=== PATIENT | male | born 1950 | race Hispanic/Latino ===

== ENCOUNTER 2016-10-13 07:07 | Emergency (ER) | payer SELFPAY ==
[2016-10-13 07:18] VITALS: BP 134/95
[2016-10-13] MEDS ORDERED: FLEXERIL PO ONE (07:49)
--- NOTE | 2016-10-13 08:24 | Emergency Department Report ---
ED Neck Pain/Injury HPI - General Chief Complaint: Extremity Injury, Upper Stated Complaint: NECK AND SHOULDER PAIN Time Seen by Provider: 10/13/16 07:37 Source: patient, family Mode of arrival: Ambulatory Limitations: No Limitations - History of Present Illness Initial Comments: PT c/o neck pain x 1 month. PT states both sides of his neck hurt and the pain radiates down into his shoulders. PT states prior to the onset of pain, he was moving around furniture. PT rates his current pain at 3/10. PT states he has been taking advil twice a day and using biofreeze. PT reports mild relief with advil. PT denies any weakness or numbness down his upper ext. MD Complaint: neck pain Onset/Timin -: Gradual, month(s) Place: home Radiation: right lateral, left lateral, right shoulder, left shoulder Severity: moderate Severity scale (0 -10): 3 Quality: sharp Consistency: constant Context: lifting Associated Symptoms: none. denies: numbness, tingling, weakness, difficulty walking Treatments Prior to Arrival: Ibuprofen - Related Data Home Medications Medication Instructions Recorded Confirmed Last Taken amLODIPine [Norvasc] 5 mg PO DAILY 11/03/15 11/03/15 11/02/15 Previous Rx's Medication Instructions Recorded Last Taken Type Folic Acid 1 tab PO QDAY #30 tab 11/04/15 Unknown Rx Multivitamin Tab [Multiple Vitamin 1 each PO ONCE #30 tablet 11/04/15 Unknown Rx TAB (Theragran)] Thiamine [Vitamin B-1] 100 mg PO QDAY #30 tablet 11/04/15 Unknown Rx Cyclobenzaprine [Flexeril] 10 mg PO BID PRN #15 tablet 10/13/16 Unknown Rx Ibuprofen [Motrin] 600 mg PO Q8H PRN #15 tablet 10/13/16 Unknown Rx Allergies Allergy/AdvReac Type Severity Reaction Status Date / Time No Known Allergies Allergy Verified 11/03/15 11:16 ED Review of Systems ROS: Stated complaint: NECK AND SHOULDER PAIN Other details as noted in HPI Comment: All other systems reviewed and negative Constitutional: denies: chills, fever Respiratory: other (pt states he had bronchitis a few months ago ). denies: cough, shortness of breath Cardiovascular: denies: chest pain Endocrine: denies: unexplained weight loss Gastrointestinal: denies: abdominal pain Musculoskeletal: as per HPI ED Past Medical Hx - Past Medical History Hx Hypertension: Yes Hx Congestive Heart Failure: No Hx Diabetes: No Hx Asthma: No Hx COPD: No - Surgical History Past Surgical History?: No - Social History Smoking Status: Current Every Day Smoker Substance Use Type: Alcohol - Medications Home Medications: Home Medications Medication Instructions Recorded Confirmed Last Taken Type amLODIPine [Norvasc] 5 mg PO DAILY 11/03/15 11/03/15 11/02/15 History Folic Acid 1 tab PO QDAY #30 tab 11/04/15 Unknown Rx Multivitamin Tab [Multiple Vitamin 1 each PO ONCE #30 tablet 11/04/15 Unknown Rx TAB (Theragran)] Thiamine [Vitamin B-1] 100 mg PO QDAY #30 tablet 11/04/15 Unknown Rx Cyclobenzaprine [Flexeril] 10 mg PO BID PRN #15 tablet 10/13/16 Unknown Rx Ibuprofen [Motrin] 600 mg PO Q8H PRN #15 tablet 10/13/16 Unknown Rx ED Physical Exam - General Limitations: No Limitations General appearance: alert, in no apparent distress, other (thin ) - Head Head exam: Present: atraumatic, normocephalic, normal inspection - Eye Eye exam: Present: normal appearance. Absent: conjunctival injection - ENT ENT exam: Present: normal exam, normal external ear exam - Neck Neck exam: Present: normal inspection, tenderness, other (decreased lateral rotation [place]. tendernes to [place] paraspinal muscles and trapezius ). Absent: full ROM, lymphadenopathy - Respiratory Respiratory exam: Present: other (course [place] ). Absent: respiratory distress, wheezes, accessory muscle use - Cardiovascular Cardiovascular Exam: Present: regular rate, normal rhythm, normal heart sounds - GI/Abdominal GI/Abdominal exam: Present: soft. Absent: tenderness - Extremities Exam Extremities exam: Present: normal inspection, full ROM, normal capillary refill. Absent: tenderness, joint swelling - Expanded Upper Extremity Exam Left Shoulder Exam: Present: normal inspection, full ROM Upper Arm exam: Present: normal inspection Elbow exam: Present: normal inspection, full ROM Forearm Wrist exam: Present: normal inspection, full ROM Hand Wrist exam: Present: normal inspection, full ROM Neurosensory exam: Present: radial nerve intact, ulnar nerve intact Vascular: Present: normal capillary refill, radial pulse. Absent: vascular compromise Right Shoulder Exam: Present: normal inspection, full ROM Upper Arm exam: Present: normal inspection, full ROM Elbow exam: Present: normal inspection, full ROM Forearm Wrist exam: Present: normal inspection, full ROM Hand Wrist exam: Present: normal inspection, full ROM Neurosensory exam: Present: radial nerve intact, ulnar nerve intact Vascular: Present: normal capillary refill, radial pulse. Absent: vascular compromise - Back Exam Back exam: Present: normal inspection, full ROM. Absent: tenderness, CVA tenderness (R), CVA tenderness (L), muscle spasm, paraspinal tenderness, vertebral tenderness - Neurological Exam Neurological exam: Present: alert, oriented X3 - Psychiatric Psychiatric exam: Present: normal affect, normal mood - Skin Skin exam: Present: warm, dry, intact, normal color. Absent: rash ED Course Vital Signs 10/13/16 07:16 Temperature 98 F Pulse Rate 92 H Respiratory 16 Rate Blood Pressure 134/95 O2 Sat by Pulse 99 Oximetry - Reevaluation(s) Reevaluation #1: 10/13/16 09:46 PT states he is feeling better sp Flexeril. PT and his are aware of abnormal XR findings and need to follow up with a Neurosurgeon. PT aware he might need further outpatient imaging like MRI to further evaluate his cervical spine. PT's states that pt will able to follow up in Dec once his medicare goes into effect. Reviewed strict return precautions. pt has no questions at this time. - Pulse Oximetry Interpretation Digit-Finger Initial Pulse Oximetry Readin Actions Taken: none ED Medical Decision Making - Radiology Data Radiology results: report reviewed, image reviewed XR C-spine- severe DDD - Differential Diagnosis cervical rad, oa, ddd, strain Critical Care Time: No Critical care attestation.: If time is entered above; I have spent that time in minutes in the direct care of this critically ill patient, excluding procedure time. ED Disposition Clinical Impression: DDD (degenerative disc disease), cervical, Cervical radiculopathy Disposition: - TO HOME OR SELFCARE Is pt being admited?: No Does the pt Need Aspirin: No Condition: Stable Instructions: Cervical Spine Strain (ED), Cervical Radiculopathy (ED), Degenerative Disc Disease (ED) Additional Instructions: No driving or ETOH after taking Flexeril Follow up with Neurosurgery Prescriptions: Cyclobenzaprine [Flexeril] 10 mg PO BID PRN #15 tablet PRN Reason: Pain Ibuprofen [Motrin] 600 mg PO Q8H PRN #15 tablet PRN Reason: Pain Referrals: PRIMARY CARE, [Primary Care Provider] - 3-5 Days BYRON MATAMOROS JR, MD [Staff Physician] - 3-5 Days [facility] [Outside] - 3-5 Days [facility] [Outside] - 3-5 Days HIRO GRACE MD [Staff Physician] - 3-5 Days Time of Disposition: 09:51
--- NOTE | 2016-10-13 09:27 | XRay Report ---
FINAL REPORT EXAM: XR SPINE CERVICAL 2-3V HISTORY: pain x 1 month after moving furniture TECHNIQUE: 3 views of the cervical spine. PRIORS: None FINDINGS: Multilevel degenerative changes. Disc space narrowing and endplate osteophytes from C3-T1. Facet arthrosis throughout the cervical spine. No focal malalignment. No soft tissue swelling. Carotid bifurcation calcifications on the left. IMPRESSION: 1. Degenerative changes.
== END 2016-10-13 10:00 | disposition home or self-care (01) ==
LOC: ED 07:07
DX: M50.10 Cervical disc disorder with radiculopathy, unspecified cervical region (principal); I10 Essential (primary) hypertension; F17.210 Nicotine dependence, cigarettes, uncomplicated
CPT/HCPCS: 72040; 99283

== ENCOUNTER 2021-01-30 12:03 | Emergency (ER) | payer MEDICARE, OTHER ==
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
[2021-01-30 13:18] LABS: Basophils # (Auto) 0.1 K/mm3 (0.0-0.1); Basophils % (Auto) 0.6 % (0.0-1.8); Eosinophils # (Auto) 0.2 K/mm3 (0.0-0.4); Eosinophils % (Auto) 1.5 % (0.0-4.3); Hematocrit 40.9 % (35.5-45.6); Hemoglobin 13.9 gm/dl (11.8-15.2); Lymphocytes # (Auto) 2.1 K/mm3 (1.2-5.4); Lymphocytes % (Auto) 19.2 % (13.4-35.0); Mean Corpuscular HGB Conc 34 % (32-34); Mean Corpuscular Volume 99 fl (84-94); Monocytes # (Auto) 1.1 K/mm3 (0.0-0.8); Monocytes % (Auto) 10.3 % (0.0-7.3); Platelet Count 226 K/mm3 (140-440); Red Blood Count 4.11 M/mm3 (3.65-5.03); Red Cell Distribution Width 13.1 % (13.2-15.2)
[2021-01-30 13:27] LABS: INR 0.93 (0.87-1.13)
[2021-01-30 13:28] LABS: Partial Thromboplastin Time 27.5 Sec. (24.2-36.6)
[2021-01-30 13:37] LABS: Alanine Aminotransferase 52 units/L (7-56); Albumin 4.5 g/dL (3.9-5); Blood Urea Nitrogen 14 mg/dL (9-20); Calcium 8.8 mg/dL (8.4-10.2); Hemolysis Index 4
[2021-01-30 14:08] LABS: BUN/Creatinine Ratio 23
[2021-01-30] MEDS ORDERED: LACTATED RINGERS 1,000 ML IV ONE ×3 (14:10→18:43)
[2021-01-30 14:21] LABS: Amphetamine Screen,Urine Negative; Benzodiazepines Screen,Urine Negative; Cannabinoid Screen,Urine Negative; Cocaine Screen,Urine Negative; Methadone Screen,Urine Negative; Opiate Screen,Urine Negative
[2021-01-30] MEDS ORDERED: LIDOCAINE (1%) 10 MG/1 ML VIAL 20 ML MDV INFILTRATI ONE (15:00)
[2021-01-30] MEDS ORDERED: SODIUM CHLORIDE 0.9% IRR 500 ML BOTTLE IR ONE (15:04)
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
[2021-01-30] MEDS ORDERED: SODIUM CHLORIDE 0.9% 500 ML 500 ML IV ONE (17:41)
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
[2021-01-30] MEDS ORDERED: ONDANSETRON 4 MG/2 ML INJ IV ONE (18:43)
[2021-01-30 19:16] VITALS: BP 126/92
== END 2021-01-30 19:17 ==
LOC: ED 12:03
DX: S22.42XA Multiple fractures of ribs, left side, initial encounter for closed fracture (principal); S22.20XA Unspecified fracture of sternum, initial encounter for closed fracture; S42.002A Fracture of unspecified part of left clavicle, initial encounter for closed fracture; S36.029A Unspecified contusion of spleen, initial encounter; F10.129 Alcohol abuse with intoxication, unspecified; J93.9 Pneumothorax, unspecified; Z87.891 Personal history of nicotine dependence; I10 Essential (primary) hypertension; V47.0XXA Car driver injured in collision with fixed or stationary object in nontraffic accident, initial encounter; Y93.89 Activity, other specified; Y92.89 Other specified places as the place of occurrence of the external cause; Y99.8 Other external cause status
CPT/HCPCS: 32551; 36415; 36430; 70450; 71045; 71260; 72125; 73030; 73090; 73502; 74177; 80053; 80307; 82805; 85025; 85610; 85730; 86850; 86900; 86901; 86920; 96360; 96361; 99291; 99292; J2405; J7040; J7120; P9016; Q9967; 80320; G0480

== ENCOUNTER 2021-05-08 15:04 | Inpatient (IN) | payer MEDICARE ==
[2021-05-08] MEDS ORDERED: SODIUM CHLORIDE 0.9% 1000 ML 1,000 ML IV ONE (15:29)
[2021-05-08] MEDS ORDERED: CLINDAMYCIN 600 MG/50 mL 600 MG/50 ML BAG IV ONE (15:30)
[2021-05-08 16:37] LABS: Hematocrit 38.2 % (35.5-45.6); Hemoglobin 12.1 gm/dl (11.8-15.2); Mean Corpuscular HGB Conc 32 % (32-34); Mean Corpuscular Volume 91 fl (84-94); Platelet Count 373 K/mm3 (140-440); Red Blood Count 4.19 M/mm3 (3.65-5.03); Red Cell Distribution Width 15.2 % (13.2-15.2)
[2021-05-08 16:47] LABS: Alanine Aminotransferase 9 units/L (7-56); Albumin 4.2 g/dL (3.9-5); BUN/Creatinine Ratio 26; Blood Urea Nitrogen 21 mg/dL (9-20); Calcium 9.7 mg/dL (8.4-10.2); Hemolysis Index 1
[2021-05-08 16:49] LABS: INR 0.97 (0.87-1.13)
[2021-05-08 17:18] LABS: Band Neutrophils # (Manual) 0.4 K/mm3; Basophils % (Manual) 0 % (0.0-1.8); Eosinophils % (Manual) 0 % (0.0-4.3); Large Platelets Few; Platelet Estimate Consistent w Auto; RBC Morphology Normal; Total Cells Counted 100
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
--- NOTE | 2021-05-08 23:47 | History and Physical Report ---
History of Present Illness Date of examination: 05/08/21 Date of admission: 05/08/21 19:00 Chief complaint: Left renal cell for 3 months History of present illness: 71-year-old male who looks cachectic and a very poor historian comes in for left foot ulcer for 3 months. Patient states that his helps him with mobility to the restroom and other daily activities. Mostly bedridden. Patient has a history of hyperlipidemia and coronary artery disease and hypertension. Patient has rare black also on the heel of the foot on the proximal calcaneus to the distal calcaneus about 6 cm x 6 cm at the stage III ulcer. No fever. Pain is present. Pain is about 6-7 on a scale of 1-10. Movement is an exacerbating factor. - Past Medical History --Hypertension: Yes --CVA: Yes --Arthritis: Yes --Additional medical history: AFIB - Surgical History Past Surgical History?: Yes Additional Surgical History: rt foot - Social History --Smoking Status: Current Every Day Smoker --Substance Use Type: Alcohol - Medications Home Medications: Home Medications Medication Instructions Recorded Confirmed Last Taken Type Aspirin EC [Halfprin EC] 81 mg PO QDAY #30 tablet 06/02/20 05/08/21 Unknown Rx AtorvaSTATin [Lipitor] 40 mg PO QHS #30 tablet 06/02/20 05/08/21 Unknown Rx Clopidogrel [Plavix] 75 mg PO QDAY 20 Days #20 tablet 06/02/20 05/08/21 Unknown Rx labetaloL [Labetalol 100mg TAB] 100 mg PO BID #60 tablet 06/02/20 05/08/21 Unknown Rx Gabapentin [Neurontin] 300 mg PO BID 05/08/21 05/08/21 Unknown History Review of Systems ROS: Stated complaint: Left heel pain Other details as noted in HPI Constitutional: denies: chills, fever Eyes: denies: eye pain, eye discharge, vision change ENT: denies: ear pain, throat pain Respiratory: denies: cough, shortness of breath, wheezing Cardiovascular: denies: chest pain, palpitations Endocrine: no symptoms reported Gastrointestinal: denies: abdominal pain, nausea, diarrhea Genitourinary: denies: urgency, dysuria Musculoskeletal: denies: back pain, joint swelling, arthralgia Skin: denies: rash, lesions Neurological: denies: headache, weakness, paresthesias Psychiatric: denies: anxiety, depression Hematological/Lymphatic: denies: easy bleeding, easy bruising Medications and Allergies Allergies Allergy/AdvReac Type Severity Reaction Status Date / Time No Known Allergies Allergy Verified 05/08/21 15:16 Home Medications Medication Instructions Recorded Confirmed Last Taken Type Aspirin EC [Halfprin EC] 81 mg PO QDAY #30 tablet 06/02/20 05/08/21 Unknown Rx AtorvaSTATin [Lipitor] 40 mg PO QHS #30 tablet 06/02/20 05/08/21 Unknown Rx Clopidogrel [Plavix] 75 mg PO QDAY 20 Days #20 tablet 06/02/20 05/08/21 Unknown Rx labetaloL [Labetalol 100mg TAB] 100 mg PO BID #60 tablet 06/02/20 05/08/21 Unknown Rx Gabapentin [Neurontin] 300 mg PO BID 05/08/21 05/08/21 Unknown History Exam - Constitutional Vitals: Temp Pulse Resp BP Pulse Ox 98.8 F 92 H 20 118/67 98 05/08/21 15:29 05/08/21 22:01 05/08/21 22:01 05/08/21 22:01 05/08/21 22:01 General appearance: Present: no acute distress, well-nourished - EENT Eyes: Present: PERRL ENT: hearing intact, clear oral mucosa - Neck Neck: Present: supple, normal ROM - Respiratory Respiratory effort: normal Respiratory: bilateral: CTA - Cardiovascular Heart rate: 78 Rhythm: regular Heart Sounds: Present: S1 & S2. Absent: rub, click - Extremities Extremities: pulses symmetrical, No edema, abnormal (Left heel ulcer with black eschar on the heel from the proximal calcaneus to the distal calcaneus. 6 cm x 6 cm deep ulcer.) Extremity abnormal: ulceration (Dark ulcer on the heel left heel of the foot), other (Female now) Peripheral Pulses: within normal limits - Abdominal General gastrointestinal: Present: soft, non-tender, non-distended, normal bowel sounds Male genitourinary: Present: normal - Integumentary Integumentary: Present: clear, warm, dry - Musculoskeletal Musculoskeletal: gait normal, strength equal bilaterally - Psychiatric Psychiatric: appropriate mood/affect, intact judgment & insight - Neurologic Neurologic: CNII-XII intact, moves all extremities Results - Labs CBC & Chem 7: 05/08/21 16:04 05/08/21 16:04 Labs: Laboratory Last Values WBC 20.7 K/mm3 (4.5-11.0) H 05/08/21 16:04 RBC 4.19 M/mm3 (3.65-5.03) 05/08/21 16:04 Hgb 12.1 gm/dl (11.8-15.2) 05/08/21 16:04 Hct 38.2 % (35.5-45.6) 05/08/21 16:04 MCV 91 fl (84-94) 05/08/21 16:04 MCH 29 pg (28-32) 05/08/21 16:04 MCHC 32 % (32-34) 05/08/21 16:04 RDW 15.2 % (13.2-15.2) 05/08/21 16:04 Plt Count 373 K/mm3 (140-440) 05/08/21 16:04 Add Manual Diff Complete 05/08/21 16:04 Total Counted 100 05/08/21 16:04 Seg Neuts % (Manual) 87.0 % (40.0-70.0) H 05/08/21 16:04 Band Neutrophils % 2.0 % 05/08/21 16:04 Lymphocytes % (Manual) 5.0 % (13.4-35.0) L 05/08/21 16:04 Reactive Lymphs % (Man) 0 % 05/08/21 16:04 Monocytes % (Manual) 6.0 % (0.0-7.3) 05/08/21 16:04 Eosinophils % (Manual) 0 % (0.0-4.3) 05/08/21 16:04 Basophils % (Manual) 0 % (0.0-1.8) 05/08/21 16:04 Metamyelocytes % 0 % 05/08/21 16:04 Myelocytes % 0 % 05/08/21 16:04 Promyelocytes % 0 % 05/08/21 16:04 Blast Cells % 0 % 05/08/21 16:04 Nucleated RBC % Not Reportable 05/08/21 16:04 Seg Neutrophils # Man 18.0 K/mm3 (1.8-7.7) H 05/08/21 16:04 Band Neutrophils # 0.4 K/mm3 05/08/21 16:04 Lymphocytes # (Manual) 1.0 K/mm3 (1.2-5.4) L 05/08/21 16:04 Abs React Lymphs (Man) 0.0 K/mm3 05/08/21 16:04 Monocytes # (Manual) 1.2 K/mm3 (0.0-0.8) H 05/08/21 16:04 Eosinophils # (Manual) 0.0 K/mm3 (0.0-0.4) 05/08/21 16:04 Basophils # (Manual) 0.0 K/mm3 (0.0-0.1) 05/08/21 16:04 Metamyelocytes # 0.0 K/mm3 05/08/21 16:04 Myelocytes # 0.0 K/mm3 05/08/21 16:04 Promyelocytes # 0.0 K/mm3 05/08/21 16:04 Blast Cells # 0.0 K/mm3 05/08/21 16:04 WBC Morphology Not Reportable 05/08/21 16:04 Hypersegmented Neuts Not Reportable 05/08/21 16:04 Hyposegmented Neuts Not Reportable 05/08/21 16:04 Hypogranular Neuts Not Reportable 05/08/21 16:04 Smudge Cells Not Reportable 05/08/21 16:04 Toxic Granulation Not Reportable 05/08/21 16:04 Toxic Vacuolation Not Reportable 05/08/21 16:04 Dohle Bodies Not Reportable 05/08/21 16:04 Pelger-Huet Anomaly Not Reportable 05/08/21 16:04 Maryann Rods Not Reportable 05/08/21 16:04 Platelet Estimate Consistent w auto 05/08/21 16:04 Clumped Platelets Not Reportable 05/08/21 16:04 Plt Clumps, EDTA Not Reportable 05/08/21 16:04 Large Platelets Few 05/08/21 16:04 Giant Platelets Not Reportable 05/08/21 16:04 Platelet Satelliting Not Reportable 05/08/21 16:04 Plt Morphology Comment Not Reportable 05/08/21 16:04 RBC Morphology Normal 05/08/21 16:04 Dimorphic RBCs Not Reportable 05/08/21 16:04 Polychromasia Not Reportable 05/08/21 16:04 Hypochromasia Not Reportable 05/08/21 16:04 Poikilocytosis Not Reportable 05/08/21 16:04 Anisocytosis Not Reportable 05/08/21 16:04 Microcytosis Not Reportable 05/08/21 16:04 Macrocytosis Not Reportable 05/08/21 16:04 Spherocytes Not Reportable 05/08/21 16:04 Pappenheimer Bodies Not Reportable 05/08/21 16:04 Sickle Cells Not Reportable 05/08/21 16:04 Target Cells Not Reportable 05/08/21 16:04 Tear Drop Cells Not Reportable 05/08/21 16:04 Ovalocytes Not Reportable 05/08/21 16:04 Helmet Cells Not Reportable 05/08/21 16:04 Erazo-Bono Bodies Not Reportable 05/08/21 16:04 Jackson Rings Not Reportable 05/08/21 16:04 Thayer Cells Not Reportable 05/08/21 16:04 Bite Cells Not Reportable 05/08/21 16:04 Crenated Cell Not Reportable 05/08/21 16:04 Elliptocytes Not Reportable 05/08/21 16:04 Acanthocytes (Spur) Not Reportable 05/08/21 16:04 Rouleaux Not Reportable 05/08/21 16:04 Hemoglobin C Crystals Not Reportable 05/08/21 16:04 Schistocytes Not Reportable 05/08/21 16:04 Malaria parasites Not Reportable 05/08/21 16:04 Amari Bodies Not Reportable 05/08/21 16:04 Hem Pathologist Commnt No 05/08/21 16:04 PT 14.0 Sec. (12.2-14.9) 05/08/21 16:04 INR 0.97 (0.87-1.13) 05/08/21 16:04 Sodium 136 mmol/L (137-145) L 05/08/21 16:04 Potassium 4.0 mmol/L (3.6-5.0) 05/08/21 16:04 Chloride 93.8 mmol/L (98-107) L 05/08/21 16:04 Carbon Dioxide 23 mmol/L (22-30) 05/08/21 16:04 Anion Gap 23 mmol/L 05/08/21 16:04 BUN 21 mg/dL (9-20) H 05/08/21 16:04 Creatinine 0.8 mg/dL (0.8-1.3) 05/08/21 16:04 Estimated GFR > 60 ml/min 05/08/21 16:04 BUN/Creatinine Ratio 26 % 05/08/21 16:04 Glucose 123 mg/dL (75-100) H 05/08/21 16:04 Calcium 9.7 mg/dL (8.4-10.2) 05/08/21 16:04 Total Bilirubin 0.50 mg/dL (0.1-1.2) 05/08/21 16:04 AST 19 units/L (5-40) 05/08/21 16:04 ALT 9 units/L (7-56) 05/08/21 16:04 Alkaline Phosphatase 82 units/L (35-129) 05/08/21 16:04 Total Creatine Kinase 274 units/L (55-170) H 05/08/21 16:04 Total Protein 8.0 g/dL (6.3-8.2) 05/08/21 16:04 Albumin 4.2 g/dL (3.9-5) 05/08/21 16:04 Albumin/Globulin Ratio 1.1 % 05/08/21 16:04 - Imaging and Cardiology Imaging and Cardiology: Foot x-ray Soft tissue gas overlying the calcaneus compatible with infection with gas- forming organism. No gross bony destruction in this region. This area is not well evaluated due to the osteopenia and the prominence of the gas. Assessment and Plan Advance Directives: Yes (Full code) VTE prophylaxis?: Chemical Plan of care discussed with patient/family: Yes - Patient Problems (1) Foot osteomyelitis, left Current Visit: Yes Status: Acute Plan to address problem: Presented to me as osteomyelitis of the left calcaneal region. There is a large ulcer with gas in the tissues Patient started on IV Unasyn and IV vancomycin Needs debridement MRI of the foot ordered Orthopedic consult requested More in favor of severely infected ulcer and osteomyelitis to be ruled out (2) Sepsis Current Visit: Yes Status: Acute Qualifiers: Severe sepsis shock status: without septic shock Plan to address problem: High white count of 20,000 IV Unasyn and IV vancomycin (3) CVA (cerebral vascular accident) Current Visit: Yes Status: Chronic Qualifiers: Laterality of affected vessel: unspecified Plan to address problem: Patient is on Plavix (4) PAD (peripheral artery disease) Current Visit: Yes Status: Acute Plan to address problem: Duplex scan requested of both lower extremities Consult vascular surgery if necessary (5) Cachexia Current Visit: Yes Status: Chronic Plan to address problem: Albumin is not low Dietary supplements (6) DVT prophylaxis Current Visit: No Status: Acute
[2021-05-08] MEDS ORDERED: ONDANSETRON 4 MG/2 ML INJ IV PRN (23:52)
[2021-05-08] MEDS ORDERED: METOCLOPRAMIDE 10 MG/2 ML INJ IV PRN (23:52)
[2021-05-09] MEDS ORDERED: VANCOMYCIN PHARMACY TO DOSE IV SCH (01:00)
[2021-05-09] MEDS: GABAPENTIN 300 MG CAP PO SCH ×3 (01:20→22:22)
[2021-05-09] MEDS: AMPICILLIN/SULBACTA 3GM/100ML 3 GM/100 ML BAG IV SCH ×4 (01:35→21:31)
[2021-05-09] MEDS: VANCOMYCIN/NS 1 GM/250 ML 1 GM/250 ML BAG IV ONE ×2 (05:33→21:30)
[2021-05-09] MEDS ORDERED: VANCOMYCIN/NS 1 GM/250 ML 1 GM/250 ML BAG IV ONE (06:00)
--- NOTE | 2021-05-09 10:11 | Electrocardiograph Report ---
[facility] Test Date: 2021-05-08 Test Time: 15:25:31 Pat Name: MARGY MENENDEZ Department: Room: [place] [address] Gender: M File[employer] Developer: ANNA : 1950 Requested By: RUCHI LEWIS Order Number: [id number] Reading MD: Flaquito Greco Measurements Intervals [place] Rate: 138 P: RI: QRS: -80 QRSD: 87 T: 255 QT: 317 QTc: 481 Interpretive Statements Multifocal atrial tachycardia. Ventricular premature complex Aberrant conduction of SV complex(es) LVH with secondary repolarization abnormality No previous ECG available for comparison Electronically Signed On 05-09-2021 10:10:53 EST by Flaquito Greco
--- NOTE | 2021-05-09 10:27 | Vascular Lab Report ---
DUPLEX DOPPLER LOWER EXTREMITY ARTERIAL, BILATERAL INDICATION / CLINICAL INFORMATION: PAD. TECHNIQUE: Arterial duplex examination of both lower extremities performed using B-mode, color flow a nd spectral Doppler assessment. FINDINGS: RIGHT: Common Femoral Artery: PSV 115 cm/sec. Triphasic waveform. Proximal SFA: No flow is identified.. Mid SFA: No flow is identified. Distal SFA: PSV 64 cm/sec. Monophasic waveform. Popliteal artery: PSV 59 cm/sec. Monophasic waveform. Posterior tibial artery: No flow is identified Dorsalis Pedis Artery: PSV 33 cm/sec. Monophasic waveform. LEFT: Common Femoral Artery: PSV 79 cm/sec. Monophasic waveform. Proximal SFA: No flow is identified Mid SFA: No flow is identified Distal SFA: PSV 29 cm/sec. Monophasic waveform. Popliteal artery: PSV 30 cm/sec. Monophasic waveform. Posterior tibial artery: No flow is identified Dorsalis Pedis Artery: PSV 21 cm/sec. Monophasic waveform. ABIs not calculated IMPRESSION: 1. 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 There is reconstitution above the knee. 2. The posterior tibial arteries appear to be occluded bilaterally at the ankle. 3. Monophasic flow in the left common femoral artery is indicative of left iliac disease Ankle-Brachial Index (JEROME): - Calcified arteries > 1.4 - Normal = 0.9-1.4 - Mild PAD = 0.7-0.89 - Moderate PAD = 0.51-0.69 - Severe PAD < 0.5 Doppler Waveform: - Triphasic is normal. - Biphasic is abnormal if clear transition from triphasic signal along vascular tree. - Monophasic is abnormal. Signer Name: Akin Duffy MD Signed: 05/09/2021 10:22 AM Workstation Name: [id number]
[2021-05-09] MEDS: ASPIRIN EC 81 MG TAB PO SCH (11:01)
[2021-05-09] MEDS: CLOPIDOGREL 75 MG TAB PO SCH (11:06)
[2021-05-09 11:28] LABS: Basophils # (Auto) 0.1 K/mm3 (0.0-0.1); Basophils % (Auto) 0.6 % (0.0-1.8); Eosinophils % (Auto) 0.1 % (0.0-4.3); Hematocrit 34.9 % (35.5-45.6); Hemoglobin 11.1 gm/dl (11.8-15.2); Lymphocytes % (Auto) 7.3 % (13.4-35.0); Mean Corpuscular HGB Conc 32 % (32-34); Mean Corpuscular Volume 91 fl (84-94); Monocytes # (Auto) 1.3 K/mm3 (0.0-0.8); Platelet Count 287 K/mm3 (140-440); Red Blood Count 3.85 M/mm3 (3.65-5.03); Red Cell Distribution Width 14.8 % (13.2-15.2)
[2021-05-09 11:49] LABS: Blood Urea Nitrogen 22 mg/dL (9-20); Calcium 9.3 mg/dL (8.4-10.2); Hemolysis Index 4
[2021-05-09 11:57] LABS: BUN/Creatinine Ratio 37
[2021-05-09] MEDS ORDERED: LORazepam 2 MG/ML VIAL IV ONE (12:13)
[2021-05-09] MEDS: HEPARIN 5,000 UNIT/1 ML VIAL SUB-Q SCH ×2 (14:26→22:22)
--- NOTE | 2021-05-09 15:28 | Progress Note ---
Assessment and Plan Assessment and plan: Patient is a 71-year-old male with past medical history of hypertension, previous CVA, arthritis, atrial fibrillation and tobacco dependence who presented with a worsening left heel ulcer over the last 3 months with concerns for chronic osteomyelitis. #Left foot osteomyelitis #Sepsis Imaging revealing large ulcer with gas and underlying tissues. Patient pending MRI of foot for further evaluation of osteomyelitis. Continue IV Unasyn and vancomycin Orthopedic surgery consulted; pending recs Bilateral arterial Dopplers of lower extremities significant for arterial occlusion. Patient will require vascular surgery consult for further evaluation in the setting of possible amputation. Continue to monitor. #COVID-19 infection Positive coronavirus PCR on 05/09/2021 Continue contact and droplet precautions No need to initiate remdesivir or steroids as the patient is saturating well on room air. Continue to monitor. #Prior CVA Continue home Plavix 75 mg daily #Peripheral arterial disease Bilateral arterial Dopplers of lower extremities significant for arterial occlusion. Patient will require vascular surgery consult for further evaluation in the setting of possible amputation. #Protein caloric malnutrition BMI 16.3 Nutrition consulted; pending recs Continue dietary supplementation #Advanced care planning -Disease education conducted, care plan discussed, diagnoses discussed, prognosis discussed, and patient acknowledges understanding with care plan -Time: +30 min Disposition Plan: Continue medical management Total Time Spent with Patient (Minutes): 45 minutes History Interval history: No acute events overnight. Hospitalist Physical - Constitutional Vitals: Temp Pulse Resp BP Pulse Ox 98.8 F 89 18 142/69 97 05/08/21 15:29 05/09/21 11:01 05/09/21 09:01 05/09/21 11:01 05/09/21 09:01 General appearance: Present: no acute distress, well-nourished - EENT Eyes: Present: PERRL, EOM intact ENT: hearing intact, clear oral mucosa, poor dentition, edentulous - Neck Neck: Present: supple, normal ROM - Respiratory Respiratory effort: normal Respiratory: bilateral: CTA - Cardiovascular Rhythm: regular Heart Sounds: Present: S1 & S2 - Extremities Extremities: pulses intact, pulses symmetrical, No edema, normal temperature, normal color, abnormal (Gangrenous ulcer of left heel) Peripheral Pulses: within normal limits - Abdominal General gastrointestinal: soft, non-tender, non-distended, normal bowel sounds - Integumentary Integumentary: Present: clear, warm, dry - Psychiatric Psychiatric: cooperative - Neurologic Neurologic: CNII-XII intact - Allied Health Allied health notes reviewed: nursing Results - Labs CBC & Chem 7: 05/09/21 10:43 05/09/21 10:43 Labs: Laboratory Last Values WBC 13.3 K/mm3 (4.5-11.0) H 05/09/21 10:43 RBC 3.85 M/mm3 (3.65-5.03) 05/09/21 10:43 Hgb 11.1 gm/dl (11.8-15.2) L 05/09/21 10:43 Hct 34.9 % (35.5-45.6) L 05/09/21 10:43 MCV 91 fl (84-94) 05/09/21 10:43 MCH 29 pg (28-32) 05/09/21 10:43 MCHC 32 % (32-34) 05/09/21 10:43 RDW 14.8 % (13.2-15.2) 05/09/21 10:43 Plt Count 287 K/mm3 (140-440) 05/09/21 10:43 Lymph % (Auto) 7.3 % (13.4-35.0) L 05/09/21 10:43 [place] % (Auto) 10.0 % (0.0-7.3) H 05/09/21 10:43 Eos % (Auto) 0.1 % (0.0-4.3) 05/09/21 10:43 Baso % (Auto) 0.6 % (0.0-1.8) 05/09/21 10:43 Lymph # (Auto) 1.0 K/mm3 (1.2-5.4) L 05/09/21 10:43 [place] # (Auto) 1.3 K/mm3 (0.0-0.8) H 05/09/21 10:43 Eos # (Auto) 0.0 K/mm3 (0.0-0.4) 05/09/21 10:43 Baso # (Auto) 0.1 K/mm3 (0.0-0.1) 05/09/21 10:43 Add Manual Diff Complete 05/08/21 16:04 Total Counted 100 05/08/21 16:04 Seg Neutrophils % 82.0 % (40.0-70.0) H 05/09/21 10:43 Seg Neuts % (Manual) 87.0 % (40.0-70.0) H 05/08/21 16:04 Band Neutrophils % 2.0 % 05/08/21 16:04 Lymphocytes % (Manual) 5.0 % (13.4-35.0) L 05/08/21 16:04 Reactive Lymphs % (Man) 0 % 05/08/21 16:04 Monocytes % (Manual) 6.0 % (0.0-7.3) 05/08/21 16:04 Eosinophils % (Manual) 0 % (0.0-4.3) 05/08/21 16:04 Basophils % (Manual) 0 % (0.0-1.8) 05/08/21 16:04 Metamyelocytes % 0 % 05/08/21 16:04 Myelocytes % 0 % 05/08/21 16:04 Promyelocytes % 0 % 05/08/21 16:04 Blast Cells % 0 % 05/08/21 16:04 Nucleated RBC % Not Reportable 05/08/21 16:04 Seg Neutrophils # 10.9 K/mm3 (1.8-7.7) H 05/09/21 10:43 Seg Neutrophils # Man 18.0 K/mm3 (1.8-7.7) H 05/08/21 16:04 Band Neutrophils # 0.4 K/mm3 05/08/21 16:04 Lymphocytes # (Manual) 1.0 K/mm3 (1.2-5.4) L 05/08/21 16:04 Abs React Lymphs (Man) 0.0 K/mm3 05/08/21 16:04 Monocytes # (Manual) 1.2 K/mm3 (0.0-0.8) H 05/08/21 16:04 Eosinophils # (Manual) 0.0 K/mm3 (0.0-0.4) 05/08/21 16:04 Basophils # (Manual) 0.0 K/mm3 (0.0-0.1) 05/08/21 16:04 Metamyelocytes # 0.0 K/mm3 05/08/21 16:04 Myelocytes # 0.0 K/mm3 05/08/21 16:04 Promyelocytes # 0.0 K/mm3 05/08/21 16:04 Blast Cells # 0.0 K/mm3 05/08/21 16:04 WBC Morphology Not Reportable 05/08/21 16:04 Hypersegmented Neuts Not Reportable 05/08/21 16:04 Hyposegmented Neuts Not Reportable 05/08/21 16:04 Hypogranular Neuts Not Reportable 05/08/21 16:04 Smudge Cells Not Reportable 05/08/21 16:04 Toxic Granulation Not Reportable 05/08/21 16:04 Toxic Vacuolation Not Reportable 05/08/21 16:04 Dohle Bodies Not Reportable 05/08/21 16:04 Pelger-Huet Anomaly Not Reportable 05/08/21 16:04 Maryann Rods Not Reportable 05/08/21 16:04 Platelet Estimate Consistent w auto 05/08/21 16:04 Clumped Platelets Not Reportable 05/08/21 16:04 Plt Clumps, EDTA Not Reportable 05/08/21 16:04 Large Platelets Few 05/08/21 16:04 Giant Platelets Not Reportable 05/08/21 16:04 Platelet Satelliting Not Reportable 05/08/21 16:04 Plt Morphology Comment Not Reportable 05/08/21 16:04 RBC Morphology Normal 05/08/21 16:04 Dimorphic RBCs Not Reportable 05/08/21 16:04 Polychromasia Not Reportable 05/08/21 16:04 Hypochromasia Not Reportable 05/08/21 16:04 Poikilocytosis Not Reportable 05/08/21 16:04 Anisocytosis Not Reportable 05/08/21 16:04 Microcytosis Not Reportable 05/08/21 16:04 Macrocytosis Not Reportable 05/08/21 16:04 Spherocytes Not Reportable 05/08/21 16:04 Pappenheimer Bodies Not Reportable 05/08/21 16:04 Sickle Cells Not Reportable 05/08/21 16:04 Target Cells Not Reportable 05/08/21 16:04 Tear Drop Cells Not Reportable 05/08/21 16:04 Ovalocytes Not Reportable 05/08/21 16:04 Helmet Cells Not Reportable 05/08/21 16:04 [place] Bodies Not Reportable 05/08/21 16:04 Carey Rings Not Reportable 05/08/21 16:04 Ralston Cells Not Reportable 05/08/21 16:04 Bite Cells Not Reportable 05/08/21 16:04 Crenated Cell Not Reportable 05/08/21 16:04 Elliptocytes Not Reportable 05/08/21 16:04 Acanthocytes (Spur) Not Reportable 05/08/21 16:04 Rouleaux Not Reportable 05/08/21 16:04 Hemoglobin C Crystals Not Reportable 05/08/21 16:04 Schistocytes Not Reportable 05/08/21 16:04 Malaria parasites Not Reportable 05/08/21 16:04 Amari Bodies Not Reportable 05/08/21 16:04 Hem Pathologist Commnt No 05/08/21 16:04 PT 14.0 Sec. (12.2-14.9) 05/08/21 16:04 INR 0.97 (0.87-1.13) 05/08/21 16:04 Sodium 143 mmol/L (137-145) D 05/09/21 10:43 Potassium 4.4 mmol/L (3.6-5.0) 05/09/21 10:43 Chloride 103.0 mmol/L (98-107) 05/09/21 10:43 Carbon Dioxide 24 mmol/L (22-30) 05/09/21 10:43 Anion Gap 20 mmol/L 05/09/21 10:43 BUN 22 mg/dL (9-20) H 05/09/21 10:43 Creatinine 0.6 mg/dL (0.8-1.3) L 05/09/21 10:43 Estimated GFR > 60 ml/min 05/09/21 10:43 BUN/Creatinine Ratio 37 % 05/09/21 10:43 Glucose 101 mg/dL (75-100) H 05/09/21 10:43 Calcium 9.3 mg/dL (8.4-10.2) 05/09/21 10:43 Total Bilirubin 0.50 mg/dL (0.1-1.2) 05/08/21 16:04 AST 19 units/L (5-40) 05/08/21 16:04 ALT 9 units/L (7-56) 05/08/21 16:04 Alkaline Phosphatase 82 units/L (35-129) 05/08/21 16:04 Total Creatine Kinase 274 units/L (55-170) H 05/08/21 16:04 Total Protein 8.0 g/dL (6.3-8.2) 05/08/21 16:04 Albumin 4.2 g/dL (3.9-5) 05/08/21 16:04 Albumin/Globulin Ratio 1.1 % 05/08/21 16:04 Coronavirus (PCR) Positive (Negative) A 05/09/21 Unknown Active Medications - Current Medications Current Medications: Generic Name Dose Route Start Last Admin Trade Name Freq PRN Reason Stop Dose Admin Acetaminophen 650 mg 05/08/21 23:52 Acetaminophen 325 Mg Tab PO Q4H PRN Pain MILD(1-3)/Fever >100.5/WORLEY Aspirin 81 mg 05/09/21 10:00 05/09/21 11:01 Aspirin Ec 81 Mg Tab PO 81 mg QDAY CARMELITA Administration Atorvastatin Calcium 40 mg 05/09/21 22:00 Atorvastatin 40 Mg Tab PO QHS CARMELITA Clopidogrel Bisulfate 75 mg 05/09/21 10:00 05/09/21 11:06 Clopidogrel 75 Mg Tab PO 75 mg QDAY CARMELITA Administration Gabapentin 300 mg 05/08/21 23:45 05/09/21 11:01 Gabapentin 300 Mg Cap PO 300 mg BID CARMELITA Administration Heparin Sodium (Porcine) 5,000 unit 05/09/21 10:00 05/09/21 14:26 Heparin 5,000 Unit/1 Ml Vial SUB-Q 5,000 unit Q12HR CARMELITA Administration Sodium Chloride 1,000 mls @ 100 mls/hr 05/08/21 23:45 Nacl 0.9% 1000 Ml IV DIRECT CARMELITA Ampicillin Sodium/Sulbactam Sodium 3 gm in 100 mls @ 100 mls/hr 05/09/21 01:00 05/09/21 14:26 Unasyn/Ns 3 Gm/100 Ml IV 100 mls/hr Q6HR CARMELITA Administration Protocol Vancomycin HCl 1 gm in 250 mls @ 167.007 mls/hr 05/10/21 06:00 Vancomycin/Ns 1 Gm/250 Ml IV Q24H CARMELITA Labetalol HCl 100 mg 05/08/21 23:45 05/09/21 11:01 Labetalol 100 Mg Tab PO 100 mg BID CARMELITA Administration Metoclopramide HCl 10 mg 05/08/21 23:52 Metoclopramide 10 Mg/2 Ml Inj IV Q6H PRN Nausea And Vomiting Morphine Sulfate 2 mg 05/08/21 23:52 Morphine 2 Mg/1 Ml Inj IV Q4H PRN Pain, Moderate (4-6) Ondansetron HCl 4 mg 05/08/21 23:52 Ondansetron 4 Mg/2 Ml Inj IV Q8H PRN Nausea And Vomiting Oxycodone/Acetaminophen 1 tab 05/08/21 23:52 Oxycodone /Acetaminophen 5-325mg Tab PO Q6H PRN Pain, Moderate (4-6) Sodium Chloride 10 ml 05/09/21 10:00 05/09/21 14:26 Sodium Chloride 0.9% 10 Ml Flush Syringe IV 10 ml BID CARMELITA Administration Sodium Chloride 10 ml 05/08/21 23:52 Sodium Chloride 0.9% 10 Ml Flush Syringe IV PRN PRN LINE FLUSH Nutrition/Malnutrition Assess - Dietary Evaluation Nutrition/Malnutrition Findings: Nutrition Notes Start: 05/09/21 12:43 Freq: Status: Active Protocol: Document 05/09/21 12:43 ZARIA (Rec: 05/09/21 13:14 ZARIA [id number]) Nutrition Notes Need for Assessment generated from: Low BMI Initial or Follow up Assessment Current Diagnosis Coronary Artery Disease, Diabetes,Hypertension,Stroke, Hyperlipidemia Other Pertinent Diagnosis L-foot osteomyelitis, PAD, Cachexia. Current Diet Regular Diet (since 05/09), D Suppl (05/09). Labs/Tests 05/09: BUN 22, Crea 0.6, Glu 101. Pertinent Medications 05/09: Nutritionally unremarkable. Height 6 ft Weight 54.431 kg [place] Body Weight (kg) 80.90 BMI 16.2 Weight change and time frame None reported at admission. Weight Status Underweight Subjective/Other Information RD consult for Low BMI assessment. No report available on PO intake of meals at the time. Pt presents a necrotic left heel stage III ulcer. Supplement protein to support wound healing processes ordered. Pt's Low BMI seems to correspond to a natural body composition, and not related to a sudden loss of body weight nor chronic malnutrition, since none were mentioned in the Physical Assessment History or the Progress notes. MD request for dietary supplements to support chronic cachexia treatment. Percent of energy/protein needs met: Prescribed Regular Diet provides for energy/protein needs (2,289 Kcal/89 g) during LOS; additionally, Dietary Supplements will compensate for possible Poor PO intake of meals, and will support wound healing processes with 1,240 Kcal and 65 g of protein. Burn Absent Trauma Absent GI Symptoms None Food Allergy No Skin Integrity/Comment necrotic left heel stage III ulcer Minimum of two criteria No #2 Nutrition Diagnosis Inadequate protein-energy intake Etiology Chronic cachexia with normal albumin. As Evidenced by Signs and Symptoms MD request for Dietary supplements. #1 Nutrition Diagnosis Increased nutrient needs ( specify in comment below) Comments: Protein to support wound healing processes. Etiology Osteomyelitis As Evidenced by Signs and Symptoms Pt presents a necrotic left heel stage III ulcer. Is patient on ventilator? No Is Patient Ambulatory and/or Out of Bed No REE-([facility]-confined to bed) 1622.748 Kcal/Kg value to use for calculation 34 Approximate Energy Requirements Using 1851 kcal/Kg Calculation Used for Recommendations Kcal/kg Additional Notes Protein: 1-1.2 g/Kg; 54-65 g/ day. Fluids: 1 ml/Kcal, or as per MD. Nutrition Intervention Change Diet Order: Continue Regular Diet. Add Supplement/Snack (indicate name/kcal 8 fl oz Ensure Enlive; TID. /protein ) 28.8 g pkt Kali; BID. Provides kCal: 1,240 Provides Protein (gm) 65 Goal #1 Support, through dietary supplementation, wound healing processes during LOS. Goal #2 Compensate, through dietary supplementation, for possible poor or insufficient PO intake of meals during LOS. Follow-Up By: 05/16/21 Additional Comments Continue monitoring food tolerance, %PO intake of meals , and BM.
[2021-05-09] MEDS ORDERED: VANCOMYCIN 750 MG in SODIUM CHLORIDE 0.9% 250ML 250 ML IV SCH (18:00)
[2021-05-09] MEDS: SODIUM CHLORIDE 0.9% 1000 ML 1,000 ML IV SCH (22:23)
[2021-05-10] MEDS: AMPICILLIN/SULBACTA 3GM/100ML 3 GM/100 ML BAG IV SCH ×4 (00:50→19:49)
[2021-05-10] MEDS: oxyCODONE /ACETAMINOPHEN 5-325MG TAB PO PRN (06:45)
[2021-05-10] MEDS: VANCOMYCIN/NS 1 GM/250 ML 1 GM/250 ML BAG IV SCH (06:49)
[2021-05-10 08:00] LABS: Basophils % (Auto) 0.2 % (0.0-1.8); Eosinophils % (Auto) 0.1 % (0.0-4.3); Hematocrit 27.7 % (35.5-45.6); Hemoglobin 9.2 gm/dl (11.8-15.2); Lymphocytes # (Auto) 0.9 K/mm3 (1.2-5.4); Lymphocytes % (Auto) 9.5 % (13.4-35.0); Mean Corpuscular HGB Conc 33 % (32-34); Mean Corpuscular Volume 90 fl (84-94); Monocytes # (Auto) 1.1 K/mm3 (0.0-0.8); Monocytes % (Auto) 11.9 % (0.0-7.3); Platelet Count 231 K/mm3 (140-440); Red Blood Count 3.08 M/mm3 (3.65-5.03); Red Cell Distribution Width 14.9 % (13.2-15.2)
[2021-05-10 08:27] LABS: Alanine Aminotransferase 10 units/L (7-56); Albumin 3.1 g/dL (3.9-5); Blood Urea Nitrogen 16 mg/dL (9-20); Hemolysis Index 0
[2021-05-10 08:29] LABS: BUN/Creatinine Ratio 32
[2021-05-10] MEDS: CLOPIDOGREL 75 MG TAB PO SCH (10:46)
[2021-05-10] MEDS: GABAPENTIN 300 MG CAP PO SCH ×2 (10:46→21:34)
[2021-05-10] MEDS: HEPARIN 5,000 UNIT/1 ML VIAL SUB-Q SCH ×2 (10:46→21:34)
[2021-05-10] MEDS: ASPIRIN EC 81 MG TAB PO SCH (10:46)
[2021-05-10] MEDS: ACETAMINOPHEN 325 MG TAB PO PRN (10:47)
--- NOTE | 2021-05-10 13:40 | Consultation ---
History of Present Illness - HPI History of present illness: ORTHO CONSULT Assessment : 1. Non-healing plantar hindfoot ulcer with necrotic surface, LEFT Foot 2. Smaller similar ulcerations plantar forefoot without necrosis Recommendation: 1. Surgical Debridement heel ulcer LEFT foot 2. appropriate antibiotic coverage; 3. STRICT follow-up with wound care center for weekly debridements and dssg changes (consider hyperbaric treatments) Discussion: This is a 71-year-old male who is a poor historian but states he had an injury in January and was treated at [facility], where he was given what appears to have been a walker fracture boot that he states caused the ulcer to develop? This was for a fracture that was treated by the orthopedic service at [facility]? He is not diabetic and work-up for peripheral vascular disease is being processed. Examination shows what appears to be a dysvascular foot with an attitude of slight plantar flexion and a large circular posterior hindfoot necrotic ulcer with minimal fluctuance, minimal pain. Dorsalis pedis pulses not palpable. Are smaller ulcers in the forefoot plantar surface along the metatarsal phalangeal joint area that show similar ulcers with no significant fluctuance or necrotic tissue. X-rays show what appears to be air in the hindfoot adjacent to the calcaneus consistent with abscess/necrosis. There is no foreign body or evidence of a fracture fragment. . Medications and Allergies Allergies Allergy/AdvReac Type Severity Reaction Status Date / Time No Known Allergies Allergy Verified 05/10/21 11:28 Home Medications Medication Instructions Recorded Confirmed Last Taken Type Aspirin EC [Halfprin EC] 81 mg PO QDAY #30 tablet 06/02/20 05/08/21 Unknown Rx AtorvaSTATin [Lipitor] 40 mg PO QHS #30 tablet 06/02/20 05/08/21 Unknown Rx Clopidogrel [Plavix] 75 mg PO QDAY 20 Days #20 tablet 06/02/20 05/08/21 Unknown Rx Gabapentin [Neurontin] 300 mg PO BID 05/08/21 05/08/21 Unknown History labetaloL [Labetalol 100mg TAB] 50 mg PO BID 05/10/21 05/10/21 05/01/21 History Active Meds: Active Medications Acetaminophen (Acetaminophen 325 Mg Tab) 650 mg PO Q4H PRN PRN Reason: Pain MILD(1-3)/Fever >100.5/WORLEY Last Admin: 05/10/21 10:47 Dose: 650 mg Aspirin (Aspirin Ec 81 Mg Tab) 81 mg PO QDAY [facility] Last Admin: 05/10/21 10:46 Dose: 81 mg Atorvastatin Calcium (Atorvastatin 40 Mg Tab) 40 mg PO QHS [facility] Last Admin: 05/09/21 22:22 Dose: 40 mg Clopidogrel Bisulfate (Clopidogrel 75 Mg Tab) 75 mg PO QDAY [facility] Last Admin: 05/10/21 10:46 Dose: 75 mg Gabapentin (Gabapentin 300 Mg Cap) 300 mg PO BID [facility] Last Admin: 05/10/21 10:46 Dose: 300 mg Heparin Sodium (Porcine) (Heparin 5,000 Unit/1 Ml Vial) 5,000 unit SUB-Q Q12HR [facility] Last Admin: 05/10/21 10:46 Dose: 5,000 unit Sodium Chloride (Nacl 0.9% 1000 Ml) 1,000 mls @ 100 mls/hr IV DIRECT [facility] Last Admin: 05/09/21 22:23 Dose: 100 mls/hr Ampicillin Sodium/Sulbactam Sodium (Unasyn/Ns 3 Gm/100 Ml) 3 gm in 100 mls @ 100 mls/hr IV Q6HR [facility]; Protocol Last Admin: 05/10/21 06:42 Dose: 100 mls/hr Vancomycin HCl (Vancomycin/Ns 1 Gm/250 Ml) 1 gm in 250 mls @ 167.007 mls/hr IV Q24H [facility] Last Admin: 05/10/21 06:49 Dose: 167.007 mls/hr Labetalol HCl (Labetalol 100 Mg Tab) 100 mg PO BID [facility] Last Admin: 05/10/21 10:46 Dose: 100 mg Metoclopramide HCl (Metoclopramide 10 Mg/2 Ml Inj) 10 mg IV Q6H PRN PRN Reason: Nausea And Vomiting Morphine Sulfate (Morphine 2 Mg/1 Ml Inj) 2 mg IV Q4H PRN PRN Reason: Pain, Moderate (4-6) Ondansetron HCl (Ondansetron 4 Mg/2 Ml Inj) 4 mg IV Q8H PRN PRN Reason: Nausea And Vomiting Oxycodone/Acetaminophen (Oxycodone /Acetaminophen 5-325mg Tab) 1 tab PO Q6H PRN PRN Reason: Pain, Moderate (4-6) Last Admin: 05/10/21 06:45 Dose: 1 tab Sodium Chloride (Sodium Chloride 0.9% 10 Ml Flush Syringe) 10 ml IV BID [facility] Last Admin: 05/10/21 10:47 Dose: 10 ml Sodium Chloride (Sodium Chloride 0.9% 10 Ml Flush Syringe) 10 ml IV PRN PRN PRN Reason: LINE FLUSH
[2021-05-10] MEDS: MORPHINE 2 MG/1 ML INJ IV PRN (14:06)
--- NOTE | 2021-05-10 14:52 | Progress Note ---
Assessment and Plan Assessment and plan: Patient is a 71-year-old male with past medical history of hypertension, previous CVA, arthritis, atrial fibrillation and tobacco dependence who presented with a worsening left heel ulcer over the last 3 months with concerns for chronic osteomyelitis. #Left foot chronic osteomyelitis #Sepsis #Bilateral posterior tibial artery occlusion #Peripheral arterial disease Imaging revealing large ulcer with gas and underlying tissues. Patient pending MRI of foot for further evaluation of osteomyelitis. Continue IV Unasyn and vancomycin Orthopedic surgery consulted; appreciate recs. Planned debridement in the AM. Will be NPO at midnight. Bilateral arterial Dopplers of lower extremities significant for arterial occlusion (bilateral occlusion of posterior tibial arteries). Vascular surgery consulted; pending recs - Physical Therapy consulted; pending recs Continue to monitor. #COVID-19 infection Positive coronavirus PCR on 05/09/2021 Continue contact and droplet precautions No need to initiate remdesivir or steroids as the patient is saturating well on room air. Continue to monitor. #Prior CVA Continue home Plavix 75 mg daily #Protein caloric malnutrition BMI 16.3 Nutrition consulted; pending recs Continue dietary supplementation #Advanced care planning -Disease education conducted, care plan discussed, diagnoses discussed, prognosis discussed, and patient acknowledges understanding with care plan -Time: +30 min Disposition Plan: Continue medical management Total Time Spent with Patient (Minutes): 45 min History Interval history: No acute events overnight. Hospitalist Physical - Constitutional Vitals: Temp Pulse Resp BP Pulse Ox 98.2 F 84 18 123/58 2 L 05/10/21 01:42 05/10/21 10:46 05/10/21 02:22 05/10/21 10:46 05/10/21 02:22 General appearance: Present: no acute distress, cachectic, disheveled - EENT Eyes: Present: PERRL, EOM intact ENT: hearing intact, poor dentition, edentulous - Neck Neck: Present: supple, normal ROM - Respiratory Respiratory effort: normal Respiratory: bilateral: diminished - Cardiovascular Rhythm: regular Heart Sounds: Present: S1 & S2 - Extremities Extremities: pulses intact, pulses symmetrical, No edema, normal temperature, Full ROM Extremity abnormal: black (eschar on L heel with surrounding erythema) Peripheral Pulses: within normal limits - Abdominal General gastrointestinal: soft, non-tender, non-distended, normal bowel sounds - Integumentary Integumentary: Present: clear, warm, dry - Psychiatric Psychiatric: appropriate mood/affect, memory intact, cooperative - Neurologic Neurologic: CNII-XII intact, moves all extremities - Allied Health Allied health notes reviewed: nursing Results - Labs CBC & Chem 7: 05/10/21 07:12 05/10/21 07:12 Labs: Laboratory Last Values WBC 9.1 K/mm3 (4.5-11.0) 05/10/21 07:12 RBC 3.08 M/mm3 (3.65-5.03) L 05/10/21 07:12 Hgb 9.2 gm/dl (11.8-15.2) L 05/10/21 07:12 Hct 27.7 % (35.5-45.6) L D 05/10/21 07:12 MCV 90 fl (84-94) 05/10/21 07:12 MCH 30 pg (28-32) 05/10/21 07:12 MCHC 33 % (32-34) 05/10/21 07:12 RDW 14.9 % (13.2-15.2) 05/10/21 07:12 Plt Count 231 K/mm3 (140-440) 05/10/21 07:12 Lymph % (Auto) 9.5 % (13.4-35.0) L 05/10/21 07:12 Bradley % (Auto) 11.9 % (0.0-7.3) H 05/10/21 07:12 Eos % (Auto) 0.1 % (0.0-4.3) 05/10/21 07:12 Baso % (Auto) 0.2 % (0.0-1.8) 05/10/21 07:12 Lymph # (Auto) 0.9 K/mm3 (1.2-5.4) L 05/10/21 07:12 Bradley # (Auto) 1.1 K/mm3 (0.0-0.8) H 05/10/21 07:12 Eos # (Auto) 0.0 K/mm3 (0.0-0.4) 05/10/21 07:12 Baso # (Auto) 0.0 K/mm3 (0.0-0.1) 05/10/21 07:12 Add Manual Diff Complete 05/08/21 16:04 Total Counted 100 05/08/21 16:04 Seg Neutrophils % 78.3 % (40.0-70.0) H 05/10/21 07:12 Seg Neuts % (Manual) 87.0 % (40.0-70.0) H 05/08/21 16:04 Band Neutrophils % 2.0 % 05/08/21 16:04 Lymphocytes % (Manual) 5.0 % (13.4-35.0) L 05/08/21 16:04 Reactive Lymphs % (Man) 0 % 05/08/21 16:04 Monocytes % (Manual) 6.0 % (0.0-7.3) 05/08/21 16:04 Eosinophils % (Manual) 0 % (0.0-4.3) 05/08/21 16:04 Basophils % (Manual) 0 % (0.0-1.8) 05/08/21 16:04 Metamyelocytes % 0 % 05/08/21 16:04 Myelocytes % 0 % 05/08/21 16:04 Promyelocytes % 0 % 05/08/21 16:04 Blast Cells % 0 % 05/08/21 16:04 Nucleated RBC % Not Reportable 05/08/21 16:04 Seg Neutrophils # 7.1 K/mm3 (1.8-7.7) 05/10/21 07:12 Seg Neutrophils # Man 18.0 K/mm3 (1.8-7.7) H 05/08/21 16:04 Band Neutrophils # 0.4 K/mm3 05/08/21 16:04 Lymphocytes # (Manual) 1.0 K/mm3 (1.2-5.4) L 05/08/21 16:04 Abs React Lymphs (Man) 0.0 K/mm3 05/08/21 16:04 Monocytes # (Manual) 1.2 K/mm3 (0.0-0.8) H 05/08/21 16:04 Eosinophils # (Manual) 0.0 K/mm3 (0.0-0.4) 05/08/21 16:04 Basophils # (Manual) 0.0 K/mm3 (0.0-0.1) 05/08/21 16:04 Metamyelocytes # 0.0 K/mm3 05/08/21 16:04 Myelocytes # 0.0 K/mm3 05/08/21 16:04 Promyelocytes # 0.0 K/mm3 05/08/21 16:04 Blast Cells # 0.0 K/mm3 05/08/21 16:04 WBC Morphology Not Reportable 05/08/21 16:04 Hypersegmented Neuts Not Reportable 05/08/21 16:04 Hyposegmented Neuts Not Reportable 05/08/21 16:04 Hypogranular Neuts Not Reportable 05/08/21 16:04 Smudge Cells Not Reportable 05/08/21 16:04 Toxic Granulation Not Reportable 05/08/21 16:04 Toxic Vacuolation Not Reportable 05/08/21 16:04 Dohle Bodies Not Reportable 05/08/21 16:04 Pelger-Huet Anomaly Not Reportable 05/08/21 16:04 Maryann Rods Not Reportable 05/08/21 16:04 Platelet Estimate Consistent w auto 05/08/21 16:04 Clumped Platelets Not Reportable 05/08/21 16:04 Plt Clumps, EDTA Not Reportable 05/08/21 16:04 Large Platelets Few 05/08/21 16:04 Giant Platelets Not Reportable 05/08/21 16:04 Platelet Satelliting Not Reportable 05/08/21 16:04 Plt Morphology Comment Not Reportable 05/08/21 16:04 RBC Morphology Normal 05/08/21 16:04 Dimorphic RBCs Not Reportable 05/08/21 16:04 Polychromasia Not Reportable 05/08/21 16:04 Hypochromasia Not Reportable 05/08/21 16:04 Poikilocytosis Not Reportable 05/08/21 16:04 Anisocytosis Not Reportable 05/08/21 16:04 Microcytosis Not Reportable 05/08/21 16:04 Macrocytosis Not Reportable 05/08/21 16:04 Spherocytes Not Reportable 05/08/21 16:04 Pappenheimer Bodies Not Reportable 05/08/21 16:04 Sickle Cells Not Reportable 05/08/21 16:04 Target Cells Not Reportable 05/08/21 16:04 Tear Drop Cells Not Reportable 05/08/21 16:04 Ovalocytes Not Reportable 05/08/21 16:04 Helmet Cells Not Reportable 05/08/21 16:04 [place] Bodies Not Reportable 05/08/21 16:04 [place] Rings Not Reportable 05/08/21 16:04 Bonnie Cells Not Reportable 05/08/21 16:04 Bite Cells Not Reportable 05/08/21 16:04 Crenated Cell Not Reportable 05/08/21 16:04 Elliptocytes Not Reportable 05/08/21 16:04 Acanthocytes (Spur) Not Reportable 05/08/21 16:04 Rouleaux Not Reportable 05/08/21 16:04 Hemoglobin C Crystals Not Reportable 05/08/21 16:04 Schistocytes Not Reportable 05/08/21 16:04 Malaria parasites Not Reportable 05/08/21 16:04 Amari Bodies Not Reportable 05/08/21 16:04 Hem Pathologist Commnt No 05/08/21 16:04 PT 14.0 Sec. (12.2-14.9) 05/08/21 16:04 INR 0.97 (0.87-1.13) 05/08/21 16:04 Sodium 137 mmol/L (137-145) 05/10/21 07:12 Potassium 3.2 mmol/L (3.6-5.0) L D 05/10/21 07:12 Chloride 101.3 mmol/L (98-107) 05/10/21 07:12 Carbon Dioxide 22 mmol/L (22-30) 05/10/21 07:12 Anion Gap 17 mmol/L 05/10/21 07:12 BUN 16 mg/dL (9-20) 05/10/21 07:12 Creatinine 0.5 mg/dL (0.8-1.3) L 05/10/21 07:12 Estimated GFR > 60 ml/min 05/10/21 07:12 BUN/Creatinine Ratio 32 % 05/10/21 07:12 Glucose 82 mg/dL (75-100) 05/10/21 07:12 Calcium 8.0 mg/dL (8.4-10.2) L 05/10/21 07:12 Total Bilirubin 0.20 mg/dL (0.1-1.2) 05/10/21 07:12 AST 26 units/L (5-40) 05/10/21 07:12 ALT 10 units/L (7-56) 05/10/21 07:12 Alkaline Phosphatase 58 units/L (35-129) 05/10/21 07:12 Total Creatine Kinase 274 units/L (55-170) H 05/08/21 16:04 Total Protein 5.8 g/dL (6.3-8.2) L D 05/10/21 07:12 Albumin 3.1 g/dL (3.9-5) L 05/10/21 07:12 Albumin/Globulin Ratio 1.1 % 05/10/21 07:12 Coronavirus (PCR) Positive (Negative) A 05/09/21 Unknown Rg/IV: Voiding Method Urinal Active Medications - Current Medications Current Medications: Generic Name Dose Route Start Last Admin Trade Name Freq PRN Reason Stop Dose Admin Acetaminophen 650 mg 05/08/21 23:52 05/10/21 10:47 Acetaminophen 325 Mg Tab PO 650 mg Q4H PRN Administration Pain MILD(1-3)/Fever >100.5/WORLEY Aspirin 81 mg 05/09/21 10:00 05/10/21 10:46 Aspirin Ec 81 Mg Tab PO 81 mg QDAY CARMELITA Administration Atorvastatin Calcium 40 mg 05/09/21 22:00 05/09/21 22:22 Atorvastatin 40 Mg Tab PO 40 mg QHS CARMELITA Administration Clopidogrel Bisulfate 75 mg 05/09/21 10:00 05/10/21 10:46 Clopidogrel 75 Mg Tab PO 75 mg QDAY CARMELITA Administration Gabapentin 300 mg 05/08/21 23:45 05/10/21 10:46 Gabapentin 300 Mg Cap PO 300 mg BID CARMELITA Administration Heparin Sodium (Porcine) 5,000 unit 05/09/21 10:00 05/10/21 10:46 Heparin 5,000 Unit/1 Ml Vial SUB-Q 5,000 unit Q12HR CARMELITA Administration Sodium Chloride 1,000 mls @ 100 mls/hr 05/08/21 23:45 05/09/21 22:23 Nacl 0.9% 1000 Ml IV 100 mls/hr DIRECT CARMELITA Administration Ampicillin Sodium/Sulbactam Sodium 3 gm in 100 mls @ 100 mls/hr 05/09/21 01:00 05/10/21 06:42 Unasyn/Ns 3 Gm/100 Ml IV 100 mls/hr Q6HR CARMELITA Administration Protocol Vancomycin HCl 1 gm in 250 mls @ 167.007 mls/hr 05/10/21 06:00 05/10/21 06:49 Vancomycin/Ns 1 Gm/250 Ml IV 167.007 mls/hr Q24H CARMELITA Administration Labetalol HCl 100 mg 05/08/21 23:45 05/10/21 10:46 Labetalol 100 Mg Tab PO 100 mg BID CARMELITA Administration Metoclopramide HCl 10 mg 05/08/21 23:52 Metoclopramide 10 Mg/2 Ml Inj IV Q6H PRN Nausea And Vomiting Morphine Sulfate 2 mg 05/08/21 23:52 05/10/21 14:06 Morphine 2 Mg/1 Ml Inj IV 2 mg Q4H PRN Administration Pain, Moderate (4-6) Ondansetron HCl 4 mg 05/08/21 23:52 Ondansetron 4 Mg/2 Ml Inj IV Q8H PRN Nausea And Vomiting Oxycodone/Acetaminophen 1 tab 05/08/21 23:52 05/10/21 06:45 Oxycodone /Acetaminophen 5-325mg Tab PO 1 tab Q6H PRN Administration Pain, Moderate (4-6) Sodium Chloride 10 ml 05/09/21 10:00 05/10/21 10:47 Sodium Chloride 0.9% 10 Ml Flush Syringe IV 10 ml BID CARMELITA Administration Sodium Chloride 10 ml 05/08/21 23:52 Sodium Chloride 0.9% 10 Ml Flush Syringe IV PRN PRN LINE FLUSH Nutrition/Malnutrition Assess - Dietary Evaluation Nutrition/Malnutrition Findings: Nutrition Notes Start: 05/09/21 12:43 Freq: Status: Active Protocol: Document 05/09/21 12:43 ZARIA (Rec: 05/09/21 13:14 ZARIA [id number]) Nutrition Notes Need for Assessment generated from: Low BMI Initial or Follow up Assessment Current Diagnosis Coronary Artery Disease, Diabetes,Hypertension,Stroke, Hyperlipidemia Other Pertinent Diagnosis L-foot osteomyelitis, PAD, Cachexia. Current Diet Regular Diet (since 05/09), D Suppl (05/09). Labs/Tests 05/09: BUN 22, Crea 0.6, Glu 101. Pertinent Medications 05/09: Nutritionally unremarkable. Height 6 ft Weight 54.431 kg [place] Body Weight (kg) 80.90 BMI 16.2 Weight change and time frame None reported at admission. Weight Status Underweight Subjective/Other Information RD consult for Low BMI assessment. No report available on PO intake of meals at the time. Pt presents a necrotic left heel stage III ulcer. Supplement protein to support wound healing processes ordered. Pt's Low BMI seems to correspond to a natural body composition, and not related to a sudden loss of body weight nor chronic malnutrition, since none were mentioned in the Physical Assessment History or the Progress notes. MD request for dietary supplements to support chronic cachexia treatment. Percent of energy/protein needs met: Prescribed Regular Diet provides for energy/protein needs (2,289 Kcal/89 g) during LOS; additionally, Dietary Supplements will compensate for possible Poor PO intake of meals, and will support wound healing processes with 1,240 Kcal and 65 g of protein. Burn Absent Trauma Absent GI Symptoms None Food Allergy No Skin Integrity/Comment necrotic left heel stage III ulcer Minimum of two criteria No #2 Nutrition Diagnosis Inadequate protein-energy intake Etiology Chronic cachexia with normal albumin. As Evidenced by Signs and Symptoms MD request for Dietary supplements. #1 Nutrition Diagnosis Increased nutrient needs ( specify in comment below) Comments: Protein to support wound healing processes. Etiology Osteomyelitis As Evidenced by Signs and Symptoms Pt presents a necrotic left heel stage III ulcer. Is patient on ventilator? No Is Patient Ambulatory and/or Out of Bed No REE-([facility]-confined to bed) 1622.748 Kcal/Kg value to use for calculation 34 Approximate Energy Requirements Using 1851 kcal/Kg Calculation Used for Recommendations Kcal/kg Additional Notes Protein: 1-1.2 g/Kg; 54-65 g/ day. Fluids: 1 ml/Kcal, or as per MD. Nutrition Intervention Change Diet Order: Continue Regular Diet. Add Supplement/Snack (indicate name/kcal 8 fl oz Ensure Enlive; TID. /protein ) 28.8 g pkt Kali; BID. Provides kCal: 1,240 Provides Protein (gm) 65 Goal #1 Support, through dietary supplementation, wound healing processes during LOS. Goal #2 Compensate, through dietary supplementation, for possible poor or insufficient PO intake of meals during LOS. Follow-Up By: 05/16/21 Additional Comments Continue monitoring food tolerance, %PO intake of meals , and BM.
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
--- NOTE | 2021-05-10 16:54 | Magnetic Resonance Report ---
MRI LEFT ANKLE WITHOUT CONTRAST INDICATION / CLINICAL INFORMATION: Left foot ulcer. TECHNIQUE: Multiplanar, multisequence MR images were obtained. COMPARISON: Left foot x-rays on 05/08/2021 FINDINGS: ACHILLES TENDON: Mild distal Achilles tendinosis. PLANTAR FASCIA: No significant abnormality. POSTERIOR TIBIAL TENDON: No significant abnormality. FLEXOR DIGITORUM LONGUS TENDON: No significant abnormality. FLEXOR HALLUCIS LONGUS TENDON: No significant abnormality. PERONEAL TENDONS: No significant abnormality. EXTENSOR TENDONS: No significant abnormality. ANTERIOR TALOFIBULAR LIGAMENT: No significant abnormality. POSTERIOR TALOFIBULAR LIGAMENT: No significant abnormality. ANTERIOR TIBIOFIBULAR LIGAMENT: No significant abnormality. POSTERIOR TIBIOFIBULAR LIGAMENT: No significant abnormality. DISTAL TIBIOFIBULAR SYNDESMOSIS: No significant abnormality. CALCANEOFIBULAR LIGAMENT: No significant abnormality. DELTOID LIGAMENT: No significant abnormality. SPRING LIGAMENT: No significant abnormality. TIBIOTALAR ARTICULAR CARTILAGE: No chondrosis or articular cartilage defect. TIBIOTALAR JOINT SPACE: No significant joint effusion or synovitis. No intra-articular bodies. SUBTALAR JOINTS: No significant abnormality. SINUS TARSI: No significant abnormality. TARSAL TUNNEL: No significant abnormality. BONES: Abnormal increased T2 signal and decreased T1 signal in the calcaneal tuberosity. No fracture. No osseous lesion. SUBCUTANEOUS SOFT TISSUES: Extensive soft tissue gas and ulceration in the heel with adjacent edema. No focal fluid collections. ADDITIONAL FINDINGS: None. IMPRESSION: 1. Extensive subcutaneous cellulitis and subcutaneous air in the heel with findings suggesting early osteomyelitis in the calcaneal tuberosity. Signer Name: Frederick Copeland MD Signed: 05/10/2021 4:49 PM Workstation Name: [email or web address]
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
[2021-05-11] MEDS: AMPICILLIN/SULBACTA 3GM/100ML 3 GM/100 ML BAG IV SCH ×4 (00:29→18:56)
[2021-05-11] MEDS: oxyCODONE /ACETAMINOPHEN 5-325MG TAB PO PRN (00:35)
[2021-05-11] MEDS: SODIUM CHLORIDE 0.9% 1000 ML 1,000 ML IV SCH (00:35)
[2021-05-11] MEDS: VANCOMYCIN/NS 1 GM/250 ML 1 GM/250 ML BAG IV SCH (05:02)
[2021-05-11 08:23] LABS: Basophils % (Auto) 0.4 % (0.0-1.8); Eosinophils % (Auto) 0.6 % (0.0-4.3); Hematocrit 28.1 % (35.5-45.6); Hemoglobin 9.2 gm/dl (11.8-15.2); Lymphocytes % (Auto) 19.8 % (13.4-35.0); Mean Corpuscular HGB Conc 33 % (32-34); Mean Corpuscular Volume 90 fl (84-94); Monocytes # (Auto) 0.7 K/mm3 (0.0-0.8); Platelet Count 216 K/mm3 (140-440); Red Blood Count 3.12 M/mm3 (3.65-5.03); Red Cell Distribution Width 14.9 % (13.2-15.2)
[2021-05-11 08:33] LABS: INR 0.89 (0.87-1.13)
[2021-05-11 08:42] LABS: Blood Urea Nitrogen 8 mg/dL (9-20); Calcium 7.6 mg/dL (8.4-10.2); Hemolysis Index 0
[2021-05-11 08:49] LABS: BUN/Creatinine Ratio 20
--- NOTE | 2021-05-11 09:36 | Anesthesia Consultation ---
Anesthesia Consult and Med Hx Date of service: 05/11/21 - Airway Anesthetic Teeth Evaluation: Poor (multiple missing, broken teeth) ROM Head & Neck: Adequate Mental/Hyoid Distance: Adequate Mallampati Class: Class II Intubation Access Assessment: Probably Good - Pre-Operative Health Status ASA Pre-Surgery Classification: ASA3 Proposed Anesthetic Plan: General - Pulmonary Hx Smoking: Yes (current smoker, 1 pack/day x 60 years) Hx Asthma: No Hx Respiratory Symptoms: No (COVID 19 positive, asymptomatic, on room air) COPD: Yes Hx Pneumonia: No Hx Sleep Apnea: No - Cardiovascular System Hx Hypertension: Yes Hx Coronary Artery Disease: No Hx Heart Attack/AMI: No Hx Angina: No Hx Percutaneous Transluminal Coronary Angioplasty (PTCA): No Hx Cardia Arrhythmia: Yes (h/o afib) Hx Pacemaker: No Hx Internal Defibrillator: No Hx Heart Murmur: No Hx Peripheral Vascular Disease: Yes (poor Left heel ulcer, arterial flow to both legs, left leg contracture) - Central Nervous System Hx Seizures: No CVA: Yes Hx Back Pain: Yes Hx Psychiatric Problems: No - Gastrointestinal Hx Ulcer: No - Endocrine Hx Renal Disease: No Hx End Stage Renal Disease: No Hx Cirrhosis: No Hx Liver Disease: No Hx Hypothyroidism: No - Hematic Hx Anemia: No Hx Sickle Cell Disease: No - Other Systems Hx Alcohol Use: Yes Hx Cancer: No Hx Obesity: No (cachexic, BMI 15.9)
--- NOTE | 2021-05-11 09:43 | Anesthesia Day of Surgery ---
Anesthesia Day of Surgery - Day of Surgery Patient Examined: Yes Patient H&P Reviewed: Yes Patient is NPO: Yes
[2021-05-11] MEDS: ASPIRIN EC 81 MG TAB PO SCH (10:35)
[2021-05-11] MEDS: GABAPENTIN 300 MG CAP PO SCH ×2 (10:35→21:10)
[2021-05-11] MEDS: CLOPIDOGREL 75 MG TAB PO SCH (10:36)
[2021-05-11] MEDS: HEPARIN 5,000 UNIT/1 ML VIAL SUB-Q SCH ×2 (10:36→21:09)
[2021-05-11] MEDS ORDERED: HEPARIN 10,000 UNITS/10 ML VIAL ONE (13:34)
[2021-05-11] MEDS ORDERED: HEPARIN/NS 5000 UNIT/500ML 1,000 ML IR ONE (13:34)
[2021-05-11] MEDS ORDERED: VERAPAMIL 5 MG/2 ML INJ ONE (13:35)
[2021-05-11] MEDS ORDERED: SODIUM CHLORIDE 0.9% 500 ML 500 ML ONE (14:02)
[2021-05-11] MEDS: fentaNYL 100 MCG/2 ML INJ ONE ×3 (14:12→14:56)
[2021-05-11] MEDS: MIDAZOLAM 2 MG/2 ML INJ ONE ×3 (14:13→14:56)
[2021-05-11] MEDS: LIDOCAINE (2%) 20 MG/1 ML VIAL 20 ML MDV INFILTRATI ONE ×2 (14:13→14:40)
[2021-05-11] MEDS ORDERED: NITROGLYCERIN SYRINGE 3 ML ONE (14:14)
--- NOTE | 2021-05-11 14:36 | Progress Note ---
Assessment and Plan Assessment and plan: Patient is a 71-year-old male with past medical history of hypertension, previous CVA, arthritis, atrial fibrillation and tobacco dependence who presented with a worsening left heel ulcer over the last 3 months with concerns for chronic osteomyelitis. #Left foot chronic osteomyelitis #Sepsis #Bilateral posterior tibial artery occlusion #Peripheral arterial disease Imaging revealing large ulcer with gas and underlying tissues. Patient pending MRI of foot for further evaluation of osteomyelitis. Continue IV Unasyn and vancomycin Orthopedic surgery consulted; appreciate recs. Planned debridement today. Patient currently NPO. Bilateral arterial Dopplers of lower extremities significant for arterial occlusion (bilateral occlusion of posterior tibial arteries). Vascular surgery consulted; appreciate recs - Physical Therapy consulted; pending recs Continue to monitor. #COVID-19 infection Positive coronavirus PCR on 05/09/2021 Continue contact and droplet precautions No need to initiate remdesivir or steroids as the patient is saturating well on room air. Continue to monitor. #Prior CVA Continue home Plavix 75 mg daily #Protein caloric malnutrition BMI 16.3 Nutrition consulted; pending recs Continue dietary supplementation #Advanced care planning -Disease education conducted, care plan discussed, diagnoses discussed, prognosis discussed, and patient acknowledges understanding with care plan -Time: +30 min Disposition Plan: Continue medical management Total Time Spent with Patient (Minutes): 45 min History Interval history: No acute events overnight. Hospitalist Physical - Constitutional Vitals: Temp Pulse Resp BP Pulse Ox 98.3 F 80 18 135/56 98 05/11/21 11:11 05/11/21 11:11 05/11/21 11:11 05/11/21 11:11 05/11/21 11:11 General appearance: Present: no acute distress, cachectic - EENT Eyes: Present: PERRL, EOM intact ENT: hearing intact, clear oral mucosa, poor dentition, edentulous - Neck Neck: Present: supple, normal ROM - Respiratory Respiratory effort: normal Respiratory: bilateral: diminished - Cardiovascular Rhythm: regular Heart Sounds: Present: S1 & S2 - Extremities Extremities: pulses intact, pulses symmetrical, No edema, normal temperature, normal color, abnormal (eschar on L heel) Peripheral Pulses: within normal limits - Abdominal General gastrointestinal: soft, non-tender, non-distended, normal bowel sounds - Integumentary Integumentary: Present: clear, warm, dry - Psychiatric Psychiatric: appropriate mood/affect, cooperative - Neurologic Neurologic: CNII-XII intact - Allied Health Allied health notes reviewed: nursing Results - Labs CBC & Chem 7: 05/11/21 07:36 05/11/21 07:36 Labs: Laboratory Last Values WBC 4.8 K/mm3 (4.5-11.0) 05/11/21 07:36 RBC 3.12 M/mm3 (3.65-5.03) L 05/11/21 07:36 Hgb 9.2 gm/dl (11.8-15.2) L 05/11/21 07:36 Hct 28.1 % (35.5-45.6) L 05/11/21 07:36 MCV 90 fl (84-94) 05/11/21 07:36 MCH 30 pg (28-32) 05/11/21 07:36 MCHC 33 % (32-34) 05/11/21 07:36 RDW 14.9 % (13.2-15.2) 05/11/21 07:36 Plt Count 216 K/mm3 (140-440) 05/11/21 07:36 Lymph % (Auto) 19.8 % (13.4-35.0) 05/11/21 07:36 Gladwin % (Auto) 15.0 % (0.0-7.3) H 05/11/21 07:36 Eos % (Auto) 0.6 % (0.0-4.3) 05/11/21 07:36 Baso % (Auto) 0.4 % (0.0-1.8) 05/11/21 07:36 Lymph # (Auto) 1.0 K/mm3 (1.2-5.4) L 05/11/21 07:36 Gladwin # (Auto) 0.7 K/mm3 (0.0-0.8) 05/11/21 07:36 Eos # (Auto) 0.0 K/mm3 (0.0-0.4) 05/11/21 07:36 Baso # (Auto) 0.0 K/mm3 (0.0-0.1) 05/11/21 07:36 Add Manual Diff Complete 05/08/21 16:04 Total Counted 100 05/08/21 16:04 Seg Neutrophils % 64.2 % (40.0-70.0) 05/11/21 07:36 Seg Neuts % (Manual) 87.0 % (40.0-70.0) H 05/08/21 16:04 Band Neutrophils % 2.0 % 05/08/21 16:04 Lymphocytes % (Manual) 5.0 % (13.4-35.0) L 05/08/21 16:04 Reactive Lymphs % (Man) 0 % 05/08/21 16:04 Monocytes % (Manual) 6.0 % (0.0-7.3) 05/08/21 16:04 Eosinophils % (Manual) 0 % (0.0-4.3) 05/08/21 16:04 Basophils % (Manual) 0 % (0.0-1.8) 05/08/21 16:04 Metamyelocytes % 0 % 05/08/21 16:04 Myelocytes % 0 % 05/08/21 16:04 Promyelocytes % 0 % 05/08/21 16:04 Blast Cells % 0 % 05/08/21 16:04 Nucleated RBC % Not Reportable 05/08/21 16:04 Seg Neutrophils # 3.1 K/mm3 (1.8-7.7) 05/11/21 07:36 Seg Neutrophils # Man 18.0 K/mm3 (1.8-7.7) H 05/08/21 16:04 Band Neutrophils # 0.4 K/mm3 05/08/21 16:04 Lymphocytes # (Manual) 1.0 K/mm3 (1.2-5.4) L 05/08/21 16:04 Abs React Lymphs (Man) 0.0 K/mm3 05/08/21 16:04 Monocytes # (Manual) 1.2 K/mm3 (0.0-0.8) H 05/08/21 16:04 Eosinophils # (Manual) 0.0 K/mm3 (0.0-0.4) 05/08/21 16:04 Basophils # (Manual) 0.0 K/mm3 (0.0-0.1) 05/08/21 16:04 Metamyelocytes # 0.0 K/mm3 05/08/21 16:04 Myelocytes # 0.0 K/mm3 05/08/21 16:04 Promyelocytes # 0.0 K/mm3 05/08/21 16:04 Blast Cells # 0.0 K/mm3 05/08/21 16:04 WBC Morphology Not Reportable 05/08/21 16:04 Hypersegmented Neuts Not Reportable 05/08/21 16:04 Hyposegmented Neuts Not Reportable 05/08/21 16:04 Hypogranular Neuts Not Reportable 05/08/21 16:04 Smudge Cells Not Reportable 05/08/21 16:04 Toxic Granulation Not Reportable 05/08/21 16:04 Toxic Vacuolation Not Reportable 05/08/21 16:04 Dohle Bodies Not Reportable 05/08/21 16:04 Pelger-Huet Anomaly Not Reportable 05/08/21 16:04 Maryann Rods Not Reportable 05/08/21 16:04 Platelet Estimate Consistent w auto 05/08/21 16:04 Clumped Platelets Not Reportable 05/08/21 16:04 Plt Clumps, EDTA Not Reportable 05/08/21 16:04 Large Platelets Few 05/08/21 16:04 Giant Platelets Not Reportable 05/08/21 16:04 Platelet Satelliting Not Reportable 05/08/21 16:04 Plt Morphology Comment Not Reportable 05/08/21 16:04 RBC Morphology Normal 05/08/21 16:04 Dimorphic RBCs Not Reportable 05/08/21 16:04 Polychromasia Not Reportable 05/08/21 16:04 Hypochromasia Not Reportable 05/08/21 16:04 Poikilocytosis Not Reportable 05/08/21 16:04 Anisocytosis Not Reportable 05/08/21 16:04 Microcytosis Not Reportable 05/08/21 16:04 Macrocytosis Not Reportable 05/08/21 16:04 Spherocytes Not Reportable 05/08/21 16:04 Pappenheimer Bodies Not Reportable 05/08/21 16:04 Sickle Cells Not Reportable 05/08/21 16:04 Target Cells Not Reportable 05/08/21 16:04 Tear Drop Cells Not Reportable 05/08/21 16:04 Ovalocytes Not Reportable 05/08/21 16:04 Helmet Cells Not Reportable 05/08/21 16:04 Erazo-Phillips Bodies Not Reportable 05/08/21 16:04 Herbster Rings Not Reportable 05/08/21 16:04 Bonnie Cells Not Reportable 05/08/21 16:04 Bite Cells Not Reportable 05/08/21 16:04 Crenated Cell Not Reportable 05/08/21 16:04 Elliptocytes Not Reportable 05/08/21 16:04 Acanthocytes (Spur) Not Reportable 05/08/21 16:04 Rouleaux Not Reportable 05/08/21 16:04 Hemoglobin C Crystals Not Reportable 05/08/21 16:04 Schistocytes Not Reportable 05/08/21 16:04 Malaria parasites Not Reportable 05/08/21 16:04 Amari Bodies Not Reportable 05/08/21 16:04 Hem Pathologist Commnt No 05/08/21 16:04 PT 13.1 Sec. (12.2-14.9) 05/11/21 07:36 INR 0.89 (0.87-1.13) 05/11/21 07:36 Sodium 139 mmol/L (137-145) 05/11/21 07:36 Potassium 3.1 mmol/L (3.6-5.0) L 05/11/21 07:36 Chloride 102.1 mmol/L (98-107) 05/11/21 07:36 Carbon Dioxide 22 mmol/L (22-30) 05/11/21 07:36 Anion Gap 18 mmol/L 05/11/21 07:36 BUN 8 mg/dL (9-20) L 05/11/21 07:36 Creatinine 0.4 mg/dL (0.8-1.3) L 05/11/21 07:36 Estimated GFR > 60 ml/min 05/11/21 07:36 BUN/Creatinine Ratio 20 % 05/11/21 07:36 Glucose 83 mg/dL (75-100) 05/11/21 07:36 Calcium 7.6 mg/dL (8.4-10.2) L 05/11/21 07:36 Total Bilirubin 0.20 mg/dL (0.1-1.2) 05/10/21 07:12 AST 26 units/L (5-40) 05/10/21 07:12 ALT 10 units/L (7-56) 05/10/21 07:12 Alkaline Phosphatase 58 units/L (35-129) 05/10/21 07:12 Total Creatine Kinase 274 units/L (55-170) H 05/08/21 16:04 Total Protein 5.8 g/dL (6.3-8.2) L D 05/10/21 07:12 Albumin 3.1 g/dL (3.9-5) L 05/10/21 07:12 Albumin/Globulin Ratio 1.1 % 05/10/21 07:12 Coronavirus (PCR) Positive (Negative) A 05/09/21 Unknown Rg/IV: Voiding Method Urinal Active Medications - Current Medications Current Medications: Generic Name Dose Route Start Last Admin Trade Name Freq PRN Reason Stop Dose Admin Acetaminophen 650 mg 05/08/21 23:52 05/10/21 10:47 Acetaminophen 325 Mg Tab PO 650 mg Q4H PRN Administration Pain MILD(1-3)/Fever >100.5/WORLEY Aspirin 81 mg 05/09/21 10:00 05/11/21 10:35 Aspirin Ec 81 Mg Tab PO Not Given QDAY CARMELITA Atorvastatin Calcium 40 mg 05/09/21 22:00 05/10/21 21:34 Atorvastatin 40 Mg Tab PO 40 mg QHS CARMELITA Administration Clopidogrel Bisulfate 75 mg 05/09/21 10:00 05/11/21 10:36 Clopidogrel 75 Mg Tab PO Not Given QDAY CARMELITA Gabapentin 300 mg 05/08/21 23:45 05/11/21 10:35 Gabapentin 300 Mg Cap PO Not Given BID CARMELITA Heparin Sodium (Porcine) 5,000 unit 05/09/21 10:00 05/11/21 10:36 Heparin 5,000 Unit/1 Ml Vial SUB-Q Not Given Q12HR CARMELITA Sodium Chloride 1,000 mls @ 100 mls/hr 05/08/21 23:45 05/11/21 00:35 Nacl 0.9% 1000 Ml IV 100 mls/hr DIRECT CARMELITA Administration Ampicillin Sodium/Sulbactam Sodium 3 gm in 100 mls @ 100 mls/hr 05/09/21 01:00 05/11/21 13:21 Unasyn/Ns 3 Gm/100 Ml IV 100 mls/hr Q6HR CARMELITA Administration Protocol Vancomycin HCl 1 gm in 250 mls @ 167.007 mls/hr 05/10/21 06:00 05/11/21 06:37 Vancomycin/Ns 1 Gm/250 Ml IV Infused Q24H CARMELITA Infusion Labetalol HCl 100 mg 05/08/21 23:45 05/11/21 10:36 Labetalol 100 Mg Tab PO Not Given BID CARMELITA Metoclopramide HCl 10 mg 05/08/21 23:52 Metoclopramide 10 Mg/2 Ml Inj IV Q6H PRN Nausea And Vomiting Morphine Sulfate 2 mg 05/08/21 23:52 05/10/21 14:06 Morphine 2 Mg/1 Ml Inj IV 2 mg Q4H PRN Administration Pain, Moderate (4-6) Ondansetron HCl 4 mg 05/08/21 23:52 Ondansetron 4 Mg/2 Ml Inj IV Q8H PRN Nausea And Vomiting Oxycodone/Acetaminophen 1 tab 05/08/21 23:52 05/11/21 00:35 Oxycodone /Acetaminophen 5-325mg Tab PO 1 tab Q6H PRN Administration Pain, Moderate (4-6) Sodium Chloride 10 ml 05/09/21 10:00 05/11/21 13:21 Sodium Chloride 0.9% 10 Ml Flush Syringe IV 10 ml BID CARMELITA Administration Sodium Chloride 10 ml 05/08/21 23:52 Sodium Chloride 0.9% 10 Ml Flush Syringe IV PRN PRN LINE FLUSH Nutrition/Malnutrition Assess - Dietary Evaluation Nutrition/Malnutrition Findings: Nutrition Notes Start: 05/09/21 12:43 Freq: Status: Active Protocol: Document 05/10/21 14:42 ZARIA (Rec: 05/10/21 15:02 ZARIA [id number]) Nutrition Notes Initial or Follow up Brief Note Current Diet Regular Diet (since 05/09), D Suppl (05/09). Height 6 ft Weight 54.431 kg [place] Body Weight (kg) 80.90 BMI 16.2 Weight change and time frame No body weight change reported . Weight Status Underweight Subjective/Other Information RD consult for risk of malnutrition assessment. At admission, Pt stated having lost 14-23 lbs recently unintentionally, and eating less due to poor appetite. Pt presents Chronic cachexia with normal albumin and osteomyelitis on the L foot, attended with dfietary supplements on last consult. Pt's Po intake of meals has been Poor (25%), according to ADL notes. NPO is scheduled for 05/11 after midnight, due to debridement of heel ulcer procedure. Percent of energy/protein needs met: Prescribed Regular Diet provides for energy/protein needs (2,289 Kcal/89 g) during LOS; additionally, Dietary Supplements will compensate for possible Poor PO intake of meals, and will support wound healing processes with 1,240 Kcal and 65 g of protein. Current % PO Poor (25-49%) Minimum of two criteria No #2 Nutrition Diagnosis Inadequate protein-energy intake Diagnosis Progress(for reassessment Continues documentation) #1 Nutrition Diagnosis Increased nutrient needs ( specify in comment below) Diagnosis Progress(for reassessment Continues documentation) Nutrition Intervention Change Diet Order: Continue Regular Diet. Add Supplement/Snack (indicate name/kcal Continue 8 fl oz Ensure Enlive /protein ) ; TID. 28.8 g pkt Kali; BID. Provides kCal: 1,240 Provides Protein (gm) 65 Goal #1 Support, through dietary supplementation, wound healing processes during LOS. Goal #2 Compensate, through dietary supplementation, for possible poor or insufficient PO intake of meals during LOS. Follow-Up By: 05/16/21 Additional Comments Continue monitoring food tolerance, %PO intake of meals , and BM.
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
[2021-05-11] MEDS: POTASSIUM CHLORIDE 10 MEQ 10 MEQ/100 ML BAG IV SCH ×4 (16:06→21:11)
[2021-05-12] MEDS: AMPICILLIN/SULBACTA 3GM/100ML 3 GM/100 ML BAG IV SCH ×4 (01:08→18:06)
[2021-05-12 06:23] LABS: Basophils % (Auto) 0.4 % (0.0-1.8); Eosinophils # (Auto) 0.1 K/mm3 (0.0-0.4); Eosinophils % (Auto) 1.1 % (0.0-4.3); Hematocrit 31.1 % (35.5-45.6); Hemoglobin 10.2 gm/dl (11.8-15.2); Lymphocytes # (Auto) 0.9 K/mm3 (1.2-5.4); Lymphocytes % (Auto) 19.5 % (13.4-35.0); Mean Corpuscular HGB Conc 33 % (32-34); Mean Corpuscular Volume 90 fl (84-94); Monocytes # (Auto) 0.6 K/mm3 (0.0-0.8); Monocytes % (Auto) 12.6 % (0.0-7.3); Platelet Count 216 K/mm3 (140-440); Red Blood Count 3.45 M/mm3 (3.65-5.03); Red Cell Distribution Width 14.9 % (13.2-15.2)
[2021-05-12 06:42] LABS: Blood Urea Nitrogen 5 mg/dL (9-20); Calcium 8.2 mg/dL (8.4-10.2); Hemolysis Index 11
[2021-05-12 06:45] LABS: BUN/Creatinine Ratio 13
[2021-05-12] MEDS: VANCOMYCIN/NS 1 GM/250 ML 1 GM/250 ML BAG IV SCH (06:50)
[2021-05-12] MEDS: SODIUM CHLORIDE 0.9% 1000 ML 1,000 ML IV SCH (06:53)
--- NOTE | 2021-05-12 10:17 | Progress Note ---
Assessment and Plan Patient with multilevel peripheral vascular disease that will require complex interventions. This will be scheduled for Friday initially. Discussed with patient and he is agreeable to proceed. N.p.o. after midnight Friday night. Subjective Date of service: 05/12/21 Principal diagnosis: PVD with ischemia Interval history: Patient with peripheral vascular disease with ischemic changes predominantly to the calcaneus involving his left foot. No complaints of any pain. Patient remains with inability to fully extend his leg or full mobility of his foot. Objective - Constitutional Vitals: Vital Signs - 12hr 05/12/21 05/12/21 02:00 05:00 Temperature 98.6 F Pulse Rate 87 Respiratory 18 18 Rate Blood Pressure 140/73 O2 Sat by Pulse 98 98 Oximetry General appearance: Present: no acute distress - EENT Eyes: EOM intact ENT: hearing intact - Neck Neck: supple, normal ROM - Respiratory Respiratory effort: normal Extremity abnormal: other (Per HPI) - Gastrointestinal General gastrointestinal: Present: deferred Rectal Exam: deferred - Genitourinary Male genitourinary: deferred - Psychiatric Psychiatric: appropriate mood/affect, cooperative - Labs CBC & Chem 7: 05/12/21 06:03 05/12/21 06:03 Labs: Abnormal lab results 05/12/21 05/12/21 Range/Units 06:03 06:03 RBC 3.45 L (3.65-5.03) M/mm3 Hgb 10.2 L (11.8-15.2) gm/dl Hct 31.1 L (35.5-45.6) % [place] % (Auto) 12.6 H (0.0-7.3) % Lymph # (Auto) 0.9 L (1.2-5.4) K/mm3 BUN 5 L (9-20) mg/dL Creatinine 0.4 L (0.8-1.3) mg/dL Calcium 8.2 L (8.4-10.2) mg/dL Medications & Allergies - Medications Allergies/Adverse Reactions: Allergies No Known Allergies Allergy (Verified 05/10/21 11:28) Home Medications: Home Medications Medication Instructions Recorded Confirmed Last Taken Type Aspirin EC [Halfprin EC] 81 mg PO QDAY #30 tablet 06/02/20 05/08/21 Unknown Rx AtorvaSTATin [Lipitor] 40 mg PO QHS #30 tablet 06/02/20 05/08/21 Unknown Rx Clopidogrel [Plavix] 75 mg PO QDAY 20 Days #20 tablet 06/02/20 05/08/21 Unknown Rx Gabapentin [Neurontin] 300 mg PO BID 05/08/21 05/08/21 Unknown History labetaloL [Labetalol 100mg TAB] 50 mg PO BID 05/10/21 05/10/21 05/01/21 History Active Medications: Generic Name Dose Route Start Last Admin Trade Name Freq PRN Reason Stop Dose Admin Acetaminophen 650 mg 05/08/21 23:52 05/10/21 10:47 Acetaminophen 325 Mg Tab PO 650 mg Q4H PRN Administration Pain MILD(1-3)/Fever >100.5/WORLEY Hydrocodone Bitart/Acetaminophen 1 each 05/11/21 15:31 Hydrocodone/Acetaminophen 5-325 Mg Tab PO Q4H PRN Pain, Moderate (4-6) Aspirin 81 mg 05/09/21 10:00 05/11/21 10:35 Aspirin Ec 81 Mg Tab PO Not Given QDAY CARMELITA Atorvastatin Calcium 40 mg 05/09/21 22:00 05/11/21 21:09 Atorvastatin 40 Mg Tab PO 40 mg QHS CARMELITA Administration Clopidogrel Bisulfate 75 mg 05/09/21 10:00 05/11/21 10:36 Clopidogrel 75 Mg Tab PO Not Given QDAY CARMELITA Gabapentin 300 mg 05/08/21 23:45 05/11/21 21:10 Gabapentin 300 Mg Cap PO 300 mg BID CARMELITA Administration Heparin Sodium (Porcine) 5,000 unit 05/09/21 10:00 05/11/21 21:09 Heparin 5,000 Unit/1 Ml Vial SUB-Q 5,000 unit Q12HR CARMELITA Administration Sodium Chloride 1,000 mls @ 100 mls/hr 05/08/21 23:45 05/12/21 06:53 Nacl 0.9% 1000 Ml IV 100 mls/hr DIRECT CARMELITA Administration Ampicillin Sodium/Sulbactam Sodium 3 gm in 100 mls @ 100 mls/hr 05/09/21 01:00 05/12/21 05:41 Unasyn/Ns 3 Gm/100 Ml IV 100 mls/hr Q6HR CARMELITA Administration Protocol Vancomycin HCl 1 gm in 250 mls @ 167.007 mls/hr 05/10/21 06:00 05/12/21 06:50 Vancomycin/Ns 1 Gm/250 Ml IV 167.007 mls/hr Q24H CARMELITA Administration Labetalol HCl 100 mg 05/08/21 23:45 05/11/21 21:09 Labetalol 100 Mg Tab PO 100 mg BID CARMELITA Administration Metoclopramide HCl 10 mg 05/08/21 23:52 Metoclopramide 10 Mg/2 Ml Inj IV Q6H PRN Nausea And Vomiting Morphine Sulfate 2 mg 05/08/21 23:52 05/10/21 14:06 Morphine 2 Mg/1 Ml Inj IV 2 mg Q4H PRN Administration Pain, Moderate (4-6) Ondansetron HCl 4 mg 05/08/21 23:52 Ondansetron 4 Mg/2 Ml Inj IV Q8H PRN Nausea And Vomiting Oxycodone/Acetaminophen 1 tab 05/08/21 23:52 05/11/21 00:35 Oxycodone /Acetaminophen 5-325mg Tab PO 1 tab Q6H PRN Administration Pain, Moderate (4-6) Sodium Chloride 10 ml 05/09/21 10:00 05/11/21 21:11 Sodium Chloride 0.9% 10 Ml Flush Syringe IV Not Given BID CARMELITA Sodium Chloride 10 ml 05/08/21 23:52 Sodium Chloride 0.9% 10 Ml Flush Syringe IV PRN PRN LINE FLUSH
[2021-05-12] MEDS: ASPIRIN EC 81 MG TAB PO SCH (10:33)
[2021-05-12] MEDS: GABAPENTIN 300 MG CAP PO SCH ×2 (10:33→21:15)
[2021-05-12] MEDS: CLOPIDOGREL 75 MG TAB PO SCH (10:33)
[2021-05-12] MEDS: HEPARIN 5,000 UNIT/1 ML VIAL SUB-Q SCH ×2 (10:33→21:15)
--- NOTE | 2021-05-12 10:49 | Progress Note ---
Assessment and Plan Assessment and plan: Patient is a 71-year-old male with past medical history of hypertension, previous CVA, arthritis, atrial fibrillation and tobacco dependence who presented with a worsening left heel ulcer over the last 3 months with concerns for chronic osteomyelitis. #Left foot chronic osteomyelitis #Sepsis #Bilateral posterior tibial artery occlusion #Peripheral arterial disease Imaging revealing large ulcer with gas and underlying tissues. Patient pending MRI of foot for further evaluation of osteomyelitis. Continue IV Unasyn and vancomycin Orthopedic surgery consulted; appreciate recs. Vascular surgery planning for revascularization of bilateral lower extremities on 05/14/2021. Patient will be made n.p.o. the night prior. Bilateral arterial Dopplers of lower extremities significant for arterial occlusion (bilateral occlusion of posterior tibial arteries). Vascular surgery consulted; appreciate recs Infectious disease consulted; pending recs - Physical Therapy consulted; pending recs Continue to monitor. #COVID-19 infection Positive coronavirus PCR on 05/09/2021 Continue contact and droplet precautions No need to initiate remdesivir or steroids as the patient is saturating well on room air. Continue to monitor. #Prior CVA Continue home Plavix 75 mg daily #Protein caloric malnutrition BMI 16.3 Nutrition consulted; pending recs Continue dietary supplementation #Advanced care planning -Disease education conducted, care plan discussed, diagnoses discussed, prognosis discussed, and patient acknowledges understanding with care plan -Time: +30 min Disposition Plan: Continue medical management Total Time Spent with Patient (Minutes): 45 min History Interval history: No acute events overnight. Hospitalist Physical - Constitutional Vitals: Temp Pulse Resp BP Pulse Ox 98.6 F 87 18 140/73 98 05/12/21 05:00 05/12/21 05:00 05/12/21 05:00 05/12/21 05:00 05/12/21 05:00 General appearance: Present: no acute distress, cachectic - EENT Eyes: Present: PERRL, EOM intact ENT: hearing intact, clear oral mucosa, poor dentition, edentulous - Neck Neck: Present: supple, normal ROM - Respiratory Respiratory effort: normal Respiratory: bilateral: diminished - Cardiovascular Rhythm: regular Heart Sounds: Present: S1 & S2 - Extremities Extremities: no ischemia, pulses intact, pulses symmetrical, No edema, normal temperature, normal color Extremity abnormal: ulceration (black eschar on L heel with surrounding cellul itis) Peripheral Pulses: within normal limits - Abdominal General gastrointestinal: soft, non-tender, non-distended, normal bowel sounds - Integumentary Integumentary: Present: clear, warm, dry - Psychiatric Psychiatric: appropriate mood/affect, memory intact, cooperative - Neurologic Neurologic: CNII-XII intact, moves all extremities - Allied Health Allied health notes reviewed: nursing Results - Labs CBC & Chem 7: 05/12/21 06:03 05/12/21 06:03 Labs: Laboratory Last Values WBC 4.7 K/mm3 (4.5-11.0) 05/12/21 06:03 RBC 3.45 M/mm3 (3.65-5.03) L 05/12/21 06:03 Hgb 10.2 gm/dl (11.8-15.2) L 05/12/21 06:03 Hct 31.1 % (35.5-45.6) L 05/12/21 06:03 MCV 90 fl (84-94) 05/12/21 06:03 MCH 30 pg (28-32) 05/12/21 06:03 MCHC 33 % (32-34) 05/12/21 06:03 RDW 14.9 % (13.2-15.2) 05/12/21 06:03 Plt Count 216 K/mm3 (140-440) 05/12/21 06:03 Lymph % (Auto) 19.5 % (13.4-35.0) 05/12/21 06:03 [place] % (Auto) 12.6 % (0.0-7.3) H 05/12/21 06:03 Eos % (Auto) 1.1 % (0.0-4.3) 05/12/21 06:03 Baso % (Auto) 0.4 % (0.0-1.8) 05/12/21 06:03 Lymph # (Auto) 0.9 K/mm3 (1.2-5.4) L 05/12/21 06:03 [place] # (Auto) 0.6 K/mm3 (0.0-0.8) 05/12/21 06:03 Eos # (Auto) 0.1 K/mm3 (0.0-0.4) 05/12/21 06:03 Baso # (Auto) 0.0 K/mm3 (0.0-0.1) 05/12/21 06:03 Add Manual Diff Complete 05/08/21 16:04 Total Counted 100 05/08/21 16:04 Seg Neutrophils % 66.4 % (40.0-70.0) 05/12/21 06:03 Seg Neuts % (Manual) 87.0 % (40.0-70.0) H 05/08/21 16:04 Band Neutrophils % 2.0 % 05/08/21 16:04 Lymphocytes % (Manual) 5.0 % (13.4-35.0) L 05/08/21 16:04 Reactive Lymphs % (Man) 0 % 05/08/21 16:04 Monocytes % (Manual) 6.0 % (0.0-7.3) 05/08/21 16:04 Eosinophils % (Manual) 0 % (0.0-4.3) 05/08/21 16:04 Basophils % (Manual) 0 % (0.0-1.8) 05/08/21 16:04 Metamyelocytes % 0 % 05/08/21 16:04 Myelocytes % 0 % 05/08/21 16:04 Promyelocytes % 0 % 05/08/21 16:04 Blast Cells % 0 % 05/08/21 16:04 Nucleated RBC % Not Reportable 05/08/21 16:04 Seg Neutrophils # 3.1 K/mm3 (1.8-7.7) 05/12/21 06:03 Seg Neutrophils # Man 18.0 K/mm3 (1.8-7.7) H 05/08/21 16:04 Band Neutrophils # 0.4 K/mm3 05/08/21 16:04 Lymphocytes # (Manual) 1.0 K/mm3 (1.2-5.4) L 05/08/21 16:04 Abs React Lymphs (Man) 0.0 K/mm3 05/08/21 16:04 Monocytes # (Manual) 1.2 K/mm3 (0.0-0.8) H 05/08/21 16:04 Eosinophils # (Manual) 0.0 K/mm3 (0.0-0.4) 05/08/21 16:04 Basophils # (Manual) 0.0 K/mm3 (0.0-0.1) 05/08/21 16:04 Metamyelocytes # 0.0 K/mm3 05/08/21 16:04 Myelocytes # 0.0 K/mm3 05/08/21 16:04 Promyelocytes # 0.0 K/mm3 05/08/21 16:04 Blast Cells # 0.0 K/mm3 05/08/21 16:04 WBC Morphology Not Reportable 05/08/21 16:04 Hypersegmented Neuts Not Reportable 05/08/21 16:04 Hyposegmented Neuts Not Reportable 05/08/21 16:04 Hypogranular Neuts Not Reportable 05/08/21 16:04 Smudge Cells Not Reportable 05/08/21 16:04 Toxic Granulation Not Reportable 05/08/21 16:04 Toxic Vacuolation Not Reportable 05/08/21 16:04 Dohle Bodies Not Reportable 05/08/21 16:04 Pelger-Huet Anomaly Not Reportable 05/08/21 16:04 Maryann Rods Not Reportable 05/08/21 16:04 Platelet Estimate Consistent w auto 05/08/21 16:04 Clumped Platelets Not Reportable 05/08/21 16:04 Plt Clumps, EDTA Not Reportable 05/08/21 16:04 Large Platelets Few 05/08/21 16:04 Giant Platelets Not Reportable 05/08/21 16:04 Platelet Satelliting Not Reportable 05/08/21 16:04 Plt Morphology Comment Not Reportable 05/08/21 16:04 RBC Morphology Normal 05/08/21 16:04 Dimorphic RBCs Not Reportable 05/08/21 16:04 Polychromasia Not Reportable 05/08/21 16:04 Hypochromasia Not Reportable 05/08/21 16:04 Poikilocytosis Not Reportable 05/08/21 16:04 Anisocytosis Not Reportable 05/08/21 16:04 Microcytosis Not Reportable 05/08/21 16:04 Macrocytosis Not Reportable 05/08/21 16:04 Spherocytes Not Reportable 05/08/21 16:04 Pappenheimer Bodies Not Reportable 05/08/21 16:04 Sickle Cells Not Reportable 05/08/21 16:04 Target Cells Not Reportable 05/08/21 16:04 Tear Drop Cells Not Reportable 05/08/21 16:04 Ovalocytes Not Reportable 05/08/21 16:04 Helmet Cells Not Reportable 05/08/21 16:04 [place] Bodies Not Reportable 05/08/21 16:04 [place] Rings Not Reportable 05/08/21 16:04 Bonnie Cells Not Reportable 05/08/21 16:04 Bite Cells Not Reportable 05/08/21 16:04 Crenated Cell Not Reportable 05/08/21 16:04 Elliptocytes Not Reportable 05/08/21 16:04 Acanthocytes (Spur) Not Reportable 05/08/21 16:04 Rouleaux Not Reportable 05/08/21 16:04 Hemoglobin C Crystals Not Reportable 05/08/21 16:04 Schistocytes Not Reportable 05/08/21 16:04 Malaria parasites Not Reportable 05/08/21 16:04 Amari Bodies Not Reportable 05/08/21 16:04 Hem Pathologist Commnt No 05/08/21 16:04 PT 13.1 Sec. (12.2-14.9) 05/11/21 07:36 INR 0.89 (0.87-1.13) 05/11/21 07:36 Sodium 138 mmol/L (137-145) 05/12/21 06:03 Potassium 3.6 mmol/L (3.6-5.0) 05/12/21 06:03 Chloride 101.6 mmol/L (98-107) 05/12/21 06:03 Carbon Dioxide 24 mmol/L (22-30) 05/12/21 06:03 Anion Gap 16 mmol/L 05/12/21 06:03 BUN 5 mg/dL (9-20) L 05/12/21 06:03 Creatinine 0.4 mg/dL (0.8-1.3) L 05/12/21 06:03 Estimated GFR > 60 ml/min 05/12/21 06:03 BUN/Creatinine Ratio 13 % 05/12/21 06:03 Glucose 76 mg/dL (75-100) 05/12/21 06:03 Calcium 8.2 mg/dL (8.4-10.2) L 05/12/21 06:03 Total Bilirubin 0.20 mg/dL (0.1-1.2) 05/10/21 07:12 AST 26 units/L (5-40) 05/10/21 07:12 ALT 10 units/L (7-56) 05/10/21 07:12 Alkaline Phosphatase 58 units/L (35-129) 05/10/21 07:12 Total Creatine Kinase 274 units/L (55-170) H 05/08/21 16:04 Total Protein 5.8 g/dL (6.3-8.2) L D 05/10/21 07:12 Albumin 3.1 g/dL (3.9-5) L 05/10/21 07:12 Albumin/Globulin Ratio 1.1 % 05/10/21 07:12 Coronavirus (PCR) Positive (Negative) A 05/09/21 Unknown Rg/IV: Voiding Method Urinal Active Medications - Current Medications Current Medications: Generic Name Dose Route Start Last Admin Trade Name Freq PRN Reason Stop Dose Admin Acetaminophen 650 mg 05/08/21 23:52 05/10/21 10:47 Acetaminophen 325 Mg Tab PO 650 mg Q4H PRN Administration Pain MILD(1-3)/Fever >100.5/WORLEY Hydrocodone Bitart/Acetaminophen 1 each 05/11/21 15:31 Hydrocodone/Acetaminophen 5-325 Mg Tab PO Q4H PRN Pain, Moderate (4-6) Aspirin 81 mg 05/09/21 10:00 05/12/21 10:33 Aspirin Ec 81 Mg Tab PO 81 mg QDAY CARMELITA Administration Atorvastatin Calcium 40 mg 05/09/21 22:00 05/11/21 21:09 Atorvastatin 40 Mg Tab PO 40 mg QHS CARMELITA Administration Clopidogrel Bisulfate 75 mg 05/09/21 10:00 05/12/21 10:33 Clopidogrel 75 Mg Tab PO 75 mg QDAY CARMELITA Administration Gabapentin 300 mg 05/08/21 23:45 05/12/21 10:33 Gabapentin 300 Mg Cap PO 300 mg BID CARMELITA Administration Heparin Sodium (Porcine) 5,000 unit 05/09/21 10:00 05/12/21 10:33 Heparin 5,000 Unit/1 Ml Vial SUB-Q 5,000 unit Q12HR CARMELITA Administration Sodium Chloride 1,000 mls @ 100 mls/hr 05/08/21 23:45 05/12/21 06:53 Nacl 0.9% 1000 Ml IV 100 mls/hr DIRECT CARMELITA Administration Ampicillin Sodium/Sulbactam Sodium 3 gm in 100 mls @ 100 mls/hr 05/09/21 01:00 05/12/21 05:41 Unasyn/Ns 3 Gm/100 Ml IV 100 mls/hr Q6HR CARMELITA Administration Protocol Vancomycin HCl 1 gm in 250 mls @ 167.007 mls/hr 05/10/21 06:00 05/12/21 06:50 Vancomycin/Ns 1 Gm/250 Ml IV 167.007 mls/hr Q24H CARMELITA Administration Labetalol HCl 100 mg 05/08/21 23:45 05/12/21 10:33 Labetalol 100 Mg Tab PO 100 mg BID CARMELITA Administration Metoclopramide HCl 10 mg 05/08/21 23:52 Metoclopramide 10 Mg/2 Ml Inj IV Q6H PRN Nausea And Vomiting Morphine Sulfate 2 mg 05/08/21 23:52 05/10/21 14:06 Morphine 2 Mg/1 Ml Inj IV 2 mg Q4H PRN Administration Pain, Moderate (4-6) Ondansetron HCl 4 mg 05/08/21 23:52 Ondansetron 4 Mg/2 Ml Inj IV Q8H PRN Nausea And Vomiting Oxycodone/Acetaminophen 1 tab 05/08/21 23:52 05/11/21 00:35 Oxycodone /Acetaminophen 5-325mg Tab PO 1 tab Q6H PRN Administration Pain, Moderate (4-6) Sodium Chloride 10 ml 05/09/21 10:00 05/12/21 10:33 Sodium Chloride 0.9% 10 Ml Flush Syringe IV 10 ml BID CARMELITA Administration Sodium Chloride 10 ml 05/08/21 23:52 Sodium Chloride 0.9% 10 Ml Flush Syringe IV PRN PRN LINE FLUSH Nutrition/Malnutrition Assess - Dietary Evaluation Nutrition/Malnutrition Findings: Nutrition Notes Start: 05/09/21 12:43 Freq: Status: Active Protocol: Document 05/10/21 14:42 ZARIA (Rec: 05/10/21 15:02 ZARIA [id number]) Nutrition Notes Initial or Follow up Brief Note Current Diet Regular Diet (since 05/09), D Suppl (05/09). Height 6 ft Weight 54.431 kg [place] Body Weight (kg) 80.90 BMI 16.2 Weight change and time frame No body weight change reported . Weight Status Underweight Subjective/Other Information RD consult for risk of malnutrition assessment. At admission, Pt stated having lost 14-23 lbs recently unintentionally, and eating less due to poor appetite. Pt presents Chronic cachexia with normal albumin and osteomyelitis on the L foot, attended with dfietary supplements on last consult. Pt's Po intake of meals has been Poor (25%), according to ADL notes. NPO is scheduled for 05/11 after midnight, due to debridement of heel ulcer procedure. Percent of energy/protein needs met: Prescribed Regular Diet provides for energy/protein needs (2,289 Kcal/89 g) during LOS; additionally, Dietary Supplements will compensate for possible Poor PO intake of meals, and will support wound healing processes with 1,240 Kcal and 65 g of protein. Current % PO Poor (25-49%) Minimum of two criteria No #2 Nutrition Diagnosis Inadequate protein-energy intake Diagnosis Progress(for reassessment Continues documentation) #1 Nutrition Diagnosis Increased nutrient needs ( specify in comment below) Diagnosis Progress(for reassessment Continues documentation) Nutrition Intervention Change Diet Order: Continue Regular Diet. Add Supplement/Snack (indicate name/kcal Continue 8 fl oz Ensure Enlive /protein ) ; TID. 28.8 g pkt Kali; BID. Provides kCal: 1,240 Provides Protein (gm) 65 Goal #1 Support, through dietary supplementation, wound healing processes during LOS. Goal #2 Compensate, through dietary supplementation, for possible poor or insufficient PO intake of meals during LOS. Follow-Up By: 05/16/21 Additional Comments Continue monitoring food tolerance, %PO intake of meals , and BM.
[2021-05-12] MEDS: oxyCODONE /ACETAMINOPHEN 5-325MG TAB PO PRN (21:17)
[2021-05-13] MEDS: AMPICILLIN/SULBACTA 3GM/100ML 3 GM/100 ML BAG IV SCH ×5 (00:40→23:40)
[2021-05-13] MEDS: SODIUM CHLORIDE 0.9% 1000 ML 1,000 ML IV SCH ×2 (05:09→18:44)
[2021-05-13 05:30] LABS: Blood Urea Nitrogen 4 mg/dL (9-20); Calcium 7.8 mg/dL (8.4-10.2); Hemolysis Index 2
[2021-05-13 05:32] LABS: Basophils % (Auto) 0.3 % (0.0-1.8); Eosinophils # (Auto) 0.1 K/mm3 (0.0-0.4); Hematocrit 29.5 % (35.5-45.6); Lymphocytes # (Auto) 0.8 K/mm3 (1.2-5.4); Lymphocytes % (Auto) 16.1 % (13.4-35.0); Mean Corpuscular HGB Conc 34 % (32-34); Mean Corpuscular Volume 89 fl (84-94); Monocytes # (Auto) 0.6 K/mm3 (0.0-0.8); Monocytes % (Auto) 12.9 % (0.0-7.3); Platelet Count 228 K/mm3 (140-440); Red Blood Count 3.33 M/mm3 (3.65-5.03); Red Cell Distribution Width 14.6 % (13.2-15.2)
[2021-05-13 05:42] LABS: BUN/Creatinine Ratio 10
[2021-05-13] MEDS: VANCOMYCIN/NS 1 GM/250 ML 1 GM/250 ML BAG IV SCH ×2 (06:13→17:11)
[2021-05-13] MEDS ORDERED: POTASSIUM CHLORIDE ER 20 MEQ TAB PO SCH (09:00)
[2021-05-13] MEDS: ASPIRIN EC 81 MG TAB PO SCH (09:11)
[2021-05-13] MEDS: POTASSIUM CHLORIDE 10 MEQ 10 MEQ/100 ML BAG IV SCH ×4 (09:11→12:50)
[2021-05-13] MEDS: POTASSIUM CHLORIDE ER 20 MEQ TAB PO ONE ×2 (09:11→10:39)
[2021-05-13] MEDS: CLOPIDOGREL 75 MG TAB PO SCH (09:11)
[2021-05-13] MEDS: GABAPENTIN 300 MG CAP PO SCH ×2 (09:11→21:15)
[2021-05-13] MEDS: HEPARIN 5,000 UNIT/1 ML VIAL SUB-Q SCH ×2 (09:12→21:15)
[2021-05-13] MEDS: CALCIUM CARBONATE 1250 MG TAB PO SCH ×2 (09:13→21:15)
--- NOTE | 2021-05-13 09:36 | Progress Note ---
Subjective Date of service: 05/13/21 Principal diagnosis: PVD with ischemia Interval history: Patient seen and examined. No changes. Still with pain in his left foot with large left calcaneal eschar. Nonpalpable pedal pulses. Objective - Constitutional Vitals: Vital Signs - 12hr 05/13/21 05/13/21 05/13/21 02:05 03:53 03:55 Temperature 98.8 F Pulse Rate 83 Respiratory 16 Rate Blood Pressure 153/75 O2 Sat by Pulse 96 95 Oximetry General appearance: Present: no acute distress - EENT Eyes: EOM intact ENT: hearing intact - Neck Neck: supple, normal ROM - Respiratory Respiratory effort: normal Extremities: abnormal - Gastrointestinal General gastrointestinal: Present: deferred Rectal Exam: deferred - Genitourinary Male genitourinary: deferred - Psychiatric Psychiatric: appropriate mood/affect, cooperative - Labs CBC & Chem 7: 05/13/21 04:55 05/13/21 04:55 Labs: Abnormal lab results 05/13/21 05/13/21 05/13/21 Range/Units 04:55 04:55 04:55 RBC 3.33 L (3.65-5.03) M/mm3 Hgb 10.0 L (11.8-15.2) gm/dl Hct 29.5 L (35.5-45.6) % [place] % (Auto) 12.9 H (0.0-7.3) % Lymph # (Auto) 0.8 L (1.2-5.4) K/mm3 Potassium 3.0 L (3.6-5.0) mmol/L BUN 4 L (9-20) mg/dL Creatinine 0.4 L (0.8-1.3) mg/dL Calcium 7.8 L (8.4-10.2) mg/dL Vancomycin Trough 4.0 L (5.0-20.0) ug/mL Medications & Allergies - Medications Allergies/Adverse Reactions: Allergies No Known Allergies Allergy (Verified 05/10/21 11:28) Home Medications: Home Medications Medication Instructions Recorded Confirmed Last Taken Type Aspirin EC [Halfprin EC] 81 mg PO QDAY #30 tablet 06/02/20 05/08/21 Unknown Rx AtorvaSTATin [Lipitor] 40 mg PO QHS #30 tablet 06/02/20 05/08/21 Unknown Rx Clopidogrel [Plavix] 75 mg PO QDAY 20 Days #20 tablet 06/02/20 05/08/21 Unknown Rx Gabapentin [Neurontin] 300 mg PO BID 05/08/21 05/08/21 Unknown History labetaloL [Labetalol 100mg TAB] 50 mg PO BID 05/10/21 05/10/21 05/01/21 History Active Medications: Generic Name Dose Route Start Last Admin Trade Name Freq PRN Reason Stop Dose Admin Acetaminophen 650 mg 05/08/21 23:52 05/10/21 10:47 Acetaminophen 325 Mg Tab PO 650 mg Q4H PRN Administration Pain MILD(1-3)/Fever >100.5/WORLEY Hydrocodone Bitart/Acetaminophen 1 each 05/11/21 15:31 Hydrocodone/Acetaminophen 5-325 Mg Tab PO Q4H PRN Pain, Moderate (4-6) Aspirin 81 mg 05/09/21 10:00 05/13/21 09:11 Aspirin Ec 81 Mg Tab PO 81 mg QDAY CARMELITA Administration Atorvastatin Calcium 40 mg 05/09/21 22:00 05/12/21 21:15 Atorvastatin 40 Mg Tab PO 40 mg QHS CARMELITA Administration Calcium Carbonate/Glycine 1,250 mg 05/13/21 10:00 05/13/21 09:13 Calcium Carbonate 1250 Mg Tab PO 1,250 mg BID CARMELITA Administration Clopidogrel Bisulfate 75 mg 05/09/21 10:00 05/13/21 09:11 Clopidogrel 75 Mg Tab PO 75 mg QDAY CARMELITA Administration Gabapentin 300 mg 05/08/21 23:45 05/13/21 09:11 Gabapentin 300 Mg Cap PO 300 mg BID CARMELITA Administration Heparin Sodium (Porcine) 5,000 unit 05/09/21 10:00 05/13/21 09:12 Heparin 5,000 Unit/1 Ml Vial SUB-Q 5,000 unit Q12HR CARMELITA Administration Sodium Chloride 1,000 mls @ 100 mls/hr 05/08/21 23:45 05/13/21 05:09 Nacl 0.9% 1000 Ml IV 100 mls/hr DIRECT CARMELITA Administration Ampicillin Sodium/Sulbactam Sodium 3 gm in 100 mls @ 100 mls/hr 05/09/21 01:00 05/13/21 05:09 Unasyn/Ns 3 Gm/100 Ml IV 100 mls/hr Q6HR CARMELITA Administration Protocol Potassium Chloride 10 meq in 100 mls @ 100 mls/hr 05/13/21 07:00 05/13/21 09:11 Kcl 10meq/100ml IV 05/13/21 10:59 100 mls/hr Q1H CARMELITA Administration Vancomycin HCl 1 gm in 250 mls @ 167.007 mls/hr 05/13/21 18:00 Vancomycin/Ns 1 Gm/250 Ml IV Q12H CARMELITA Labetalol HCl 100 mg 05/08/21 23:45 05/13/21 09:11 Labetalol 100 Mg Tab PO 100 mg BID CARMELITA Administration Metoclopramide HCl 10 mg 05/08/21 23:52 Metoclopramide 10 Mg/2 Ml Inj IV Q6H PRN Nausea And Vomiting Morphine Sulfate 2 mg 05/08/21 23:52 05/10/21 14:06 Morphine 2 Mg/1 Ml Inj IV 2 mg Q4H PRN Administration Pain, Moderate (4-6) Ondansetron HCl 4 mg 05/08/21 23:52 Ondansetron 4 Mg/2 Ml Inj IV Q8H PRN Nausea And Vomiting Oxycodone/Acetaminophen 1 tab 05/08/21 23:52 05/12/21 21:17 Oxycodone /Acetaminophen 5-325mg Tab PO 1 tab Q6H PRN Administration Pain, Moderate (4-6) Potassium Chloride 40 meq 05/13/21 09:00 Potassium Chloride Er 20 Meq Tab PO 05/13/21 13:00 ONCE@0900 CARMELITA Sodium Chloride 10 ml 05/09/21 10:00 05/13/21 09:12 Sodium Chloride 0.9% 10 Ml Flush Syringe IV 10 ml BID CARMELITA Administration Sodium Chloride 10 ml 05/08/21 23:52 Sodium Chloride 0.9% 10 Ml Flush Syringe IV PRN PRN LINE FLUSH
--- NOTE | 2021-05-13 09:45 | Progress Note ---
Assessment and Plan Assessment and plan: Patient is a 71-year-old male with past medical history of hypertension, previous CVA, arthritis, atrial fibrillation and tobacco dependence who presented with a worsening left heel ulcer over the last 3 months with concerns for chronic osteomyelitis. #Left foot chronic osteomyelitis #Sepsis #Bilateral posterior tibial artery occlusion #Peripheral arterial disease Imaging revealing large ulcer with gas and underlying tissues. Patient pending MRI of foot for further evaluation of osteomyelitis. Continue IV Unasyn and vancomycin Orthopedic surgery consulted; appreciate recs. Vascular surgery planning for revascularization of left lower extremity on 05/14/2021. Will be n.p.o. at midnight. Coags will be ordered. Bilateral arterial Dopplers of lower extremities significant for arterial occlusion (bilateral occlusion of posterior tibial arteries). Vascular surgery consulted; appreciate recs Infectious disease consulted; pending recs - Physical Therapy consulted; pending recs Continue to monitor. #COVID-19 infection Positive coronavirus PCR on 05/09/2021 Continue contact and droplet precautions No need to initiate remdesivir or steroids as the patient is saturating well on room air. Continue to monitor. #Prior CVA Continue home Plavix 75 mg daily #Protein caloric malnutrition BMI 16.3 Nutrition consulted; pending recs Continue dietary supplementation #Advanced care planning -Disease education conducted, care plan discussed, diagnoses discussed, prognosis discussed, and patient acknowledges understanding with care plan -Time: +30 min Disposition Plan: Continue medical management Total Time Spent with Patient (Minutes): 45 minutes History Interval history: No acute events overnight. Hospitalist Physical - Constitutional Vitals: Temp Pulse Resp BP Pulse Ox 98.8 F 83 16 153/75 95 05/13/21 03:55 05/13/21 03:53 05/13/21 03:53 05/13/21 03:53 05/13/21 03:53 General appearance: Present: no acute distress, cachectic - EENT Eyes: Present: PERRL, EOM intact ENT: hearing intact, clear oral mucosa, poor dentition - Neck Neck: Present: supple, normal ROM - Respiratory Respiratory effort: normal Respiratory: bilateral: diminished - Cardiovascular Rhythm: regular Heart Sounds: Present: S1 & S2 - Extremities Extremities: pulses intact, pulses symmetrical, normal temperature, normal color, abnormal (Eschar on left heel with surrounding erythema; contractures of bilateral lower legs) Peripheral Pulses: within normal limits - Abdominal General gastrointestinal: soft, non-tender, non-distended, normal bowel sounds - Integumentary Integumentary: Present: clear, warm, dry - Psychiatric Psychiatric: appropriate mood/affect, intact judgment & insight, cooperative - Neurologic Neurologic: CNII-XII intact - Allied Health Allied health notes reviewed: nursing Results - Labs CBC & Chem 7: 05/13/21 04:55 05/13/21 04:55 Labs: Laboratory Last Values WBC 4.9 K/mm3 (4.5-11.0) 05/13/21 04:55 RBC 3.33 M/mm3 (3.65-5.03) L 05/13/21 04:55 Hgb 10.0 gm/dl (11.8-15.2) L 05/13/21 04:55 Hct 29.5 % (35.5-45.6) L 05/13/21 04:55 MCV 89 fl (84-94) 05/13/21 04:55 MCH 30 pg (28-32) 05/13/21 04:55 MCHC 34 % (32-34) 05/13/21 04:55 RDW 14.6 % (13.2-15.2) 05/13/21 04:55 Plt Count 228 K/mm3 (140-440) 05/13/21 04:55 Lymph % (Auto) 16.1 % (13.4-35.0) 05/13/21 04:55 [place] % (Auto) 12.9 % (0.0-7.3) H 05/13/21 04:55 Eos % (Auto) 1.0 % (0.0-4.3) 05/13/21 04:55 Baso % (Auto) 0.3 % (0.0-1.8) 05/13/21 04:55 Lymph # (Auto) 0.8 K/mm3 (1.2-5.4) L 05/13/21 04:55 [place] # (Auto) 0.6 K/mm3 (0.0-0.8) 05/13/21 04:55 Eos # (Auto) 0.1 K/mm3 (0.0-0.4) 05/13/21 04:55 Baso # (Auto) 0.0 K/mm3 (0.0-0.1) 05/13/21 04:55 Add Manual Diff Complete 05/08/21 16:04 Total Counted 100 05/08/21 16:04 Seg Neutrophils % 69.7 % (40.0-70.0) 05/13/21 04:55 Seg Neuts % (Manual) 87.0 % (40.0-70.0) H 05/08/21 16:04 Band Neutrophils % 2.0 % 05/08/21 16:04 Lymphocytes % (Manual) 5.0 % (13.4-35.0) L 05/08/21 16:04 Reactive Lymphs % (Man) 0 % 05/08/21 16:04 Monocytes % (Manual) 6.0 % (0.0-7.3) 05/08/21 16:04 Eosinophils % (Manual) 0 % (0.0-4.3) 05/08/21 16:04 Basophils % (Manual) 0 % (0.0-1.8) 05/08/21 16:04 Metamyelocytes % 0 % 05/08/21 16:04 Myelocytes % 0 % 05/08/21 16:04 Promyelocytes % 0 % 05/08/21 16:04 Blast Cells % 0 % 05/08/21 16:04 Nucleated RBC % Not Reportable 05/08/21 16:04 Seg Neutrophils # 3.4 K/mm3 (1.8-7.7) 05/13/21 04:55 Seg Neutrophils # Man 18.0 K/mm3 (1.8-7.7) H 05/08/21 16:04 Band Neutrophils # 0.4 K/mm3 05/08/21 16:04 Lymphocytes # (Manual) 1.0 K/mm3 (1.2-5.4) L 05/08/21 16:04 Abs React Lymphs (Man) 0.0 K/mm3 05/08/21 16:04 Monocytes # (Manual) 1.2 K/mm3 (0.0-0.8) H 05/08/21 16:04 Eosinophils # (Manual) 0.0 K/mm3 (0.0-0.4) 05/08/21 16:04 Basophils # (Manual) 0.0 K/mm3 (0.0-0.1) 05/08/21 16:04 Metamyelocytes # 0.0 K/mm3 05/08/21 16:04 Myelocytes # 0.0 K/mm3 05/08/21 16:04 Promyelocytes # 0.0 K/mm3 05/08/21 16:04 Blast Cells # 0.0 K/mm3 05/08/21 16:04 WBC Morphology Not Reportable 05/08/21 16:04 Hypersegmented Neuts Not Reportable 05/08/21 16:04 Hyposegmented Neuts Not Reportable 05/08/21 16:04 Hypogranular Neuts Not Reportable 05/08/21 16:04 Smudge Cells Not Reportable 05/08/21 16:04 Toxic Granulation Not Reportable 05/08/21 16:04 Toxic Vacuolation Not Reportable 05/08/21 16:04 Dohle Bodies Not Reportable 05/08/21 16:04 Pelger-Huet Anomaly Not Reportable 05/08/21 16:04 Maryann Rods Not Reportable 05/08/21 16:04 Platelet Estimate Consistent w auto 05/08/21 16:04 Clumped Platelets Not Reportable 05/08/21 16:04 Plt Clumps, EDTA Not Reportable 05/08/21 16:04 Large Platelets Few 05/08/21 16:04 Giant Platelets Not Reportable 05/08/21 16:04 Platelet Satelliting Not Reportable 05/08/21 16:04 Plt Morphology Comment Not Reportable 05/08/21 16:04 RBC Morphology Normal 05/08/21 16:04 Dimorphic RBCs Not Reportable 05/08/21 16:04 Polychromasia Not Reportable 05/08/21 16:04 Hypochromasia Not Reportable 05/08/21 16:04 Poikilocytosis Not Reportable 05/08/21 16:04 Anisocytosis Not Reportable 05/08/21 16:04 Microcytosis Not Reportable 05/08/21 16:04 Macrocytosis Not Reportable 05/08/21 16:04 Spherocytes Not Reportable 05/08/21 16:04 Pappenheimer Bodies Not Reportable 05/08/21 16:04 Sickle Cells Not Reportable 05/08/21 16:04 Target Cells Not Reportable 05/08/21 16:04 Tear Drop Cells Not Reportable 05/08/21 16:04 Ovalocytes Not Reportable 05/08/21 16:04 Helmet Cells Not Reportable 05/08/21 16:04 Erazo-Peacham Bodies Not Reportable 05/08/21 16:04 [place] Rings Not Reportable 05/08/21 16:04 Bonnie Cells Not Reportable 05/08/21 16:04 Bite Cells Not Reportable 05/08/21 16:04 Crenated Cell Not Reportable 05/08/21 16:04 Elliptocytes Not Reportable 05/08/21 16:04 Acanthocytes (Spur) Not Reportable 05/08/21 16:04 Rouleaux Not Reportable 05/08/21 16:04 Hemoglobin C Crystals Not Reportable 05/08/21 16:04 Schistocytes Not Reportable 05/08/21 16:04 Malaria parasites Not Reportable 05/08/21 16:04 Amari Bodies Not Reportable 05/08/21 16:04 Hem Pathologist Commnt No 05/08/21 16:04 PT 13.1 Sec. (12.2-14.9) 05/11/21 07:36 INR 0.89 (0.87-1.13) 05/11/21 07:36 Sodium 138 mmol/L (137-145) 05/13/21 04:55 Potassium 3.0 mmol/L (3.6-5.0) L 05/13/21 04:55 Chloride 100.5 mmol/L (98-107) 05/13/21 04:55 Carbon Dioxide 23 mmol/L (22-30) 05/13/21 04:55 Anion Gap 18 mmol/L 05/13/21 04:55 BUN 4 mg/dL (9-20) L 05/13/21 04:55 Creatinine 0.4 mg/dL (0.8-1.3) L 05/13/21 04:55 Estimated GFR > 60 ml/min 05/13/21 04:55 BUN/Creatinine Ratio 10 % 05/13/21 04:55 Glucose 92 mg/dL (75-100) 05/13/21 04:55 Calcium 7.8 mg/dL (8.4-10.2) L 05/13/21 04:55 Total Bilirubin 0.20 mg/dL (0.1-1.2) 05/10/21 07:12 AST 26 units/L (5-40) 05/10/21 07:12 ALT 10 units/L (7-56) 05/10/21 07:12 Alkaline Phosphatase 58 units/L (35-129) 05/10/21 07:12 Total Creatine Kinase 274 units/L (55-170) H 05/08/21 16:04 Total Protein 5.8 g/dL (6.3-8.2) L D 05/10/21 07:12 Albumin 3.1 g/dL (3.9-5) L 05/10/21 07:12 Albumin/Globulin Ratio 1.1 % 05/10/21 07:12 Vancomycin Trough 4.0 ug/mL (5.0-20.0) L 05/13/21 04:55 Coronavirus (PCR) Positive (Negative) A 05/09/21 Unknown Rg/IV: Voiding Method Urinal Active Medications - Current Medications Current Medications: Generic Name Dose Route Start Last Admin Trade Name Freq PRN Reason Stop Dose Admin Acetaminophen 650 mg 05/08/21 23:52 05/10/21 10:47 Acetaminophen 325 Mg Tab PO 650 mg Q4H PRN Administration Pain MILD(1-3)/Fever >100.5/WORLEY Hydrocodone Bitart/Acetaminophen 1 each 05/11/21 15:31 Hydrocodone/Acetaminophen 5-325 Mg Tab PO Q4H PRN Pain, Moderate (4-6) Aspirin 81 mg 05/09/21 10:00 05/13/21 09:11 Aspirin Ec 81 Mg Tab PO 81 mg QDAY CARMELITA Administration Atorvastatin Calcium 40 mg 05/09/21 22:00 05/12/21 21:15 Atorvastatin 40 Mg Tab PO 40 mg QHS CARMELITA Administration Calcium Carbonate/Glycine 1,250 mg 05/13/21 10:00 05/13/21 09:13 Calcium Carbonate 1250 Mg Tab PO 1,250 mg BID CARMELITA Administration Clopidogrel Bisulfate 75 mg 05/09/21 10:00 05/13/21 09:11 Clopidogrel 75 Mg Tab PO 75 mg QDAY CARMELITA Administration Gabapentin 300 mg 05/08/21 23:45 05/13/21 09:11 Gabapentin 300 Mg Cap PO 300 mg BID CARMELITA Administration Heparin Sodium (Porcine) 5,000 unit 05/09/21 10:00 05/13/21 09:12 Heparin 5,000 Unit/1 Ml Vial SUB-Q 5,000 unit Q12HR CARMELITA Administration Sodium Chloride 1,000 mls @ 100 mls/hr 05/08/21 23:45 05/13/21 05:09 Nacl 0.9% 1000 Ml IV 100 mls/hr DIRECT CARMELITA Administration Ampicillin Sodium/Sulbactam Sodium 3 gm in 100 mls @ 100 mls/hr 05/09/21 01:00 05/13/21 05:09 Unasyn/Ns 3 Gm/100 Ml IV 100 mls/hr Q6HR CARMELITA Administration Protocol Potassium Chloride 10 meq in 100 mls @ 100 mls/hr 05/13/21 07:00 05/13/21 09:11 Kcl 10meq/100ml IV 05/13/21 10:59 100 mls/hr Q1H CARMELITA Administration Vancomycin HCl 1 gm in 250 mls @ 167.007 mls/hr 05/13/21 18:00 Vancomycin/Ns 1 Gm/250 Ml IV Q12H CARMELITA Labetalol HCl 100 mg 05/08/21 23:45 05/13/21 09:11 Labetalol 100 Mg Tab PO 100 mg BID CARMELITA Administration Metoclopramide HCl 10 mg 05/08/21 23:52 Metoclopramide 10 Mg/2 Ml Inj IV Q6H PRN Nausea And Vomiting Morphine Sulfate 2 mg 05/08/21 23:52 05/10/21 14:06 Morphine 2 Mg/1 Ml Inj IV 2 mg Q4H PRN Administration Pain, Moderate (4-6) Ondansetron HCl 4 mg 05/08/21 23:52 Ondansetron 4 Mg/2 Ml Inj IV Q8H PRN Nausea And Vomiting Oxycodone/Acetaminophen 1 tab 05/08/21 23:52 05/12/21 21:17 Oxycodone /Acetaminophen 5-325mg Tab PO 1 tab Q6H PRN Administration Pain, Moderate (4-6) Potassium Chloride 40 meq 05/13/21 09:00 Potassium Chloride Er 20 Meq Tab PO 05/13/21 13:00 ONCE@0900 CARMELITA Sodium Chloride 10 ml 05/09/21 10:00 05/13/21 09:12 Sodium Chloride 0.9% 10 Ml Flush Syringe IV 10 ml BID CARMELITA Administration Sodium Chloride 10 ml 05/08/21 23:52 Sodium Chloride 0.9% 10 Ml Flush Syringe IV PRN PRN LINE FLUSH Nutrition/Malnutrition Assess - Dietary Evaluation Nutrition/Malnutrition Findings: Nutrition Notes Start: 05/09/21 12:43 Freq: Status: Active Protocol: Document 05/10/21 14:42 ZARIA (Rec: 05/10/21 15:02 ZARIA [id number]) Nutrition Notes Initial or Follow up Brief Note Current Diet Regular Diet (since B 05/09), D Suppl (05/09). Height 6 ft Weight 54.431 kg [place] Body Weight (kg) 80.90 BMI 16.2 Weight change and time frame No body weight change reported . Weight Status Underweight Subjective/Other Information RD consult for risk of malnutrition assessment. At admission, Pt stated having lost 14-23 lbs recently unintentionally, and eating less due to poor appetite. Pt presents Chronic cachexia with normal albumin and osteomyelitis on the L foot, attended with dfietary supplements on last consult. Pt's Po intake of meals has been Poor (25%), according to ADL notes. NPO is scheduled for 05/11 after midnight, due to debridement of heel ulcer procedure. Percent of energy/protein needs met: Prescribed Regular Diet provides for energy/protein needs (2,289 Kcal/89 g) during LOS; additionally, Dietary Supplements will compensate for possible Poor PO intake of meals, and will support wound healing processes with 1,240 Kcal and 65 g of protein. Current % PO Poor (25-49%) Minimum of two criteria No #2 Nutrition Diagnosis Inadequate protein-energy intake Diagnosis Progress(for reassessment Continues documentation) #1 Nutrition Diagnosis Increased nutrient needs ( specify in comment below) Diagnosis Progress(for reassessment Continues documentation) Nutrition Intervention Change Diet Order: Continue Regular Diet. Add Supplement/Snack (indicate name/kcal Continue 8 fl oz Ensure Enlive /protein ) ; TID. 28.8 g pkt Kali; BID. Provides kCal: 1,240 Provides Protein (gm) 65 Goal #1 Support, through dietary supplementation, wound healing processes during LOS. Goal #2 Compensate, through dietary supplementation, for possible poor or insufficient PO intake of meals during LOS. Follow-Up By: 05/16/21 Additional Comments Continue monitoring food tolerance, %PO intake of meals , and BM.
[2021-05-13] MEDS: HYDROcodone/ACETAMINOPHEN 5-325 MG TAB PO PRN (11:51)
[2021-05-14] MEDS: AMPICILLIN/SULBACTA 3GM/100ML 3 GM/100 ML BAG IV SCH ×3 (05:01→17:43)
[2021-05-14] MEDS: VANCOMYCIN/NS 1 GM/250 ML 1 GM/250 ML BAG IV SCH ×2 (06:10→17:43)
--- NOTE | 2021-05-14 08:16 | Progress Note ---
Assessment and Plan Assessment and plan: Patient is a 71-year-old male with past medical history of hypertension, previous CVA, arthritis, atrial fibrillation and tobacco dependence who presented with a worsening left heel ulcer over the last 3 months with concerns for chronic osteomyelitis. #Left foot chronic osteomyelitis #Sepsis #Bilateral posterior tibial artery occlusion #Peripheral arterial disease Imaging revealing large ulcer with gas and underlying tissues. Bilateral arterial Dopplers of lower extremities significant for arterial occlusion (bilateral occlusion of posterior tibial arteries). Continue IV Unasyn and vancomycin. Infectious disease consulted; pending recs Orthopedic surgery consulted; appreciate recs. Orthopedic surgery is open to debridement after revascularization of left lower extremity. We will reach out to after revascularization (if vascular surgery gives the okay). Vascular surgery planning for revascularization of left lower extremity on 05/14/2021. Bilateral arterial Dopplers of lower extremities significant for arterial occlusion (bilateral occlusion of posterior tibial arteries). - Physical Therapy consulted; pending recs Continue to monitor. #COVID-19 infection Positive coronavirus PCR on 05/09/2021 Continue contact and droplet precautions No need to initiate remdesivir or steroids as the patient is saturating well on room air. Continue to monitor. #Prior CVA Continue home Plavix 75 mg daily #Protein caloric malnutrition BMI 16.3 Nutrition consulted; pending recs Continue dietary supplementation #Advanced care planning -Disease education conducted, care plan discussed, diagnoses discussed, prognosis discussed, and patient acknowledges understanding with care plan -Time: +30 min Disposition Plan: Continue medical management Total Time Spent with Patient (Minutes): 45 minutes History Interval history: No acute events overnight. Hospitalist Physical - Constitutional Vitals: Temp Pulse Resp BP Pulse Ox 99.5 F 86 16 131/71 93 05/13/21 19:26 05/13/21 21:15 05/13/21 19:25 05/13/21 21:15 05/14/21 03:15 General appearance: Present: no acute distress, cachectic - EENT Eyes: Present: PERRL, EOM intact ENT: hearing intact, clear oral mucosa, poor dentition - Neck Neck: Present: supple, normal ROM - Respiratory Respiratory effort: normal Respiratory: bilateral: diminished - Cardiovascular Rhythm: regular Heart Sounds: Present: S1 & S2 - Extremities Extremities: pulses intact, pulses symmetrical, No edema, normal temperature, abnormal (Contractures of bilateral lower legs) Extremity abnormal: ulceration (Eschar on left heel with surrounding erythema) Peripheral Pulses: within normal limits - Abdominal General gastrointestinal: soft, non-tender, non-distended, normal bowel sounds - Integumentary Integumentary: Present: clear, warm, dry - Psychiatric Psychiatric: appropriate mood/affect, memory intact, cooperative - Neurologic Neurologic: CNII-XII intact - Allied Health Allied health notes reviewed: nursing Results - Labs CBC & Chem 7: 05/14/21 07:53 05/14/21 07:53 Labs: Laboratory Last Values WBC 4.9 K/mm3 (4.5-11.0) 05/13/21 04:55 RBC 3.33 M/mm3 (3.65-5.03) L 05/13/21 04:55 Hgb 10.0 gm/dl (11.8-15.2) L 05/13/21 04:55 Hct 29.5 % (35.5-45.6) L 05/13/21 04:55 MCV 89 fl (84-94) 05/13/21 04:55 MCH 30 pg (28-32) 05/13/21 04:55 MCHC 34 % (32-34) 05/13/21 04:55 RDW 14.6 % (13.2-15.2) 05/13/21 04:55 Plt Count 228 K/mm3 (140-440) 05/13/21 04:55 Lymph % (Auto) 16.1 % (13.4-35.0) 05/13/21 04:55 Brantley % (Auto) 12.9 % (0.0-7.3) H 05/13/21 04:55 Eos % (Auto) 1.0 % (0.0-4.3) 05/13/21 04:55 Baso % (Auto) 0.3 % (0.0-1.8) 05/13/21 04:55 Lymph # (Auto) 0.8 K/mm3 (1.2-5.4) L 05/13/21 04:55 Brantley # (Auto) 0.6 K/mm3 (0.0-0.8) 05/13/21 04:55 Eos # (Auto) 0.1 K/mm3 (0.0-0.4) 05/13/21 04:55 Baso # (Auto) 0.0 K/mm3 (0.0-0.1) 05/13/21 04:55 Add Manual Diff Complete 05/08/21 16:04 Total Counted 100 05/08/21 16:04 Seg Neutrophils % 69.7 % (40.0-70.0) 05/13/21 04:55 Seg Neuts % (Manual) 87.0 % (40.0-70.0) H 05/08/21 16:04 Band Neutrophils % 2.0 % 05/08/21 16:04 Lymphocytes % (Manual) 5.0 % (13.4-35.0) L 05/08/21 16:04 Reactive Lymphs % (Man) 0 % 05/08/21 16:04 Monocytes % (Manual) 6.0 % (0.0-7.3) 05/08/21 16:04 Eosinophils % (Manual) 0 % (0.0-4.3) 05/08/21 16:04 Basophils % (Manual) 0 % (0.0-1.8) 05/08/21 16:04 Metamyelocytes % 0 % 05/08/21 16:04 Myelocytes % 0 % 05/08/21 16:04 Promyelocytes % 0 % 05/08/21 16:04 Blast Cells % 0 % 05/08/21 16:04 Nucleated RBC % Not Reportable 05/08/21 16:04 Seg Neutrophils # 3.4 K/mm3 (1.8-7.7) 05/13/21 04:55 Seg Neutrophils # Man 18.0 K/mm3 (1.8-7.7) H 05/08/21 16:04 Band Neutrophils # 0.4 K/mm3 05/08/21 16:04 Lymphocytes # (Manual) 1.0 K/mm3 (1.2-5.4) L 05/08/21 16:04 Abs React Lymphs (Man) 0.0 K/mm3 05/08/21 16:04 Monocytes # (Manual) 1.2 K/mm3 (0.0-0.8) H 05/08/21 16:04 Eosinophils # (Manual) 0.0 K/mm3 (0.0-0.4) 05/08/21 16:04 Basophils # (Manual) 0.0 K/mm3 (0.0-0.1) 05/08/21 16:04 Metamyelocytes # 0.0 K/mm3 05/08/21 16:04 Myelocytes # 0.0 K/mm3 05/08/21 16:04 Promyelocytes # 0.0 K/mm3 05/08/21 16:04 Blast Cells # 0.0 K/mm3 05/08/21 16:04 WBC Morphology Not Reportable 05/08/21 16:04 Hypersegmented Neuts Not Reportable 05/08/21 16:04 Hyposegmented Neuts Not Reportable 05/08/21 16:04 Hypogranular Neuts Not Reportable 05/08/21 16:04 Smudge Cells Not Reportable 05/08/21 16:04 Toxic Granulation Not Reportable 05/08/21 16:04 Toxic Vacuolation Not Reportable 05/08/21 16:04 Dohle Bodies Not Reportable 05/08/21 16:04 Pelger-Huet Anomaly Not Reportable 05/08/21 16:04 Maryann Rods Not Reportable 05/08/21 16:04 Platelet Estimate Consistent w auto 05/08/21 16:04 Clumped Platelets Not Reportable 05/08/21 16:04 Plt Clumps, EDTA Not Reportable 05/08/21 16:04 Large Platelets Few 05/08/21 16:04 Giant Platelets Not Reportable 05/08/21 16:04 Platelet Satelliting Not Reportable 05/08/21 16:04 Plt Morphology Comment Not Reportable 05/08/21 16:04 RBC Morphology Normal 05/08/21 16:04 Dimorphic RBCs Not Reportable 05/08/21 16:04 Polychromasia Not Reportable 05/08/21 16:04 Hypochromasia Not Reportable 05/08/21 16:04 Poikilocytosis Not Reportable 05/08/21 16:04 Anisocytosis Not Reportable 05/08/21 16:04 Microcytosis Not Reportable 05/08/21 16:04 Macrocytosis Not Reportable 05/08/21 16:04 Spherocytes Not Reportable 05/08/21 16:04 Pappenheimer Bodies Not Reportable 05/08/21 16:04 Sickle Cells Not Reportable 05/08/21 16:04 Target Cells Not Reportable 05/08/21 16:04 Tear Drop Cells Not Reportable 05/08/21 16:04 Ovalocytes Not Reportable 05/08/21 16:04 Helmet Cells Not Reportable 05/08/21 16:04 Erazo-[place] Bodies Not Reportable 05/08/21 16:04 [place] Rings Not Reportable 05/08/21 16:04 Bonnie Cells Not Reportable 05/08/21 16:04 Bite Cells Not Reportable 05/08/21 16:04 Crenated Cell Not Reportable 05/08/21 16:04 Elliptocytes Not Reportable 05/08/21 16:04 Acanthocytes (Spur) Not Reportable 05/08/21 16:04 Rouleaux Not Reportable 05/08/21 16:04 Hemoglobin C Crystals Not Reportable 05/08/21 16:04 Schistocytes Not Reportable 05/08/21 16:04 Malaria parasites Not Reportable 05/08/21 16:04 Amari Bodies Not Reportable 05/08/21 16:04 Hem Pathologist Commnt No 05/08/21 16:04 PT 13.1 Sec. (12.2-14.9) 05/11/21 07:36 INR 0.89 (0.87-1.13) 05/11/21 07:36 Sodium 138 mmol/L (137-145) 05/13/21 04:55 Potassium 3.0 mmol/L (3.6-5.0) L 05/13/21 04:55 Chloride 100.5 mmol/L (98-107) 05/13/21 04:55 Carbon Dioxide 23 mmol/L (22-30) 05/13/21 04:55 Anion Gap 18 mmol/L 05/13/21 04:55 BUN 4 mg/dL (9-20) L 05/13/21 04:55 Creatinine 0.4 mg/dL (0.8-1.3) L 05/13/21 04:55 Estimated GFR > 60 ml/min 05/13/21 04:55 BUN/Creatinine Ratio 10 % 05/13/21 04:55 Glucose 92 mg/dL (75-100) 05/13/21 04:55 Calcium 7.8 mg/dL (8.4-10.2) L 05/13/21 04:55 Total Bilirubin 0.20 mg/dL (0.1-1.2) 05/10/21 07:12 AST 26 units/L (5-40) 05/10/21 07:12 ALT 10 units/L (7-56) 05/10/21 07:12 Alkaline Phosphatase 58 units/L (35-129) 05/10/21 07:12 Total Creatine Kinase 274 units/L (55-170) H 05/08/21 16:04 Total Protein 5.8 g/dL (6.3-8.2) L D 05/10/21 07:12 Albumin 3.1 g/dL (3.9-5) L 05/10/21 07:12 Albumin/Globulin Ratio 1.1 % 05/10/21 07:12 Vancomycin Trough 4.0 ug/mL (5.0-20.0) L 05/13/21 04:55 Coronavirus (PCR) Positive (Negative) A 05/09/21 Unknown Rg/IV: Voiding Method Urinal Active Medications - Current Medications Current Medications: Generic Name Dose Route Start Last Admin Trade Name Freq PRN Reason Stop Dose Admin Acetaminophen 650 mg 05/08/21 23:52 05/10/21 10:47 Acetaminophen 325 Mg Tab PO 650 mg Q4H PRN Administration Pain MILD(1-3)/Fever >100.5/WORLEY Hydrocodone Bitart/Acetaminophen 1 each 05/11/21 15:31 05/13/21 11:51 Hydrocodone/Acetaminophen 5-325 Mg Tab PO 1 each Q4H PRN Administration Pain, Moderate (4-6) Aspirin 81 mg 05/09/21 10:00 05/13/21 09:11 Aspirin Ec 81 Mg Tab PO 81 mg QDAY CARMELITA Administration Atorvastatin Calcium 40 mg 05/09/21 22:00 05/13/21 21:15 Atorvastatin 40 Mg Tab PO 40 mg QHS CARMELITA Administration Calcium Carbonate/Glycine 1,250 mg 05/13/21 10:00 05/13/21 21:15 Calcium Carbonate 1250 Mg Tab PO 1,250 mg BID CARMELITA Administration Clopidogrel Bisulfate 75 mg 05/09/21 10:00 05/13/21 09:11 Clopidogrel 75 Mg Tab PO 75 mg QDAY CARMELITA Administration Gabapentin 300 mg 05/08/21 23:45 05/13/21 21:15 Gabapentin 300 Mg Cap PO 300 mg BID CARMELITA Administration Heparin Sodium (Porcine) 5,000 unit 05/09/21 10:00 05/13/21 21:15 Heparin 5,000 Unit/1 Ml Vial SUB-Q 5,000 unit Q12HR CARMELITA Administration Sodium Chloride 1,000 mls @ 100 mls/hr 05/08/21 23:45 05/13/21 18:44 Nacl 0.9% 1000 Ml IV 100 mls/hr DIRECT CARMELITA Administration Ampicillin Sodium/Sulbactam Sodium 3 gm in 100 mls @ 100 mls/hr 05/09/21 01:00 05/14/21 05:01 Unasyn/Ns 3 Gm/100 Ml IV 100 mls/hr Q6HR CARMELITA Administration Protocol Vancomycin HCl 1 gm in 250 mls @ 167.007 mls/hr 05/13/21 18:00 05/14/21 06:10 Vancomycin/Ns 1 Gm/250 Ml IV 167.007 mls/hr Q12H CARMELITA Administration Labetalol HCl 100 mg 05/08/21 23:45 05/13/21 21:15 Labetalol 100 Mg Tab PO 100 mg BID CARMELITA Administration Metoclopramide HCl 10 mg 05/08/21 23:52 Metoclopramide 10 Mg/2 Ml Inj IV Q6H PRN Nausea And Vomiting Morphine Sulfate 2 mg 05/08/21 23:52 05/10/21 14:06 Morphine 2 Mg/1 Ml Inj IV 2 mg Q4H PRN Administration Pain, Moderate (4-6) Ondansetron HCl 4 mg 05/08/21 23:52 Ondansetron 4 Mg/2 Ml Inj IV Q8H PRN Nausea And Vomiting Oxycodone/Acetaminophen 1 tab 05/08/21 23:52 05/12/21 21:17 Oxycodone /Acetaminophen 5-325mg Tab PO 1 tab Q6H PRN Administration Pain, Moderate (4-6) Sodium Chloride 10 ml 05/09/21 10:00 05/13/21 21:15 Sodium Chloride 0.9% 10 Ml Flush Syringe IV 10 ml BID CARMELITA Administration Sodium Chloride 10 ml 05/08/21 23:52 Sodium Chloride 0.9% 10 Ml Flush Syringe IV PRN PRN LINE FLUSH Nutrition/Malnutrition Assess - Dietary Evaluation Nutrition/Malnutrition Findings: Nutrition Notes Start: 05/09/21 12:43 Freq: Status: Active Protocol: Document 05/10/21 14:42 ZARIA (Rec: 05/10/21 15:02 ZARIA [id number]) Nutrition Notes Initial or Follow up Brief Note Current Diet Regular Diet (since B 05/09), D Suppl (05/09). Height 6 ft Weight 54.431 kg [place] Body Weight (kg) 80.90 BMI 16.2 Weight change and time frame No body weight change reported . Weight Status Underweight Subjective/Other Information RD consult for risk of malnutrition assessment. At admission, Pt stated having lost 14-23 lbs recently unintentionally, and eating less due to poor appetite. Pt presents Chronic cachexia with normal albumin and osteomyelitis on the L foot, attended with dfietary supplements on last consult. Pt's Po intake of meals has been Poor (25%), according to ADL notes. NPO is scheduled for 05/11 after midnight, due to debridement of heel ulcer procedure. Percent of energy/protein needs met: Prescribed Regular Diet provides for energy/protein needs (2,289 Kcal/89 g) during LOS; additionally, Dietary Supplements will compensate for possible Poor PO intake of meals, and will support wound healing processes with 1,240 Kcal and 65 g of protein. Current % PO Poor (25-49%) Minimum of two criteria No #2 Nutrition Diagnosis Inadequate protein-energy intake Diagnosis Progress(for reassessment Continues documentation) #1 Nutrition Diagnosis Increased nutrient needs ( specify in comment below) Diagnosis Progress(for reassessment Continues documentation) Nutrition Intervention Change Diet Order: Continue Regular Diet. Add Supplement/Snack (indicate name/kcal Continue 8 fl oz Ensure Enlive /protein ) ; TID. 28.8 g pkt Kali; BID. Provides kCal: 1,240 Provides Protein (gm) 65 Goal #1 Support, through dietary supplementation, wound healing processes during LOS. Goal #2 Compensate, through dietary supplementation, for possible poor or insufficient PO intake of meals during LOS. Follow-Up By: 05/16/21 Additional Comments Continue monitoring food tolerance, %PO intake of meals , and BM.
[2021-05-14 08:29] LABS: Basophils % (Auto) 0.6 % (0.0-1.8); Eosinophils # (Auto) 0.2 K/mm3 (0.0-0.4); Eosinophils % (Auto) 3.7 % (0.0-4.3); Hematocrit 30.6 % (35.5-45.6); Lymphocytes # (Auto) 0.8 K/mm3 (1.2-5.4); Lymphocytes % (Auto) 16.9 % (13.4-35.0); Mean Corpuscular HGB Conc 33 % (32-34); Mean Corpuscular Volume 90 fl (84-94); Monocytes # (Auto) 0.7 K/mm3 (0.0-0.8); Monocytes % (Auto) 14.9 % (0.0-7.3); Platelet Count 215 K/mm3 (140-440); Red Blood Count 3.41 M/mm3 (3.65-5.03); Red Cell Distribution Width 14.7 % (13.2-15.2)
[2021-05-14 08:40] LABS: INR 0.9 (0.87-1.13)
[2021-05-14 08:49] LABS: Blood Urea Nitrogen 3 mg/dL (9-20); Calcium 8.1 mg/dL (8.4-10.2); Hemolysis Index 4
[2021-05-14 08:54] LABS: BUN/Creatinine Ratio 8
[2021-05-14] MEDS: ASPIRIN EC 81 MG TAB PO SCH (10:00)
[2021-05-14] MEDS: GABAPENTIN 300 MG CAP PO SCH ×2 (10:00→22:54)
[2021-05-14] MEDS: HEPARIN 5,000 UNIT/1 ML VIAL SUB-Q SCH (10:00)
[2021-05-14] MEDS: CLOPIDOGREL 75 MG TAB PO SCH (10:00)
[2021-05-14] MEDS: CALCIUM CARBONATE 1250 MG TAB PO SCH ×2 (10:00→22:55)
--- NOTE | 2021-05-14 10:47 | Anesthesia Consultation ---
Anesthesia Consult and Med Hx Date of service: 05/14/21 - Airway Anesthetic Teeth Evaluation: Good ROM Head & Neck: Adequate Mental/Hyoid Distance: Adequate Mallampati Class: Class II Intubation Access Assessment: Good - Pulmonary Exam CTA: Yes - Cardiac Exam Cardiac Exam: RRR - Pre-Operative Health Status ASA Pre-Surgery Classification: ASA3 Proposed Anesthetic Plan: MAC - Pulmonary Hx Smoking: Yes (current smoker, 1 pack/day x 60 years) Hx Asthma: No Hx Respiratory Symptoms: No (COVID 19 positive, asymptomatic, on room air) COPD: Yes Hx Pneumonia: No Hx Sleep Apnea: No - Cardiovascular System Hx Hypertension: Yes Hx Coronary Artery Disease: No Hx Heart Attack/AMI: No Hx Angina: No Hx Percutaneous Transluminal Coronary Angioplasty (PTCA): No Hx Cardia Arrhythmia: Yes (h/o afib) Hx Pacemaker: No Hx Internal Defibrillator: No Hx Heart Murmur: No Hx Peripheral Vascular Disease: Yes (poor Left heel ulcer, arterial flow to both legs, left leg contracture) - Central Nervous System Hx Seizures: No CVA: Yes Hx Back Pain: Yes Hx Psychiatric Problems: No - Gastrointestinal Hx Ulcer: No - Endocrine Hx Renal Disease: No Hx End Stage Renal Disease: No Hx Cirrhosis: No Hx Liver Disease: No Hx Hypothyroidism: No - Hematic Hx Anemia: No Hx Sickle Cell Disease: No - Other Systems Hx Alcohol Use: Yes Hx Cancer: No Hx Obesity: No (cachexic, BMI 15.9)
--- NOTE | 2021-05-14 10:48 | Anesthesia Day of Surgery ---
Anesthesia Day of Surgery - Day of Surgery Patient Examined: Yes Patient H&P Reviewed: Yes Patient is NPO: Yes
[2021-05-14] MEDS ORDERED: LIDOCAINE MPF (2%) 20 MG/1 ML VIAL 5 ML ONE (12:46)
[2021-05-14] MEDS ORDERED: HYDROmorphone 1 MG/1 ML INJ ONE (12:46)
[2021-05-14] MEDS ORDERED: MIDAZOLAM 2 MG/2 ML INJ ONE (12:46)
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
[2021-05-14] MEDS ORDERED: SODIUM CHLORIDE 0.9% 500 ML 500 ML ONE (13:24)
[2021-05-14] MEDS ORDERED: HEPARIN/NS 5000 UNIT/500ML 1,000 ML IR ONE (13:24)
[2021-05-14] MEDS ORDERED: HEPARIN 10,000 UNITS/10 ML VIAL ONE (13:24)
[2021-05-14] MEDS: LIDOCAINE 1%/EPINEPHRINE 1:100,000 VIAL (20 ML) INFILTRATI ONE ×2 (13:54→15:00)
[2021-05-14] MEDS ORDERED: VERAPAMIL 5 MG/2 ML INJ ONE (14:57)
[2021-05-14] MEDS ORDERED: NITROGLYCERIN SYRINGE 3 ML ONE ×3 (14:58→18:08)
[2021-05-14] MEDS ORDERED: HEPARIN/NS 5000 UNIT/500ML 500 ML IR ONE (16:17)
[2021-05-14] MEDS ORDERED: CLOPIDOGREL 75 MG TAB ONE (18:17)
--- NOTE | 2021-05-14 18:21 | Post Operative Note ---
Date of procedure: 05/14/21 Pre-op diagnosis: PVD with gangrene Post-op diagnosis: same Findings: Hematoma developed in the left proximal to mid thigh from procedure, treated successfully with no further extravasation. Pressure dressing applied. Procedure: 1. Ultrasound-guided access of the right common femoral artery. 2. Angioplasty of the right common iliac artery, external iliac artery, and common femoral artery with a 4 mm x 80 mm angioplasty balloon, 5 mm x 150 mm angioplasty balloon, and 5 mm x 150 mm iNPACT balloon. 3. Selection of the abdominal aorta with angiography. 4. Selection of the left external iliac artery and common femoral artery with angiography of the left lower extremity 5. Angioplasty of the left external iliac artery with a 6 mm x 40 mm angioplasty balloon. 6. Selection of the left superficial femoral artery popliteal artery with angioplasty of the subintimal track with a 3 mm x 150 mm angioplasty balloon. 7. Ultrasound-guided access of the left dorsalis pedis artery. 8. Crossing of the chronic total occlusion of the superficial femoral artery and [id number] popliteal artery 9. Predilatation of the left superficial femoral artery and popliteal artery and proximal anterior tibial artery with a 3 mm x 220 mm angioplasty balloon. 10. Shockwave angioplasty of the left superficial femoral artery and popliteal artery with a 5 mm x 60 mm lithoplasty device 11. Angioplasty of the proximal anterior tibial artery with a 4 mm x 150 mm iNPACT balloon 12. Angioplasty of the mid popliteal artery and below the knee popliteal artery with a 4 mm x 150 mm iNPACT balloon 13. Angioplasty of the mid superficial femoral artery, distal superficial femoral artery, and [id number] popliteal artery with a 5 mm x 150 mm iNPACT balloon (x2) 14. Stenting of the left proximal to mid superficial femoral artery with a 6 mm x 150 mm Everflex, and 6 mm x 60 mm Everflex with postdilatation with a 5 mm x 220 and 6 mm x 100 mm angioplasty balloon 15. Stent graft placement in the left proximal to mid superficial femoral artery with a 6 mm x 5 cm and 6 mm x 10 cm Viabahn 16. Selection of the left profundofemoral artery and a descending branch of the profunda femoral artery 17. Gelfoam pledget embolization of a descending branch of the profundofemoral artery 18. Closure of the right common femoral artery with a 6 Chinese Pro style 19. Removal of the left pedal sheath with pressure held until hemostasis achi eved. Anesthesia: MAC Surgeon: KATIA BREEN Estimated blood loss: 50-100ml Condition: stable Disposition: floor
--- NOTE | 2021-05-14 18:28 | Operative Report ---
Operative Report Operative Report: EXAM: 1. Ultrasound-guided access of the right common femoral artery. 2. Angioplasty of the right common iliac artery, external iliac artery, and common femoral artery with a 4 mm x 80 mm angioplasty balloon, 5 mm x 150 mm angioplasty balloon, and 5 mm x 150 mm iNPACT balloon. 3. Selection of the abdominal aorta with angiography. 4. Selection of the left external iliac artery and common femoral artery with angiography of the left lower extremity 5. Angioplasty of the left external iliac artery with a 6 mm x 40 mm angioplasty balloon. 6. Selection of the left superficial femoral artery popliteal artery with angioplasty of the subintimal track with a 3 mm x 150 mm angioplasty balloon. 7. Ultrasound-guided access of the left dorsalis pedis artery. 8. Crossing of the chronic total occlusion of the superficial femoral artery and [id number] popliteal artery 9. Predilatation of the left superficial femoral artery and popliteal artery and proximal anterior tibial artery with a 3 mm x 220 mm angioplasty balloon. 10. Shockwave angioplasty of the left superficial femoral artery and popliteal artery with a 5 mm x 60 mm lithoplasty device 11. Angioplasty of the proximal anterior tibial artery with a 4 mm x 150 mm iNPACT balloon 12. Angioplasty of the mid popliteal artery and below the knee popliteal artery with a 4 mm x 150 mm iNPACT balloon 13. Angioplasty of the mid superficial femoral artery, distal superficial femoral artery, and [id number] popliteal artery with a 5 mm x 150 mm iNPACT balloon (x2) 14. Stenting of the left proximal to mid superficial femoral artery with a 6 mm x 150 mm Everflex, and 6 mm x 60 mm Everflex with postdilatation with a 5 mm x 220 and 6 mm x 100 mm angioplasty balloon 15. Stent graft placement in the left proximal to mid superficial femoral artery with a 6 mm x 5 cm and 6 mm x 10 cm Viabahn 16. Selection of the left profundofemoral artery and a descending branch of the profunda femoral artery 17. Gelfoam pledget embolization of a descending branch of the profundofemoral artery 18. Closure of the right common femoral artery with a 6 Croatian Pro style 19. Removal of the left pedal sheath with pressure held until hemostasis achieved. DATE: 05/14/2021 HEALTH AND SAFETY TECH: KATIA BREEN MD INDICATION: Gangrene of the left lower extremity with critical limb ischemia of the left lower extremity requiring revascularization MEDICATIONS: Please see nursing report for full details. DEVICES: 5 mm x 150 mm iNPACT balloons (x3) 4 mm x 150 mm iNPACT balloon 6 mm x 150 mm Everflex 6 mm x 60 mm Everflex 6 mm x 5 cm Viabahn 6 mm x 150 mm Viabahn Gelfoam CONTRAST: Please see [facility] report for full details PROCEDURE: The risks, benefits, and alternatives were discussed; written informed consent was obtained. The patient was brought to the [facility] and the groins were prepped and draped in a sterile fashion. The left leg was prepped and draped in a sterile fashion. Ultrasound was used to evaluate the right common femoral artery and an area without severe stenosis was identified. This was accessed with a 21-gauge micropuncture needle. 0.018 inch wire was passed into the aorta. Needle was exchanged for transitional dilator. Wire was exchanged for a 0.035 inch wire. Transitional dilator was exchanged for 5 Croatian sheath. Digital subtraction angiography was performed demonstrating sluggish flow through the right iliac system. The right common iliac artery has a 50 to 60% stenosis and is mildly ectatic with dense calcifications. The proximal right external iliac artery has a 90% stenosis in the rest of the external iliac artery has diffuse 50% stenoses. The right upper and mid common femoral artery has a diffuse 50% stenosis. The lower portion of the common femoral artery is patent. The right profunda femoral artery is patent. The right superficial femoral artery is occluded. The puncture is appropriate, above the bifurcation and below the inferior epigastric artery. The patient was heparinized. Sheath was exchanged for 6 Croatian radiopaque sheath standard sheath. 4 mm x 80 mm angioplasty balloon was used to perform angioplasty of the right common iliac artery, external iliac artery, and upper and mid common femoral artery sequentially which was then followed by a 5 mm x 150 mm angioplasty ball oon and then a 5 mm x 150 mm iNPACT balloon. The right common iliac artery has a residual 40% stenosis. Since this vessel is mildly ectatic it does not appear to be flow-limiting in any capacity. The right external iliac artery has a residual 20% stenosis proximally. The right common femoral artery was now patent. No evidence of embolization. The right profunda femoral artery is patent. I decided not to stent the right common iliac artery because it would then limit my ability to perform and up and over sheath maneuver in order to treat the left lower extremity. In addition, the flow was adequate for the right lower extremity which did not have a wound at this time or gangrene at this time. The abdominal aorta was selected and digital subtraction angiography was performed. The left external iliac and common iliac artery were selected and the left common femoral artery was selected and digital subtraction angiography was performed. Digital subtraction angiography demonstrated mild ectasia with a 40% stenosis of the left external iliac artery which is not flow-limiting. The left proximal external iliac artery had a tandem 40% and 60% stenosis. The rest of the left external iliac artery had 20% stenotic lesions. The left common femoral artery appeared patent. The left profunda femoral artery had a proximal 90% stenosis. The superficial femoral artery was occluded throughout its course. There is reconstitution of the above-knee popliteal artery which is small in caliber with diffuse 60% stenosis. This 60% diffuse stenosis extends into the mid popliteal artery and the below the knee popliteal artery. There is severe infrapopliteal arterial disease. The dominant flow to the foot is the anterior tibial artery which has a proximal 50% stenosis. The anterior tibial artery was the only runoff to the foot. The rest of the tibioperoneal trunk, posterior tibials artery, and peroneal artery were occluded. There is some reconstitution of branches heading towards the heel from the anterior tibial artery, and through retrograde flow through the lateral plantar artery through an intact dorsalis pedis arch. Sheath was positioned in the left common iliac artery. 6 mm x 40 mm angioplasty balloon was used angioplasty of the left external iliac artery. Digital subtraction angiography demonstrated less than 10% residual stenosis. Sheath was then positioned in the left common femoral artery. Wire and catheters were passed into the SFA stump but I could not reenter the [id number] popliteal artery. Therefore, pedal access was obtained, and ultrasound was used to evaluate the left dorsalis pedis artery which was patent. Under direct ultrasound guidance, a 21-gauge micropuncture needle was used to access the vessel and a 0.018 inch wire was passed into the dorsalis pedis artery. This was exchanged for the inner portion of the transitional dilator. Nitroglycerin was administered and radial cocktail was administered and digital subtraction was performed confirming position in the anterior tibial artery. 0.018 inch wire and associated support catheter were then passed bareback through the dorsalis pedis and with the combinations of wires and catheters, the wire was snared after angioplasty of the subintimal track and the wire was externalized. 3 mm x 220 mm angioplasty balloon was used to predilate the angioplasty tract from the proximal anterior tibial artery through the popliteal artery and through the superficial femoral artery. Afterwards, the wire was then removed and reinserted and was no longer flossed. The dorsalis pedis support catheter was exchanged for the inner portion of a transitional dilator which was intermittently injected with nitroglycerin. Afterwards shockwave lithoplasty with a 5 mm x 60 mm lithoplasty device was used to perform orthoplasty of the left popliteal artery and superficial femoral artery. Afterwards, 4 mm x 150 mm iNPACT ballon was used to perform angioplasty of the left proximal anterior tibial artery. 5 mm x 150 mm iNPACT balloon was then used to perform angioplasty of the popliteal artery and superficial femoral artery. This required 2 balloons. Digital subtraction angiography demonstrated that the proximal to midportion of the superficial femoral artery was severely dissected, but the distal portion of the superficial femoral artery and popliteal artery and proximal anterior tibial artery had less than 20% residual stenosis. 6 mm x 150 mm and 6 mm x 60 mm self-expanding stents were deployed in the left proximal to mid superficial femoral artery. These were postdilated with a 5 mm x 220 mm angioplasty balloon and 6 mm x 100 mm angioplasty balloon. One of the balloons ruptured within the stent when it was brought to burst pressure and digital subtraction angiography demonstrated a significant amount of extravasation at the midportion of the superficial femoral artery. Balloon tamponade was performed for 5 minutes but there was extravasation afterwards. Therefore a 6 mm x 5 mm Viabahn stent graft was deployed and postdilated. Digital subtraction angiography demonstrated that there was still a small amount of residual extravasation and I thought there might be an endoleak and therefore extended the Viabahn stent graft with a 6 mm x 100 mm stent graft above this area. This was then postdilated and digital subtraction angiography demonstrated residual small amount of bleeding which made me suspect that there was an additional branch of the profunda femoral artery that was bleeding in this area. The balloon was reinflated and a renegade STC microcatheter was then used to select the left profundofemoral artery and a descending branch of the profundofemoral artery. Digital subtraction angiography was performed and I suspect that this was the area that was extravasating. Gelfoam embolization was performed with a small single torpedo pledget. At this time, a external blood pressure cuff was applied to the patient's thigh and inflated at systolic blood pressure +20 for 5 minutes. At this time, the balloon and the blood pressure cuff were decreased and digital subtraction angiography demonstrated no further extravasation or pseudoaneurysm. There is now good flow in the left proximal superficial femoral artery mid superficial femoral artery, with less than 20% stenosis of the left distal superficial femoral artery, popliteal artery, and proximal anterior tibial artery. The rest of the anterior tibial artery had good flow to the foot through the intact dorsalis pedis branch. Nitroglycerin was injected to the pedal transitional dilator which was then removed and pressure was held. Sheath was then retracted to the right external iliac artery wire was passed centrally, and the right common femoral artery was closed with a 6 Croatian Pro style device achieving immediate hemostasis. Patient tolerated the procedure well. No postprocedural complication. Patient had a palpable left dorsalis pedis pulse. FINDINGS: Please see procedure note above. IMPRESSION: 1. Successful angioplasty of the right common femoral artery, external iliac artery, and common iliac artery. 2. Successful angioplasty of the left external iliac artery. 3. Successful lithoplasty, angioplasty, and stenting of the left superficial femoral artery. 4. Successful angioplasty of the left proximal anterior tibial artery. 5. Successful ultrasound-guided access of the right common femoral artery and left dorsalis pedis artery.
--- NOTE | 2021-05-14 19:04 | Post Anesthesia Evaluation ---
- Post Anesthesia Evaluation Patient Participated: Yes Airway Patent: Yes Stable Respiratory Function: Yes Nausea/Vomiting: No Temp > 96.8F: Yes Pain Manageable: Yes Adequeate Hydration: Yes Anesthesia Complications: No Block Receding Appropriately: Not Applicable Patient on Ventilator: No
[2021-05-14] MEDS: HYDROcodone/ACETAMINOPHEN 5-325 MG TAB PO PRN (22:57)
[2021-05-15] MEDS: HEPARIN 5,000 UNIT/1 ML VIAL SUB-Q SCH ×3 (02:00→21:52)
[2021-05-15] MEDS: SODIUM CHLORIDE 0.9% 1000 ML 1,000 ML IV SCH (03:29)
[2021-05-15] MEDS: AMPICILLIN/SULBACTA 3GM/100ML 3 GM/100 ML BAG IV SCH ×4 (06:01→18:13)
--- NOTE | 2021-05-15 07:32 | Progress Note ---
Assessment and Plan Assessment and plan: #Left foot chronic osteomyelitis #Sepsis-resolved -Continue Unasyn and vancomycin for now -Pending wound cultures from future debridement -Infectious disease following, assistance appreciated #Bilateral posterior tibial artery occlusion #Peripheral artery disease -Status post revascularization on 05/14 -Continue aspirin and Plavix -Low-dose Xarelto started by vascular surgery; assistance appreciated -will touch base with orthopedic surgery for possible debridement #COVID-19 infection -Positive coronavirus PCR on 05/09 -Continue contact and droplet precautions -Patient saturating well on room air, only has supplemental oxygen for comfort; will continue to defer steroids and remdesivir #Hypokalemia -Potassium 3.2 -will replete and monitor #Underweight #Protein calorie malnutrition -BMI 16.3 -Continue dietary supplements Disposition Plan: Continue medical management History Interval history: Acute events overnight. Patient reports continued pain in his left foot, but it has improved and is controlled with as needed medications. Otherwise has no complaints at this time. Hospitalist Physical - Physical exam Narrative exam: GENERAL: Thin male. In no acute distress. HEENT: Nasal cannula at 1 L/min. CHEST/LUNGS: CTAB on room air HEART/CARDIOVASCULAR: RRR. No murmur, rubs or gallops appreciated. ABDOMEN: +BS. NT/ND. NEURO: No focal motor deficit. Follows all commands. MUSCULOSKELETAL: No joint effusion EXTREMITIES: Right and left groin bandages intact, no TTP. left lower extremity wrapped in bandage. PSYCH: Cooperative. - Constitutional Vitals: Temp Pulse Resp BP Pulse Ox 98.6 F 88 20 110/61 99 05/15/21 05:33 05/15/21 05:33 05/15/21 05:33 05/15/21 05:33 05/15/21 05:33 General appearance: Present: no acute distress, cachectic Results - Labs CBC & Chem 7: 05/15/21 14:17 05/15/21 09:32 Labs: Laboratory Last Values WBC 4.9 K/mm3 (4.5-11.0) 05/14/21 07:53 RBC 3.41 M/mm3 (3.65-5.03) L 05/14/21 07:53 Hgb 10.0 gm/dl (11.8-15.2) L 05/14/21 07:53 Hct 30.6 % (35.5-45.6) L 05/14/21 07:53 MCV 90 fl (84-94) 05/14/21 07:53 MCH 29 pg (28-32) 05/14/21 07:53 MCHC 33 % (32-34) 05/14/21 07:53 RDW 14.7 % (13.2-15.2) 05/14/21 07:53 Plt Count 215 K/mm3 (140-440) 05/14/21 07:53 Lymph % (Auto) 16.9 % (13.4-35.0) 05/14/21 07:53 Cobb % (Auto) 14.9 % (0.0-7.3) H 05/14/21 07:53 Eos % (Auto) 3.7 % (0.0-4.3) 05/14/21 07:53 Baso % (Auto) 0.6 % (0.0-1.8) 05/14/21 07:53 Lymph # (Auto) 0.8 K/mm3 (1.2-5.4) L 05/14/21 07:53 Cobb # (Auto) 0.7 K/mm3 (0.0-0.8) 05/14/21 07:53 Eos # (Auto) 0.2 K/mm3 (0.0-0.4) 05/14/21 07:53 Baso # (Auto) 0.0 K/mm3 (0.0-0.1) 05/14/21 07:53 Add Manual Diff Complete 05/08/21 16:04 Total Counted 100 05/08/21 16:04 Seg Neutrophils % 63.9 % (40.0-70.0) 05/14/21 07:53 Seg Neuts % (Manual) 87.0 % (40.0-70.0) H 05/08/21 16:04 Band Neutrophils % 2.0 % 05/08/21 16:04 Lymphocytes % (Manual) 5.0 % (13.4-35.0) L 05/08/21 16:04 Reactive Lymphs % (Man) 0 % 05/08/21 16:04 Monocytes % (Manual) 6.0 % (0.0-7.3) 05/08/21 16:04 Eosinophils % (Manual) 0 % (0.0-4.3) 05/08/21 16:04 Basophils % (Manual) 0 % (0.0-1.8) 05/08/21 16:04 Metamyelocytes % 0 % 05/08/21 16:04 Myelocytes % 0 % 05/08/21 16:04 Promyelocytes % 0 % 05/08/21 16:04 Blast Cells % 0 % 05/08/21 16:04 Nucleated RBC % Not Reportable 05/08/21 16:04 Seg Neutrophils # 3.1 K/mm3 (1.8-7.7) 05/14/21 07:53 Seg Neutrophils # Man 18.0 K/mm3 (1.8-7.7) H 05/08/21 16:04 Band Neutrophils # 0.4 K/mm3 05/08/21 16:04 Lymphocytes # (Manual) 1.0 K/mm3 (1.2-5.4) L 05/08/21 16:04 Abs React Lymphs (Man) 0.0 K/mm3 05/08/21 16:04 Monocytes # (Manual) 1.2 K/mm3 (0.0-0.8) H 05/08/21 16:04 Eosinophils # (Manual) 0.0 K/mm3 (0.0-0.4) 05/08/21 16:04 Basophils # (Manual) 0.0 K/mm3 (0.0-0.1) 05/08/21 16:04 Metamyelocytes # 0.0 K/mm3 05/08/21 16:04 Myelocytes # 0.0 K/mm3 05/08/21 16:04 Promyelocytes # 0.0 K/mm3 05/08/21 16:04 Blast Cells # 0.0 K/mm3 05/08/21 16:04 WBC Morphology Not Reportable 05/08/21 16:04 Hypersegmented Neuts Not Reportable 05/08/21 16:04 Hyposegmented Neuts Not Reportable 05/08/21 16:04 Hypogranular Neuts Not Reportable 05/08/21 16:04 Smudge Cells Not Reportable 05/08/21 16:04 Toxic Granulation Not Reportable 05/08/21 16:04 Toxic Vacuolation Not Reportable 05/08/21 16:04 Dohle Bodies Not Reportable 05/08/21 16:04 Pelger-Huet Anomaly Not Reportable 05/08/21 16:04 Maryann Rods Not Reportable 05/08/21 16:04 Platelet Estimate Consistent w auto 05/08/21 16:04 Clumped Platelets Not Reportable 05/08/21 16:04 Plt Clumps, EDTA Not Reportable 05/08/21 16:04 Large Platelets Few 05/08/21 16:04 Giant Platelets Not Reportable 05/08/21 16:04 Platelet Satelliting Not Reportable 05/08/21 16:04 Plt Morphology Comment Not Reportable 05/08/21 16:04 RBC Morphology Normal 05/08/21 16:04 Dimorphic RBCs Not Reportable 05/08/21 16:04 Polychromasia Not Reportable 05/08/21 16:04 Hypochromasia Not Reportable 05/08/21 16:04 Poikilocytosis Not Reportable 05/08/21 16:04 Anisocytosis Not Reportable 05/08/21 16:04 Microcytosis Not Reportable 05/08/21 16:04 Macrocytosis Not Reportable 05/08/21 16:04 Spherocytes Not Reportable 05/08/21 16:04 Pappenheimer Bodies Not Reportable 05/08/21 16:04 Sickle Cells Not Reportable 05/08/21 16:04 Target Cells Not Reportable 05/08/21 16:04 Tear Drop Cells Not Reportable 05/08/21 16:04 Ovalocytes Not Reportable 05/08/21 16:04 Helmet Cells Not Reportable 05/08/21 16:04 Eraz[place] Bodies Not Reportable 05/08/21 16:04 [place] Rings Not Reportable 05/08/21 16:04 [place] Cells Not Reportable 05/08/21 16:04 Bite Cells Not Reportable 05/08/21 16:04 Crenated Cell Not Reportable 05/08/21 16:04 Elliptocytes Not Reportable 05/08/21 16:04 Acanthocytes (Spur) Not Reportable 05/08/21 16:04 Rouleaux Not Reportable 05/08/21 16:04 Hemoglobin C Crystals Not Reportable 05/08/21 16:04 Schistocytes Not Reportable 05/08/21 16:04 Malaria parasites Not Reportable 05/08/21 16:04 Amari Bodies Not Reportable 05/08/21 16:04 Hem Pathologist Commnt No 05/08/21 16:04 PT 13.2 Sec. (12.2-14.9) 05/14/21 07:53 INR 0.90 (0.87-1.13) 05/14/21 07:53 Sodium 138 mmol/L (137-145) 05/14/21 07:53 Potassium 3.2 mmol/L (3.6-5.0) L 05/14/21 07:53 Chloride 102.0 mmol/L (98-107) 05/14/21 07:53 Carbon Dioxide 21 mmol/L (22-30) L 05/14/21 07:53 Anion Gap 18 mmol/L 05/14/21 07:53 BUN 3 mg/dL (9-20) L 05/14/21 07:53 Creatinine 0.4 mg/dL (0.8-1.3) L 05/14/21 07:53 Estimated GFR > 60 ml/min 05/14/21 07:53 BUN/Creatinine Ratio 8 % 05/14/21 07:53 Glucose 87 mg/dL (75-100) 05/14/21 07:53 Calcium 8.1 mg/dL (8.4-10.2) L 05/14/21 07:53 Total Bilirubin 0.20 mg/dL (0.1-1.2) 05/10/21 07:12 AST 26 units/L (5-40) 05/10/21 07:12 ALT 10 units/L (7-56) 05/10/21 07:12 Alkaline Phosphatase 58 units/L (35-129) 05/10/21 07:12 Total Creatine Kinase 274 units/L (55-170) H 05/08/21 16:04 Total Protein 5.8 g/dL (6.3-8.2) L D 05/10/21 07:12 Albumin 3.1 g/dL (3.9-5) L 05/10/21 07:12 Albumin/Globulin Ratio 1.1 % 05/10/21 07:12 Vancomycin Trough 4.0 ug/mL (5.0-20.0) L 05/13/21 04:55 Coronavirus (PCR) Positive (Negative) A 05/09/21 Unknown Rg/IV: Voiding Method Condom Catheter Active Medications - Current Medications Current Medications: Generic Name Dose Route Start Last Admin Trade Name Freq PRN Reason Stop Dose Admin Acetaminophen 650 mg 05/08/21 23:52 05/10/21 10:47 Acetaminophen 325 Mg Tab PO 650 mg Q4H PRN Administration Pain MILD(1-3)/Fever >100.5/WORLEY Hydrocodone Bitart/Acetaminophen 1 each 05/11/21 15:31 05/14/21 22:57 Hydrocodone/Acetaminophen 5-325 Mg Tab PO 1 each Q4H PRN Administration Pain, Moderate (4-6) Aspirin 81 mg 05/09/21 10:00 05/14/21 10:00 Aspirin Ec 81 Mg Tab PO Not Given QDAY CARMELITA Atorvastatin Calcium 40 mg 05/09/21 22:00 05/14/21 22:55 Atorvastatin 40 Mg Tab PO 40 mg QHS CARMELITA Administration Calcium Carbonate/Glycine 1,250 mg 05/13/21 10:00 05/14/21 22:55 Calcium Carbonate 1250 Mg Tab PO 1,250 mg BID CARMELITA Administration Clopidogrel Bisulfate 75 mg 05/09/21 10:00 05/14/21 10:00 Clopidogrel 75 Mg Tab PO Not Given QDAY CARMELITA Gabapentin 300 mg 05/08/21 23:45 05/14/21 22:54 Gabapentin 300 Mg Cap PO 300 mg BID CARMELITA Administration Heparin Sodium (Porcine) 5,000 unit 05/09/21 10:00 05/15/21 02:00 Heparin 5,000 Unit/1 Ml Vial SUB-Q 5,000 unit Q12HR CARMELITA Administration Sodium Chloride 1,000 mls @ 100 mls/hr 05/08/21 23:45 05/15/21 03:29 Nacl 0.9% 1000 Ml IV 100 mls/hr DIRECT CARMELITA Administration Ampicillin Sodium/Sulbactam Sodium 3 gm in 100 mls @ 100 mls/hr 05/09/21 01:00 05/15/21 06:01 Unasyn/Ns 3 Gm/100 Ml IV 100 mls/hr Q6HR CARMELITA Administration Protocol Vancomycin HCl 1 gm in 250 mls @ 167.007 mls/hr 05/13/21 18:00 05/14/21 17:43 Vancomycin/Ns 1 Gm/250 Ml IV Not Given Q12H CARMELITA Labetalol HCl 100 mg 05/08/21 23:45 05/14/21 22:54 Labetalol 100 Mg Tab PO 100 mg BID CARMELITA Administration Metoclopramide HCl 10 mg 05/08/21 23:52 Metoclopramide 10 Mg/2 Ml Inj IV Q6H PRN Nausea And Vomiting Morphine Sulfate 2 mg 05/08/21 23:52 05/10/21 14:06 Morphine 2 Mg/1 Ml Inj IV 2 mg Q4H PRN Administration Pain, Moderate (4-6) Ondansetron HCl 4 mg 05/08/21 23:52 Ondansetron 4 Mg/2 Ml Inj IV Q8H PRN Nausea And Vomiting Oxycodone/Acetaminophen 1 tab 05/08/21 23:52 05/12/21 21:17 Oxycodone /Acetaminophen 5-325mg Tab PO 1 tab Q6H PRN Administration Pain, Moderate (4-6) Sodium Chloride 10 ml 05/09/21 10:00 05/14/21 22:56 Sodium Chloride 0.9% 10 Ml Flush Syringe IV 10 ml BID CARMELITA Administration Sodium Chloride 10 ml 05/08/21 23:52 Sodium Chloride 0.9% 10 Ml Flush Syringe IV PRN PRN LINE FLUSH Nutrition/Malnutrition Assess - Dietary Evaluation Nutrition/Malnutrition Findings: Nutrition Notes Start: 05/09/21 12:43 Freq: Status: Active Protocol: Document 05/10/21 14:42 ZARIA (Rec: 05/10/21 15:02 ZARIA [id number]) Nutrition Notes Initial or Follow up Brief Note Current Diet Regular Diet (since 05/09), D Suppl (05/09). Height 6 ft Weight 54.431 kg Lawn Body Weight (kg) 80.90 BMI 16.2 Weight change and time frame No body weight change reported . Weight Status Underweight Subjective/Other Information RD consult for risk of malnutrition assessment. At admission, Pt stated having lost 14-23 lbs recently unintentionally, and eating less due to poor appetite. Pt presents Chronic cachexia with normal albumin and osteomyelitis on the L foot, attended with dfietary supplements on last consult. Pt's Po intake of meals has been Poor (25%), according to ADL notes. NPO is scheduled for 05/11 after midnight, due to debridement of heel ulcer procedure. Percent of energy/protein needs met: Prescribed Regular Diet provides for energy/protein needs (2,289 Kcal/89 g) during LOS; additionally, Dietary Supplements will compensate for possible Poor PO intake of meals, and will support wound healing processes with 1,240 Kcal and 65 g of protein. Current % PO Poor (25-49%) Minimum of two criteria No #2 Nutrition Diagnosis Inadequate protein-energy intake Diagnosis Progress(for reassessment Continues documentation) #1 Nutrition Diagnosis Increased nutrient needs ( specify in comment below) Diagnosis Progress(for reassessment Continues documentation) Nutrition Intervention Change Diet Order: Continue Regular Diet. Add Supplement/Snack (indicate name/kcal Continue 8 fl oz Ensure Enlive /protein ) ; TID. 28.8 g pkt Kali; BID. Provides kCal: 1,240 Provides Protein (gm) 65 Goal #1 Support, through dietary supplementation, wound healing processes during LOS. Goal #2 Compensate, through dietary supplementation, for possible poor or insufficient PO intake of meals during LOS. Follow-Up By: 05/16/21 Additional Comments Continue monitoring food tolerance, %PO intake of meals , and BM.
[2021-05-15] MEDS: VANCOMYCIN/NS 1 GM/250 ML 1 GM/250 ML BAG IV SCH ×2 (09:52→17:45)
[2021-05-15] MEDS: CALCIUM CARBONATE 1250 MG TAB PO SCH ×2 (09:53→21:50)
[2021-05-15] MEDS: GABAPENTIN 300 MG CAP PO SCH ×2 (09:53→21:50)
[2021-05-15] MEDS: ASPIRIN EC 81 MG TAB PO SCH (09:54)
[2021-05-15] MEDS: CLOPIDOGREL 75 MG TAB PO SCH (09:55)
[2021-05-15] MEDS ORDERED: ASPIRIN EC 81 MG TAB PO SCH (10:00)
[2021-05-15] MEDS ORDERED: CLOPIDOGREL 75 MG TAB PO SCH (10:00)
--- NOTE | 2021-05-15 14:03 | Progress Note ---
Assessment and Plan Successful revascularization of the left lower extremity with palpable left dorsalis pedis pulse. Palpable right common femoral artery after right iliac and common femoral revascularization. Patient reports that his left lower extremity rest pain has improved, but he still has pain at his sites of open ulceration and gangrene. Patient reports his right lower extremity rest pain has resolved. Continue dual antiplatelet therapy with aspirin and Plavix. I will also start him on low-dose Xarelto to assist with patency of the left lower extremity stent graft. Start Protonix. Discussed with patient he needs to increase his p.o. intake or he will not have enough food to allow him to heal his wounds. Discussed with patient that his contractures with heel gangrene make him more predisposed to having a amputation and he needs to address this issue seriously. Patient understands. Arterially optimized for debridements. Subjective Date of service: 05/15/21 Principal diagnosis: PVD with ischemia Interval history: Remove pressure dressings from bilateral groins and left foot. Palpable left dorsalis pedis pulse, palpable right common femoral pulse. Patient's left leg is contracted at the knee possibly part of the hip. Unclear of the duration of this contracture as patient reports that he had a stroke a year ago which resulted in some element of a contracture and then his im mobilization over the last few months at [facility] may have worsened it. Gangrene of the left heel again noted. Discussed with patient that he needs to follow-up with his physicians, eat more food, and participate heavily with wound care. He also needs a follow-up with vascular. Patient denies history of GI bleeds. Objective - Constitutional Vitals: Vital Signs - 12hr 05/15/21 05/15/21 05:33 12:31 Temperature 98.6 F 98.1 F Pulse Rate 88 82 Respiratory 20 18 Rate Blood Pressure 110/61 152/64 O2 Sat by Pulse 99 100 Oximetry General appearance: Present: no acute distress - EENT Eyes: EOM intact ENT: hearing intact - Respiratory Respiratory effort: normal Extremities: abnormal (Please see subjective) - Gastrointestinal General gastrointestinal: Present: soft, non-tender - Psychiatric Psychiatric: appropriate mood/affect, cooperative - Labs CBC & Chem 7: 05/14/21 07:53 05/15/21 09:32 Labs: Abnormal lab results 05/15/21 Range/Units 09:32 Potassium 3.2 L (3.6-5.0) mmol/L Medications & Allergies - Medications Allergies/Adverse Reactions: Allergies No Known Allergies Allergy (Verified 05/10/21 11:28) Home Medications: Home Medications Medication Instructions Recorded Confirmed Last Taken Type Aspirin EC [Halfprin EC] 81 mg PO QDAY #30 tablet 06/02/20 05/08/21 Unknown Rx AtorvaSTATin [Lipitor] 40 mg PO QHS #30 tablet 06/02/20 05/08/21 Unknown Rx Clopidogrel [Plavix] 75 mg PO QDAY 20 Days #20 tablet 06/02/20 05/08/21 Unknown Rx Gabapentin [Neurontin] 300 mg PO BID 05/08/21 05/08/21 Unknown History labetaloL [Labetalol 100mg TAB] 50 mg PO BID 05/10/21 05/10/21 05/01/21 History Active Medications: Generic Name Dose Route Start Last Admin Trade Name Freq PRN Reason Stop Dose Admin Acetaminophen 650 mg 05/08/21 23:52 05/10/21 10:47 Acetaminophen 325 Mg Tab PO 650 mg Q4H PRN Administration Pain MILD(1-3)/Fever >100.5/WORLEY Hydrocodone Bitart/Acetaminophen 1 each 05/11/21 15:31 05/14/21 22:57 Hydrocodone/Acetaminophen 5-325 Mg Tab PO 1 each Q4H PRN Administration Pain, Moderate (4-6) Aspirin 81 mg 05/09/21 10:00 05/15/21 09:54 Aspirin Ec 81 Mg Tab PO 81 mg QDAY CARMELITA Administration Atorvastatin Calcium 40 mg 05/09/21 22:00 05/14/21 22:55 Atorvastatin 40 Mg Tab PO 40 mg QHS CARMELITA Administration Calcium Carbonate/Glycine 1,250 mg 05/13/21 10:00 05/15/21 09:53 Calcium Carbonate 1250 Mg Tab PO 1,250 mg BID CARMELITA Administration Clopidogrel Bisulfate 75 mg 05/09/21 10:00 05/15/21 09:55 Clopidogrel 75 Mg Tab PO 75 mg QDAY CARMELITA Administration Gabapentin 300 mg 05/08/21 23:45 05/15/21 09:53 Gabapentin 300 Mg Cap PO 300 mg BID CARMELITA Administration Heparin Sodium (Porcine) 5,000 unit 05/09/21 10:00 05/15/21 10:12 Heparin 5,000 Unit/1 Ml Vial SUB-Q 5,000 unit Q12HR CARMELITA Administration Sodium Chloride 1,000 mls @ 100 mls/hr 05/08/21 23:45 05/15/21 03:29 Nacl 0.9% 1000 Ml IV 100 mls/hr DIRECT CARMELITA Administration Ampicillin Sodium/Sulbactam Sodium 3 gm in 100 mls @ 100 mls/hr 05/09/21 01:00 05/15/21 11:31 Unasyn/Ns 3 Gm/100 Ml IV 100 mls/hr Q6HR CARMELITA Administration Protocol Vancomycin HCl 1 gm in 250 mls @ 167.007 mls/hr 05/13/21 18:00 05/15/21 09:52 Vancomycin/Ns 1 Gm/250 Ml IV 167.007 mls/hr Q12H CARMELITA Administration Labetalol HCl 100 mg 05/08/21 23:45 05/15/21 10:13 Labetalol 100 Mg Tab PO Not Given BID CARMELITA Metoclopramide HCl 10 mg 05/08/21 23:52 Metoclopramide 10 Mg/2 Ml Inj IV Q6H PRN Nausea And Vomiting Morphine Sulfate 2 mg 05/08/21 23:52 05/10/21 14:06 Morphine 2 Mg/1 Ml Inj IV 2 mg Q4H PRN Administration Pain, Moderate (4-6) Ondansetron HCl 4 mg 05/08/21 23:52 Ondansetron 4 Mg/2 Ml Inj IV Q8H PRN Nausea And Vomiting Oxycodone/Acetaminophen 1 tab 05/08/21 23:52 05/12/21 21:17 Oxycodone /Acetaminophen 5-325mg Tab PO 1 tab Q6H PRN Administration Pain, Moderate (4-6) Sodium Chloride 10 ml 05/09/21 10:00 05/15/21 09:51 Sodium Chloride 0.9% 10 Ml Flush Syringe IV 10 ml BID CARMELITA Administration Sodium Chloride 10 ml 05/08/21 23:52 Sodium Chloride 0.9% 10 Ml Flush Syringe IV PRN PRN LINE FLUSH
[2021-05-15] MEDS ORDERED: RIVAROXABAN 15 MG TAB PO SCH (15:00)
[2021-05-15 15:12] LABS: Hematocrit 28.8 % (35.5-45.6); Hemoglobin 9.2 gm/dl (11.8-15.2); Mean Corpuscular HGB Conc 32 % (32-34); Mean Corpuscular Volume 91 fl (84-94); Platelet Count 203 K/mm3 (140-440); Red Blood Count 3.18 M/mm3 (3.65-5.03)
--- NOTE | 2021-05-15 15:21 | Progress Note ---
Assessment and Plan Cultures: COVID-19 PCR: Positive A/P: 71-year-old male with hypertension, atrial fibrillation, smoking, prior CVA was admitted to the hospital with worsening left heel ulceration over the last 3 months: #Sepsis secondary to extensive left foot cellulitis with necrotizing infection, early osteomyelitis of the calcaneal tuberosity #Peripheral vascular disease: extensive as noted on CTA. Vascular surgery f ollowing. S/p revascularization of LLE. Also revascularization of right iliac and common femoral arteries. #Protein calorie malnutrition #COVID-19 infection: Asymptomatic, on room air Recs: -Continue IV Unasyn, vancomycin for now -Awaiting debridement, please send deep cultures -if he remains on room air, no role for steroids Kristy Awad MD, FACP, [facility] O: [phone] F: [phone] Subjective Date of service: 05/15/21 Principal diagnosis: PVD with ischemia Interval history: Low-grade fever yesterday. None today. Underwent revascularization yesterday. Objective - Exam Narrative Exam: Physical Exam: (deferred to minimize transmission risk, reviewed in chart) Constitutional: Alert, cooperative. No acute distress Head, Ears, Nose: Normocephalic, atraumatic. External ears, nose normal Eyes: Conjunctivae/corneas clear. No icterus. No ptosis. Neck: Supple, no meningeal signs Cardiovascular: S1, S2 + Respiratory: Good air entry, clear to auscultation bilaterally GI: Soft, non-tender; bowel sounds normal. No peritoneal signs Musculoskeletal: L foot in dressing Skin: No rash or abscess Hem/Lymphatic: No palpable cervical or supraclavicular nodes. No lymphangitis Psych: Mood ok. Affect normal Neurological: Awake, alert, oriented. No gross abnormality - Constitutional Vitals: Vital Signs Temp Pulse Resp BP Pulse Ox 98.1 F 82 18 152/64 100 05/15/21 12:31 05/15/21 12:31 05/15/21 12:31 05/15/21 12:31 05/15/21 12:31 Temperature -Last 24 Hours Temperature 98.1 F Temperature 98.6 F Temperature 100.9 F - Labs CBC & Chem 7: 05/15/21 14:17 05/15/21 09:32 Labs: Abnormal lab results 05/15/21 05/15/21 Range/Units 09:32 14:17 RBC 3.18 L (3.65-5.03) M/mm3 Hgb 9.2 L (11.8-15.2) gm/dl Hct 28.8 L (35.5-45.6) % Potassium 3.2 L (3.6-5.0) mmol/L
[2021-05-15] MEDS: oxyCODONE /ACETAMINOPHEN 5-325MG TAB PO PRN ×2 (15:46→21:50)
[2021-05-15 15:56] LABS: Anisocytosis 1+; Band Neutrophils # (Manual) 0.1 K/mm3; Basophils % (Manual) 0 % (0.0-1.8); Burr Cells 1+; Eosinophils % (Manual) 0 % (0.0-4.3); Platelet Estimate Consistent w Auto; Poikilocytosis 1+; Total Cells Counted 100
[2021-05-15 16:14] LABS: INR 1.04 (0.87-1.13)
[2021-05-15] MEDS: PANTOPRAZOLE 40 MG TAB PO SCH (17:43)
[2021-05-15] MEDS: RIVAROXABAN 10 MG TAB PO SCH ×2 (21:58→22:30)
[2021-05-15] MEDS: RIVAROXABAN 2.5 MG PO SCH (23:33)
[2021-05-16] MEDS: AMPICILLIN/SULBACTA 3GM/100ML 3 GM/100 ML BAG IV SCH ×4 (00:09→19:54)
[2021-05-16] MEDS: HYDROcodone/ACETAMINOPHEN 5-325 MG TAB PO PRN ×2 (05:05→19:51)
--- NOTE | 2021-05-16 08:05 | Progress Note ---
Assessment and Plan Assessment and plan: #Left foot chronic osteomyelitis #Sepsis-resolved -continue Unasyn and vancomycin for now -Pending wound cultures from future debridement -Infectious disease following, assistance appreciated #Bilateral posterior tibial artery occlusion #Peripheral artery disease -Status post revascularization on 05/14 -Continue aspirin and Plavix -Low-dose Xarelto started by vascular surgery; assistance appreciated -orthopedic surgery contacted for possible debridement #COVID-19 infection -Positive coronavirus PCR on 05/09 -Continue contact and droplet precautions -Patient saturating well on room air, only has supplemental oxygen for comfort; will continue to defer steroids and remdesivir #Hypokalemia -Potassium 3.2 -will replete and monitor #Underweight #Protein calorie malnutrition -BMI 16.3 -Continue dietary supplements Disposition Plan: continue medical management History Interval history: No events overnight. Patient reports pain being under control. No complaints at this time. Hospitalist Physical - Physical exam Narrative exam: GENERAL: Thin male. In no acute distress. HEENT: Nasal cannula at 0 L/min. CHEST/LUNGS: CTAB on room air HEART/CARDIOVASCULAR: RRR. No murmur, rubs or gallops appreciated. ABDOMEN: +BS. NT/ND. NEURO: No focal motor deficit. Follows all commands. MUSCULOSKELETAL: No joint effusion EXTREMITIES: Right and left groin bandages intact, no TTP. left lower extremity wrapped in bandage. PSYCH: Cooperative. - Constitutional Vitals: Temp Pulse Resp BP Pulse Ox 98.3 F 85 18 138/68 95 05/16/21 05:02 05/16/21 05:02 05/16/21 05:02 05/16/21 05:02 05/16/21 05:02 General appearance: Present: no acute distress, cachectic Results - Labs CBC & Chem 7: 05/15/21 14:17 05/15/21 15:29 Labs: Laboratory Last Values WBC 6.6 K/mm3 (4.5-11.0) 05/15/21 14:17 RBC 3.18 M/mm3 (3.65-5.03) L 05/15/21 14:17 Hgb 9.2 gm/dl (11.8-15.2) L 05/15/21 14:17 Hct 28.8 % (35.5-45.6) L 05/15/21 14:17 MCV 91 fl (84-94) 05/15/21 14:17 MCH 29 pg (28-32) 05/15/21 14:17 MCHC 32 % (32-34) 05/15/21 14:17 RDW 15.0 % (13.2-15.2) 05/15/21 14:17 Plt Count 203 K/mm3 (140-440) 05/15/21 14:17 Lymph % (Auto) 16.9 % (13.4-35.0) 05/14/21 07:53 [place] % (Auto) Senior Technical Business Analyst 05/15/21 14:17 Eos % (Auto) 3.7 % (0.0-4.3) 05/14/21 07:53 Baso % (Auto) 0.6 % (0.0-1.8) 05/14/21 07:53 Lymph # (Auto) 0.8 K/mm3 (1.2-5.4) L 05/14/21 07:53 [place] # (Auto) 0.7 K/mm3 (0.0-0.8) 05/14/21 07:53 Eos # (Auto) 0.2 K/mm3 (0.0-0.4) 05/14/21 07:53 Baso # (Auto) 0.0 K/mm3 (0.0-0.1) 05/14/21 07:53 Add Manual Diff Complete 05/15/21 14:17 Total Counted 100 05/15/21 14:17 Seg Neutrophils % 63.9 % (40.0-70.0) 05/14/21 07:53 Seg Neuts % (Manual) 78.0 % (40.0-70.0) H 05/15/21 14:17 Band Neutrophils % 1.0 % 05/15/21 14:17 Lymphocytes % (Manual) 11.0 % (13.4-35.0) L 05/15/21 14:17 Reactive Lymphs % (Man) 0 % 05/15/21 14:17 Monocytes % (Manual) 10.0 % (0.0-7.3) H 05/15/21 14:17 Eosinophils % (Manual) 0 % (0.0-4.3) 05/15/21 14:17 Basophils % (Manual) 0 % (0.0-1.8) 05/15/21 14:17 Metamyelocytes % 0 % 05/15/21 14:17 Myelocytes % 0 % 05/15/21 14:17 Promyelocytes % 0 % 05/15/21 14:17 Blast Cells % 0 % 05/15/21 14:17 Nucleated RBC % Not Reportable 05/15/21 14:17 Seg Neutrophils # 3.1 K/mm3 (1.8-7.7) 05/14/21 07:53 Seg Neutrophils # Man 5.1 K/mm3 (1.8-7.7) 05/15/21 14:17 Band Neutrophils # 0.1 K/mm3 05/15/21 14:17 Lymphocytes # (Manual) 0.7 K/mm3 (1.2-5.4) L 05/15/21 14:17 Abs React Lymphs (Man) 0.0 K/mm3 05/15/21 14:17 Monocytes # (Manual) 0.7 K/mm3 (0.0-0.8) 05/15/21 14:17 Eosinophils # (Manual) 0.0 K/mm3 (0.0-0.4) 05/15/21 14:17 Basophils # (Manual) 0.0 K/mm3 (0.0-0.1) 05/15/21 14:17 Metamyelocytes # 0.0 K/mm3 05/15/21 14:17 Myelocytes # 0.0 K/mm3 05/15/21 14:17 Promyelocytes # 0.0 K/mm3 05/15/21 14:17 Blast Cells # 0.0 K/mm3 05/15/21 14:17 WBC Morphology Not Reportable 05/15/21 14:17 Hypersegmented Neuts Not Reportable 05/15/21 14:17 Hyposegmented Neuts Not Reportable 05/15/21 14:17 Hypogranular Neuts Not Reportable 05/15/21 14:17 Smudge Cells Not Reportable 05/15/21 14:17 Toxic Granulation Not Reportable 05/15/21 14:17 Toxic Vacuolation Not Reportable 05/15/21 14:17 Dohle Bodies Not Reportable 05/15/21 14:17 Pelger-Huet Anomaly Not Reportable 05/15/21 14:17 Maryann Rods Not Reportable 05/15/21 14:17 Platelet Estimate Consistent w auto 05/15/21 14:17 Clumped Platelets Not Reportable 05/15/21 14:17 Plt Clumps, EDTA Not Reportable 05/15/21 14:17 Large Platelets Not Reportable 05/15/21 14:17 Giant Platelets Not Reportable 05/15/21 14:17 Platelet Satelliting Not Reportable 05/15/21 14:17 Plt Morphology Comment Not Reportable 05/15/21 14:17 RBC Morphology Not Reportable 05/15/21 14:17 Dimorphic RBCs Not Reportable 05/15/21 14:17 Polychromasia Not Reportable 05/15/21 14:17 Hypochromasia Not Reportable 05/15/21 14:17 Poikilocytosis 1+ 05/15/21 14:17 Anisocytosis 1+ 05/15/21 14:17 Microcytosis Not Reportable 05/15/21 14:17 Macrocytosis Not Reportable 05/15/21 14:17 Spherocytes Not Reportable 05/15/21 14:17 Pappenheimer Bodies Not Reportable 05/15/21 14:17 Sickle Cells Not Reportable 05/15/21 14:17 Target Cells Not Reportable 05/15/21 14:17 Tear Drop Cells Not Reportable 05/15/21 14:17 Ovalocytes Not Reportable 05/15/21 14:17 Helmet Cells Not Reportable 05/15/21 14:17 [place] Bodies Not Reportable 05/15/21 14:17 [place] Rings Not Reportable 05/15/21 14:17 [place] Cells 1+ 05/15/21 14:17 Bite Cells Not Reportable 05/15/21 14:17 Crenated Cell Not Reportable 05/15/21 14:17 Elliptocytes Not Reportable 05/15/21 14:17 Acanthocytes (Spur) Not Reportable 05/15/21 14:17 Rouleaux Not Reportable 05/15/21 14:17 Hemoglobin C Crystals Not Reportable 05/15/21 14:17 Schistocytes Not Reportable 05/15/21 14:17 Malaria parasites Not Reportable 05/15/21 14:17 [place] Bodies Not Reportable 05/15/21 14:17 Hem Pathologist Commnt No 05/15/21 14:17 PT 14.7 Sec. (12.2-14.9) 05/15/21 15:29 INR 1.04 (0.87-1.13) 05/15/21 15:29 APTT 52.0 Sec. (24.2-36.6) H 05/15/21 15:29 Sodium 138 mmol/L (137-145) 05/14/21 07:53 Potassium 3.2 mmol/L (3.6-5.0) L 05/15/21 09:32 Chloride 102.0 mmol/L (98-107) 05/14/21 07:53 Carbon Dioxide 21 mmol/L (22-30) L 05/14/21 07:53 Anion Gap 18 mmol/L 05/14/21 07:53 BUN 3 mg/dL (9-20) L 05/14/21 07:53 Creatinine 0.5 mg/dL (0.8-1.3) L 05/15/21 15:29 Estimated GFR > 60 ml/min 05/15/21 15:29 BUN/Creatinine Ratio 8 % 05/14/21 07:53 Glucose 87 mg/dL (75-100) 05/14/21 07:53 Calcium 8.1 mg/dL (8.4-10.2) L 05/14/21 07:53 Total Bilirubin 0.20 mg/dL (0.1-1.2) 05/10/21 07:12 AST 26 units/L (5-40) 05/10/21 07:12 ALT 10 units/L (7-56) 05/10/21 07:12 Alkaline Phosphatase 58 units/L (35-129) 05/10/21 07:12 Total Creatine Kinase 274 units/L (55-170) H 05/08/21 16:04 Total Protein 5.8 g/dL (6.3-8.2) L D 05/10/21 07:12 Albumin 3.1 g/dL (3.9-5) L 05/10/21 07:12 Albumin/Globulin Ratio 1.1 % 05/10/21 07:12 Vancomycin Trough 4.0 ug/mL (5.0-20.0) L 05/13/21 04:55 Coronavirus (PCR) Positive (Negative) A 05/09/21 Unknown Rg/IV: Voiding Method Condom Catheter Active Medications - Current Medications Current Medications: Generic Name Dose Route Start Last Admin Trade Name Freq PRN Reason Stop Dose Admin Acetaminophen 650 mg 05/08/21 23:52 05/10/21 10:47 Acetaminophen 325 Mg Tab PO 650 mg Q4H PRN Administration Pain MILD(1-3)/Fever >100.5/WORLEY Hydrocodone Bitart/Acetaminophen 1 each 05/11/21 15:31 05/16/21 05:05 Hydrocodone/Acetaminophen 5-325 Mg Tab PO 1 each Q4H PRN Administration Pain, Moderate (4-6) Aspirin 81 mg 05/09/21 10:00 05/15/21 09:54 Aspirin Ec 81 Mg Tab PO 81 mg QDAY CARMELITA Administration Atorvastatin Calcium 40 mg 05/09/21 22:00 05/15/21 21:49 Atorvastatin 40 Mg Tab PO 40 mg QHS CARMELITA Administration Calcium Carbonate/Glycine 1,250 mg 05/13/21 10:00 05/15/21 21:50 Calcium Carbonate 1250 Mg Tab PO 1,250 mg BID CARMELITA Administration Clopidogrel Bisulfate 75 mg 05/09/21 10:00 05/15/21 09:55 Clopidogrel 75 Mg Tab PO 75 mg QDAY CARMELITA Administration Gabapentin 300 mg 05/08/21 23:45 05/15/21 21:50 Gabapentin 300 Mg Cap PO 300 mg BID CARMELITA Administration Sodium Chloride 1,000 mls @ 100 mls/hr 05/08/21 23:45 05/15/21 03:29 Nacl 0.9% 1000 Ml IV 100 mls/hr DIRECT CARMELITA Administration Ampicillin Sodium/Sulbactam Sodium 3 gm in 100 mls @ 100 mls/hr 05/09/21 01:00 05/16/21 05:05 Unasyn/Ns 3 Gm/100 Ml IV 100 mls/hr Q6HR CARMELITA Administration Protocol Vancomycin HCl 1 gm in 250 mls @ 167.007 mls/hr 05/13/21 18:00 05/15/21 17:45 Vancomycin/Ns 1 Gm/250 Ml IV 167.007 mls/hr Q12H CARMELITA Administration Labetalol HCl 100 mg 05/08/21 23:45 05/15/21 21:50 Labetalol 100 Mg Tab PO 100 mg BID CARMELITA Administration Metoclopramide HCl 10 mg 05/08/21 23:52 Metoclopramide 10 Mg/2 Ml Inj IV Q6H PRN Nausea And Vomiting Miscellaneous Medication 1 each 05/15/21 20:00 05/15/21 23:33 Rivaroxaban 2.5mg PO Not Given Q12H CARMELITA Morphine Sulfate 2 mg 05/08/21 23:52 05/10/21 14:06 Morphine 2 Mg/1 Ml Inj IV 2 mg Q4H PRN Administration Pain, Moderate (4-6) Ondansetron HCl 4 mg 05/08/21 23:52 Ondansetron 4 Mg/2 Ml Inj IV Q8H PRN Nausea And Vomiting Oxycodone/Acetaminophen 1 tab 05/08/21 23:52 05/15/21 21:50 Oxycodone /Acetaminophen 5-325mg Tab PO 1 tab Q6H PRN Administration Pain, Moderate (4-6) Pantoprazole Sodium 40 mg 05/15/21 15:00 05/15/21 17:43 Pantoprazole 40 Mg Tab PO 40 mg DAILY CARMELITA Administration Potassium Chloride 40 meq 05/16/21 08:04 Potassium Chloride Er 20 Meq Tab PO 05/16/21 08:05 ONCE ONE Rivaroxaban 2.5 mg 05/15/21 15:00 05/15/21 22:30 Rivaroxaban 10 Mg Tab PO 2.5 mg BID CARMELITA Administration Protocol Sodium Chloride 10 ml 05/09/21 10:00 05/15/21 23:34 Sodium Chloride 0.9% 10 Ml Flush Syringe IV Not Given BID CARMELITA Sodium Chloride 10 ml 05/08/21 23:52 Sodium Chloride 0.9% 10 Ml Flush Syringe IV PRN PRN LINE FLUSH Nutrition/Malnutrition Assess - Dietary Evaluation Nutrition/Malnutrition Findings: Nutrition Notes Start: 05/09/21 12:43 Freq: Status: Active Protocol: Document 05/10/21 14:42 ZARIA (Rec: 05/10/21 15:02 ZARIA [id number]) Nutrition Notes Initial or Follow up Brief Note Current Diet Regular Diet (since 05/09), D Suppl (05/09). Height 6 ft Weight 54.431 kg [place] Body Weight (kg) 80.90 BMI 16.2 Weight change and time frame No body weight change reported . Weight Status Underweight Subjective/Other Information RD consult for risk of malnutrition assessment. At admission, Pt stated having lost 14-23 lbs recently unintentionally, and eating less due to poor appetite. Pt presents Chronic cachexia with normal albumin and osteomyelitis on the L foot, attended with dfietary supplements on last consult. Pt's Po intake of meals has been Poor (25%), according to ADL notes. NPO is scheduled for 05/11 after midnight, due to debridement of heel ulcer procedure. Percent of energy/protein needs met: Prescribed Regular Diet provides for energy/protein needs (2,289 Kcal/89 g) during LOS; additionally, Dietary Supplements will compensate for possible Poor PO intake of meals, and will support wound healing processes with 1,240 Kcal and 65 g of protein. Current % PO Poor (25-49%) Minimum of two criteria No #2 Nutrition Diagnosis Inadequate protein-energy intake Diagnosis Progress(for reassessment Continues documentation) #1 Nutrition Diagnosis Increased nutrient needs ( specify in comment below) Diagnosis Progress(for reassessment Continues documentation) Nutrition Intervention Change Diet Order: Continue Regular Diet. Add Supplement/Snack (indicate name/kcal Continue 8 fl oz Ensure Enlive /protein ) ; TID. 28.8 g pkt Kali; BID. Provides kCal: 1,240 Provides Protein (gm) 65 Goal #1 Support, through dietary supplementation, wound healing processes during LOS. Goal #2 Compensate, through dietary supplementation, for possible poor or insufficient PO intake of meals during LOS. Follow-Up By: 05/16/21 Additional Comments Continue monitoring food tolerance, %PO intake of meals , and BM.
[2021-05-16] MEDS ORDERED: POTASSIUM CHLORIDE ER 20 MEQ TAB PO NR (08:30)
[2021-05-16] MEDS: CLOPIDOGREL 75 MG TAB PO SCH (12:07)
[2021-05-16] MEDS: CALCIUM CARBONATE 1250 MG TAB PO SCH ×2 (12:08→22:25)
[2021-05-16] MEDS: RIVAROXABAN 2.5 MG PO SCH ×3 (12:08→22:30)
[2021-05-16] MEDS: GABAPENTIN 300 MG CAP PO SCH ×2 (12:09→22:05)
[2021-05-16] MEDS: PANTOPRAZOLE 40 MG TAB PO SCH (12:09)
[2021-05-16] MEDS: ASPIRIN EC 81 MG TAB PO SCH (12:09)
[2021-05-16] MEDS: RIVAROXABAN 10 MG TAB PO SCH (12:11)
[2021-05-16] MEDS: oxyCODONE /ACETAMINOPHEN 5-325MG TAB PO PRN (12:27)
--- NOTE | 2021-05-16 13:59 | Progress Note ---
Assessment and Plan Cultures: COVID-19 PCR: Positive A/P: 71-year-old male with hypertension, atrial fibrillation, smoking, prior CVA was admitted to the hospital with worsening left heel ulceration over the last 3 months: #Sepsis secondary to extensive left foot cellulitis with necrotizing infection, early osteomyelitis of the calcaneal tuberosity #Peripheral vascular disease: extensive as noted on CTA. Vascular surgery f ollowing. S/p revascularization of LLE. Also revascularization of right iliac and common femoral arteries. #Protein calorie malnutrition #COVID-19 infection: Asymptomatic, on room air Recs: -Continue IV Unasyn, vancomycin, pending debridement, please send deep cultures -following debridement, anticipate 4-6 weeks of IV abx Kristy Awad MD, FACP, [facility] O: [phone] F: [phone] Subjective Date of service: 05/16/21 Principal diagnosis: PVD with ischemia Interval history: No fever. Remains on room air. Objective - Exam Narrative Exam: Physical Exam: (deferred to minimize transmission risk, reviewed in chart) - Constitutional Vitals: Vital Signs Temp Pulse Resp BP Pulse Ox 98.3 F 85 18 138/68 95 05/16/21 05:02 05/16/21 05:02 05/16/21 05:02 05/16/21 05:02 05/16/21 05:02 Temperature -Last 24 Hours Temperature 98.3 F Temperature 98.6 F Temperature 99.2 F - Labs CBC & Chem 7: 05/15/21 14:17 05/15/21 15:29 Labs: Abnormal lab results 05/15/21 05/15/21 05/15/21 Range/Units 14:17 15:29 15:29 RBC 3.18 L (3.65-5.03) M/mm3 Hgb 9.2 L (11.8-15.2) gm/dl Hct 28.8 L (35.5-45.6) % Seg Neuts % (Manual) 78.0 H (40.0-70.0) % Lymphocytes % (Manual) 11.0 L (13.4-35.0) % Monocytes % (Manual) 10.0 H (0.0-7.3) % Lymphocytes # (Manual) 0.7 L (1.2-5.4) K/mm3 APTT 52.0 H (24.2-36.6) Sec. Creatinine 0.5 L (0.8-1.3) mg/dL
[2021-05-16] MEDS: VANCOMYCIN/NS 1 GM/250 ML 1 GM/250 ML BAG IV SCH ×2 (15:28→22:24)
[2021-05-17] MEDS: AMPICILLIN/SULBACTA 3GM/100ML 3 GM/100 ML BAG IV SCH ×4 (00:18→18:00)
[2021-05-17] MEDS: VANCOMYCIN/NS 1 GM/250 ML 1 GM/250 ML BAG IV SCH ×3 (05:33→21:57)
[2021-05-17] MEDS: MORPHINE 2 MG/1 ML INJ IV PRN (05:33)
--- NOTE | 2021-05-17 08:19 | Progress Note ---
Assessment and Plan Assessment and plan: #Left foot chronic osteomyelitis #Sepsis-resolved -continue Unasyn and vancomycin for now -Orthopedic surgery recommending outpatient wound care and debridement; case management aware -Infectious disease following, assistance appreciated #Bilateral posterior tibial artery occlusion #Peripheral artery disease -Status post revascularization on 05/14 -Continue aspirin and Plavix -Continue Xarelto #COVID-19 infection -Positive coronavirus PCR on 05/09 -Continue contact and droplet precautions -Patient saturating well on room air; treatment with remdesivir/steroids deferred #Hypokalemia -Potassium 3. -will replete and monitor #Underweight #Protein calorie malnutrition -BMI 16.3 -Continue dietary supplements Disposition Plan: SNF placement History Interval history: No events overnight. No complaints at this time. Hospitalist Physical - Physical exam Narrative exam: GENERAL: Thin male. In no acute distress. HEENT: Normocephalic atraumatic. The CHEST/LUNGS: CTAB on room air HEART/CARDIOVASCULAR: RRR. No murmur, rubs or gallops appreciated. ABDOMEN: +BS. NT/ND. NEURO: No focal motor deficit. Follows all commands. MUSCULOSKELETAL: No joint effusion EXTREMITIES: left lower extremity wrapped in bandage. PSYCH: Cooperative. - Constitutional Vitals: Temp Pulse Resp BP Pulse Ox 98.5 F 84 20 156/75 95 05/17/21 05:26 05/17/21 05:26 05/17/21 05:26 05/17/21 05:26 05/17/21 05:26 General appearance: Present: no acute distress, cachectic Results - Labs CBC & Chem 7: 05/17/21 07:04 05/17/21 07:04 Labs: Laboratory Last Values WBC 6.6 K/mm3 (4.5-11.0) 05/15/21 14:17 RBC 3.18 M/mm3 (3.65-5.03) L 05/15/21 14:17 Hgb 9.2 gm/dl (11.8-15.2) L 05/15/21 14:17 Hct 28.8 % (35.5-45.6) L 05/15/21 14:17 MCV 91 fl (84-94) 05/15/21 14:17 MCH 29 pg (28-32) 05/15/21 14:17 MCHC 32 % (32-34) 05/15/21 14:17 RDW 15.0 % (13.2-15.2) 05/15/21 14:17 Plt Count 203 K/mm3 (140-440) 05/15/21 14:17 Lymph % (Auto) 16.9 % (13.4-35.0) 05/14/21 07:53 Tillman % (Auto) Admitting Counselor 05/15/21 14:17 Eos % (Auto) 3.7 % (0.0-4.3) 05/14/21 07:53 Baso % (Auto) 0.6 % (0.0-1.8) 05/14/21 07:53 Lymph # (Auto) 0.8 K/mm3 (1.2-5.4) L 05/14/21 07:53 Tillman # (Auto) 0.7 K/mm3 (0.0-0.8) 05/14/21 07:53 Eos # (Auto) 0.2 K/mm3 (0.0-0.4) 05/14/21 07:53 Baso # (Auto) 0.0 K/mm3 (0.0-0.1) 05/14/21 07:53 Add Manual Diff Complete 05/15/21 14:17 Total Counted 100 05/15/21 14:17 Seg Neutrophils % 63.9 % (40.0-70.0) 05/14/21 07:53 Seg Neuts % (Manual) 78.0 % (40.0-70.0) H 05/15/21 14:17 Band Neutrophils % 1.0 % 05/15/21 14:17 Lymphocytes % (Manual) 11.0 % (13.4-35.0) L 05/15/21 14:17 Reactive Lymphs % (Man) 0 % 05/15/21 14:17 Monocytes % (Manual) 10.0 % (0.0-7.3) H 05/15/21 14:17 Eosinophils % (Manual) 0 % (0.0-4.3) 05/15/21 14:17 Basophils % (Manual) 0 % (0.0-1.8) 05/15/21 14:17 Metamyelocytes % 0 % 05/15/21 14:17 Myelocytes % 0 % 05/15/21 14:17 Promyelocytes % 0 % 05/15/21 14:17 Blast Cells % 0 % 05/15/21 14:17 Nucleated RBC % Not Reportable 05/15/21 14:17 Seg Neutrophils # 3.1 K/mm3 (1.8-7.7) 05/14/21 07:53 Seg Neutrophils # Man 5.1 K/mm3 (1.8-7.7) 05/15/21 14:17 Band Neutrophils # 0.1 K/mm3 05/15/21 14:17 Lymphocytes # (Manual) 0.7 K/mm3 (1.2-5.4) L 05/15/21 14:17 Abs React Lymphs (Man) 0.0 K/mm3 05/15/21 14:17 Monocytes # (Manual) 0.7 K/mm3 (0.0-0.8) 05/15/21 14:17 Eosinophils # (Manual) 0.0 K/mm3 (0.0-0.4) 05/15/21 14:17 Basophils # (Manual) 0.0 K/mm3 (0.0-0.1) 05/15/21 14:17 Metamyelocytes # 0.0 K/mm3 05/15/21 14:17 Myelocytes # 0.0 K/mm3 05/15/21 14:17 Promyelocytes # 0.0 K/mm3 05/15/21 14:17 Blast Cells # 0.0 K/mm3 05/15/21 14:17 WBC Morphology Not Reportable 05/15/21 14:17 Hypersegmented Neuts Not Reportable 05/15/21 14:17 Hyposegmented Neuts Not Reportable 05/15/21 14:17 Hypogranular Neuts Not Reportable 05/15/21 14:17 Smudge Cells Not Reportable 05/15/21 14:17 Toxic Granulation Not Reportable 05/15/21 14:17 Toxic Vacuolation Not Reportable 05/15/21 14:17 Dohle Bodies Not Reportable 05/15/21 14:17 Pelger-Huet Anomaly Not Reportable 05/15/21 14:17 Maryann Rods Not Reportable 05/15/21 14:17 Platelet Estimate Consistent w auto 05/15/21 14:17 Clumped Platelets Not Reportable 05/15/21 14:17 Plt Clumps, EDTA Not Reportable 05/15/21 14:17 Large Platelets Not Reportable 05/15/21 14:17 Giant Platelets Not Reportable 05/15/21 14:17 Platelet Satelliting Not Reportable 05/15/21 14:17 Plt Morphology Comment Not Reportable 05/15/21 14:17 RBC Morphology Not Reportable 05/15/21 14:17 Dimorphic RBCs Not Reportable 05/15/21 14:17 Polychromasia Not Reportable 05/15/21 14:17 Hypochromasia Not Reportable 05/15/21 14:17 Poikilocytosis 1+ 05/15/21 14:17 Anisocytosis 1+ 05/15/21 14:17 Microcytosis Not Reportable 05/15/21 14:17 Macrocytosis Not Reportable 05/15/21 14:17 Spherocytes Not Reportable 05/15/21 14:17 Pappenheimer Bodies Not Reportable 05/15/21 14:17 Sickle Cells Not Reportable 05/15/21 14:17 Target Cells Not Reportable 05/15/21 14:17 Tear Drop Cells Not Reportable 05/15/21 14:17 Ovalocytes Not Reportable 05/15/21 14:17 Helmet Cells Not Reportable 05/15/21 14:17 [place]o-[place] Bodies Not Reportable 05/15/21 14:17 Kinsley Rings Not Reportable 05/15/21 14:17 Bonnie Cells 1+ 05/15/21 14:17 Bite Cells Not Reportable 05/15/21 14:17 Crenated Cell Not Reportable 05/15/21 14:17 Elliptocytes Not Reportable 05/15/21 14:17 Acanthocytes (Spur) Not Reportable 05/15/21 14:17 Rouleaux Not Reportable 05/15/21 14:17 Hemoglobin C Crystals Not Reportable 05/15/21 14:17 Schistocytes Not Reportable 05/15/21 14:17 Malaria parasites Not Reportable 05/15/21 14:17 Amari Bodies Not Reportable 05/15/21 14:17 Hem Pathologist Commnt No 05/15/21 14:17 PT 14.7 Sec. (12.2-14.9) 05/15/21 15:29 INR 1.04 (0.87-1.13) 05/15/21 15:29 APTT 52.0 Sec. (24.2-36.6) H 05/15/21 15:29 Sodium 138 mmol/L (137-145) 05/14/21 07:53 Potassium 3.2 mmol/L (3.6-5.0) L 05/15/21 09:32 Chloride 102.0 mmol/L (98-107) 05/14/21 07:53 Carbon Dioxide 21 mmol/L (22-30) L 05/14/21 07:53 Anion Gap 18 mmol/L 05/14/21 07:53 BUN 3 mg/dL (9-20) L 05/14/21 07:53 Creatinine 0.5 mg/dL (0.8-1.3) L 05/15/21 15:29 Estimated GFR > 60 ml/min 05/15/21 15:29 BUN/Creatinine Ratio 8 % 05/14/21 07:53 Glucose 87 mg/dL (75-100) 05/14/21 07:53 Calcium 8.1 mg/dL (8.4-10.2) L 05/14/21 07:53 Total Bilirubin 0.20 mg/dL (0.1-1.2) 05/10/21 07:12 AST 26 units/L (5-40) 05/10/21 07:12 ALT 10 units/L (7-56) 05/10/21 07:12 Alkaline Phosphatase 58 units/L (35-129) 05/10/21 07:12 Total Creatine Kinase 274 units/L (55-170) H 05/08/21 16:04 Total Protein 5.8 g/dL (6.3-8.2) L D 05/10/21 07:12 Albumin 3.1 g/dL (3.9-5) L 05/10/21 07:12 Albumin/Globulin Ratio 1.1 % 05/10/21 07:12 Vancomycin Trough 6.1 ug/mL (5.0-20.0) 05/16/21 08:00 Coronavirus (PCR) Positive (Negative) A 05/09/21 Unknown Rg/IV: Voiding Method Condom Catheter Active Medications - Current Medications Current Medications: Generic Name Dose Route Start Last Admin Trade Name Freq PRN Reason Stop Dose Admin Acetaminophen 650 mg 05/08/21 23:52 05/10/21 10:47 Acetaminophen 325 Mg Tab PO 650 mg Q4H PRN Administration Pain MILD(1-3)/Fever >100.5/WORLEY Hydrocodone Bitart/Acetaminophen 1 each 05/11/21 15:31 05/16/21 19:51 Hydrocodone/Acetaminophen 5-325 Mg Tab PO 1 each Q4H PRN Administration Pain, Moderate (4-6) Aspirin 81 mg 05/09/21 10:00 05/16/21 12:09 Aspirin Ec 81 Mg Tab PO 81 mg QDAY CARMELITA Administration Atorvastatin Calcium 40 mg 05/09/21 22:00 05/16/21 22:05 Atorvastatin 40 Mg Tab PO 40 mg QHS CARMELITA Administration Calcium Carbonate/Glycine 1,250 mg 05/13/21 10:00 05/16/21 22:25 Calcium Carbonate 1250 Mg Tab PO 1,250 mg BID CARMELITA Administration Clopidogrel Bisulfate 75 mg 05/09/21 10:00 05/16/21 12:07 Clopidogrel 75 Mg Tab PO 75 mg QDAY CARMELITA Administration Gabapentin 300 mg 05/08/21 23:45 05/16/21 22:05 Gabapentin 300 Mg Cap PO 300 mg BID CARMELITA Administration Sodium Chloride 1,000 mls @ 100 mls/hr 05/08/21 23:45 05/15/21 03:29 Nacl 0.9% 1000 Ml IV 100 mls/hr DIRECT CARMELITA Administration Ampicillin Sodium/Sulbactam Sodium 3 gm in 100 mls @ 100 mls/hr 05/09/21 01:00 05/17/21 05:10 Unasyn/Ns 3 Gm/100 Ml IV 100 mls/hr Q6HR CARMELITA Administration Protocol Vancomycin HCl 1 gm in 250 mls @ 167.007 mls/hr 05/16/21 14:00 05/17/21 05:33 Vancomycin/Ns 1 Gm/250 Ml IV 167.007 mls/hr Q8HR CARMELITA Administration Labetalol HCl 100 mg 05/08/21 23:45 05/16/21 22:30 Labetalol 100 Mg Tab PO 100 mg BID CARMELITA Administration Metoclopramide HCl 10 mg 05/08/21 23:52 Metoclopramide 10 Mg/2 Ml Inj IV Q6H PRN Nausea And Vomiting Miscellaneous Medication 1 each 05/16/21 10:00 05/16/21 22:30 Rivaroxaban 2.5mg PO 1 each Q12H CARMELITA Administration Morphine Sulfate 2 mg 05/08/21 23:52 05/17/21 05:33 Morphine 2 Mg/1 Ml Inj IV 2 mg Q4H PRN Administration Pain, Moderate (4-6) Ondansetron HCl 4 mg 05/08/21 23:52 Ondansetron 4 Mg/2 Ml Inj IV Q8H PRN Nausea And Vomiting Oxycodone/Acetaminophen 1 tab 05/08/21 23:52 05/16/21 12:27 Oxycodone /Acetaminophen 5-325mg Tab PO 1 tab Q6H PRN Administration Pain, Moderate (4-6) Pantoprazole Sodium 40 mg 05/15/21 15:00 05/16/21 12:09 Pantoprazole 40 Mg Tab PO 40 mg DAILY CARMELITA Administration Sodium Chloride 10 ml 05/09/21 10:00 05/16/21 22:30 Sodium Chloride 0.9% 10 Ml Flush Syringe IV 10 ml BID CARMELITA Administration Sodium Chloride 10 ml 05/08/21 23:52 Sodium Chloride 0.9% 10 Ml Flush Syringe IV PRN PRN LINE FLUSH Nutrition/Malnutrition Assess - Dietary Evaluation Nutrition/Malnutrition Findings: Nutrition Notes Start: 05/09/21 12:43 Freq: Status: Active Protocol: Document 05/16/21 19:00 ZARIA (Rec: 05/16/21 19:19 ZARIA [id number]) Nutrition Notes Initial or Follow up Reassessment Current Diagnosis Sepsis Other Pertinent Diagnosis COVID-19, L-foot osteomyelitis , PAD, Cachexia. Current Diet Regular Diet (since B 05/14), D Suppl (05/17). Labs/Tests 05/16: N/A. Pertinent Medications 05/16: Nutritionally unremarkable. Height 6 ft Weight 52.7 kg [place] Body Weight (kg) 80.90 BMI 15.7 Weight change and time frame 1.731 Kg body weight loss in 1 week reported. Weight Status Underweight Subjective/Other Information RD consult for routine F/U on Dietary assessment. Pt's PO intake of meals has been Poor (25%), according to ADL notes. Pt has asimptomatic COVID-19 infection. Dietary supplementation will be resumed. Percent of energy/protein needs met: Prescribed Regular Diet provides for energy/protein needs (2,289 Kcal/89 g) during LOS; additionally, Dietary Supplements will compensate for possible Poor PO intake of meals, and will support wound healing processes with 1,240 Kcal and 65 g of protein. Burn Absent Trauma Absent GI Symptoms None Food Allergy No Skin Integrity/Comment necrotic left heel stage III ulcer Current % PO Poor (25-49%) Minimum of two criteria No #2 Nutrition Diagnosis Inadequate protein-energy intake Diagnosis Progress(for reassessment Continues documentation) #1 Nutrition Diagnosis Increased nutrient needs ( specify in comment below) Diagnosis Progress(for reassessment Continues documentation) Is patient on ventilator? No Is Patient Ambulatory and/or Out of Bed No REE-([place] Jeor-confined to bed) 1601.981 Calculation Used for Recommendations 70-80% of EEN. Additional Notes 15-20 Kcal/Kg ABW. Protein: 1.2-2 g/Kg; 64-106 g/ day. Fluids: 1 ml/Kcal, or as per MD. Nutrition Intervention Change Diet Order: Continue Regular Diet. Add Supplement/Snack (indicate name/kcal Resume 8 fl oz Ensure Enlive; /protein ) TID. 28.8 g pkt Kali; BID. Provides kCal: 1,240 Provides Protein (gm) 65 Goal #1 Support, through dietary supplementation, wound healing processes during LOS. Goal #2 Compensate, through dietary supplementation, for possible poor or insufficient PO intake of meals during LOS. Follow-Up By: 05/23/21 Additional Comments Continue monitoring food tolerance, %PO intake of meals , and BM.
[2021-05-17 08:27] LABS: Hematocrit 24.9 % (35.5-45.6); Hemoglobin 8.2 gm/dl (11.8-15.2); Mean Corpuscular HGB Conc 33 % (32-34); Mean Corpuscular Volume 88 fl (84-94); Platelet Count 262 K/mm3 (140-440); Red Blood Count 2.83 M/mm3 (3.65-5.03); Red Cell Distribution Width 14.9 % (13.2-15.2)
[2021-05-17 08:37] LABS: Blood Urea Nitrogen 5 mg/dL (9-20); Calcium 7.7 mg/dL (8.4-10.2); Hemolysis Index 0
[2021-05-17 08:41] LABS: BUN/Creatinine Ratio 17
[2021-05-17] MEDS: CALCIUM CARBONATE 1250 MG TAB PO SCH ×2 (09:02→21:57)
[2021-05-17] MEDS: ASPIRIN EC 81 MG TAB PO SCH (09:02)
[2021-05-17] MEDS: GABAPENTIN 300 MG CAP PO SCH ×2 (09:02→21:55)
[2021-05-17] MEDS: PANTOPRAZOLE 40 MG TAB PO SCH (09:02)
[2021-05-17] MEDS: CLOPIDOGREL 75 MG TAB PO SCH (09:02)
[2021-05-17] MEDS: RIVAROXABAN 2.5 MG PO SCH (11:30)
--- NOTE | 2021-05-17 11:32 | Progress Note ---
Assessment and Plan Patient with adequate perfusion to heal wound interventions. At this point in time, patient will need both wound care and physical therapy to resume treatment. He will need both on discharge given his significant knee and ankle contractures on the left as well as his wound. Subjective Date of service: 05/17/21 Principal diagnosis: PVD with ischemia Interval history: Patient with calcaneal eschar and ischemic small eschars to his left foot status post revascularization. He has palpable dorsalis pedis and posterior tibial pulses. Mild reperfusion edema. The patient does complain of some pain with his reperfusion edema. His foot is in a pressure reducing boot. Contractures noted. Objective - Constitutional Vitals: Vital Signs - 12hr 05/17/21 05:26 Temperature 98.5 F Pulse Rate 84 Respiratory 20 Rate Blood Pressure 156/75 O2 Sat by Pulse 95 Oximetry General appearance: Present: no acute distress - EENT Eyes: EOM intact ENT: hearing intact - Neck Neck: supple - Respiratory Respiratory effort: normal Extremities: abnormal - Gastrointestinal General gastrointestinal: Present: deferred Rectal Exam: deferred - Genitourinary Male genitourinary: deferred - Psychiatric Psychiatric: appropriate mood/affect, cooperative - Labs CBC & Chem 7: 05/17/21 07:04 05/17/21 07:04 Labs: Abnormal lab results 05/17/21 05/17/21 Range/Units 07:04 07:04 RBC 2.83 L (3.65-5.03) M/mm3 Hgb 8.2 L (11.8-15.2) gm/dl Hct 24.9 L (35.5-45.6) % Potassium 3.1 L (3.6-5.0) mmol/L BUN 5 L (9-20) mg/dL Creatinine 0.3 L (0.8-1.3) mg/dL Calcium 7.7 L (8.4-10.2) mg/dL Medications & Allergies - Medications Allergies/Adverse Reactions: Allergies No Known Allergies Allergy (Verified 05/10/21 11:28) Home Medications: Home Medications Medication Instructions Recorded Confirmed Last Taken Type Aspirin EC [Halfprin EC] 81 mg PO QDAY #30 tablet 06/02/20 05/08/21 Unknown Rx AtorvaSTATin [Lipitor] 40 mg PO QHS #30 tablet 06/02/20 05/08/21 Unknown Rx Clopidogrel [Plavix] 75 mg PO QDAY 20 Days #20 tablet 06/02/20 05/08/21 Unknown Rx Gabapentin [Neurontin] 300 mg PO BID 05/08/21 05/08/21 Unknown History labetaloL [Labetalol 100mg TAB] 50 mg PO BID 05/10/21 05/10/21 05/01/21 History Active Medications: Generic Name Dose Route Start Last Admin Trade Name Freq PRN Reason Stop Dose Admin Acetaminophen 650 mg 05/08/21 23:52 05/10/21 10:47 Acetaminophen 325 Mg Tab PO 650 mg Q4H PRN Administration Pain MILD(1-3)/Fever >100.5/WORLEY Hydrocodone Bitart/Acetaminophen 1 each 05/11/21 15:31 05/16/21 19:51 Hydrocodone/Acetaminophen 5-325 Mg Tab PO 1 each Q4H PRN Administration Pain, Moderate (4-6) Aspirin 81 mg 05/09/21 10:00 05/17/21 09:02 Aspirin Ec 81 Mg Tab PO 81 mg QDAY CARMELITA Administration Atorvastatin Calcium 40 mg 05/09/21 22:00 05/16/21 22:05 Atorvastatin 40 Mg Tab PO 40 mg QHS CARMELITA Administration Calcium Carbonate/Glycine 1,250 mg 05/13/21 10:00 05/17/21 09:02 Calcium Carbonate 1250 Mg Tab PO 1,250 mg BID CARMELITA Administration Clopidogrel Bisulfate 75 mg 05/09/21 10:00 05/17/21 09:02 Clopidogrel 75 Mg Tab PO 75 mg QDAY CARMELITA Administration Gabapentin 300 mg 05/08/21 23:45 05/17/21 09:02 Gabapentin 300 Mg Cap PO 300 mg BID CARMELITA Administration Sodium Chloride 1,000 mls @ 100 mls/hr 05/08/21 23:45 05/15/21 03:29 Nacl 0.9% 1000 Ml IV 100 mls/hr DIRECT CARMELITA Administration Ampicillin Sodium/Sulbactam Sodium 3 gm in 100 mls @ 100 mls/hr 05/09/21 01:00 05/17/21 05:10 Unasyn/Ns 3 Gm/100 Ml IV 100 mls/hr Q6HR CARMELITA Administration Protocol Vancomycin HCl 1 gm in 250 mls @ 167.007 mls/hr 05/16/21 14:00 05/17/21 05:33 Vancomycin/Ns 1 Gm/250 Ml IV 167.007 mls/hr Q8HR CARMELITA Administration Labetalol HCl 100 mg 05/08/21 23:45 05/17/21 09:02 Labetalol 100 Mg Tab PO 100 mg BID CARMELITA Administration Metoclopramide HCl 10 mg 05/08/21 23:52 Metoclopramide 10 Mg/2 Ml Inj IV Q6H PRN Nausea And Vomiting Miscellaneous Medication 1 each 05/16/21 10:00 05/16/21 22:30 Rivaroxaban 2.5mg PO 1 each Q12H CARMELITA Administration Morphine Sulfate 2 mg 05/08/21 23:52 05/17/21 05:33 Morphine 2 Mg/1 Ml Inj IV 2 mg Q4H PRN Administration Pain, Moderate (4-6) Ondansetron HCl 4 mg 05/08/21 23:52 Ondansetron 4 Mg/2 Ml Inj IV Q8H PRN Nausea And Vomiting Oxycodone/Acetaminophen 1 tab 05/08/21 23:52 05/16/21 12:27 Oxycodone /Acetaminophen 5-325mg Tab PO 1 tab Q6H PRN Administration Pain, Moderate (4-6) Pantoprazole Sodium 40 mg 05/15/21 15:00 05/17/21 09:02 Pantoprazole 40 Mg Tab PO 40 mg DAILY CARMELITA Administration Sodium Chloride 10 ml 05/09/21 10:00 05/17/21 09:03 Sodium Chloride 0.9% 10 Ml Flush Syringe IV 10 ml BID CARMELITA Administration Sodium Chloride 10 ml 05/08/21 23:52 Sodium Chloride 0.9% 10 Ml Flush Syringe IV PRN PRN LINE FLUSH
--- NOTE | 2021-05-17 14:24 | Progress Note ---
Assessment and Plan Cultures: COVID-19 PCR: Positive A/P: 71-year-old male with hypertension, atrial fibrillation, smoking, prior CVA was admitted to the hospital with worsening left heel ulceration over the last 3 months: #Sepsis secondary to extensive left foot cellulitis with necrotizing infection, early osteomyelitis of the calcaneal tuberosity #Peripheral vascular disease: extensive as noted on CTA. Vascular surgery f ollowing. S/p revascularization of LLE. Also revascularization of right iliac and common femoral arteries. #Protein calorie malnutrition #COVID-19 infection: Asymptomatic, on room air Recs: -Continue IV Unasyn, vancomycin, pending debridement, please send deep cultures -following debridement, anticipate 4-6 weeks of IV abx Kristy Awad MD, FACP, [facility] O: [phone] F: [phone] Subjective Date of service: 05/17/21 Principal diagnosis: PVD with ischemia Interval history: No fever. Remains on room air. Awaits debridement. Objective - Exam Narrative Exam: Physical Exam: (deferred to minimize transmission risk, reviewed in chart) - Constitutional Vitals: Vital Signs Temp Pulse Resp BP Pulse Ox 98.7 F 77 18 130/59 94 05/17/21 12:18 05/17/21 12:18 05/17/21 12:18 05/17/21 12:18 05/17/21 12:18 Temperature -Last 24 Hours Temperature 98.7 F Temperature 98.5 F Temperature 98.4 F Temperature 99.4 F - Labs CBC & Chem 7: 05/17/21 07:04 05/17/21 07:04 Labs: Abnormal lab results 05/17/21 05/17/21 Range/Units 07:04 07:04 RBC 2.83 L (3.65-5.03) M/mm3 Hgb 8.2 L (11.8-15.2) gm/dl Hct 24.9 L (35.5-45.6) % Potassium 3.1 L (3.6-5.0) mmol/L BUN 5 L (9-20) mg/dL Creatinine 0.3 L (0.8-1.3) mg/dL Calcium 7.7 L (8.4-10.2) mg/dL
[2021-05-17] MEDS: POTASSIUM CHLORIDE ER 20 MEQ TAB PO SCH ×2 (15:10→20:50)
[2021-05-17] MEDS ORDERED: RIVAROXABAN 2.5 MG TAB PO SCH ×2 (22:00)
[2021-05-18] MEDS: VANCOMYCIN/NS 1 GM/250 ML 1 GM/250 ML BAG IV SCH ×3 (06:00→17:13)
[2021-05-18] MEDS: RIVAROXABAN 2.5 MG TAB PO SCH ×3 (06:36→23:16)
[2021-05-18] MEDS: GABAPENTIN 300 MG CAP PO SCH ×2 (09:38→23:16)
[2021-05-18] MEDS: CLOPIDOGREL 75 MG TAB PO SCH (09:38)
[2021-05-18] MEDS: PANTOPRAZOLE 40 MG TAB PO SCH ×3 (09:38→23:17)
[2021-05-18] MEDS: CALCIUM CARBONATE 1250 MG TAB PO SCH ×2 (09:38→23:17)
[2021-05-18] MEDS: MORPHINE 2 MG/1 ML INJ IV PRN ×2 (09:39→23:18)
--- NOTE | 2021-05-18 12:10 | Progress Note ---
Assessment and Plan Assessment and plan: #Left foot chronic osteomyelitis #Sepsis-resolved -continue Unasyn and vancomycin for now -General Surgery consulted for inpatient debridement to obtain wound cultures for better abx coverage; assistance appreciated -will require outpatient wound care at d/c -Infectious disease following, assistance appreciated #Bilateral posterior tibial artery occlusion #Peripheral artery disease -Status post revascularization on 05/14 -Continue aspirin and Plavix -Continue Xarelto #COVID-19 infection -Positive coronavirus PCR on 05/09 -Continue contact and droplet precautions -Patient saturating well on room air; treatment with remdesivir/steroids deferred #Hypokalemia -will replete and monitor #Underweight #Protein calorie malnutrition -BMI 16.3 -Continue dietary supplements Disposition Plan: SNF History Interval history: No events overnight. Patient complains of hunger and leg cramping. No other complaints at this time. Hospitalist Physical - Physical exam Narrative exam: GENERAL: Thin male. In no acute distress. CHEST/LUNGS: CTAB on room air HEART/CARDIOVASCULAR: RRR. No murmur, rubs or gallops appreciated. ABDOMEN: +BS. NT/ND. NEURO: No focal motor deficit. Follows all commands. MUSCULOSKELETAL: No joint effusion EXTREMITIES: left lower extremity wrapped in bandage. PSYCH: Cooperative. - Constitutional Vitals: Temp Pulse Resp BP Pulse Ox 98.8 F 80 16 136/64 97 05/17/21 22:17 05/18/21 09:38 05/17/21 22:17 05/17/21 22:17 05/18/21 10:00 General appearance: Present: no acute distress, cachectic Results - Labs CBC & Chem 7: 05/17/21 07:04 05/18/21 06:47 Labs: Laboratory Last Values WBC 6.3 K/mm3 (4.5-11.0) 05/17/21 07:04 RBC 2.83 M/mm3 (3.65-5.03) L 05/17/21 07:04 Hgb 8.2 gm/dl (11.8-15.2) L 05/17/21 07:04 Hct 24.9 % (35.5-45.6) L 05/17/21 07:04 MCV 88 fl (84-94) 05/17/21 07:04 MCH 29 pg (28-32) 05/17/21 07:04 MCHC 33 % (32-34) 05/17/21 07:04 RDW 14.9 % (13.2-15.2) 05/17/21 07:04 Plt Count 262 K/mm3 (140-440) 05/17/21 07:04 Lymph % (Auto) 16.9 % (13.4-35.0) 05/14/21 07:53 Lamar % (Auto) [employer] 05/15/21 14:17 Eos % (Auto) 3.7 % (0.0-4.3) 05/14/21 07:53 Baso % (Auto) 0.6 % (0.0-1.8) 05/14/21 07:53 Lymph # (Auto) 0.8 K/mm3 (1.2-5.4) L 05/14/21 07:53 Lamar # (Auto) 0.7 K/mm3 (0.0-0.8) 05/14/21 07:53 Eos # (Auto) 0.2 K/mm3 (0.0-0.4) 05/14/21 07:53 Baso # (Auto) 0.0 K/mm3 (0.0-0.1) 05/14/21 07:53 Add Manual Diff Complete 05/15/21 14:17 Total Counted 100 05/15/21 14:17 Seg Neutrophils % 63.9 % (40.0-70.0) 05/14/21 07:53 Seg Neuts % (Manual) 78.0 % (40.0-70.0) H 05/15/21 14:17 Band Neutrophils % 1.0 % 05/15/21 14:17 Lymphocytes % (Manual) 11.0 % (13.4-35.0) L 05/15/21 14:17 Reactive Lymphs % (Man) 0 % 05/15/21 14:17 Monocytes % (Manual) 10.0 % (0.0-7.3) H 05/15/21 14:17 Eosinophils % (Manual) 0 % (0.0-4.3) 05/15/21 14:17 Basophils % (Manual) 0 % (0.0-1.8) 05/15/21 14:17 Metamyelocytes % 0 % 05/15/21 14:17 Myelocytes % 0 % 05/15/21 14:17 Promyelocytes % 0 % 05/15/21 14:17 Blast Cells % 0 % 05/15/21 14:17 Nucleated RBC % Not Reportable 05/15/21 14:17 Seg Neutrophils # 3.1 K/mm3 (1.8-7.7) 05/14/21 07:53 Seg Neutrophils # Man 5.1 K/mm3 (1.8-7.7) 05/15/21 14:17 Band Neutrophils # 0.1 K/mm3 05/15/21 14:17 Lymphocytes # (Manual) 0.7 K/mm3 (1.2-5.4) L 05/15/21 14:17 Abs React Lymphs (Man) 0.0 K/mm3 05/15/21 14:17 Monocytes # (Manual) 0.7 K/mm3 (0.0-0.8) 05/15/21 14:17 Eosinophils # (Manual) 0.0 K/mm3 (0.0-0.4) 05/15/21 14:17 Basophils # (Manual) 0.0 K/mm3 (0.0-0.1) 05/15/21 14:17 Metamyelocytes # 0.0 K/mm3 05/15/21 14:17 Myelocytes # 0.0 K/mm3 05/15/21 14:17 Promyelocytes # 0.0 K/mm3 05/15/21 14:17 Blast Cells # 0.0 K/mm3 05/15/21 14:17 WBC Morphology Not Reportable 05/15/21 14:17 Hypersegmented Neuts Not Reportable 05/15/21 14:17 Hyposegmented Neuts Not Reportable 05/15/21 14:17 Hypogranular Neuts Not Reportable 05/15/21 14:17 Smudge Cells Not Reportable 05/15/21 14:17 Toxic Granulation Not Reportable 05/15/21 14:17 Toxic Vacuolation Not Reportable 05/15/21 14:17 Dohle Bodies Not Reportable 05/15/21 14:17 Pelger-Huet Anomaly Not Reportable 05/15/21 14:17 Maryann Rods Not Reportable 05/15/21 14:17 Platelet Estimate Consistent w auto 05/15/21 14:17 Clumped Platelets Not Reportable 05/15/21 14:17 Plt Clumps, EDTA Not Reportable 05/15/21 14:17 Large Platelets Not Reportable 05/15/21 14:17 Giant Platelets Not Reportable 05/15/21 14:17 Platelet Satelliting Not Reportable 05/15/21 14:17 Plt Morphology Comment Not Reportable 05/15/21 14:17 RBC Morphology Not Reportable 05/15/21 14:17 Dimorphic RBCs Not Reportable 05/15/21 14:17 Polychromasia Not Reportable 05/15/21 14:17 Hypochromasia Not Reportable 05/15/21 14:17 Poikilocytosis 1+ 05/15/21 14:17 Anisocytosis 1+ 05/15/21 14:17 Microcytosis Not Reportable 05/15/21 14:17 Macrocytosis Not Reportable 05/15/21 14:17 Spherocytes Not Reportable 05/15/21 14:17 Pappenheimer Bodies Not Reportable 05/15/21 14:17 Sickle Cells Not Reportable 05/15/21 14:17 Target Cells Not Reportable 05/15/21 14:17 Tear Drop Cells Not Reportable 05/15/21 14:17 Ovalocytes Not Reportable 05/15/21 14:17 Helmet Cells Not Reportable 05/15/21 14:17 Erazo-Walkerton Bodies Not Reportable 05/15/21 14:17 Morris Rings Not Reportable 05/15/21 14:17 Bonnie Cells 1+ 05/15/21 14:17 Bite Cells Not Reportable 05/15/21 14:17 Crenated Cell Not Reportable 05/15/21 14:17 Elliptocytes Not Reportable 05/15/21 14:17 Acanthocytes (Spur) Not Reportable 05/15/21 14:17 Rouleaux Not Reportable 05/15/21 14:17 Hemoglobin C Crystals Not Reportable 05/15/21 14:17 Schistocytes Not Reportable 05/15/21 14:17 Malaria parasites Not Reportable 05/15/21 14:17 Amari Bodies Not Reportable 05/15/21 14:17 Hem Pathologist Commnt No 05/15/21 14:17 PT 14.7 Sec. (12.2-14.9) 05/15/21 15:29 INR 1.04 (0.87-1.13) 05/15/21 15:29 APTT 52.0 Sec. (24.2-36.6) H 05/15/21 15:29 Sodium 141 mmol/L (137-145) 05/17/21 07:04 Potassium 3.1 mmol/L (3.6-5.0) L 05/17/21 07:04 Chloride 104.7 mmol/L (98-107) 05/17/21 07:04 Carbon Dioxide 23 mmol/L (22-30) 05/17/21 07:04 Anion Gap 16 mmol/L 05/17/21 07:04 BUN 5 mg/dL (9-20) L 05/17/21 07:04 Creatinine 0.3 mg/dL (0.8-1.3) L 05/18/21 06:47 Estimated GFR > 60 ml/min 05/18/21 06:47 BUN/Creatinine Ratio 17 % 05/17/21 07:04 Glucose 84 mg/dL (75-100) 05/17/21 07:04 Calcium 7.7 mg/dL (8.4-10.2) L 05/17/21 07:04 Total Bilirubin 0.20 mg/dL (0.1-1.2) 05/10/21 07:12 AST 26 units/L (5-40) 05/10/21 07:12 ALT 10 units/L (7-56) 05/10/21 07:12 Alkaline Phosphatase 58 units/L (35-129) 05/10/21 07:12 Total Creatine Kinase 274 units/L (55-170) H 05/08/21 16:04 Total Protein 5.8 g/dL (6.3-8.2) L D 05/10/21 07:12 Albumin 3.1 g/dL (3.9-5) L 05/10/21 07:12 Albumin/Globulin Ratio 1.1 % 05/10/21 07:12 Vancomycin Trough 6.1 ug/mL (5.0-20.0) 05/16/21 08:00 Coronavirus (PCR) Positive (Negative) A 05/09/21 Unknown Rg/IV: Voiding Method Indwelling Catheter Active Medications - Current Medications Current Medications: Generic Name Dose Route Start Last Admin Trade Name Freq PRN Reason Stop Dose Admin Acetaminophen 650 mg 05/08/21 23:52 05/10/21 10:47 Acetaminophen 325 Mg Tab PO 650 mg Q4H PRN Administration Pain MILD(1-3)/Fever >100.5/WORLEY Hydrocodone Bitart/Acetaminophen 1 each 05/11/21 15:31 05/16/21 19:51 Hydrocodone/Acetaminophen 5-325 Mg Tab PO 1 each Q4H PRN Administration Pain, Moderate (4-6) Aspirin 81 mg 05/09/21 10:00 05/17/21 09:02 Aspirin Ec 81 Mg Tab PO 81 mg QDAY CARMELITA Administration Atorvastatin Calcium 40 mg 05/09/21 22:00 05/17/21 21:56 Atorvastatin 40 Mg Tab PO 40 mg QHS CARMELITA Administration Calcium Carbonate/Glycine 1,250 mg 05/13/21 10:00 05/18/21 09:38 Calcium Carbonate 1250 Mg Tab PO 1,250 mg BID CARMELITA Administration Clopidogrel Bisulfate 75 mg 05/09/21 10:00 05/18/21 09:38 Clopidogrel 75 Mg Tab PO 75 mg QDAY CARMELITA Administration Gabapentin 300 mg 05/08/21 23:45 05/18/21 09:38 Gabapentin 300 Mg Cap PO 300 mg BID CARMELITA Administration Sodium Chloride 1,000 mls @ 100 mls/hr 05/08/21 23:45 05/15/21 03:29 Nacl 0.9% 1000 Ml IV 100 mls/hr DIRECT CARMELITA Administration Ampicillin Sodium/Sulbactam Sodium 3 gm in 100 mls @ 100 mls/hr 05/09/21 01:00 05/17/21 18:00 Unasyn/Ns 3 Gm/100 Ml IV 100 mls/hr Q6HR CARMELITA Administration Protocol Vancomycin HCl 1 gm in 250 mls @ 167.007 mls/hr 05/16/21 14:00 05/18/21 06:00 Vancomycin/Ns 1 Gm/250 Ml IV Not Given Q8HR CARMELITA Labetalol HCl 100 mg 05/08/21 23:45 05/18/21 09:38 Labetalol 100 Mg Tab PO 100 mg BID CARMELITA Administration Metoclopramide HCl 10 mg 05/08/21 23:52 Metoclopramide 10 Mg/2 Ml Inj IV Q6H PRN Nausea And Vomiting Morphine Sulfate 2 mg 05/08/21 23:52 05/18/21 09:39 Morphine 2 Mg/1 Ml Inj IV 2 mg Q4H PRN Administration Pain, Moderate (4-6) Ondansetron HCl 4 mg 05/08/21 23:52 Ondansetron 4 Mg/2 Ml Inj IV Q8H PRN Nausea And Vomiting Oxycodone/Acetaminophen 1 tab 05/08/21 23:52 05/16/21 12:27 Oxycodone /Acetaminophen 5-325mg Tab PO 1 tab Q6H PRN Administration Pain, Moderate (4-6) Pantoprazole Sodium 40 mg 05/15/21 15:00 05/18/21 09:38 Pantoprazole 40 Mg Tab PO 40 mg DAILY CARMELITA Administration Rivaroxaban 2.5 mg 05/17/21 22:00 05/18/21 09:38 Rivaroxaban 2.5 Mg Tab PO 2.5 mg BID CARMELITA Administration Protocol Sodium Chloride 10 ml 05/09/21 10:00 05/17/21 21:57 Sodium Chloride 0.9% 10 Ml Flush Syringe IV 10 ml BID CARMELITA Administration Sodium Chloride 10 ml 05/08/21 23:52 Sodium Chloride 0.9% 10 Ml Flush Syringe IV PRN PRN LINE FLUSH Nutrition/Malnutrition Assess - Dietary Evaluation Nutrition/Malnutrition Findings: Nutrition Notes Start: 05/09/21 12:43 Freq: Status: Active Protocol: Document 05/16/21 19:00 ZARIA (Rec: 05/16/21 19:19 ZARIA [id number]) Nutrition Notes Initial or Follow up Reassessment Current Diagnosis Sepsis Other Pertinent Diagnosis COVID-19, L-foot osteomyelitis , PAD, Cachexia. Current Diet Regular Diet (since B 05/14), D Suppl (05/17). Labs/Tests 05/16: N/A. Pertinent Medications 05/16: Nutritionally unremarkable. Height 6 ft Weight 52.7 kg Eva Body Weight (kg) 80.90 BMI 15.7 Weight change and time frame 1.731 Kg body weight loss in 1 week reported. Weight Status Underweight Subjective/Other Information RD consult for routine F/U on Dietary assessment. Pt's PO intake of meals has been Poor (25%), according to ADL notes. Pt has asimptomatic COVID-19 infection. Dietary supplementation will be resumed. Percent of energy/protein needs met: Prescribed Regular Diet provides for energy/protein needs (2,289 Kcal/89 g) during LOS; additionally, Dietary Supplements will compensate for possible Poor PO intake of meals, and will support wound healing processes with 1,240 Kcal and 65 g of protein. Burn Absent Trauma Absent GI Symptoms None Food Allergy No Skin Integrity/Comment necrotic left heel stage III ulcer Current % PO Poor (25-49%) Minimum of two criteria No #2 Nutrition Diagnosis Inadequate protein-energy intake Diagnosis Progress(for reassessment Continues documentation) #1 Nutrition Diagnosis Increased nutrient needs ( specify in comment below) Diagnosis Progress(for reassessment Continues documentation) Is patient on ventilator? No Is Patient Ambulatory and/or Out of Bed No [facility] 2771.359 Calculation Used for Recommendations 70-80% of EEN. Additional Notes 15-20 Kcal/Kg ABW. Protein: 1.2-2 g/Kg; 64-106 g/ day. Fluids: 1 ml/Kcal, or as per MD. Nutrition Intervention Change Diet Order: Continue Regular Diet. Add Supplement/Snack (indicate name/kcal Resume 8 fl oz Ensure Enlive; /protein ) TID. 28.8 g pkt Kali; BID. Provides kCal: 1,240 Provides Protein (gm) 65 Goal #1 Support, through dietary supplementation, wound healing processes during LOS. Goal #2 Compensate, through dietary supplementation, for possible poor or insufficient PO intake of meals during LOS. Follow-Up By: 05/23/21 Additional Comments Continue monitoring food tolerance, %PO intake of meals , and BM.
[2021-05-18] MEDS: ASPIRIN EC 81 MG TAB PO SCH (12:22)
--- NOTE | 2021-05-18 12:26 | Progress Note ---
Assessment and Plan Cultures: COVID-19 PCR: Positive A/P: 71-year-old male with hypertension, atrial fibrillation, smoking, prior CVA was admitted to the hospital with worsening left heel ulceration over the last 3 months: #Sepsis secondary to extensive left foot cellulitis with necrotizing infection, early osteomyelitis of the calcaneal tuberosity #Peripheral vascular disease: extensive as noted on CTA. Vascular surgery f ollowing. S/p revascularization of LLE. Also revascularization of right iliac and common femoral arteries. #Protein calorie malnutrition #COVID-19 infection: Asymptomatic, on room air Recs: -Continue IV Unasyn, vancomycin, pending surgical debridement, please send deep cultures -following debridement, anticipate 4-6 weeks of culture directed IV abx Kristy Awad MD, FACP, [facility] ([facility] O: [phone] F: [phone] Subjective Date of service: 05/18/21 Principal diagnosis: PVD with ischemia Interval history: No fever. Denies any new complaints, has some pain in his left leg. On room air. Objective - Exam Narrative Exam: Physical Exam: Constitutional: Alert, cooperative. No acute distress. Cachexia Head, Ears, Nose: Normocephalic, atraumatic. External ears, nose normal Eyes: Conjunctivae/corneas clear. No icterus. No ptosis. Neck: Supple, no meningeal signs Cardiovascular: S1, S2 + Respiratory: Good air entry, clear to auscultation bilaterally GI: Soft, non-tender; bowel sounds normal. No peritoneal signs Musculoskeletal: L heel with dressing Skin: No rash or abscess Hem/Lymphatic: No palpable cervical or supraclavicular nodes. No lymphangitis Psych: flat affect Neurological: Awake, alert, oriented. No gross abnormality - Constitutional Vitals: Vital Signs Temp Pulse Resp BP Pulse Ox 98.8 F 80 16 136/64 97 05/17/21 22:17 05/18/21 09:38 05/17/21 22:17 05/17/21 22:17 05/18/21 10:00 Temperature -Last 24 Hours Temperature 98.8 F Temperature 99.2 F - Labs CBC & Chem 7: 05/17/21 07:04 05/18/21 06:47 Labs: Abnormal lab results 05/18/21 Range/Units 06:47 Creatinine 0.3 L (0.8-1.3) mg/dL
[2021-05-18] MEDS: AMPICILLIN/SULBACTA 3GM/100ML 3 GM/100 ML BAG IV SCH ×3 (13:40→23:15)
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
[2021-05-18] MEDS: HYDROcodone/ACETAMINOPHEN 5-325 MG TAB PO PRN (16:42)
[2021-05-18] MEDS: SODIUM CHLORIDE 0.9% 1000 ML 1,000 ML IV SCH (23:15)
[2021-05-19] MEDS: VANCOMYCIN/NS 1 GM/250 ML 1 GM/250 ML BAG IV SCH ×4 (01:31→23:34)
[2021-05-19] MEDS: AMPICILLIN/SULBACTA 3GM/100ML 3 GM/100 ML BAG IV SCH ×4 (07:20→18:30)
[2021-05-19 07:42] LABS: Hematocrit 24.3 % (35.5-45.6); Hemoglobin 7.9 gm/dl (11.8-15.2); Mean Corpuscular HGB Conc 33 % (32-34); Mean Corpuscular Volume 88 fl (84-94); Platelet Count 350 K/mm3 (140-440); Red Blood Count 2.77 M/mm3 (3.65-5.03)
--- NOTE | 2021-05-19 07:51 | Progress Note ---
History Interval history: No events overnight. No other complaints at this time. Would like to be updated about status. Hospitalist Physical - Constitutional Vitals: Temp Pulse Resp BP Pulse Ox 98.0 F 68 16 105/50 93 05/19/21 05:11 05/19/21 05:11 05/19/21 05:11 05/19/21 05:11 05/19/21 05:11 General appearance: Present: no acute distress, cachectic Results - Labs CBC & Chem 7: 05/19/21 06:58 05/19/21 06:58 Labs: Laboratory Last Values WBC 7.8 K/mm3 (4.5-11.0) 05/19/21 06:58 RBC 2.77 M/mm3 (3.65-5.03) L 05/19/21 06:58 Hgb 7.9 gm/dl (11.8-15.2) L 05/19/21 06:58 Hct 24.3 % (35.5-45.6) L 05/19/21 06:58 MCV 88 fl (84-94) 05/19/21 06:58 MCH 29 pg (28-32) 05/19/21 06:58 MCHC 33 % (32-34) 05/19/21 06:58 RDW 15.0 % (13.2-15.2) 05/19/21 06:58 Plt Count 350 K/mm3 (140-440) 05/19/21 06:58 Lymph % (Auto) 16.9 % (13.4-35.0) 05/14/21 07:53 [place] % (Auto) Etl Analyst 05/15/21 14:17 Eos % (Auto) 3.7 % (0.0-4.3) 05/14/21 07:53 Baso % (Auto) 0.6 % (0.0-1.8) 05/14/21 07:53 Lymph # (Auto) 0.8 K/mm3 (1.2-5.4) L 05/14/21 07:53 [place] # (Auto) 0.7 K/mm3 (0.0-0.8) 05/14/21 07:53 Eos # (Auto) 0.2 K/mm3 (0.0-0.4) 05/14/21 07:53 Baso # (Auto) 0.0 K/mm3 (0.0-0.1) 05/14/21 07:53 Add Manual Diff Complete 05/15/21 14:17 Total Counted 100 05/15/21 14:17 Seg Neutrophils % 63.9 % (40.0-70.0) 05/14/21 07:53 Seg Neuts % (Manual) 78.0 % (40.0-70.0) H 05/15/21 14:17 Band Neutrophils % 1.0 % 05/15/21 14:17 Lymphocytes % (Manual) 11.0 % (13.4-35.0) L 05/15/21 14:17 Reactive Lymphs % (Man) 0 % 05/15/21 14:17 Monocytes % (Manual) 10.0 % (0.0-7.3) H 05/15/21 14:17 Eosinophils % (Manual) 0 % (0.0-4.3) 05/15/21 14:17 Basophils % (Manual) 0 % (0.0-1.8) 05/15/21 14:17 Metamyelocytes % 0 % 05/15/21 14:17 Myelocytes % 0 % 05/15/21 14:17 Promyelocytes % 0 % 05/15/21 14:17 Blast Cells % 0 % 05/15/21 14:17 Nucleated RBC % Not Reportable 05/15/21 14:17 Seg Neutrophils # 3.1 K/mm3 (1.8-7.7) 05/14/21 07:53 Seg Neutrophils # Man 5.1 K/mm3 (1.8-7.7) 05/15/21 14:17 Band Neutrophils # 0.1 K/mm3 05/15/21 14:17 Lymphocytes # (Manual) 0.7 K/mm3 (1.2-5.4) L 05/15/21 14:17 Abs React Lymphs (Man) 0.0 K/mm3 05/15/21 14:17 Monocytes # (Manual) 0.7 K/mm3 (0.0-0.8) 05/15/21 14:17 Eosinophils # (Manual) 0.0 K/mm3 (0.0-0.4) 05/15/21 14:17 Basophils # (Manual) 0.0 K/mm3 (0.0-0.1) 05/15/21 14:17 Metamyelocytes # 0.0 K/mm3 05/15/21 14:17 Myelocytes # 0.0 K/mm3 05/15/21 14:17 Promyelocytes # 0.0 K/mm3 05/15/21 14:17 Blast Cells # 0.0 K/mm3 05/15/21 14:17 WBC Morphology Not Reportable 05/15/21 14:17 Hypersegmented Neuts Not Reportable 05/15/21 14:17 Hyposegmented Neuts Not Reportable 05/15/21 14:17 Hypogranular Neuts Not Reportable 05/15/21 14:17 Smudge Cells Not Reportable 05/15/21 14:17 Toxic Granulation Not Reportable 05/15/21 14:17 Toxic Vacuolation Not Reportable 05/15/21 14:17 Dohle Bodies Not Reportable 05/15/21 14:17 Pelger-Huet Anomaly Not Reportable 05/15/21 14:17 Maryann Rods Not Reportable 05/15/21 14:17 Platelet Estimate Consistent w auto 05/15/21 14:17 Clumped Platelets Not Reportable 05/15/21 14:17 Plt Clumps, EDTA Not Reportable 05/15/21 14:17 Large Platelets Not Reportable 05/15/21 14:17 Giant Platelets Not Reportable 05/15/21 14:17 Platelet Satelliting Not Reportable 05/15/21 14:17 Plt Morphology Comment Not Reportable 05/15/21 14:17 RBC Morphology Not Reportable 05/15/21 14:17 Dimorphic RBCs Not Reportable 05/15/21 14:17 Polychromasia Not Reportable 05/15/21 14:17 Hypochromasia Not Reportable 05/15/21 14:17 Poikilocytosis 1+ 05/15/21 14:17 Anisocytosis 1+ 05/15/21 14:17 Microcytosis Not Reportable 05/15/21 14:17 Macrocytosis Not Reportable 05/15/21 14:17 Spherocytes Not Reportable 05/15/21 14:17 Pappenheimer Bodies Not Reportable 05/15/21 14:17 Sickle Cells Not Reportable 05/15/21 14:17 Target Cells Not Reportable 05/15/21 14:17 Tear Drop Cells Not Reportable 05/15/21 14:17 Ovalocytes Not Reportable 05/15/21 14:17 Helmet Cells Not Reportable 05/15/21 14:17 [place] Bodies Not Reportable 05/15/21 14:17 [place] Rings Not Reportable 05/15/21 14:17 [place] Cells 1+ 05/15/21 14:17 Bite Cells Not Reportable 05/15/21 14:17 Crenated Cell Not Reportable 05/15/21 14:17 Elliptocytes Not Reportable 05/15/21 14:17 Acanthocytes (Spur) Not Reportable 05/15/21 14:17 Rouleaux Not Reportable 05/15/21 14:17 Hemoglobin C Crystals Not Reportable 05/15/21 14:17 Schistocytes Not Reportable 05/15/21 14:17 Malaria parasites Not Reportable 05/15/21 14:17 Amari Bodies Not Reportable 05/15/21 14:17 Hem Pathologist Commnt No 05/15/21 14:17 PT 14.7 Sec. (12.2-14.9) 05/15/21 15:29 INR 1.04 (0.87-1.13) 05/15/21 15:29 APTT 52.0 Sec. (24.2-36.6) H 05/15/21 15:29 Sodium 141 mmol/L (137-145) 05/17/21 07:04 Potassium 3.1 mmol/L (3.6-5.0) L 05/17/21 07:04 Chloride 104.7 mmol/L (98-107) 05/17/21 07:04 Carbon Dioxide 23 mmol/L (22-30) 05/17/21 07:04 Anion Gap 16 mmol/L 05/17/21 07:04 BUN 5 mg/dL (9-20) L 05/17/21 07:04 Creatinine 0.3 mg/dL (0.8-1.3) L 05/18/21 06:47 Estimated GFR > 60 ml/min 05/18/21 06:47 BUN/Creatinine Ratio 17 % 05/17/21 07:04 Glucose 84 mg/dL (75-100) 05/17/21 07:04 Calcium 7.7 mg/dL (8.4-10.2) L 05/17/21 07:04 Total Bilirubin 0.20 mg/dL (0.1-1.2) 05/10/21 07:12 AST 26 units/L (5-40) 05/10/21 07:12 ALT 10 units/L (7-56) 05/10/21 07:12 Alkaline Phosphatase 58 units/L (35-129) 05/10/21 07:12 Total Creatine Kinase 274 units/L (55-170) H 05/08/21 16:04 Total Protein 5.8 g/dL (6.3-8.2) L D 05/10/21 07:12 Albumin 3.1 g/dL (3.9-5) L 05/10/21 07:12 Albumin/Globulin Ratio 1.1 % 05/10/21 07:12 Vancomycin Trough 6.1 ug/mL (5.0-20.0) 05/16/21 08:00 Coronavirus (PCR) Positive (Negative) A 05/09/21 Unknown Rg/IV: Voiding Method Indwelling Catheter Active Medications - Current Medications Current Medications: Generic Name Dose Route Start Last Admin Trade Name Freq PRN Reason Stop Dose Admin Acetaminophen 650 mg 05/08/21 23:52 05/10/21 10:47 Acetaminophen 325 Mg Tab PO 650 mg Q4H PRN Administration Pain MILD(1-3)/Fever >100.5/WORLEY Hydrocodone Bitart/Acetaminophen 1 each 05/11/21 15:31 05/18/21 16:42 Hydrocodone/Acetaminophen 5-325 Mg Tab PO 1 each Q4H PRN Administration Pain, Moderate (4-6) Aspirin 81 mg 05/09/21 10:00 05/18/21 12:22 Aspirin Ec 81 Mg Tab PO Not Given QDAY CRAMELITA Atorvastatin Calcium 40 mg 05/09/21 22:00 05/18/21 23:16 Atorvastatin 40 Mg Tab PO 40 mg QHS CARMELITA Administration Calcium Carbonate/Glycine 1,250 mg 05/13/21 10:00 05/18/21 23:17 Calcium Carbonate 1250 Mg Tab PO 1,250 mg BID CARMELITA Administration Clopidogrel Bisulfate 75 mg 05/09/21 10:00 05/18/21 09:38 Clopidogrel 75 Mg Tab PO 75 mg QDAY CARMELITA Administration Gabapentin 300 mg 05/08/21 23:45 05/18/21 23:16 Gabapentin 300 Mg Cap PO 300 mg BID CARMELITA Administration Sodium Chloride 1,000 mls @ 100 mls/hr 05/08/21 23:45 05/18/21 23:15 Nacl 0.9% 1000 Ml IV 100 mls/hr DIRECT CARMELITA Administration Ampicillin Sodium/Sulbactam Sodium 3 gm in 100 mls @ 100 mls/hr 05/09/21 01:00 05/19/21 07:21 Unasyn/Ns 3 Gm/100 Ml IV 100 mls/hr Q6HR CARMELITA Administration Protocol Vancomycin HCl 1 gm in 250 mls @ 167.007 mls/hr 05/16/21 14:00 05/19/21 01:31 Vancomycin/Ns 1 Gm/250 Ml IV Not Given Q8HR [facility] Labetalol HCl 100 mg 05/08/21 23:45 05/18/21 23:16 Labetalol 100 Mg Tab PO 100 mg BID CARMELITA Administration Metoclopramide HCl 10 mg 05/08/21 23:52 Metoclopramide 10 Mg/2 Ml Inj IV Q6H PRN Nausea And Vomiting Morphine Sulfate 2 mg 05/08/21 23:52 05/18/21 23:18 Morphine 2 Mg/1 Ml Inj IV 2 mg Q4H PRN Administration Pain, Moderate (4-6) Ondansetron HCl 4 mg 05/08/21 23:52 Ondansetron 4 Mg/2 Ml Inj IV Q8H PRN Nausea And Vomiting Oxycodone/Acetaminophen 1 tab 05/08/21 23:52 05/16/21 12:27 Oxycodone /Acetaminophen 5-325mg Tab PO 1 tab Q6H PRN Administration Pain, Moderate (4-6) Pantoprazole Sodium 40 mg 05/18/21 21:00 05/18/21 23:17 Pantoprazole 40 Mg Tab PO Not Given BID CARMELITA Rivaroxaban 2.5 mg 05/17/21 22:00 05/18/21 23:16 Rivaroxaban 2.5 Mg Tab PO 2.5 mg BID [facility] Administration Protocol Sodium Chloride 10 ml 05/09/21 10:00 05/18/21 23:18 Sodium Chloride 0.9% 10 Ml Flush Syringe IV 10 ml BID CARMELITA Administration Sodium Chloride 10 ml 05/08/21 23:52 Sodium Chloride 0.9% 10 Ml Flush Syringe IV PRN PRN LINE FLUSH Nutrition/Malnutrition Assess - Dietary Evaluation Nutrition/Malnutrition Findings: Nutrition Notes Start: 05/09/21 12:43 Freq: Status: Active Protocol: Document 05/16/21 19:00 ZARIA (Rec: 05/16/21 19:19 ZARIA [id number]) Nutrition Notes Initial or Follow up Reassessment Current Diagnosis Sepsis Other Pertinent Diagnosis COVID-19, L-foot osteomyelitis , PAD, Cachexia. Current Diet Regular Diet (since B 05/14), D Suppl (05/17). Labs/Tests 05/16: N/A. Pertinent Medications 05/16: Nutritionally unremarkable. Height 6 ft Weight 52.7 kg [place] Body Weight (kg) 80.90 BMI 15.7 Weight change and time frame 1.731 Kg body weight loss in 1 week reported. Weight Status Underweight Subjective/Other Information RD consult for routine F/U on Dietary assessment. Pt's PO intake of meals has been Poor (25%), according to ADL notes. Pt has asimptomatic COVID-19 infection. Dietary supplementation will be resumed. Percent of energy/protein needs met: Prescribed Regular Diet provides for energy/protein needs (2,289 Kcal/89 g) during LOS; additionally, Dietary Supplements will compensate for possible Poor PO intake of meals, and will support wound healing processes with 1,240 Kcal and 65 g of protein. Burn Absent Trauma Absent GI Symptoms None Food Allergy No Skin Integrity/Comment necrotic left heel stage III ulcer Current % PO Poor (25-49%) Minimum of two criteria No #2 Nutrition Diagnosis Inadequate protein-energy intake Diagnosis Progress(for reassessment Continues documentation) #1 Nutrition Diagnosis Increased nutrient needs ( specify in comment below) Diagnosis Progress(for reassessment Continues documentation) Is patient on ventilator? No Is Patient Ambulatory and/or Out of Bed No REE-([facility]-confined to bed) [phone] Calculation Used for Recommendations 70-80% of EEN. Additional Notes 15-20 Kcal/Kg ABW. Protein: 1.2-2 g/Kg; 64-106 g/ day. Fluids: 1 ml/Kcal, or as per MD. Nutrition Intervention Change Diet Order: Continue Regular Diet. Add Supplement/Snack (indicate name/kcal Resume 8 fl oz Ensure Enlive; /protein ) TID. 28.8 g pkt Kali; BID. Provides kCal: 1,240 Provides Protein (gm) 65 Goal #1 Support, through dietary supplementation, wound healing processes during LOS. Goal #2 Compensate, through dietary supplementation, for possible poor or insufficient PO intake of meals during LOS. Follow-Up By: 05/23/21 Additional Comments Continue monitoring food tolerance, %PO intake of meals , and BM.
[2021-05-19 08:10] LABS: Blood Urea Nitrogen 6 mg/dL (9-20); Calcium 7.9 mg/dL (8.4-10.2); Hemolysis Index 0
[2021-05-19 08:11] LABS: BUN/Creatinine Ratio 20
[2021-05-19] MEDS: HYDROcodone/ACETAMINOPHEN 5-325 MG TAB PO PRN ×2 (11:03→18:30)
[2021-05-19] MEDS: ASPIRIN EC 81 MG TAB PO SCH (11:03)
[2021-05-19] MEDS: RIVAROXABAN 2.5 MG TAB PO SCH ×2 (11:04→22:30)
[2021-05-19] MEDS: CLOPIDOGREL 75 MG TAB PO SCH (11:04)
[2021-05-19] MEDS: CALCIUM CARBONATE 1250 MG TAB PO SCH ×2 (11:04→22:28)
[2021-05-19] MEDS: PANTOPRAZOLE 40 MG TAB PO SCH ×2 (11:04→22:28)
[2021-05-19] MEDS: GABAPENTIN 300 MG CAP PO SCH ×2 (11:04→22:26)
--- NOTE | 2021-05-19 12:59 | Progress Note ---
Assessment and Plan Assessment and plan: #Left foot chronic osteomyelitis #Sepsis-resolved -continue Unasyn and vancomycin for now; further abx recommendations pending wound culture -General Surgery consulted, plan for possible debridement Friday -will require outpatient wound care at d/c -Infectious disease following, assistance appreciated #Bilateral posterior tibial artery occlusion #Peripheral artery disease -Status post revascularization on 05/14 -Continue aspirin and Plavix -Continue Xarelto #COVID-19 infection -Positive coronavirus PCR on 05/09 -Continue contact and droplet precautions -Patient saturating well on room air; treatment with remdesivir/steroids deferred #Hypokalemia -will replete and monitor #Underweight #Protein calorie malnutrition -BMI 16.3 -Continue dietary supplements Disposition Plan: SNF placement History Interval history: No events overnight. No other complaints at this time. Would like to be updated about status. Hospitalist Physical - Physical exam Narrative exam: GENERAL: Thin male. In no acute distress. CHEST/LUNGS: CTAB on room air HEART/CARDIOVASCULAR: RRR. No murmur, rubs or gallops appreciated. ABDOMEN: +BS. NT/ND. NEURO: No focal motor deficit. Follows all commands. MUSCULOSKELETAL: No joint effusion EXTREMITIES: left lower extremity wrapped in bandage. PSYCH: Cooperative. - Constitutional Vitals: Temp Pulse Resp BP Pulse Ox 98.0 F 68 16 105/50 93 05/19/21 05:11 05/19/21 05:11 05/19/21 05:11 05/19/21 05:11 05/19/21 05:11 General appearance: Present: no acute distress, cachectic Results - Labs CBC & Chem 7: 05/19/21 06:58 05/19/21 06:58 Labs: Laboratory Last Values WBC 7.8 K/mm3 (4.5-11.0) 05/19/21 06:58 RBC 2.77 M/mm3 (3.65-5.03) L 05/19/21 06:58 Hgb 7.9 gm/dl (11.8-15.2) L 05/19/21 06:58 Hct 24.3 % (35.5-45.6) L 05/19/21 06:58 MCV 88 fl (84-94) 05/19/21 06:58 MCH 29 pg (28-32) 05/19/21 06:58 MCHC 33 % (32-34) 05/19/21 06:58 RDW 15.0 % (13.2-15.2) 05/19/21 06:58 Plt Count 350 K/mm3 (140-440) 05/19/21 06:58 Lymph % (Auto) 16.9 % (13.4-35.0) 05/14/21 07:53 [place] % (Auto) Ct Tech 05/15/21 14:17 Eos % (Auto) 3.7 % (0.0-4.3) 05/14/21 07:53 Baso % (Auto) 0.6 % (0.0-1.8) 05/14/21 07:53 Lymph # (Auto) 0.8 K/mm3 (1.2-5.4) L 05/14/21 07:53 [place] # (Auto) 0.7 K/mm3 (0.0-0.8) 05/14/21 07:53 Eos # (Auto) 0.2 K/mm3 (0.0-0.4) 05/14/21 07:53 Baso # (Auto) 0.0 K/mm3 (0.0-0.1) 05/14/21 07:53 Add Manual Diff Complete 05/15/21 14:17 Total Counted 100 05/15/21 14:17 Seg Neutrophils % 63.9 % (40.0-70.0) 05/14/21 07:53 Seg Neuts % (Manual) 78.0 % (40.0-70.0) H 05/15/21 14:17 Band Neutrophils % 1.0 % 05/15/21 14:17 Lymphocytes % (Manual) 11.0 % (13.4-35.0) L 05/15/21 14:17 Reactive Lymphs % (Man) 0 % 05/15/21 14:17 Monocytes % (Manual) 10.0 % (0.0-7.3) H 05/15/21 14:17 Eosinophils % (Manual) 0 % (0.0-4.3) 05/15/21 14:17 Basophils % (Manual) 0 % (0.0-1.8) 05/15/21 14:17 Metamyelocytes % 0 % 05/15/21 14:17 Myelocytes % 0 % 05/15/21 14:17 Promyelocytes % 0 % 05/15/21 14:17 Blast Cells % 0 % 05/15/21 14:17 Nucleated RBC % Not Reportable 05/15/21 14:17 Seg Neutrophils # 3.1 K/mm3 (1.8-7.7) 05/14/21 07:53 Seg Neutrophils # Man 5.1 K/mm3 (1.8-7.7) 05/15/21 14:17 Band Neutrophils # 0.1 K/mm3 05/15/21 14:17 Lymphocytes # (Manual) 0.7 K/mm3 (1.2-5.4) L 05/15/21 14:17 Abs React Lymphs (Man) 0.0 K/mm3 05/15/21 14:17 Monocytes # (Manual) 0.7 K/mm3 (0.0-0.8) 05/15/21 14:17 Eosinophils # (Manual) 0.0 K/mm3 (0.0-0.4) 05/15/21 14:17 Basophils # (Manual) 0.0 K/mm3 (0.0-0.1) 05/15/21 14:17 Metamyelocytes # 0.0 K/mm3 05/15/21 14:17 Myelocytes # 0.0 K/mm3 05/15/21 14:17 Promyelocytes # 0.0 K/mm3 05/15/21 14:17 Blast Cells # 0.0 K/mm3 05/15/21 14:17 WBC Morphology Not Reportable 05/15/21 14:17 Hypersegmented Neuts Not Reportable 05/15/21 14:17 Hyposegmented Neuts Not Reportable 05/15/21 14:17 Hypogranular Neuts Not Reportable 05/15/21 14:17 Smudge Cells Not Reportable 05/15/21 14:17 Toxic Granulation Not Reportable 05/15/21 14:17 Toxic Vacuolation Not Reportable 05/15/21 14:17 Dohle Bodies Not Reportable 05/15/21 14:17 Pelger-Huet Anomaly Not Reportable 05/15/21 14:17 Maryann Rods Not Reportable 05/15/21 14:17 Platelet Estimate Consistent w auto 05/15/21 14:17 Clumped Platelets Not Reportable 05/15/21 14:17 Plt Clumps, EDTA Not Reportable 05/15/21 14:17 Large Platelets Not Reportable 05/15/21 14:17 Giant Platelets Not Reportable 05/15/21 14:17 Platelet Satelliting Not Reportable 05/15/21 14:17 Plt Morphology Comment Not Reportable 05/15/21 14:17 RBC Morphology Not Reportable 05/15/21 14:17 Dimorphic RBCs Not Reportable 05/15/21 14:17 Polychromasia Not Reportable 05/15/21 14:17 Hypochromasia Not Reportable 05/15/21 14:17 Poikilocytosis 1+ 05/15/21 14:17 Anisocytosis 1+ 05/15/21 14:17 Microcytosis Not Reportable 05/15/21 14:17 Macrocytosis Not Reportable 05/15/21 14:17 Spherocytes Not Reportable 05/15/21 14:17 Pappenheimer Bodies Not Reportable 05/15/21 14:17 Sickle Cells Not Reportable 05/15/21 14:17 Target Cells Not Reportable 05/15/21 14:17 Tear Drop Cells Not Reportable 05/15/21 14:17 Ovalocytes Not Reportable 05/15/21 14:17 Helmet Cells Not Reportable 05/15/21 14:17 [place] Bodies Not Reportable 05/15/21 14:17 [place] Rings Not Reportable 05/15/21 14:17 [place] Cells 1+ 05/15/21 14:17 Bite Cells Not Reportable 05/15/21 14:17 Crenated Cell Not Reportable 05/15/21 14:17 Elliptocytes Not Reportable 05/15/21 14:17 Acanthocytes (Spur) Not Reportable 05/15/21 14:17 Rouleaux Not Reportable 05/15/21 14:17 Hemoglobin C Crystals Not Reportable 05/15/21 14:17 Schistocytes Not Reportable 05/15/21 14:17 Malaria parasites Not Reportable 05/15/21 14:17 Amari Bodies Not Reportable 05/15/21 14:17 Hem Pathologist Commnt No 05/15/21 14:17 PT 14.7 Sec. (12.2-14.9) 05/15/21 15:29 INR 1.04 (0.87-1.13) 05/15/21 15:29 APTT 52.0 Sec. (24.2-36.6) H 05/15/21 15:29 Sodium 144 mmol/L (137-145) 05/19/21 06:58 Potassium 3.3 mmol/L (3.6-5.0) L 05/19/21 06:58 Chloride 106.4 mmol/L (98-107) 05/19/21 06:58 Carbon Dioxide 22 mmol/L (22-30) 05/19/21 06:58 Anion Gap 19 mmol/L 05/19/21 06:58 BUN 6 mg/dL (9-20) L 05/19/21 06:58 Creatinine 0.3 mg/dL (0.8-1.3) L 05/19/21 06:58 Estimated GFR > 60 ml/min 05/19/21 06:58 BUN/Creatinine Ratio 20 % 05/19/21 06:58 Glucose 92 mg/dL (75-100) 05/19/21 06:58 Calcium 7.9 mg/dL (8.4-10.2) L 05/19/21 06:58 Total Bilirubin 0.20 mg/dL (0.1-1.2) 05/10/21 07:12 AST 26 units/L (5-40) 05/10/21 07:12 ALT 10 units/L (7-56) 05/10/21 07:12 Alkaline Phosphatase 58 units/L (35-129) 05/10/21 07:12 Total Creatine Kinase 274 units/L (55-170) H 05/08/21 16:04 Total Protein 5.8 g/dL (6.3-8.2) L D 05/10/21 07:12 Albumin 3.1 g/dL (3.9-5) L 05/10/21 07:12 Albumin/Globulin Ratio 1.1 % 05/10/21 07:12 Vancomycin Trough 6.1 ug/mL (5.0-20.0) 05/16/21 08:00 Coronavirus (PCR) Positive (Negative) A 05/09/21 Unknown Rg/IV: Voiding Method Indwelling Catheter Active Medications - Current Medications Current Medications: Generic Name Dose Route Start Last Admin Trade Name Freq PRN Reason Stop Dose Admin Acetaminophen 650 mg 05/08/21 23:52 05/10/21 10:47 Acetaminophen 325 Mg Tab PO 650 mg Q4H PRN Administration Pain MILD(1-3)/Fever >100.5/WORLEY Hydrocodone Bitart/Acetaminophen 1 each 05/11/21 15:31 05/19/21 11:03 Hydrocodone/Acetaminophen 5-325 Mg Tab PO 1 each Q4H PRN Administration Pain, Moderate (4-6) Aspirin 81 mg 05/09/21 10:00 05/19/21 11:03 Aspirin Ec 81 Mg Tab PO 81 mg QDAY CARMELITA Administration Atorvastatin Calcium 40 mg 05/09/21 22:00 05/18/21 23:16 Atorvastatin 40 Mg Tab PO 40 mg QHS CARMELITA Administration Calcium Carbonate/Glycine 1,250 mg 05/13/21 10:00 05/19/21 11:04 Calcium Carbonate 1250 Mg Tab PO 1,250 mg BID CARMELITA Administration Clopidogrel Bisulfate 75 mg 05/09/21 10:00 05/19/21 11:04 Clopidogrel 75 Mg Tab PO 75 mg QDAY CARMELITA Administration Gabapentin 300 mg 05/08/21 23:45 05/19/21 11:04 Gabapentin 300 Mg Cap PO 300 mg BID CARMELITA Administration Sodium Chloride 1,000 mls @ 100 mls/hr 05/08/21 23:45 05/18/21 23:15 Nacl 0.9% 1000 Ml IV 100 mls/hr DIRECT CARMELITA Administration Ampicillin Sodium/Sulbactam Sodium 3 gm in 100 mls @ 100 mls/hr 05/09/21 01:00 05/19/21 11:03 Unasyn/Ns 3 Gm/100 Ml IV 100 mls/hr Q6HR CARMELITA Administration Protocol Vancomycin HCl 1 gm in 250 mls @ 167.007 mls/hr 05/16/21 14:00 05/19/21 08:26 Vancomycin/Ns 1 Gm/250 Ml IV 167.007 mls/hr Q8HR CARMELITA Administration Labetalol HCl 100 mg 05/08/21 23:45 05/19/21 11:04 Labetalol 100 Mg Tab PO 100 mg BID CARMELITA Administration Metoclopramide HCl 10 mg 05/08/21 23:52 Metoclopramide 10 Mg/2 Ml Inj IV Q6H PRN Nausea And Vomiting Morphine Sulfate 2 mg 05/08/21 23:52 05/18/21 23:18 Morphine 2 Mg/1 Ml Inj IV 2 mg Q4H PRN Administration Pain, Moderate (4-6) Ondansetron HCl 4 mg 05/08/21 23:52 Ondansetron 4 Mg/2 Ml Inj IV Q8H PRN Nausea And Vomiting Oxycodone/Acetaminophen 1 tab 05/08/21 23:52 05/16/21 12:27 Oxycodone /Acetaminophen 5-325mg Tab PO 1 tab Q6H PRN Administration Pain, Moderate (4-6) Pantoprazole Sodium 40 mg 05/18/21 21:00 05/19/21 11:04 Pantoprazole 40 Mg Tab PO 40 mg BID CARMELITA Administration Rivaroxaban 2.5 mg 05/17/21 22:00 05/19/21 11:04 Rivaroxaban 2.5 Mg Tab PO 2.5 mg BID CARMELITA Administration Protocol Sodium Chloride 10 ml 05/09/21 10:00 05/19/21 11:05 Sodium Chloride 0.9% 10 Ml Flush Syringe IV 10 ml BID CARMELITA Administration Sodium Chloride 10 ml 05/08/21 23:52 Sodium Chloride 0.9% 10 Ml Flush Syringe IV PRN PRN LINE FLUSH Nutrition/Malnutrition Assess - Dietary Evaluation Nutrition/Malnutrition Findings: Nutrition Notes Start: 05/09/21 12:43 Freq: Status: Active Protocol: Document 05/16/21 19:00 ZARIA (Rec: 05/16/21 19:19 ZARIA [id number]) Nutrition Notes Initial or Follow up Reassessment Current Diagnosis Sepsis Other Pertinent Diagnosis COVID-19, L-foot osteomyelitis , PAD, Cachexia. Current Diet Regular Diet (since 05/14), D Suppl (05/17). Labs/Tests 05/16: N/A. Pertinent Medications 05/16: Nutritionally unremarkable. Height 6 ft Weight 52.7 kg [place] Body Weight (kg) 80.90 BMI 15.7 Weight change and time frame 1.731 Kg body weight loss in 1 week reported. Weight Status Underweight Subjective/Other Information RD consult for routine F/U on Dietary assessment. Pt's PO intake of meals has been Poor (25%), according to ADL notes. Pt has asimptomatic COVID-19 infection. Dietary supplementation will be resumed. Percent of energy/protein needs met: Prescribed Regular Diet provides for energy/protein needs (2,289 Kcal/89 g) during LOS; additionally, Dietary Supplements will compensate for possible Poor PO intake of meals, and will support wound healing processes with 1,240 Kcal and 65 g of protein. Burn Absent Trauma Absent GI Symptoms None Food Allergy No Skin Integrity/Comment necrotic left heel stage III ulcer Current % PO Poor (25-49%) Minimum of two criteria No #2 Nutrition Diagnosis Inadequate protein-energy intake Diagnosis Progress(for reassessment Continues documentation) #1 Nutrition Diagnosis Increased nutrient needs ( specify in comment below) Diagnosis Progress(for reassessment Continues documentation) Is patient on ventilator? No Is Patient Ambulatory and/or Out of Bed No REE-([place] [facility]-confined to bed) [phone] Calculation Used for Recommendations 70-80% of EEN. Additional Notes 15-20 Kcal/Kg ABW. Protein: 1.2-2 g/Kg; 64-106 g/ day. Fluids: 1 ml/Kcal, or as per MD. Nutrition Intervention Change Diet Order: Continue Regular Diet. Add Supplement/Snack (indicate name/kcal Resume 8 fl oz Ensure Enlive; /protein ) TID. 28.8 g pkt Kali; BID. Provides kCal: 1,240 Provides Protein (gm) 65 Goal #1 Support, through dietary supplementation, wound healing processes during LOS. Goal #2 Compensate, through dietary supplementation, for possible poor or insufficient PO intake of meals during LOS. Follow-Up By: 05/23/21 Additional Comments Continue monitoring food tolerance, %PO intake of meals , and BM.
[2021-05-19] MEDS: oxyCODONE /ACETAMINOPHEN 5-325MG TAB PO PRN (14:06)
--- NOTE | 2021-05-19 16:05 | Event Note ---
Date: 05/19/21 Reviewed chart and reviewed medications for peripheral vascular disease with gangrene. Noted H&H dropped. Unclear cause. Could be due to multiple issues. Discontinued aspirin. Continue Plavix and low-dose Xarelto. Increase pantoprazole to 40 mg twice daily for GI prophylaxis.
--- NOTE | 2021-05-19 17:32 | Progress Note ---
Assessment and Plan Begin with dressing changes using Betadine soaked gauze to the area of necrosis. Continue IV antibiotics for osteomyelitis of the calcaneus. Patient will need debridement of the left heel in OR Friday at 8:00. We will continue to follow patient with you Subjective Date of service: 05/19/21 Patient Reports: Positive: no new complaints, feels better Narrative: Case discussed with Dr. Mckenzie. Patient will need debridement of the heel ulcer. We will do this tomorrow in the OR. Objective Vital Signs - 12hr 05/19/21 05/19/21 10:00 14:54 Temperature 98.2 F Pulse Rate 73 Respiratory 18 Rate Blood Pressure 114/62 O2 Sat by Pulse 99 94 Oximetry - Musculoskeletal other (Left heel with 2 x 2 area of necrosis on the plantar surface of the heel somewhat fluctuant) - Labs 05/19/21 06:58 05/19/21 06:58 Diabetes panel 05/19/21 Range/Units 06:58 Sodium 144 (137-145) mmol/L Potassium 3.3 L (3.6-5.0) mmol/L Chloride 106.4 (98-107) mmol/L Carbon Dioxide 22 (22-30) mmol/L BUN 6 L (9-20) mg/dL Creatinine 0.3 L (0.8-1.3) mg/dL Glucose 92 (75-100) mg/dL Calcium 7.9 L (8.4-10.2) mg/dL Calcium panel 05/19/21 Range/Units 06:58 Calcium 7.9 L (8.4-10.2) mg/dL Pituitary panel 05/19/21 Range/Units 06:58 Sodium 144 (137-145) mmol/L Potassium 3.3 L (3.6-5.0) mmol/L Chloride 106.4 (98-107) mmol/L Carbon Dioxide 22 (22-30) mmol/L BUN 6 L (9-20) mg/dL Creatinine 0.3 L (0.8-1.3) mg/dL Glucose 92 (75-100) mg/dL Calcium 7.9 L (8.4-10.2) mg/dL Adrenal panel 05/19/21 Range/Units 06:58 Sodium 144 (137-145) mmol/L Potassium 3.3 L (3.6-5.0) mmol/L Chloride 106.4 (98-107) mmol/L Carbon Dioxide 22 (22-30) mmol/L BUN 6 L (9-20) mg/dL Creatinine 0.3 L (0.8-1.3) mg/dL Glucose 92 (75-100) mg/dL Calcium 7.9 L (8.4-10.2) mg/dL
[2021-05-20] MEDS: AMPICILLIN/SULBACTA 3GM/100ML 3 GM/100 ML BAG IV SCH ×4 (00:30→17:48)
[2021-05-20] MEDS: VANCOMYCIN/NS 1 GM/250 ML 1 GM/250 ML BAG IV SCH ×3 (05:44→22:46)
[2021-05-20] MEDS ORDERED: HYDROmorphone 1 MG/1 ML INJ ONE (07:54)
[2021-05-20] MEDS ORDERED: LIDOCAINE MPF (2%) 20 MG/1 ML VIAL 5 ML ONE (07:54)
[2021-05-20] MEDS ORDERED: propofoL 200 MG/20 ML VIAL IV ONE (07:54)
[2021-05-20 08:03] LABS: Blood Urea Nitrogen 6 mg/dL (9-20); Hemolysis Index 1
[2021-05-20] MEDS ORDERED: BUPIVACAINE/PF (0.5%) 5 MG/1 ML 30 ML VIAL INFILTRATI ONE ×2 (08:15→09:24)
[2021-05-20] MEDS ORDERED: HYDROGEN PEROXIDE 118 ML SOLUTION ONE (08:15)
[2021-05-20 08:18] LABS: BUN/Creatinine Ratio 12
--- NOTE | 2021-05-20 08:21 | Anesthesia Day of Surgery ---
Anesthesia Day of Surgery - Day of Surgery Patient Examined: Yes Patient H&P Reviewed: Yes Patient is NPO: Yes
[2021-05-20] MEDS ORDERED: HYDROmorphone 1 MG/1 ML INJ IV PRN (08:22)
[2021-05-20] MEDS ORDERED: CALCIUM GLUCONATE 1,000 MG in SODIUM CHLORIDE 0.9% 100 ML IV ONE ×2 (08:22→09:00)
[2021-05-20] MEDS ORDERED: SODIUM CHLORIDE 0.9% 1000 ML 1,000 ML ONE (09:07)
--- NOTE | 2021-05-20 10:07 | Post Anesthesia Evaluation ---
- Post Anesthesia Evaluation Patient Participated: Yes Airway Patent: Yes Stable Respiratory Function: Yes Nausea/Vomiting: No Temp > 96.8F: Yes Pain Manageable: Yes Adequeate Hydration: Yes Anesthesia Complications: No
--- NOTE | 2021-05-20 10:17 | Operative Report ---
Operative Report Operative Report: Date: 05/20/2021 Preoperative diagnosis: Left diabetic foot heel ulcer and forefoot ulcer Postop diagnosis: Same Procedure: Debridement of diabetic foot ulcer of the heel Surgeon: Dr. May Anesthesia: General endotracheal Estimated blood loss: Minimal Specimen: Culture sensitivity and anaerobic cultures with gram stain Procedure: Patient is taken to the OR and timeouts are completed consent is on the chart. The area of concern is prepped with Betadine and draped in a sterile fashion. Sharp debridement is performed to areas of necrosis. The wound size on the heel is 6 cm x 6 cm x 1.2 cm deep. A second ulcer is noted on the plantar surface along the metatarsal heads it is 8 cm x 2 cm x 0.5 cm deep. Both ulcers extend into the deep tissue through muscle and 2 adjacent bone. Wound cultures cultures and sensitivities Gram stains and anaerobic cultures are obtained. The heel ulcer shows gas formation in the tissues and purulent drainage with tunneling. The wound is irrigated with copious amounts of saline and then packed with a Betadine soaked gauze. Sterile dressing is placed with Kerlix wrap gauze. Patient tolerated procedure well
[2021-05-20] MEDS: ACETAMINOPHEN 325 MG TAB PO PRN (11:20)
[2021-05-20] MEDS: PANTOPRAZOLE 40 MG TAB PO SCH ×2 (11:21→21:30)
[2021-05-20] MEDS: GABAPENTIN 300 MG CAP PO SCH ×2 (11:21→21:30)
[2021-05-20] MEDS: POTASSIUM CHLORIDE ER 20 MEQ TAB PO SCH ×2 (11:21→14:55)
[2021-05-20] MEDS: CLOPIDOGREL 75 MG TAB PO SCH (11:21)
[2021-05-20] MEDS: RIVAROXABAN 2.5 MG TAB PO SCH ×2 (11:22→21:30)
--- NOTE | 2021-05-20 13:29 | Progress Note ---
Assessment and Plan Assessment and plan: #Left foot chronic osteomyelitis #Sepsis-resolved -continue Unasyn and vancomycin for now; further abx recommendations pending wound culture speciation -s/p debridement today -will require outpatient wound care at d/c -Infectious disease and General Surgery following, assistance appreciated #Bilateral posterior tibial artery occlusion #Peripheral artery disease -Status post revascularization on 05/14 -Continue aspirin and Plavix -Continue Xarelto #COVID-19 infection -Positive coronavirus PCR on 05/09 -Continue contact and droplet precautions -Patient saturating well on room air; treatment with remdesivir/steroids deferred #Hypokalemia -will replete and monitor #Underweight #Protein calorie malnutrition -BMI 16.3 -Continue dietary supplements Disposition Plan: Continue medical management History Interval history: Patient taken for debridement earlier this morning. During examination patient denied pain. Has no complaints at this time. Hospitalist Physical - Physical exam Narrative exam: GENERAL: Thin male. In no acute distress. CHEST/LUNGS: CTAB on room air HEART/CARDIOVASCULAR: RRR. No murmur, rubs or gallops appreciated. ABDOMEN: +BS. NT/ND. NEURO: No focal motor deficit. Follows all commands. MUSCULOSKELETAL: No joint effusion EXTREMITIES: left lower extremity wrapped in bandage. PSYCH: Cooperative. - Constitutional Vitals: Temp Pulse Resp BP Pulse Ox 101.4 F H 92 H 18 135/61 100 05/20/21 10:21 05/20/21 10:21 05/20/21 10:21 05/20/21 10:21 05/20/21 10:21 General appearance: Present: no acute distress, cachectic Results - Labs CBC & Chem 7: 05/19/21 06:58 05/20/21 06:38 Labs: Laboratory Last Values WBC 7.8 K/mm3 (4.5-11.0) 05/19/21 06:58 RBC 2.77 M/mm3 (3.65-5.03) L 05/19/21 06:58 Hgb 7.9 gm/dl (11.8-15.2) L 05/19/21 06:58 Hct 24.3 % (35.5-45.6) L 05/19/21 06:58 MCV 88 fl (84-94) 05/19/21 06:58 MCH 29 pg (28-32) 05/19/21 06:58 MCHC 33 % (32-34) 05/19/21 06:58 RDW 15.0 % (13.2-15.2) 05/19/21 06:58 Plt Count 350 K/mm3 (140-440) 05/19/21 06:58 Lymph % (Auto) 16.9 % (13.4-35.0) 05/14/21 07:53 Edwards % (Auto) Communications Technologist 05/15/21 14:17 Eos % (Auto) 3.7 % (0.0-4.3) 05/14/21 07:53 Baso % (Auto) 0.6 % (0.0-1.8) 05/14/21 07:53 Lymph # (Auto) 0.8 K/mm3 (1.2-5.4) L 05/14/21 07:53 Edwards # (Auto) 0.7 K/mm3 (0.0-0.8) 05/14/21 07:53 Eos # (Auto) 0.2 K/mm3 (0.0-0.4) 05/14/21 07:53 Baso # (Auto) 0.0 K/mm3 (0.0-0.1) 05/14/21 07:53 Add Manual Diff Complete 05/15/21 14:17 Total Counted 100 05/15/21 14:17 Seg Neutrophils % 63.9 % (40.0-70.0) 05/14/21 07:53 Seg Neuts % (Manual) 78.0 % (40.0-70.0) H 05/15/21 14:17 Band Neutrophils % 1.0 % 05/15/21 14:17 Lymphocytes % (Manual) 11.0 % (13.4-35.0) L 05/15/21 14:17 Reactive Lymphs % (Man) 0 % 05/15/21 14:17 Monocytes % (Manual) 10.0 % (0.0-7.3) H 05/15/21 14:17 Eosinophils % (Manual) 0 % (0.0-4.3) 05/15/21 14:17 Basophils % (Manual) 0 % (0.0-1.8) 05/15/21 14:17 Metamyelocytes % 0 % 05/15/21 14:17 Myelocytes % 0 % 05/15/21 14:17 Promyelocytes % 0 % 05/15/21 14:17 Blast Cells % 0 % 05/15/21 14:17 Nucleated RBC % Not Reportable 05/15/21 14:17 Seg Neutrophils # 3.1 K/mm3 (1.8-7.7) 05/14/21 07:53 Seg Neutrophils # Man 5.1 K/mm3 (1.8-7.7) 05/15/21 14:17 Band Neutrophils # 0.1 K/mm3 05/15/21 14:17 Lymphocytes # (Manual) 0.7 K/mm3 (1.2-5.4) L 05/15/21 14:17 Abs React Lymphs (Man) 0.0 K/mm3 05/15/21 14:17 Monocytes # (Manual) 0.7 K/mm3 (0.0-0.8) 05/15/21 14:17 Eosinophils # (Manual) 0.0 K/mm3 (0.0-0.4) 05/15/21 14:17 Basophils # (Manual) 0.0 K/mm3 (0.0-0.1) 05/15/21 14:17 Metamyelocytes # 0.0 K/mm3 05/15/21 14:17 Myelocytes # 0.0 K/mm3 05/15/21 14:17 Promyelocytes # 0.0 K/mm3 05/15/21 14:17 Blast Cells # 0.0 K/mm3 05/15/21 14:17 WBC Morphology Not Reportable 05/15/21 14:17 Hypersegmented Neuts Not Reportable 05/15/21 14:17 Hyposegmented Neuts Not Reportable 05/15/21 14:17 Hypogranular Neuts Not Reportable 05/15/21 14:17 Smudge Cells Not Reportable 05/15/21 14:17 Toxic Granulation Not Reportable 05/15/21 14:17 Toxic Vacuolation Not Reportable 05/15/21 14:17 Dohle Bodies Not Reportable 05/15/21 14:17 Pelger-Huet Anomaly Not Reportable 05/15/21 14:17 Maryann Rods Not Reportable 05/15/21 14:17 Platelet Estimate Consistent w auto 05/15/21 14:17 Clumped Platelets Not Reportable 05/15/21 14:17 Plt Clumps, EDTA Not Reportable 05/15/21 14:17 Large Platelets Not Reportable 05/15/21 14:17 Giant Platelets Not Reportable 05/15/21 14:17 Platelet Satelliting Not Reportable 05/15/21 14:17 Plt Morphology Comment Not Reportable 05/15/21 14:17 RBC Morphology Not Reportable 05/15/21 14:17 Dimorphic RBCs Not Reportable 05/15/21 14:17 Polychromasia Not Reportable 05/15/21 14:17 Hypochromasia Not Reportable 05/15/21 14:17 Poikilocytosis 1+ 05/15/21 14:17 Anisocytosis 1+ 05/15/21 14:17 Microcytosis Not Reportable 05/15/21 14:17 Macrocytosis Not Reportable 05/15/21 14:17 Spherocytes Not Reportable 05/15/21 14:17 Pappenheimer Bodies Not Reportable 05/15/21 14:17 Sickle Cells Not Reportable 05/15/21 14:17 Target Cells Not Reportable 05/15/21 14:17 Tear Drop Cells Not Reportable 05/15/21 14:17 Ovalocytes Not Reportable 05/15/21 14:17 Helmet Cells Not Reportable 05/15/21 14:17 [place] Bodies Not Reportable 05/15/21 14:17 [place] Rings Not Reportable 05/15/21 14:17 Leonidas Cells 1+ 05/15/21 14:17 Bite Cells Not Reportable 05/15/21 14:17 Crenated Cell Not Reportable 05/15/21 14:17 Elliptocytes Not Reportable 05/15/21 14:17 Acanthocytes (Spur) Not Reportable 05/15/21 14:17 Rouleaux Not Reportable 05/15/21 14:17 Hemoglobin C Crystals Not Reportable 05/15/21 14:17 Schistocytes Not Reportable 05/15/21 14:17 Malaria parasites Not Reportable 05/15/21 14:17 [place] Bodies Not Reportable 05/15/21 14:17 Hem Pathologist Commnt No 05/15/21 14:17 PT 14.7 Sec. (12.2-14.9) 05/15/21 15:29 INR 1.04 (0.87-1.13) 05/15/21 15:29 APTT 52.0 Sec. (24.2-36.6) H 05/15/21 15:29 Sodium 137 mmol/L (137-145) 05/20/21 06:38 Potassium 3.3 mmol/L (3.6-5.0) L 05/20/21 06:38 Chloride 103.3 mmol/L (98-107) 05/20/21 06:38 Carbon Dioxide 22 mmol/L (22-30) 05/20/21 06:38 Anion Gap 15 mmol/L 05/20/21 06:38 BUN 6 mg/dL (9-20) L 05/20/21 06:38 Creatinine 0.5 mg/dL (0.8-1.3) L D 05/20/21 06:38 Estimated GFR > 60 ml/min 05/20/21 06:38 BUN/Creatinine Ratio 12 % 05/20/21 06:38 Glucose 85 mg/dL (75-100) 05/20/21 06:38 Calcium 8.0 mg/dL (8.4-10.2) L 05/20/21 06:38 Total Bilirubin 0.20 mg/dL (0.1-1.2) 05/10/21 07:12 AST 26 units/L (5-40) 05/10/21 07:12 ALT 10 units/L (7-56) 05/10/21 07:12 Alkaline Phosphatase 58 units/L (35-129) 05/10/21 07:12 Total Creatine Kinase 274 units/L (55-170) H 05/08/21 16:04 Total Protein 5.8 g/dL (6.3-8.2) L D 05/10/21 07:12 Albumin 3.1 g/dL (3.9-5) L 05/10/21 07:12 Albumin/Globulin Ratio 1.1 % 05/10/21 07:12 Vancomycin Trough 6.1 ug/mL (5.0-20.0) 05/16/21 08:00 Coronavirus (PCR) Positive (Negative) A 05/09/21 Unknown Rg/IV: Voiding Method Condom Catheter Active Medications - Current Medications Current Medications: Generic Name Dose Route Start Last Admin Trade Name Freq PRN Reason Stop Dose Admin Acetaminophen 650 mg 05/08/21 23:52 05/20/21 11:20 Acetaminophen 325 Mg Tab PO 650 mg Q4H PRN Administration Pain MILD(1-3)/Fever >100.5/WORLEY Hydrocodone Bitart/Acetaminophen 1 each 05/11/21 15:31 05/19/21 18:30 Hydrocodone/Acetaminophen 5-325 Mg Tab PO 1 each Q4H PRN Administration Pain, Moderate (4-6) Atorvastatin Calcium 40 mg 05/09/21 22:00 05/19/21 22:28 Atorvastatin 40 Mg Tab PO 40 mg QHS CARMELITA Administration Calcium Carbonate/Glycine 1,250 mg 05/13/21 10:00 05/19/21 22:28 Calcium Carbonate 1250 Mg Tab PO 1,250 mg BID CARMELITA Administration Clopidogrel Bisulfate 75 mg 05/09/21 10:00 05/20/21 11:21 Clopidogrel 75 Mg Tab PO 75 mg QDAY CARMELITA Administration Gabapentin 300 mg 05/08/21 23:45 05/20/21 11:21 Gabapentin 300 Mg Cap PO 300 mg BID CARMELITA Administration Hydromorphone HCl 0.5 mg 05/20/21 08:22 Hydromorphone 1 Mg/1 Ml Inj IV Q10MIN PRN Pain , Severe (7-10) Sodium Chloride 1,000 mls @ 100 mls/hr 05/08/21 23:45 05/18/21 23:15 Nacl 0.9% 1000 Ml IV 100 mls/hr DIRECT CARMELITA Administration Ampicillin Sodium/Sulbactam Sodium 3 gm in 100 mls @ 100 mls/hr 05/09/21 01:00 05/20/21 11:20 Unasyn/Ns 3 Gm/100 Ml IV 100 mls/hr Q6HR CARMELITA Administration Protocol Vancomycin HCl 1 gm in 250 mls @ 167.007 mls/hr 05/19/21 23:00 05/20/21 05:44 Vancomycin/Ns 1 Gm/250 Ml IV 167.007 mls/hr Q8HR CARMELITA Administration Labetalol HCl 100 mg 05/08/21 23:45 05/20/21 11:22 Labetalol 100 Mg Tab PO 100 mg BID CARMELITA Administration Metoclopramide HCl 10 mg 05/08/21 23:52 Metoclopramide 10 Mg/2 Ml Inj IV Q6H PRN Nausea And Vomiting Morphine Sulfate 2 mg 05/08/21 23:52 05/18/21 23:18 Morphine 2 Mg/1 Ml Inj IV 2 mg Q4H PRN Administration Pain, Moderate (4-6) Ondansetron HCl 4 mg 05/08/21 23:52 Ondansetron 4 Mg/2 Ml Inj IV Q8H PRN Nausea And Vomiting Oxycodone/Acetaminophen 1 tab 05/08/21 23:52 05/19/21 14:06 Oxycodone /Acetaminophen 5-325mg Tab PO 1 tab Q6H PRN Administration Pain, Moderate (4-6) Pantoprazole Sodium 40 mg 05/18/21 21:00 05/20/21 11:21 Pantoprazole 40 Mg Tab PO 40 mg BID CARMELITA Administration Rivaroxaban 2.5 mg 05/17/21 22:00 05/20/21 11:22 Rivaroxaban 2.5 Mg Tab PO 2.5 mg BID CARMELITA Administration Protocol Sodium Chloride 10 ml 05/09/21 10:00 05/20/21 11:22 Sodium Chloride 0.9% 10 Ml Flush Syringe IV 10 ml BID CARMELITA Administration Sodium Chloride 10 ml 05/08/21 23:52 Sodium Chloride 0.9% 10 Ml Flush Syringe IV PRN PRN LINE FLUSH Nutrition/Malnutrition Assess - Dietary Evaluation Nutrition/Malnutrition Findings: Nutrition Notes Start: 05/09/21 12:43 Freq: Status: Active Protocol: Document 05/16/21 19:00 ZARIA (Rec: 05/16/21 19:19 ZARIA [id number]) Nutrition Notes Initial or Follow up Reassessment Current Diagnosis Sepsis Other Pertinent Diagnosis COVID-19, L-foot osteomyelitis , PAD, Cachexia. Current Diet Regular Diet (since 05/14), D Suppl (05/17). Labs/Tests 05/16: N/A. Pertinent Medications 05/16: Nutritionally unremarkable. Height 6 ft Weight 52.7 kg [place] Body Weight (kg) 80.90 BMI 15.7 Weight change and time frame 1.731 Kg body weight loss in 1 week reported. Weight Status Underweight Subjective/Other Information RD consult for routine F/U on Dietary assessment. Pt's PO intake of meals has been Poor (25%), according to ADL notes. Pt has asimptomatic COVID-19 infection. Dietary supplementation will be resumed. Percent of energy/protein needs met: Prescribed Regular Diet provides for energy/protein needs (2,289 Kcal/89 g) during LOS; additionally, Dietary Supplements will compensate for possible Poor PO intake of meals, and will support wound healing processes with 1,240 Kcal and 65 g of protein. Burn Absent Trauma Absent GI Symptoms None Food Allergy No Skin Integrity/Comment necrotic left heel stage III ulcer Current % PO Poor (25-49%) Minimum of two criteria No #2 Nutrition Diagnosis Inadequate protein-energy intake Diagnosis Progress(for reassessment Continues documentation) #1 Nutrition Diagnosis Increased nutrient needs ( specify in comment below) Diagnosis Progress(for reassessment Continues documentation) Is patient on ventilator? No Is Patient Ambulatory and/or Out of Bed No REE-(Bruin-St. Jeor-confined to bed) 1601.139 Calculation Used for Recommendations 70-80% of EEN. Additional Notes 15-20 Kcal/Kg ABW. Protein: 1.2-2 g/Kg; 64-106 g/ day. Fluids: 1 ml/Kcal, or as per MD. Nutrition Intervention Change Diet Order: Continue Regular Diet. Add Supplement/Snack (indicate name/kcal Resume 8 fl oz Ensure Enlive; /protein ) TID. 28.8 g pkt Kali; BID. Provides kCal: 1,240 Provides Protein (gm) 65 Goal #1 Support, through dietary supplementation, wound healing processes during LOS. Goal #2 Compensate, through dietary supplementation, for possible poor or insufficient PO intake of meals during LOS. Follow-Up By: 05/23/21 Additional Comments Continue monitoring food tolerance, %PO intake of meals , and BM.
[2021-05-20] MEDS: CALCIUM GLUCONATE 1,000 MG in SODIUM CHLORIDE 0.9% 100 ML IV NR ×2 (14:53→14:54)
[2021-05-20] MEDS: CALCIUM CARBONATE 1250 MG TAB PO SCH ×2 (14:58→21:30)
[2021-05-20] MEDS: HYDROcodone/ACETAMINOPHEN 5-325 MG TAB PO PRN (18:53)
[2021-05-21] MEDS: AMPICILLIN/SULBACTA 3GM/100ML 3 GM/100 ML BAG IV SCH ×4 (00:18→18:12)
[2021-05-21] MEDS: VANCOMYCIN/NS 1 GM/250 ML 1 GM/250 ML BAG IV SCH ×3 (05:09→22:58)
--- NOTE | 2021-05-21 07:26 | Progress Note ---
Assessment and Plan Assessment and plan: #Left foot chronic osteomyelitis #Sepsis-resolved -continue Unasyn and vancomycin for now; further abx recommendations pending wound culture speciation -s/p debridement 05/20 -will require outpatient wound care at d/c -Infectious disease and General Surgery following, assistance appreciated #Bilateral posterior tibial artery occlusion #Peripheral artery disease -Status post revascularization on 05/14 -Continue aspirin and Plavix -Continue Xarelto #COVID-19 infection -Positive coronavirus PCR on 05/09 -Continue contact and droplet precautions -Patient saturating well on room air; treatment with remdesivir/steroids deferred #Hypokalemia #Hypomagnesemia -will replete and monitor #Underweight #Protein calorie malnutrition -BMI 16.3 -Continue dietary supplements Disposition Plan: SNF History Interval history: No acute events overnight. Patient resting comfortably. Has no complaints at this time. Requested his be updated. Hospitalist Physical - Physical exam Narrative exam: GENERAL: Thin male. In no acute distress. CHEST/LUNGS: CTAB on room air HEART/CARDIOVASCULAR: RRR. No murmur, rubs or gallops appreciated. ABDOMEN: +BS. NT/ND. NEURO: No focal motor deficit. Follows all commands. MUSCULOSKELETAL: No joint effusion EXTREMITIES: left lower extremity wrapped in bandage. PSYCH: Cooperative. - Constitutional Vitals: Temp Pulse Resp BP Pulse Ox 98.6 F 78 18 111/57 96 05/20/21 17:18 05/20/21 22:10 05/20/21 22:10 05/20/21 22:10 05/20/21 22:10 General appearance: Present: no acute distress, cachectic Results - Labs CBC & Chem 7: 05/21/21 07:16 05/21/21 07:16 Labs: Laboratory Last Values WBC 7.8 K/mm3 (4.5-11.0) 05/19/21 06:58 RBC 2.77 M/mm3 (3.65-5.03) L 05/19/21 06:58 Hgb 7.9 gm/dl (11.8-15.2) L 05/19/21 06:58 Hct 24.3 % (35.5-45.6) L 05/19/21 06:58 MCV 88 fl (84-94) 05/19/21 06:58 MCH 29 pg (28-32) 05/19/21 06:58 MCHC 33 % (32-34) 05/19/21 06:58 RDW 15.0 % (13.2-15.2) 05/19/21 06:58 Plt Count 350 K/mm3 (140-440) 05/19/21 06:58 Lymph % (Auto) 16.9 % (13.4-35.0) 05/14/21 07:53 Ward % (Auto) Fish Inspector 05/15/21 14:17 Eos % (Auto) 3.7 % (0.0-4.3) 05/14/21 07:53 Baso % (Auto) 0.6 % (0.0-1.8) 05/14/21 07:53 Lymph # (Auto) 0.8 K/mm3 (1.2-5.4) L 05/14/21 07:53 Ward # (Auto) 0.7 K/mm3 (0.0-0.8) 05/14/21 07:53 Eos # (Auto) 0.2 K/mm3 (0.0-0.4) 05/14/21 07:53 Baso # (Auto) 0.0 K/mm3 (0.0-0.1) 05/14/21 07:53 Add Manual Diff Complete 05/15/21 14:17 Total Counted 100 05/15/21 14:17 Seg Neutrophils % 63.9 % (40.0-70.0) 05/14/21 07:53 Seg Neuts % (Manual) 78.0 % (40.0-70.0) H 05/15/21 14:17 Band Neutrophils % 1.0 % 05/15/21 14:17 Lymphocytes % (Manual) 11.0 % (13.4-35.0) L 05/15/21 14:17 Reactive Lymphs % (Man) 0 % 05/15/21 14:17 Monocytes % (Manual) 10.0 % (0.0-7.3) H 05/15/21 14:17 Eosinophils % (Manual) 0 % (0.0-4.3) 05/15/21 14:17 Basophils % (Manual) 0 % (0.0-1.8) 05/15/21 14:17 Metamyelocytes % 0 % 05/15/21 14:17 Myelocytes % 0 % 05/15/21 14:17 Promyelocytes % 0 % 05/15/21 14:17 Blast Cells % 0 % 05/15/21 14:17 Nucleated RBC % Not Reportable 05/15/21 14:17 Seg Neutrophils # 3.1 K/mm3 (1.8-7.7) 05/14/21 07:53 Seg Neutrophils # Man 5.1 K/mm3 (1.8-7.7) 05/15/21 14:17 Band Neutrophils # 0.1 K/mm3 05/15/21 14:17 Lymphocytes # (Manual) 0.7 K/mm3 (1.2-5.4) L 05/15/21 14:17 Abs React Lymphs (Man) 0.0 K/mm3 05/15/21 14:17 Monocytes # (Manual) 0.7 K/mm3 (0.0-0.8) 05/15/21 14:17 Eosinophils # (Manual) 0.0 K/mm3 (0.0-0.4) 05/15/21 14:17 Basophils # (Manual) 0.0 K/mm3 (0.0-0.1) 05/15/21 14:17 Metamyelocytes # 0.0 K/mm3 05/15/21 14:17 Myelocytes # 0.0 K/mm3 05/15/21 14:17 Promyelocytes # 0.0 K/mm3 05/15/21 14:17 Blast Cells # 0.0 K/mm3 05/15/21 14:17 WBC Morphology Not Reportable 05/15/21 14:17 Hypersegmented Neuts Not Reportable 05/15/21 14:17 Hyposegmented Neuts Not Reportable 05/15/21 14:17 Hypogranular Neuts Not Reportable 05/15/21 14:17 Smudge Cells Not Reportable 05/15/21 14:17 Toxic Granulation Not Reportable 05/15/21 14:17 Toxic Vacuolation Not Reportable 05/15/21 14:17 Dohle Bodies Not Reportable 05/15/21 14:17 Pelger-Huet Anomaly Not Reportable 05/15/21 14:17 Maryann Rods Not Reportable 05/15/21 14:17 Platelet Estimate Consistent w auto 05/15/21 14:17 Clumped Platelets Not Reportable 05/15/21 14:17 Plt Clumps, EDTA Not Reportable 05/15/21 14:17 Large Platelets Not Reportable 05/15/21 14:17 Giant Platelets Not Reportable 05/15/21 14:17 Platelet Satelliting Not Reportable 05/15/21 14:17 Plt Morphology Comment Not Reportable 05/15/21 14:17 RBC Morphology Not Reportable 05/15/21 14:17 Dimorphic RBCs Not Reportable 05/15/21 14:17 Polychromasia Not Reportable 05/15/21 14:17 Hypochromasia Not Reportable 05/15/21 14:17 Poikilocytosis 1+ 05/15/21 14:17 Anisocytosis 1+ 05/15/21 14:17 Microcytosis Not Reportable 05/15/21 14:17 Macrocytosis Not Reportable 05/15/21 14:17 Spherocytes Not Reportable 05/15/21 14:17 Pappenheimer Bodies Not Reportable 05/15/21 14:17 Sickle Cells Not Reportable 05/15/21 14:17 Target Cells Not Reportable 05/15/21 14:17 Tear Drop Cells Not Reportable 05/15/21 14:17 Ovalocytes Not Reportable 05/15/21 14:17 Helmet Cells Not Reportable 05/15/21 14:17 [place] Bodies Not Reportable 05/15/21 14:17 [place] Rings Not Reportable 05/15/21 14:17 [place] Cells 1+ 05/15/21 14:17 Bite Cells Not Reportable 05/15/21 14:17 Crenated Cell Not Reportable 05/15/21 14:17 Elliptocytes Not Reportable 05/15/21 14:17 Acanthocytes (Spur) Not Reportable 05/15/21 14:17 Rouleaux Not Reportable 05/15/21 14:17 Hemoglobin C Crystals Not Reportable 05/15/21 14:17 Schistocytes Not Reportable 05/15/21 14:17 Malaria parasites Not Reportable 05/15/21 14:17 [place] Bodies Not Reportable 05/15/21 14:17 Hem Pathologist Commnt No 05/15/21 14:17 PT 14.7 Sec. (12.2-14.9) 05/15/21 15:29 INR 1.04 (0.87-1.13) 05/15/21 15:29 APTT 52.0 Sec. (24.2-36.6) H 05/15/21 15:29 Sodium 137 mmol/L (137-145) 05/20/21 06:38 Potassium 3.3 mmol/L (3.6-5.0) L 05/20/21 06:38 Chloride 103.3 mmol/L (98-107) 05/20/21 06:38 Carbon Dioxide 22 mmol/L (22-30) 05/20/21 06:38 Anion Gap 15 mmol/L 05/20/21 06:38 BUN 6 mg/dL (9-20) L 05/20/21 06:38 Creatinine 0.5 mg/dL (0.8-1.3) L D 05/20/21 06:38 Estimated GFR > 60 ml/min 05/20/21 06:38 BUN/Creatinine Ratio 12 % 05/20/21 06:38 Glucose 85 mg/dL (75-100) 05/20/21 06:38 Calcium 8.0 mg/dL (8.4-10.2) L 05/20/21 06:38 Total Bilirubin 0.20 mg/dL (0.1-1.2) 05/10/21 07:12 AST 26 units/L (5-40) 05/10/21 07:12 ALT 10 units/L (7-56) 05/10/21 07:12 Alkaline Phosphatase 58 units/L (35-129) 05/10/21 07:12 Total Creatine Kinase 274 units/L (55-170) H 05/08/21 16:04 Total Protein 5.8 g/dL (6.3-8.2) L D 05/10/21 07:12 Albumin 3.1 g/dL (3.9-5) L 05/10/21 07:12 Albumin/Globulin Ratio 1.1 % 05/10/21 07:12 Vancomycin Trough 6.1 ug/mL (5.0-20.0) 05/16/21 08:00 Coronavirus (PCR) Positive (Negative) A 05/09/21 Unknown Microbiology: Microbiology 05/20/21 Unknown Foot - Left Surgical Culture - Preliminary Rg/IV: Voiding Method Condom Catheter Active Medications - Current Medications Current Medications: Generic Name Dose Route Start Last Admin Trade Name Freq PRN Reason Stop Dose Admin Acetaminophen 650 mg 05/08/21 23:52 05/20/21 11:20 Acetaminophen 325 Mg Tab PO 650 mg Q4H PRN Administration Pain MILD(1-3)/Fever >100.5/WORLEY Hydrocodone Bitart/Acetaminophen 1 each 05/11/21 15:31 05/20/21 18:53 Hydrocodone/Acetaminophen 5-325 Mg Tab PO 1 each Q4H PRN Administration Pain, Moderate (4-6) Atorvastatin Calcium 40 mg 05/09/21 22:00 05/20/21 21:30 Atorvastatin 40 Mg Tab PO 40 mg QHS CARMELITA Administration Calcium Carbonate/Glycine 1,250 mg 05/13/21 10:00 05/20/21 21:30 Calcium Carbonate 1250 Mg Tab PO 1,250 mg BID CARMELITA Administration Clopidogrel Bisulfate 75 mg 05/09/21 10:00 05/20/21 11:21 Clopidogrel 75 Mg Tab PO 75 mg QDAY CARMELITA Administration Gabapentin 300 mg 05/08/21 23:45 05/20/21 21:30 Gabapentin 300 Mg Cap PO 300 mg BID CARMELITA Administration Hydromorphone HCl 0.5 mg 05/20/21 08:22 Hydromorphone 1 Mg/1 Ml Inj IV Q10MIN PRN Pain , Severe (7-10) Ampicillin Sodium/Sulbactam Sodium 3 gm in 100 mls @ 100 mls/hr 05/09/21 01:00 05/21/21 05:08 Unasyn/Ns 3 Gm/100 Ml IV 100 mls/hr Q6HR CARMELITA Administration Protocol Vancomycin HCl 1 gm in 250 mls @ 167.007 mls/hr 05/19/21 23:00 05/21/21 05:09 Vancomycin/Ns 1 Gm/250 Ml IV 167.007 mls/hr Q8HR CARMELITA Administration Labetalol HCl 100 mg 05/08/21 23:45 05/20/21 21:30 Labetalol 100 Mg Tab PO 100 mg BID CARMELITA Administration Metoclopramide HCl 10 mg 05/08/21 23:52 Metoclopramide 10 Mg/2 Ml Inj IV Q6H PRN Nausea And Vomiting Morphine Sulfate 2 mg 05/08/21 23:52 05/18/21 23:18 Morphine 2 Mg/1 Ml Inj IV 2 mg Q4H PRN Administration Pain, Moderate (4-6) Ondansetron HCl 4 mg 05/08/21 23:52 Ondansetron 4 Mg/2 Ml Inj IV Q8H PRN Nausea And Vomiting Oxycodone/Acetaminophen 1 tab 05/08/21 23:52 05/19/21 14:06 Oxycodone /Acetaminophen 5-325mg Tab PO 1 tab Q6H PRN Administration Pain, Moderate (4-6) Pantoprazole Sodium 40 mg 05/18/21 21:00 05/20/21 21:30 Pantoprazole 40 Mg Tab PO 40 mg BID CARMELITA Administration Rivaroxaban 2.5 mg 05/17/21 22:00 05/20/21 21:30 Rivaroxaban 2.5 Mg Tab PO 2.5 mg BID CARMELITA Administration Protocol Sodium Chloride 10 ml 05/09/21 10:00 05/20/21 21:31 Sodium Chloride 0.9% 10 Ml Flush Syringe IV 10 ml BID CARMELITA Administration Sodium Chloride 10 ml 05/08/21 23:52 Sodium Chloride 0.9% 10 Ml Flush Syringe IV PRN PRN LINE FLUSH Nutrition/Malnutrition Assess - Dietary Evaluation Nutrition/Malnutrition Findings: Nutrition Notes Start: 05/09/21 12:43 Freq: Status: Active Protocol: Document 05/16/21 19:00 ZARIA (Rec: 05/16/21 19:19 ZARIA [email or web address]) Nutrition Notes Initial or Follow up Reassessment Current Diagnosis Sepsis Other Pertinent Diagnosis COVID-19, L-foot osteomyelitis , PAD, Cachexia. Current Diet Regular Diet (since B 05/14), D Suppl (05/17). Labs/Tests 05/16: N/A. Pertinent Medications 05/16: Nutritionally unremarkable. Height 6 ft Weight 52.7 kg [place] Body Weight (kg) 80.90 BMI 15.7 Weight change and time frame 1.731 Kg body weight loss in 1 week reported. Weight Status Underweight Subjective/Other Information RD consult for routine F/U on Dietary assessment. Pt's PO intake of meals has been Poor (25%), according to ADL notes. Pt has asimptomatic COVID-19 infection. Dietary supplementation will be resumed. Percent of energy/protein needs met: Prescribed Regular Diet provides for energy/protein needs (2,289 Kcal/89 g) during LOS; additionally, Dietary Supplements will compensate for possible Poor PO intake of meals, and will support wound healing processes with 1,240 Kcal and 65 g of protein. Burn Absent Trauma Absent GI Symptoms None Food Allergy No Skin Integrity/Comment necrotic left heel stage III ulcer Current % PO Poor (25-49%) Minimum of two criteria No #2 Nutrition Diagnosis Inadequate protein-energy intake Diagnosis Progress(for reassessment Continues documentation) #1 Nutrition Diagnosis Increased nutrient needs ( specify in comment below) Diagnosis Progress(for reassessment Continues documentation) Is patient on ventilator? No Is Patient Ambulatory and/or Out of Bed No REE-([place] Jeor-confined to bed) 1601.671 Calculation Used for Recommendations 70-80% of EEN. Additional Notes 15-20 Kcal/Kg ABW. Protein: 1.2-2 g/Kg; 64-106 g/ day. Fluids: 1 ml/Kcal, or as per MD. Nutrition Intervention Change Diet Order: Continue Regular Diet. Add Supplement/Snack (indicate name/kcal Resume 8 fl oz Ensure Enlive; /protein ) TID. 28.8 g pkt Kali; BID. Provides kCal: 1,240 Provides Protein (gm) 65 Goal #1 Support, through dietary supplementation, wound healing processes during LOS. Goal #2 Compensate, through dietary supplementation, for possible poor or insufficient PO intake of meals during LOS. Follow-Up By: 05/23/21 Additional Comments Continue monitoring food tolerance, %PO intake of meals , and BM.
[2021-05-21 07:34] LABS: Hematocrit 27.3 % (35.5-45.6); Mean Corpuscular HGB Conc 33 % (32-34); Mean Corpuscular Volume 90 fl (84-94); Platelet Count 431 K/mm3 (140-440); Red Blood Count 3.06 M/mm3 (3.65-5.03); Red Cell Distribution Width 15.1 % (13.2-15.2)
--- NOTE | 2021-05-21 07:45 | Progress Note ---
Assessment and Plan Begin with dressing changes using Betadine soaked gauze to the area of necrosis. Continue IV antibiotics for osteomyelitis of the calcaneus. Debridement of the left heel in OR Friday. Necrosis and infection extensive. Prognosis for limb salvage limited. We will continue to follow patient with you Subjective Date of service: 05/21/21 Patient Reports: Positive: no new complaints, feels better Narrative: Patient status post debridement of heel ulcer yesterday. He says his pain is better today. The heel ulcer is fairly deep going through muscle. Necrotic tissue stops right at the periosteum for the calcaneus. Prognosis for complete healing is not good. Continue local wound care. Patient's preoperative wishes were to avoid an amputation. We will discuss this with family and physicians helping with care. Objective Vital Signs - 12hr 05/20/21 05/20/21 22:00 22:10 Pulse Rate 78 Respiratory 18 Rate Blood Pressure 111/57 O2 Sat by Pulse 97 96 Oximetry - Musculoskeletal other (Left heel and forefoot ulcers dressing intact.) - Labs 05/21/21 07:16 05/20/21 06:38 Diabetes panel 05/20/21 Range/Units 06:38 Sodium 137 (137-145) mmol/L Potassium 3.3 L (3.6-5.0) mmol/L Chloride 103.3 (98-107) mmol/L Carbon Dioxide 22 (22-30) mmol/L BUN 6 L (9-20) mg/dL Creatinine 0.5 L D (0.8-1.3) mg/dL Glucose 85 (75-100) mg/dL Calcium 8.0 L (8.4-10.2) mg/dL Calcium panel 05/20/21 Range/Units 06:38 Calcium 8.0 L (8.4-10.2) mg/dL Pituitary panel 05/20/21 Range/Units 06:38 Sodium 137 (137-145) mmol/L Potassium 3.3 L (3.6-5.0) mmol/L Chloride 103.3 (98-107) mmol/L Carbon Dioxide 22 (22-30) mmol/L BUN 6 L (9-20) mg/dL Creatinine 0.5 L D (0.8-1.3) mg/dL Glucose 85 (75-100) mg/dL Calcium 8.0 L (8.4-10.2) mg/dL Adrenal panel 05/20/21 Range/Units 06:38 Sodium 137 (137-145) mmol/L Potassium 3.3 L (3.6-5.0) mmol/L Chloride 103.3 (98-107) mmol/L Carbon Dioxide 22 (22-30) mmol/L BUN 6 L (9-20) mg/dL Creatinine 0.5 L D (0.8-1.3) mg/dL Glucose 85 (75-100) mg/dL Calcium 8.0 L (8.4-10.2) mg/dL
[2021-05-21 07:53] LABS: Blood Urea Nitrogen 5 mg/dL (9-20); Calcium 8.3 mg/dL (8.4-10.2); Hemolysis Index 1
[2021-05-21 08:04] LABS: BUN/Creatinine Ratio 10
[2021-05-21] MEDS: RIVAROXABAN 2.5 MG TAB PO SCH ×2 (09:12→21:46)
[2021-05-21] MEDS: GABAPENTIN 300 MG CAP PO SCH ×2 (09:12→21:45)
[2021-05-21] MEDS: CLOPIDOGREL 75 MG TAB PO SCH (09:12)
[2021-05-21] MEDS: PANTOPRAZOLE 40 MG TAB PO SCH ×2 (09:12→21:46)
[2021-05-21] MEDS: CALCIUM CARBONATE 1250 MG TAB PO SCH ×2 (09:12→21:46)
--- NOTE | 2021-05-21 10:51 | Progress Note ---
Assessment and Plan Cultures: COVID-19 PCR: Positive Wound culture 05/20/2021 no growth so far A/P: 71-year-old male with hypertension, atrial fibrillation, smoking, prior CVA was admitted to the hospital with worsening left heel ulceration over the last 3 months: #Sepsis secondary to extensive left foot cellulitis with necrotizing infection, early osteomyelitis of the calcaneal tuberosity #Peripheral vascular disease: extensive as noted on CTA. Vascular surgery following. S/p revascularization of LLE. Also revascularization of right iliac and common femoral arteries. Status post debridement of ulcer. #Protein calorie malnutrition #COVID-19 infection: Asymptomatic, on room air Recs: -Continue IV Unasyn, vancomycin, pending surgical debridement -Follow-up cultures for directed home antibiotics. -following debridement, anticipate 4-6 weeks of culture directed IV abx Rudy Aguayo MD [facility] ([facility]) O: [phone] F: [phone] Subjective Date of service: 05/21/21 Principal diagnosis: PVD with ischemia Interval history: One-time fever of 101.4, otherwise afebrile. Normal white count. Was taken to the OR over the weekend for treatment diabetic foot ulcer cultures obtained. Op note notes ulcer extends deep to the muscle with necrotic tissue stopping at the periosteum. Remains on room air. Objective - Exam Narrative Exam: Constitutional: Alert, cooperative. No acute distress. Cachexia Head, Ears, Nose: Normocephalic, atraumatic. External ears, nose normal Eyes: Conjunctivae/corneas clear. No icterus. No ptosis. Neck: Supple, no meningeal signs Cardiovascular: S1, S2 + Respiratory: Good air entry, clear to auscultation bilaterally GI: Soft, non-tender; bowel sounds normal. No peritoneal signs Musculoskeletal: L heel with dressing Skin: No rash or abscess Hem/Lymphatic: No palpable cervical or supraclavicular nodes. Psych: flat affect Neurological: Awake, alert, oriented. No gross abnormality - Constitutional Vitals: Vital Signs Temp Pulse Resp BP Pulse Ox 98.6 F 78 18 111/57 96 05/20/21 17:18 05/20/21 22:10 05/20/21 22:10 05/20/21 22:10 05/20/21 22:10 Temperature -Last 24 Hours Temperature 98.6 F - Labs CBC & Chem 7: 05/21/21 07:16 05/21/21 07:16 Labs: Abnormal lab results 05/21/21 05/21/21 05/21/21 Range/Units 07:16 07:16 07:16 RBC 3.06 L (3.65-5.03) M/mm3 Hgb 9.0 L (11.8-15.2) gm/dl Hct 27.3 L (35.5-45.6) % BUN 5 L (9-20) mg/dL Creatinine 0.5 L (0.8-1.3) mg/dL Calcium 8.3 L (8.4-10.2) mg/dL Magnesium 1.30 L (1.7-2.3) mg/dL Vancomycin Trough 33.5 H (5.0-20.0) ug/mL
[2021-05-21] MEDS ORDERED: MAGNESIUM SULFATE 2 GM/50 ML BAG IV ONE (13:00)
[2021-05-21] MEDS ORDERED: SODIUM CHLORIDE 0.9% 50 ML ONE (13:15)
[2021-05-21] MEDS ORDERED: SODIUM CHLORIDE 0.9% 50 ML IVPB IV PRN (14:18)
[2021-05-21] MEDS: ACETAMINOPHEN 325 MG TAB PO PRN (18:12)
[2021-05-22] MEDS: AMPICILLIN/SULBACTA 3GM/100ML 3 GM/100 ML BAG IV SCH ×4 (00:54→17:04)
[2021-05-22] MEDS: VANCOMYCIN/NS 1 GM/250 ML 1 GM/250 ML BAG IV SCH (07:03)
--- NOTE | 2021-05-22 07:20 | Progress Note ---
Assessment and Plan Begin with dressing changes using Betadine soaked gauze to the area of necrosis. Continue IV antibiotics for osteomyelitis of the calcaneus. Debridement of the left heel in OR Friday. Necrosis and infection extensive. Prognosis for limb salvage limited. We will continue to follow patient with you. Subjective Date of service: 05/22/21 Patient Reports: Positive: no new complaints, feels better Narrative: Patient is postop day 2 status post debridement of heel ulcer. Will begin local wound care. Patient is concerned about a court date he has on . He is surgically cleared for discharge with home health nurses to help with wound care and appointments in the wound care clinic. He will need to be continued on IV antibiotics for the osteomyelitis. Objective Vital Signs - 12hr 05/21/21 05/21/21 05/21/21 21:52 22:00 22:29 Temperature 97.4 F L Pulse Rate 77 78 Respiratory 18 Rate Blood Pressure 127/59 127/59 O2 Sat by Pulse 96 96 Oximetry 05/22/21 04:41 Temperature 100.0 F H Pulse Rate 92 H Respiratory 20 Rate Blood Pressure 140/63 O2 Sat by Pulse 96 Oximetry - Musculoskeletal other (Left heel and forefoot ulcers are dry and clean dressing is changed) - Labs 05/21/21 07:16 05/22/21 07:20 Diabetes panel 05/21/21 Range/Units 07:16 Sodium 139 (137-145) mmol/L Potassium 4.4 D (3.6-5.0) mmol/L Chloride 103.0 (98-107) mmol/L Carbon Dioxide 22 (22-30) mmol/L BUN 5 L (9-20) mg/dL Creatinine 0.5 L (0.8-1.3) mg/dL Glucose 92 (75-100) mg/dL Calcium 8.3 L (8.4-10.2) mg/dL Calcium panel 05/21/21 Range/Units 07:16 Calcium 8.3 L (8.4-10.2) mg/dL Pituitary panel 05/21/21 Range/Units 07:16 Sodium 139 (137-145) mmol/L Potassium 4.4 D (3.6-5.0) mmol/L Chloride 103.0 (98-107) mmol/L Carbon Dioxide 22 (22-30) mmol/L BUN 5 L (9-20) mg/dL Creatinine 0.5 L (0.8-1.3) mg/dL Glucose 92 (75-100) mg/dL Calcium 8.3 L (8.4-10.2) mg/dL Adrenal panel 05/21/21 Range/Units 07:16 Sodium 139 (137-145) mmol/L Potassium 4.4 D (3.6-5.0) mmol/L Chloride 103.0 (98-107) mmol/L Carbon Dioxide 22 (22-30) mmol/L BUN 5 L (9-20) mg/dL Creatinine 0.5 L (0.8-1.3) mg/dL Glucose 92 (75-100) mg/dL Calcium 8.3 L (8.4-10.2) mg/dL
[2021-05-22 08:08] LABS: Blood Urea Nitrogen 8 mg/dL (9-20); Calcium 8.3 mg/dL (8.4-10.2); Hemolysis Index 0
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
[2021-05-22 08:18] LABS: BUN/Creatinine Ratio 13
[2021-05-22] MEDS: ACETAMINOPHEN 325 MG TAB PO PRN (09:59)
[2021-05-22] MEDS: CALCIUM CARBONATE 1250 MG TAB PO SCH ×2 (10:00→22:22)
[2021-05-22] MEDS: GABAPENTIN 300 MG CAP PO SCH ×2 (10:00→22:22)
[2021-05-22] MEDS: CLOPIDOGREL 75 MG TAB PO SCH (10:00)
[2021-05-22] MEDS: RIVAROXABAN 2.5 MG TAB PO SCH ×2 (10:00→22:22)
[2021-05-22] MEDS: PANTOPRAZOLE 40 MG TAB PO SCH ×2 (10:00→22:22)
--- NOTE | 2021-05-22 11:17 | Progress Note ---
Assessment and Plan Cultures: COVID-19 PCR: Positive Wound culture 05/20/2021 no growth so far A/P: 71-year-old male with hypertension, atrial fibrillation, smoking, prior CVA was admitted to the hospital with worsening left heel ulceration over the last 3 months: #Sepsis secondary to extensive left foot cellulitis with necrotizing infection, early osteomyelitis of the calcaneal tuberosity #Peripheral vascular disease: extensive as noted on CTA. Vascular surgery following. S/p revascularization of LLE. Also revascularization of right iliac and common femoral arteries. Status post debridement of ulcer. #Protein calorie malnutrition #COVID-19 infection: Asymptomatic, on room air Recs: -Continue IV Unasyn, vancomycin, s/p debridement -Follow-up cultures for directed home antibiotics. -following debridement, anticipate 4-6 weeks of culture directed IV abx Rudy Aguayo MD [facility] ([facility]) O: [phone] F: [phone] Subjective Date of service: 05/22/21 Principal diagnosis: PVD with ischemia Interval history: Febrile overnight to 102.6. Now status post debridement diabetic foot ulcer of the heel. Cultures with preliminary above the check gram-negative rods pending identification. Objective - Exam Narrative Exam: Constitutional: Alert, cooperative. No acute distress. Cachexia Head, Ears, Nose: Normocephalic, atraumatic. External ears, nose normal Eyes: Conjunctivae/corneas clear. No icterus. No ptosis. Neck: Supple, no meningeal signs Cardiovascular: S1, S2 + Respiratory: Good air entry, clear to auscultation bilaterally GI: Soft, non-tender; bowel sounds normal. No peritoneal signs Musculoskeletal: L heel with dressing Skin: No rash or abscess Hem/Lymphatic: No palpable cervical or supraclavicular nodes. Psych: flat affect Neurological: Awake, alert, oriented. No gross abnormality - Constitutional Vitals: Vital Signs Temp Pulse Resp BP Pulse Ox 100.0 F H 92 H 20 140/63 98 05/22/21 04:41 05/22/21 04:41 05/22/21 04:41 05/22/21 04:41 05/22/21 07:32 Temperature -Last 24 Hours Temperature 100.0 F Temperature 97.4 F Temperature 102.6 F Temperature 100.9 F - Labs CBC & Chem 7: 05/21/21 07:16 05/22/21 07:20 Labs: Abnormal lab results 05/22/21 Range/Units 07:20 BUN 8 L (9-20) mg/dL Creatinine 0.6 L (0.8-1.3) mg/dL Calcium 8.3 L (8.4-10.2) mg/dL
[2021-05-22] MEDS: HYDROcodone/ACETAMINOPHEN 5-325 MG TAB PO PRN ×2 (12:29→22:27)
[2021-05-22] MEDS: VANCOMYCIN 750 MG in SODIUM CHLORIDE 0.9% 250ML 250 ML IV SCH (17:04)
[2021-05-23] MEDS: AMPICILLIN/SULBACTA 3GM/100ML 3 GM/100 ML BAG IV SCH ×4 (00:02→20:09)
[2021-05-23] MEDS: VANCOMYCIN 750 MG in SODIUM CHLORIDE 0.9% 250ML 250 ML IV SCH ×4 (06:04→21:56)
[2021-05-23] MEDS: CALCIUM CARBONATE 1250 MG TAB PO SCH ×2 (10:15→21:57)
[2021-05-23] MEDS: RIVAROXABAN 2.5 MG TAB PO SCH ×2 (10:15→21:56)
[2021-05-23] MEDS: GABAPENTIN 300 MG CAP PO SCH ×2 (10:15→21:56)
[2021-05-23] MEDS: PANTOPRAZOLE 40 MG TAB PO SCH ×2 (10:15→21:56)
[2021-05-23] MEDS: CLOPIDOGREL 75 MG TAB PO SCH (10:15)
--- NOTE | 2021-05-23 11:36 | Progress Note ---
Assessment and Plan Cultures: COVID-19 PCR: Positive Wound culture 05/20/2021 GNR A/P: 71-year-old male with hypertension, atrial fibrillation, smoking, prior CVA was admitted to the hospital with worsening left heel ulceration over the last 3 months: #Sepsis secondary to extensive left foot cellulitis with necrotizing infection, early osteomyelitis of the calcaneal tuberosity #Peripheral vascular disease: extensive as noted on CTA. Vascular surgery following. S/p revascularization of LLE. Also revascularization of right iliac and common femoral arteries. Status post debridement of ulcer. #Protein calorie malnutrition #COVID-19 infection: Asymptomatic, on room air Recs: -Continue IV Unasyn, vancomycin, s/p debridement -Follow-up cultures for directed home antibiotics. -following debridement, anticipate 4-6 weeks of culture directed IV abx -Cultures pending finalization. Rudy Aguayo MD [facility] ([facility]) O: [phone] F: [phone] Subjective Date of service: 05/23/21 Principal diagnosis: PVD with ischemia Interval history: Remains febrile, though curve appears to be somehwat improving. White count remains normal. Objective - Exam Narrative Exam: Constitutional: Alert, cooperative. No acute distress. Cachexia Head, Ears, Nose: Normocephalic, atraumatic. External ears, nose normal Eyes: Conjunctivae/corneas clear. No icterus. No ptosis. Neck: Supple, no meningeal signs Cardiovascular: S1, S2 + Respiratory: Good air entry, clear to auscultation bilaterally GI: Soft, non-tender; bowel sounds normal. No peritoneal signs Musculoskeletal: L heel with dressing Skin: No rash or abscess Hem/Lymphatic: No palpable cervical or supraclavicular nodes. Psych: flat affect Neurological: Awake, alert, oriented. No gross abnormality - Constitutional Vitals: Vital Signs Temp Pulse Resp BP Pulse Ox 100.3 F H 79 15 123/59 96 05/23/21 08:25 05/23/21 08:25 05/23/21 08:25 05/23/21 08:25 05/23/21 10:00 Temperature -Last 24 Hours Temperature 100.3 F Temperature 100.7 F Temperature 100.3 F Temperature 99.3 F - Labs CBC & Chem 7: 05/21/21 07:16 05/22/21 07:20
[2021-05-23] MEDS: ACETAMINOPHEN 325 MG TAB PO PRN (16:50)
--- NOTE | 2021-05-23 18:31 | Progress Note ---
Assessment and Plan Begin with dressing changes using Betadine soaked gauze to the area of necrosis. Continue IV antibiotics for osteomyelitis of the calcaneus. Debridement of the left heel in OR Friday. Necrosis and infection extensive. Prognosis for limb salvage limited. Patient scheduled to go to a snf unit. Continue wound care from there. We will see patient in the wound care clinic in 1 or 2 weeks. Subjective Date of service: 05/23/21 Patient Reports: Positive: no new complaints, feels better Objective Vital Signs - 12hr 05/23/21 05/23/21 08:25 10:00 Temperature 100.3 F H Pulse Rate 79 Respiratory 15 Rate Blood Pressure 123/59 O2 Sat by Pulse 96 96 Oximetry - Labs 05/21/21 07:16 05/22/21 07:20
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
[2021-05-24] MEDS: VANCOMYCIN 750 MG in SODIUM CHLORIDE 0.9% 250ML 250 ML IV SCH ×2 (00:01→06:51)
[2021-05-24] MEDS: AMPICILLIN/SULBACTA 3GM/100ML 3 GM/100 ML BAG IV SCH ×2 (00:02→06:51)
[2021-05-24] MEDS: ACETAMINOPHEN 325 MG TAB PO PRN (06:51)
[2021-05-24] MEDS: GABAPENTIN 300 MG CAP PO SCH ×2 (10:33→21:41)
[2021-05-24] MEDS: CLOPIDOGREL 75 MG TAB PO SCH (10:33)
[2021-05-24] MEDS: PANTOPRAZOLE 40 MG TAB PO SCH ×2 (10:33→21:42)
[2021-05-24] MEDS: CALCIUM CARBONATE 1250 MG TAB PO SCH ×2 (10:34→21:42)
[2021-05-24] MEDS: RIVAROXABAN 2.5 MG TAB PO SCH ×2 (10:35→21:42)
--- NOTE | 2021-05-24 11:35 | Progress Note ---
Assessment and Plan Cultures: COVID-19 PCR: Positive Wound culture 05/20/2021 Proteus. A/P: 71-year-old male with hypertension, atrial fibrillation, smoking, prior CVA was admitted to the hospital with worsening left heel ulceration over the last 3 months: #Sepsis secondary to extensive left foot cellulitis with necrotizing infection, early osteomyelitis of the calcaneal tuberosity #Peripheral vascular disease: extensive as noted on CTA. Vascular surgery following. S/p revascularization of LLE. Also revascularization of right iliac and common femoral arteries. Status post debridement of ulcer. #Protein calorie malnutrition #COVID-19 infection: Asymptomatic, on room air Recs: -Stopped Unasyn -Stopped vancomycin as Proteus in the wound -started ceftriaxone 2g q24h -Persistent fevers 2/2 COVID vs ongoing necrotic foot infection. Concerned for uncontrolled infection infection in the foot and ongoing risk of bone loss. -following debridement, anticipate 4-6 weeks of culture directed IV abx -Case management consulted for ceftriaxone 2g q24h until 06/30/2021 -Likely to rehab,ok for midline if otherwise necessary Rudy Aguayo MD [facility] O: [phone] F: [phone] Subjective Date of service: 05/24/21 Principal diagnosis: PVD with ischemia Interval history: He remains persistently febrile despite a normal whtie count. Objective - Exam Narrative Exam: Constitutional: Alert, cooperative. No acute distress. Cachexia Head, Ears, Nose: Normocephalic, atraumatic. External ears, nose normal Eyes: Conjunctivae/corneas clear. No icterus. No ptosis. Neck: Supple, no meningeal signs Cardiovascular: S1, S2 + Respiratory: Good air entry, clear to auscultation bilaterally GI: Soft, non-tender; bowel sounds normal. No peritoneal signs Musculoskeletal: L heel with dressing Skin: No rash or abscess Hem/Lymphatic: No palpable cervical or supraclavicular nodes. Psych: flat affect Neurological: Awake, alert, oriented. No gross abnormality - Constitutional Vitals: Vital Signs Temp Pulse Resp BP Pulse Ox 100.4 F H 68 20 110/48 96 05/24/21 05:45 05/24/21 10:36 05/24/21 05:45 05/24/21 10:36 05/24/21 05:45 Temperature -Last 24 Hours Temperature 100.4 F Temperature 98.6 F Temperature 101.4 F - Labs CBC & Chem 7: 05/21/21 07:16 05/22/21 07:20
[2021-05-24 11:47] LABS: Basophils # (Auto) 0.1 K/mm3 (0.0-0.1); Basophils % (Auto) 2.5 % (0.0-1.8); Eosinophils # (Auto) 0.1 K/mm3 (0.0-0.4); Eosinophils % (Auto) 3.8 % (0.0-4.3); Hematocrit 23.9 % (35.5-45.6); Hemoglobin 7.9 gm/dl (11.8-15.2); Lymphocytes # (Auto) 0.4 K/mm3 (1.2-5.4); Lymphocytes % (Auto) 10.9 % (13.4-35.0); Mean Corpuscular HGB Conc 33 % (32-34); Mean Corpuscular Volume 88 fl (84-94); Monocytes # (Auto) 0.6 K/mm3 (0.0-0.8); Monocytes % (Auto) 15.1 % (0.0-7.3); Platelet Count 236 K/mm3 (140-440); Red Blood Count 2.73 M/mm3 (3.65-5.03); Red Cell Distribution Width 15.3 % (13.2-15.2)
[2021-05-24 12:23] LABS: Alanine Aminotransferase 12 units/L (7-56); Albumin 2.6 g/dL (3.9-5); Blood Urea Nitrogen 7 mg/dL (9-20); Calcium 7.7 mg/dL (8.4-10.2); Hemolysis Index 2
[2021-05-24 12:24] LABS: BUN/Creatinine Ratio 12
[2021-05-24] MEDS: cefTRIAXone/NS 2 GM/100 ML 2 GM/100 ML BAG IV SCH (12:40)
--- NOTE | 2021-05-24 12:48 | XRay Report ---
XR chest 1V ap INDICATION / CLINICAL INFORMATION: Fever. COMPARISON: 01/30/2021 FINDINGS: SUPPORT DEVICES: None. HEART /PULMONARY VASCULATURE: No significant abnormality. LUNGS / PLEURA: Patchy airspace opacity in the left lung base. Right lung is essentially clear. No si zable pleural effusion. No pneumothorax. IMPRESSION: Patchy airspace opacity in the left lung base, suspicious for pneumonia. Signer Name: Richard Mendosa MD Signed: 05/24/2021 12:43 PM Workstation Name: [id number]
[2021-05-24] MEDS: POTASSIUM CHLORIDE 10 MEQ 10 MEQ/100 ML BAG IV SCH ×4 (17:59→22:00)
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
[2021-05-24 18:48] LABS: Bilirubin,Urine NEG (Negative); Blood,Urine NEG (Negative); Color,Urine Yellow (Yellow); Protein,Urine <15 mg/dL mg/dL (Negative); Urobilinogen,Urine < 2.0 mg/dL (<2.0); WBC,Urine < 1.0 /HPF (0.0-6.0)
[2021-05-24 18:58] LABS: RBC,Urine < 1.0 /HPF (0.0-6.0)
[2021-05-24] MEDS: HYDROcodone/ACETAMINOPHEN 5-325 MG TAB PO PRN (22:00)
--- NOTE | 2021-05-25 10:41 | Progress Note ---
Assessment and Plan Cultures: COVID-19 PCR: Positive Wound culture 05/20/2021 Proteus. A/P: 71-year-old male with hypertension, atrial fibrillation, smoking, prior CVA was admitted to the hospital with worsening left heel ulceration over the last 3 months: #Sepsis secondary to extensive left foot cellulitis with necrotizing infection, early osteomyelitis of the calcaneal tuberosity #Peripheral vascular disease: extensive as noted on CTA. Vascular surgery following. S/p revascularization of LLE. Also revascularization of right iliac and common femoral arteries. Status post debridement of ulcer. #Protein calorie malnutrition #COVID-19 infection: Asymptomatic, on room air Recs: -started ceftriaxone 2g q24h -following debridement, anticipate 6 weeks of culture directed IV abx -Case management consulted for ceftriaxone 2g q24h until 06/30/2021 -Likely to rehab,ok for midline if otherwise necessary Rudy Aguayo MD [facility] O: [phone] F: [phone] Subjective Date of service: 05/25/21 Principal diagnosis: PVD with ischemia Interval history: Afebrile over the past 24 hours, normal white count. Imaging personally reivewed: CXR: Patchy airspace opacity in left lung base Objective - Exam Narrative Exam: Constitutional: Alert, cooperative. No acute distress. Cachexia Head, Ears, Nose: Normocephalic, atraumatic. External ears, nose normal Eyes: Conjunctivae/corneas clear. No icterus. No ptosis. Neck: Supple, no meningeal signs Cardiovascular: S1, S2 + Respiratory: Good air entry, clear to auscultation bilaterally GI: Soft, non-tender; bowel sounds normal. No peritoneal signs Musculoskeletal: L heel with dressing Skin: No rash or abscess Hem/Lymphatic: No palpable cervical or supraclavicular nodes. Psych: flat affect Neurological: Awake, alert, oriented. No gross abnormality - Constitutional Vitals: Vital Signs Temp Pulse Resp BP Pulse Ox 98.5 F 84 15 113/62 98 05/25/21 10:13 05/25/21 10:13 05/25/21 10:13 05/25/21 10:13 05/25/21 10:13 Temperature -Last 24 Hours Temperature 98.5 F Temperature 97.6 F Temperature 98.9 F Temperature 99.4 F Temperature 98.0 F - Labs CBC & Chem 7: 05/24/21 11:32 05/24/21 11:32 Labs: Abnormal lab results 05/24/21 05/24/21 Range/Units 11:32 11:32 WBC 3.7 L (4.5-11.0) K/mm3 RBC 2.73 L (3.65-5.03) M/mm3 Hgb 7.9 L (11.8-15.2) gm/dl Hct 23.9 L (35.5-45.6) % RDW 15.3 H (13.2-15.2) % Lymph % (Auto) 10.9 L (13.4-35.0) % [place] % (Auto) 15.1 H (0.0-7.3) % Baso % (Auto) 2.5 H (0.0-1.8) % Lymph # (Auto) 0.4 L (1.2-5.4) K/mm3 Sodium 134 L (137-145) mmol/L Potassium 2.9 L* D (3.6-5.0) mmol/L BUN 7 L (9-20) mg/dL Creatinine 0.6 L (0.8-1.3) mg/dL Calcium 7.7 L (8.4-10.2) mg/dL Total Protein 5.3 L (6.3-8.2) g/dL Albumin 2.6 L (3.9-5) g/dL
[2021-05-25] MEDS: CALCIUM CARBONATE 1250 MG TAB PO SCH ×2 (11:47→21:58)
[2021-05-25] MEDS: PANTOPRAZOLE 40 MG TAB PO SCH ×2 (11:47→21:58)
[2021-05-25] MEDS: GABAPENTIN 300 MG CAP PO SCH ×2 (11:48→21:58)
[2021-05-25] MEDS: RIVAROXABAN 2.5 MG TAB PO SCH ×2 (11:48→21:45)
[2021-05-25] MEDS: CLOPIDOGREL 75 MG TAB PO SCH (11:48)
[2021-05-25] MEDS: cefTRIAXone/NS 2 GM/100 ML 2 GM/100 ML BAG IV SCH (12:00)
[2021-05-25] MEDS: HYDROcodone/ACETAMINOPHEN 5-325 MG TAB PO PRN (12:15)
--- NOTE | 2021-05-25 12:58 | XRay Report ---
CHEST 1 VIEW 05/25/2021 12:21 PM INDICATION / CLINICAL INFORMATION: R arm PICC placement. COMPARISON: One view of the chest from 05/24/2021. FINDINGS: SUPPORT DEVICES: A right PICC has been placed and terminates over the proximal SVC. HEART / MEDIASTINUM: No significant abnormality. LUNGS / PLEURA: Left basilar opacities have not significantly changed. The lungs are otherwise clear. No significant pleural effusion. No pneumothorax. ADDITIONAL FINDINGS: No significant additional findings. IMPRESSION: 1. Satisfactory positioning of the right arm PICC. 2. Unchanged left basilar opacities, likely representing pneumonia. Signer Name: Tony Wright MD Signed: 05/25/2021 12:54 PM Workstation Name: [id number]
[2021-05-25 17:24] LABS: Blood Urea Nitrogen 9 mg/dL (9-20); Calcium 8.3 mg/dL (8.4-10.2); Hemolysis Index 1
[2021-05-25 17:25] LABS: Basophils % (Auto) 0.6 % (0.0-1.8); Eosinophils # (Auto) 0.3 K/mm3 (0.0-0.4); Eosinophils % (Auto) 7.9 % (0.0-4.3); Hematocrit 23.8 % (35.5-45.6); Hemoglobin 7.7 gm/dl (11.8-15.2); Lymphocytes # (Auto) 0.5 K/mm3 (1.2-5.4); Lymphocytes % (Auto) 12.4 % (13.4-35.0); Mean Corpuscular HGB Conc 32 % (32-34); Mean Corpuscular Volume 88 fl (84-94); Monocytes # (Auto) 0.5 K/mm3 (0.0-0.8); Monocytes % (Auto) 12.6 % (0.0-7.3); Platelet Count 196 K/mm3 (140-440); Red Blood Count 2.72 M/mm3 (3.65-5.03); Red Cell Distribution Width 15.6 % (13.2-15.2)
[2021-05-25 17:27] LABS: BUN/Creatinine Ratio 18
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
[2021-05-26 10:44] LABS: Blood Urea Nitrogen 7 mg/dL (9-20); Calcium 7.9 mg/dL (8.4-10.2); Hemolysis Index 1
[2021-05-26 11:08] LABS: BUN/Creatinine Ratio 14
[2021-05-26] MEDS ORDERED: MAGNESIUM SULFATE 4 GM/100 ML BAG IV ONE (11:09)
[2021-05-26] MEDS ORDERED: POTASSIUM CHLORIDE ER 20 MEQ TAB PO ONE (11:09)
[2021-05-26] MEDS: RIVAROXABAN 2.5 MG TAB PO SCH ×2 (11:44→21:57)
[2021-05-26] MEDS: CLOPIDOGREL 75 MG TAB PO SCH (11:44)
[2021-05-26] MEDS: CALCIUM CARBONATE 1250 MG TAB PO SCH ×2 (11:45→21:57)
[2021-05-26] MEDS: PANTOPRAZOLE 40 MG TAB PO SCH ×2 (11:45→21:57)
[2021-05-26] MEDS: GABAPENTIN 300 MG CAP PO SCH ×2 (11:45→21:57)
[2021-05-26] MEDS: cefTRIAXone/NS 2 GM/100 ML 2 GM/100 ML BAG IV SCH (16:22)
[2021-05-26] MEDS: POTASSIUM CHLORIDE 10 MEQ 10 MEQ/100 ML BAG IV SCH ×4 (17:35→21:58)
[2021-05-26] MEDS: HYDROcodone/ACETAMINOPHEN 5-325 MG TAB PO PRN (18:39)
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
[2021-05-27] MEDS: HYDROcodone/ACETAMINOPHEN 5-325 MG TAB PO PRN ×2 (08:00→16:20)
[2021-05-27 08:02] LABS: Blood Urea Nitrogen 5 mg/dL (9-20); Calcium 8.2 mg/dL (8.4-10.2); Hemolysis Index 1; Iron 41 ug/dL (49-181); Total Iron Binding Capacity 106 mcg/dL (250-450)
[2021-05-27 08:10] LABS: BUN/Creatinine Ratio 10
[2021-05-27 08:21] LABS: Hematocrit 23.6 % (35.5-45.6); Hemoglobin 7.7 gm/dl (11.8-15.2); Mean Corpuscular HGB Conc 33 % (32-34); Mean Corpuscular Volume 89 fl (84-94); Platelet Count 189 K/mm3 (140-440); Red Blood Count 2.66 M/mm3 (3.65-5.03)
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
[2021-05-27 09:57] LABS: Eosinophils # (Auto) 0.4 K/mm3 (0.0-0.4); Eosinophils % (Auto) 7.7 % (0.0-4.3); Monocytes # (Auto) 0.7 K/mm3 (0.0-0.8); Monocytes % (Auto) 12.5 % (0.0-7.3)
[2021-05-27] MEDS: CALCIUM CARBONATE 1250 MG TAB PO SCH ×2 (11:00→21:45)
[2021-05-27] MEDS: CLOPIDOGREL 75 MG TAB PO SCH (11:00)
[2021-05-27] MEDS: RIVAROXABAN 2.5 MG TAB PO SCH ×2 (11:00→21:49)
[2021-05-27] MEDS: PANTOPRAZOLE 40 MG TAB PO SCH ×2 (11:00→21:46)
[2021-05-27] MEDS: GABAPENTIN 300 MG CAP PO SCH ×2 (11:00→21:45)
[2021-05-27 11:39] LABS: Band Neutrophils # (Manual) 0.1 K/mm3; Basophils % (Manual) 0 % (0.0-1.8); Total Cells Counted 100
[2021-05-27 11:41] LABS: Platelet Estimate Consistent w Auto
[2021-05-27] MEDS: cefTRIAXone/NS 2 GM/100 ML 2 GM/100 ML BAG IV SCH (12:16)
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
[2021-05-28 07:54] LABS: Hematocrit 23.7 % (35.5-45.6); Hemoglobin 7.7 gm/dl (11.8-15.2); Mean Corpuscular HGB Conc 33 % (32-34); Mean Corpuscular Volume 89 fl (84-94); Platelet Count 183 K/mm3 (140-440); Red Blood Count 2.66 M/mm3 (3.65-5.03); Red Cell Distribution Width 15.9 % (13.2-15.2)
[2021-05-28 08:01] LABS: Blood Urea Nitrogen 6 mg/dL (9-20); Calcium 8.3 mg/dL (8.4-10.2); Hemolysis Index 3
[2021-05-28 08:19] LABS: BUN/Creatinine Ratio 12
--- NOTE | 2021-05-28 08:35 | Gastroenterology Progress Note ---
Assessment and Plan Patient denies overt bleeding Patient currently on dual anticoagulation with elevated risk for endoscopic evaluation due to anticoagulation and medical comorbidities Additionally given the patient's infection and medical status anemia of chronic disease with progressive anemia as well as further decrease in hemoglobin due to phlebotomy a possible etiology Therefore recommend occult blood testing to see if evidence of GI blood loss -not yet completed, was ordered yesterday Continue to trend hemoglobin Minimize blood draws No endoscopy indicated at this moment. Patient would benefit from endoscopic evaluation once his medical status has improved Therefore, if he has significant improvement in his medical status and he is safe for cessation of blood thinners (must be off Plavix for 5 days and Xarelto for 2 days) please call us back and we can perform EGD and colonoscopy versus this can be done as an outpatient Otherwise GI will sign off, please call us back if needed for inpatient endoscopy otherwise patient should follow-up with us as an outpatient - Patient Problems (1) Anemia Current Visit: Yes Status: Acute (2) Foot osteomyelitis, left Current Visit: Yes Status: Acute (3) PAD (peripheral artery disease) Current Visit: Yes Status: Acute (4) Sepsis Current Visit: Yes Status: Acute Qualifiers: Severe sepsis shock status: without septic shock Subjective Date of service: 05/28/21 Principal diagnosis: PVD with ischemia Interval history: Hemoglobin stable Patient still reports no overt bleeding Denies abdominal pain Objective - Constitutional Vitals: Temp Pulse Resp BP Pulse Ox 97.8 F 76 18 114/66 95 05/28/21 04:34 05/28/21 04:34 05/28/21 04:34 05/28/21 04:34 05/28/21 04:34 General appearance: no acute distress, cachectic - EENT Eyes: EOM intact ENT: hearing intact - Gastrointestinal General gastrointestinal: Present: soft, non-tender - Labs CBC & Chem 7: 05/28/21 07:15 05/28/21 07:15 Labs: Laboratory Results - last 24 hr 05/27/21 05/28/21 05/28/21 04:00 07:15 07:15 WBC 7.6 RBC 2.66 L Hgb 7.7 L Hct 23.7 L MCV 89 MCH 29 MCHC 33 RDW 15.9 H Plt Count 183 [place] % (Auto) 12.5 H Eos % (Auto) 7.7 H Baso % (Auto) Pull Over Machine Operator [place] # (Auto) 0.7 Eos # (Auto) 0.4 Baso # (Auto) 0.0 Add Manual Diff Complete Total Counted 100 Seg Neutrophils % 63.2 Seg Neuts % (Manual) 71.0 H Band Neutrophils % 1.0 Lymphocytes % (Manual) 13.0 L Reactive Lymphs % (Man) 1.0 Monocytes % (Manual) 10.0 H Eosinophils % (Manual) 3.0 Basophils % (Manual) 0 Metamyelocytes % 1.0 Myelocytes % 0 Promyelocytes % 0 Blast Cells % 0 Nucleated RBC % Not Reportable Seg Neutrophils # 3.4 Seg Neutrophils # Man 3.8 Band Neutrophils # 0.1 Lymphocytes # (Manual) 0.7 L Abs React Lymphs (Man) 0.1 Monocytes # (Manual) 0.5 Eosinophils # (Manual) 0.2 Basophils # (Manual) 0.0 Metamyelocytes # 0.1 Myelocytes # 0.0 Promyelocytes # 0.0 Blast Cells # 0.0 WBC Morphology Not Reportable Hypersegmented Neuts Not Reportable Hyposegmented Neuts Not Reportable Hypogranular Neuts Not Reportable Smudge Cells Not Reportable Toxic Granulation Not Reportable Toxic Vacuolation Not Reportable Dohle Bodies Not Reportable Pelger-Huet Anomaly Not Reportable Maryann Rods Not Reportable Platelet Estimate Consistent w auto Clumped Platelets Not Reportable Plt Clumps, EDTA Not Reportable Large Platelets Not Reportable Giant Platelets Not Reportable Platelet Satelliting Not Reportable Plt Morphology Comment Not Reportable RBC Morphology Not Reportable Dimorphic RBCs Not Reportable Polychromasia Few Hypochromasia Not Reportable Poikilocytosis Not Reportable Anisocytosis Not Reportable Microcytosis Not Reportable Macrocytosis Not Reportable Spherocytes Not Reportable Pappenheimer Bodies Not Reportable Sickle Cells Not Reportable Target Cells Not Reportable Tear Drop Cells Not Reportable Ovalocytes Not Reportable Helmet Cells Not Reportable [place] Bodies Not Reportable [place] Rings Not Reportable Bonnie Cells Not Reportable Bite Cells Not Reportable Crenated Cell Not Reportable Elliptocytes Few Acanthocytes (Spur) Not Reportable Rouleaux Not Reportable Hemoglobin C Crystals Not Reportable Schistocytes Not Reportable Malaria parasites Not Reportable Amari Bodies Not Reportable Hem Pathologist Commnt No Sodium 138 Potassium 4.1 Chloride 102.7 Carbon Dioxide 24 Anion Gap 15 BUN 6 L Creatinine 0.5 L Estimated GFR > 60 BUN/Creatinine Ratio 12 Glucose 87 Calcium 8.3 L Magnesium 1.60 L
[2021-05-28 08:42] LABS: Anisocytosis 1+; Band Neutrophils # (Manual) 0.2 K/mm3; Basophils % (Manual) 0 % (0.0-1.8); Hypochromasia Few; Platelet Estimate Consistent w Auto; Total Cells Counted 100
[2021-05-28] MEDS: GABAPENTIN 300 MG CAP PO SCH ×2 (11:00→21:12)
[2021-05-28] MEDS: FLUCONAZOLE 100 MG TAB PO SCH (11:00)
[2021-05-28] MEDS: PANTOPRAZOLE 40 MG TAB PO SCH ×2 (11:00→21:25)
[2021-05-28] MEDS: RIVAROXABAN 2.5 MG TAB PO SCH ×2 (11:00→21:12)
[2021-05-28] MEDS: CLOPIDOGREL 75 MG TAB PO SCH (11:00)
[2021-05-28] MEDS: CALCIUM CARBONATE 1250 MG TAB PO SCH ×2 (11:00→21:13)
[2021-05-28] MEDS: cefTRIAXone/NS 2 GM/100 ML 2 GM/100 ML BAG IV SCH (11:01)
--- NOTE | 2021-05-28 12:15 | Progress Note ---
Assessment and Plan Cultures: COVID-19 PCR: Positive Wound culture 05/20/2021 Proteus. A/P: 71-year-old male with hypertension, atrial fibrillation, smoking, prior CVA was admitted to the hospital with worsening left heel ulceration over the last 3 months: #Sepsis secondary to extensive left foot cellulitis with necrotizing infection, early osteomyelitis of the calcaneal tuberosity #Peripheral vascular disease: extensive as noted on CTA. Vascular surgery following. S/p revascularization of LLE. Also revascularization of right iliac and common femoral arteries. Status post debridement of ulcer. #Protein calorie malnutrition #COVID-19 infection: Asymptomatic, on room air Recs: -started ceftriaxone 2g q24h -following debridement, anticipate 6 weeks of culture directed IV abx -Case management consulted for ceftriaxone 2g q24h until 06/30/2021 -Likely to rehab,ok for midline if otherwise necessary Rudy Aguayo MD [facility] O: [phone] F: [phone] Subjective Date of service: 05/28/21 Principal diagnosis: PVD with ischemia Interval history: Afebrile, white count. Imaging reviewed: Chest x-ray: Unchanged left opacities Objective - Exam Narrative Exam: Constitutional: Alert, cooperative. No acute distress. Cachexia Head, Ears, Nose: Normocephalic, atraumatic. External ears, nose normal Eyes: Conjunctivae/corneas clear. No icterus. No ptosis. Neck: Supple, no meningeal signs Cardiovascular: S1, S2 + Respiratory: Good air entry, clear to auscultation bilaterally GI: Soft, non-tender; bowel sounds normal. No peritoneal signs Musculoskeletal: L heel with dressing Skin: No rash or abscess Hem/Lymphatic: No palpable cervical or supraclavicular nodes. Psych: flat affect Neurological: Awake, alert, oriented. No gross abnormality - Constitutional Vitals: Vital Signs Temp Pulse Resp BP Pulse Ox 99.0 F 75 20 118/61 97 05/28/21 11:27 05/28/21 11:27 05/28/21 11:27 05/28/21 11:27 05/28/21 11:27 Temperature -Last 24 Hours Temperature 99.0 F Temperature 97.8 F Temperature 98.7 F Temperature 98.1 F - Labs CBC & Chem 7: 05/28/21 07:15 05/28/21 07:15 Labs: Abnormal lab results 05/28/21 05/28/21 Range/Units 07:15 07:15 RBC 2.66 L (3.65-5.03) M/mm3 Hgb 7.7 L (11.8-15.2) gm/dl Hct 23.7 L (35.5-45.6) % RDW 15.9 H (13.2-15.2) % Seg Neuts % (Manual) 77.0 H (40.0-70.0) % Lymphocytes % (Manual) 13.0 L (13.4-35.0) % Lymphocytes # (Manual) 1.0 L (1.2-5.4) K/mm3 BUN 6 L (9-20) mg/dL Creatinine 0.5 L (0.8-1.3) mg/dL Calcium 8.3 L (8.4-10.2) mg/dL Magnesium 1.60 L (1.7-2.3) mg/dL
--- NOTE | 2021-05-29 00:13 | Progress Note ---
Assessment and Plan - Patient Problems (1) Foot osteomyelitis, left Current Visit: Yes Status: Acute Plan to address problem: Presented to me as osteomyelitis of the left calcaneal region. Patient to get ceftriaxone through June 30, 2021 (2) Sepsis Current Visit: Yes Status: Acute Qualifiers: Severe sepsis shock status: without septic shock Plan to address problem: High white count of 20,000 IV Unasyn and IV vancomycin (3) CVA (cerebral vascular accident) Current Visit: Yes Status: Chronic Qualifiers: Laterality of affected vessel: unspecified Plan to address problem: Patient is on Plavix (4) PAD (peripheral artery disease) Current Visit: Yes Status: Acute Plan to address problem: Duplex scan requested of both lower extremities Consult vascular surgery if necessary (5) Cachexia Current Visit: Yes Status: Chronic Plan to address problem: Albumin is not low Dietary supplements (6) DVT prophylaxis Current Visit: No Status: Acute Plan to address problem: On heparin and GI prophylaxis Subjective Date of service: 05/28/21 Principal diagnosis: PVD with ischemia Interval history: 71-year-old male who looks cachectic and a very poor historian comes in for left foot ulcer for 3 months. Patient states that his helps him with mobility to the restroom and other daily activities. Mostly bedridden. Patient has a history of hyperlipidemia and coronary artery disease and hypertension. Patient has rare black also on the heel of the foot on the proximal calcaneus to the distal calcaneus about 6 cm x 6 cm at the stage III ulcer. No fever. Pain is present. Pain is about 6-7 on a scale of 1-10. Movement is an exacerbating factor. 05/28/2021 Patient to be discharged on ceftriaxone through June 30, 2021 in halfway facility. Patient to be discharged tomorrow once arrangements for IV antibiotics and made + Objective - Constitutional Vitals: Vital Signs - 12hr 05/28/21 05/28/21 05/28/21 16:31 21:04 21:17 Temperature 99.3 F Pulse Rate 76 71 74 Respiratory 16 17 Rate Blood Pressure 113/58 121/71 Blood Pressure 122/61 [Right] O2 Sat by Pulse 96 97 Oximetry 05/28/21 22:29 Temperature 98.7 F Pulse Rate 75 Respiratory 18 Rate Blood Pressure 120/62 Blood Pressure [Right] O2 Sat by Pulse 97 Oximetry General appearance: Present: no acute distress, well-nourished - EENT Eyes: PERRL, EOM intact ENT: hearing intact, clear oral mucosa Ears: bilateral: normal - Neck Neck: supple, normal ROM - Respiratory Respiratory effort: normal Respiratory: bilateral: CTA - Breasts Breasts: normal - Cardiovascular Heart rate: 78 Rhythm: regular Heart Sounds: Present: S1 & S2. Absent: gallop, rub Extremities: pulses intact, No edema, normal color, Full ROM, abnormal (Left heel ulcer) Extremity abnormal: other (Left heel ulcer) - Gastrointestinal General gastrointestinal: Present: soft, non-tender, non-distended, normal bowel sounds - Genitourinary Male genitourinary: normal - Integumentary Integumentary: clear, warm, dry - Musculoskeletal Musculoskeletal: 1, strength equal bilaterally - Neurologic Neurologic: moves all extremities - Psychiatric Psychiatric: memory intact, appropriate mood/affect, intact judgment & insight - Labs CBC & Chem 7: 05/29/21 06:45 05/29/21 06:45 Labs: Abnormal lab results 05/28/21 05/28/21 Range/Units 07:15 07:15 RBC 2.66 L (3.65-5.03) M/mm3 Hgb 7.7 L (11.8-15.2) gm/dl Hct 23.7 L (35.5-45.6) % RDW 15.9 H (13.2-15.2) % Seg Neuts % (Manual) 77.0 H (40.0-70.0) % Lymphocytes % (Manual) 13.0 L (13.4-35.0) % Lymphocytes # (Manual) 1.0 L (1.2-5.4) K/mm3 BUN 6 L (9-20) mg/dL Creatinine 0.5 L (0.8-1.3) mg/dL Calcium 8.3 L (8.4-10.2) mg/dL Magnesium 1.60 L (1.7-2.3) mg/dL
[2021-05-29 05:39] VITALS: BP 102/46
[2021-05-29 08:00] LABS: Hematocrit 24.4 % (35.5-45.6); Mean Corpuscular HGB Conc 33 % (32-34); Mean Corpuscular Volume 89 fl (84-94); Platelet Count 185 K/mm3 (140-440); Red Blood Count 2.74 M/mm3 (3.65-5.03); Red Cell Distribution Width 15.9 % (13.2-15.2)
[2021-05-29 08:18] LABS: Blood Urea Nitrogen 9 mg/dL (9-20); Calcium 8.3 mg/dL (8.4-10.2); Hemolysis Index 0
[2021-05-29 08:19] LABS: BUN/Creatinine Ratio 15
[2021-05-29 10:53] LABS: Anisocytosis 1+; Band Neutrophils # (Manual) 0.2 K/mm3; Basophils % (Manual) 0 % (0.0-1.8); Eosinophils % (Manual) 0 % (0.0-4.3); Platelet Estimate Consistent w Auto; Total Cells Counted 100
--- NOTE | 2021-05-29 10:57 | Progress Note ---
Assessment and Plan Cultures: COVID-19 PCR: Positive Wound culture 05/20/2021 Proteus. A/P: 71-year-old male with hypertension, atrial fibrillation, smoking, prior CVA was admitted to the hospital with worsening left heel ulceration over the last 3 months: #Sepsis secondary to extensive left foot cellulitis with necrotizing infection, early osteomyelitis of the calcaneal tuberosity #Peripheral vascular disease: extensive as noted on CTA. Vascular surgery following. S/p revascularization of LLE. Also revascularization of right iliac and common femoral arteries. Status post debridement of ulcer. #Protein calorie malnutrition #COVID-19 infection: Asymptomatic, on room air Recs: -started ceftriaxone 2g q24h -following debridement, anticipate 6 weeks of culture directed IV abx -Case management consulted for ceftriaxone 2g q24h until 06/30/2021 -Likely to rehab,ok for midline if otherwise necessary Rudy Aguayo MD [facility] O: [phone] F: [phone] Subjective Date of service: 05/29/21 Principal diagnosis: PVD with ischemia Interval history: Afebrile, normal white count. Objective - Exam Narrative Exam: Constitutional: Alert, cooperative. No acute distress. Cachexia Head, Ears, Nose: Normocephalic, atraumatic. External ears, nose normal Eyes: Conjunctivae/corneas clear. No icterus. No ptosis. Neck: Supple, no meningeal signs Cardiovascular: S1, S2 + Respiratory: Good air entry, clear to auscultation bilaterally GI: Soft, non-tender; bowel sounds normal. No peritoneal signs Musculoskeletal: L heel with dressing Skin: No rash or abscess Hem/Lymphatic: No palpable cervical or supraclavicular nodes. Psych: flat affect Neurological: Awake, alert, oriented. No gross abnormality - Constitutional Vitals: Vital Signs Temp Pulse Resp BP Pulse Ox 99.8 F H 77 18 102/46 98 05/29/21 05:38 05/29/21 05:38 05/29/21 05:38 05/29/21 05:38 05/29/21 05:38 Temperature -Last 24 Hours Temperature 99.8 F Temperature 98.7 F Temperature 99.3 F Temperature 97.9 F Temperature 99.0 F - Labs CBC & Chem 7: 05/29/21 06:45 05/29/21 06:45 Labs: Abnormal lab results 05/29/21 05/29/21 Range/Units 06:45 06:45 RBC 2.74 L (3.65-5.03) M/mm3 Hgb 8.0 L (11.8-15.2) gm/dl Hct 24.4 L (35.5-45.6) % RDW 15.9 H (13.2-15.2) % Seg Neuts % (Manual) 80.0 H (40.0-70.0) % Lymphocytes % (Manual) 9.0 L (13.4-35.0) % Monocytes % (Manual) 8.0 H (0.0-7.3) % Lymphocytes # (Manual) 0.8 L (1.2-5.4) K/mm3 Creatinine 0.6 L (0.8-1.3) mg/dL Calcium 8.3 L (8.4-10.2) mg/dL Magnesium 1.60 L (1.7-2.3) mg/dL
[2021-05-29] MEDS: RIVAROXABAN 2.5 MG TAB PO SCH (11:42)
[2021-05-29] MEDS: oxyCODONE /ACETAMINOPHEN 5-325MG TAB PO PRN ×2 (11:42→18:48)
[2021-05-29] MEDS: CALCIUM CARBONATE 1250 MG TAB PO SCH (11:42)
[2021-05-29] MEDS: CLOPIDOGREL 75 MG TAB PO SCH (11:43)
[2021-05-29] MEDS: GABAPENTIN 300 MG CAP PO SCH (11:43)
[2021-05-29] MEDS: FLUCONAZOLE 100 MG TAB PO SCH (11:43)
[2021-05-29] MEDS: PANTOPRAZOLE 40 MG TAB PO SCH (11:44)
[2021-05-29] MEDS: cefTRIAXone/NS 2 GM/100 ML 2 GM/100 ML BAG IV SCH (11:52)
--- NOTE | 2021-05-29 13:31 | Discharge Summary ---
Providers - Providers Date of Admission: 05/08/21 19:00 Date of discharge: 05/29/21 Attending physician: INES DAVILA 05/08/21 23:52 Consult to Physician [CONS] Routine Comment: Consulting Provider: EMIR COTTRELL Physician Instructions: Reason For Exam: Left foot osteomyelitis 05/10/21 13:09 Consult to Physician [CONS] Routine Comment: Posterior tibial artery occlusion Consulting Provider: KATIA BREEN Physician Instructions: Reason For Exam: PVD + heel eschar requiring surgical intervention 05/11/21 09:44 Physical Therapy Evaluation and Treat [CONS] Stat Comment: Reason For Exam: eval and treat 05/12/21 07:03 Consult to Physician [CONS] Routine Comment: Consulting Provider: EUGENIA MACIAS Physician Instructions: Reason For Exam: Antibiotic management 05/18/21 12:10 Consult to Physician [CONS] Routine Comment: Consulting Provider: ANDERSON SERVIN Physician Instructions: Reason For Exam: L necrotic ulcer debridement 05/21/21 09:36 Occupational Therapy Evaluate and Treat [CONS] Stat Comment: Eval and Treat Reason For Exam: Occupational Therapy 05/21/21 17:54 Consult to Wound/ET Nurse [CONS] Routine Reason For Exam: left heel wound 05/22/21 12:13 Physical Therapy Evaluation and Treat [CONS] Stat Comment: Reason For Exam: eval and treat 05/22/21 12:14 Occupational Therapy Evaluate and Treat [CONS] Stat Comment: Reason For Exam: eval and treat 05/23/21 14:51 PICC Line Insertion [Consult to PICC Line RN] [CONS] Routine Reason For Exam: USP antibotics Type Line:: PICC 05/24/21 11:38 Consult to Case Management [CONS] Routine Services Needed at Discharge: Home Health Services Notified:: CM Additional Physician Instructions: Antibiotics: ceftriaxone 2g q24h until 06/30/2021 Diagnosis: Left foot osteomyelitis Labs: CBC, CMP, CRP every Friday until antibiotics compelted. Rudy Macias [phone] 05/27/21 08:28 Consult to Physician [CONS] Routine Comment: Consulting Provider: BRITTNEY GIBSON Physician Instructions: Reason For Exam: Progressive hemoglobin drop since on Xarelto Primary care physician: KIMBERLY LONDON MD Hospitalization Condition: Stable Hospital course: Subjective Date of service: 05/29/21 Principal diagnosis: PVD with ischemia Interval history: 71-year-old male who looks cachectic and a very poor historian comes in for left foot ulcer for 3 months. Patient states that his helps him with mobility to the restroom and other daily activities. Mostly bedridden. Patient has a history of hyperlipidemia and coronary artery disease and hypertension. Patient has rare black also on the heel of the foot on the proximal calcaneus to the distal calcaneus about 6 cm x 6 cm at the stage III ulcer. No fever. Pain is present. Pain is about 6-7 on a scale of 1-10. Movement is an exacerbating factor. 05/28/2021 Patient to be discharged on ceftriaxone through June 30, 2021 in longterm facility. Patient to be discharged tomorrow once arrangements for IV antibiotics and made + Assessment and Plan - Patient Problems (1) Foot osteomyelitis, left Current Visit: Yes Status: Acute Plan to address problem: Presented to me as osteomyelitis of the left calcaneal region. Patient to get ceftriaxone through June 30, 2021 (2) Sepsis Current Visit: Yes Status: Acute Qualifiers: Severe sepsis shock status: without septic shock Plan to address problem: High white count of 20,000 IV Unasyn and IV vancomycin (3) CVA (cerebral vascular accident) Current Visit: Yes Status: Chronic Qualifiers: Laterality of affected vessel: unspecified Plan to address problem: Patient is on Plavix (4) PAD (peripheral artery disease) Current Visit: Yes Status: Acute Plan to address problem: Duplex scan requested of both lower extremities Consult vascular surgery if necessary (5) Cachexia Current Visit: Yes Status: Chronic Plan to address problem: Albumin is not low Dietary supplements Disposition: 04 [facility] Final Discharge Diagnosis (Prints w/discharge instructions): Left foot osteomyelitis. Sepsis. Cerebrovascular accident by history. Peripheral arterial disease Time spent for discharge: 35 minutes - Discharge Diagnoses (1) Foot osteomyelitis, left Status: Acute (2) Sepsis Status: Acute Qualifiers: Severe sepsis shock status: without septic shock (3) CVA (cerebral vascular accident) Status: Chronic Qualifiers: Laterality of affected vessel: unspecified (4) PAD (peripheral artery disease) Status: Acute (5) Cachexia Status: Chronic (6) DVT prophylaxis Status: Acute Core Measure Documentation - Palliative Care Palliative Care/ Comfort Measures: Not Applicable - Core Measures Any of the following diagnoses?: none Exam - Constitutional Vitals: Temp Pulse Resp BP Pulse Ox 99.8 F H 77 18 102/46 98 05/29/21 05:38 05/29/21 05:38 05/29/21 05:38 05/29/21 05:38 05/29/21 05:38 General appearance: Present: no acute distress, well-nourished - EENT Eyes: Present: PERRL ENT: hearing intact, clear oral mucosa - Neck Neck: Present: supple, normal ROM - Respiratory Respiratory effort: normal Respiratory: bilateral: CTA - Cardiovascular Heart rate: 78 Rhythm: regular Heart Sounds: Present: S1 & S2. Absent: rub, click - Extremities Extremities: no ischemia, pulses intact, pulses symmetrical, No edema, abnormal (Left foot ulcer) Extremity abnormal: other (Left foot ulcer) Peripheral Pulses: within normal limits - Abdominal General gastrointestinal: Present: soft, non-tender, non-distended, normal bowel sounds Male genitourinary: Present: normal - Integumentary Integumentary: Present: clear, warm, dry - Musculoskeletal Musculoskeletal: gait normal, strength equal bilaterally - Psychiatric Psychiatric: appropriate mood/affect, intact judgment & insight - Neurologic Neurologic: CNII-XII intact, moves all extremities Plan Weight Bearing Status: Weight Bear as Tolerated Follow up with: KATIA BREEN MD [Staff Physician] - 14 Days KIMBERLY LONDON MD [Primary Care Provider] - 3-5 Days
== END 2021-05-29 19:15 | DRG 853 ==
LOC: ED 15:04 → 3A 19:00
PROVIDERS: ADMIT Internal Medicine; ATTEND Internal Medicine
PROC: B41D1ZZ Fluoroscopy of Aorta and Bilateral Lower Extremity Arteries using Low Osmolar Contrast (ICD-10-PCS; 2021-05-11)
PROC: B41G1ZZ Fluoroscopy of Left Lower Extremity Arteries using Low Osmolar Contrast (ICD-10-PCS; 2021-05-11)
PROC: B41F1ZZ Fluoroscopy of Right Lower Extremity Arteries using Low Osmolar Contrast (ICD-10-PCS; 2021-05-11)
PROC: B41J1ZZ Fluoroscopy of Other Lower Arteries using Low Osmolar Contrast (ICD-10-PCS; 2021-05-11)
PROC: 047C3ZZ Dilation of Right Common Iliac Artery, Percutaneous Approach (ICD-10-PCS; 2021-05-14)
PROC: 047J3ZZ Dilation of Left External Iliac Artery, Percutaneous Approach (ICD-10-PCS; 2021-05-14)
PROC: 047N3ZZ Dilation of Left Popliteal Artery, Percutaneous Approach (ICD-10-PCS; 2021-05-14)
PROC: 047L3ZZ Dilation of Left Femoral Artery, Percutaneous Approach (ICD-10-PCS; 2021-05-14)
PROC: 047Q3ZZ Dilation of Left Anterior Tibial Artery, Percutaneous Approach (ICD-10-PCS; 2021-05-14)
PROC: 047L3DZ Dilation of Left Femoral Artery with Intraluminal Device, Percutaneous Approach (ICD-10-PCS; 2021-05-14)
PROC: 04FL3ZZ Fragmentation of Left Femoral Artery, Percutaneous Approach (ICD-10-PCS; 2021-05-14)
PROC: 0KBW0ZZ Excision of Left Foot Muscle, Open Approach (ICD-10-PCS; principal; 2021-05-20)
PROC: 02HV33Z Insertion of Infusion Device into Superior Vena Cava, Percutaneous Approach (ICD-10-PCS; 2021-05-25)
PROC: B548ZZA Ultrasonography of Superior Vena Cava, Guidance (ICD-10-PCS; 2021-05-25)
DX: A41.9 Sepsis, unspecified organism (principal); U07.1 COVID-19; E46 Unspecified protein-calorie malnutrition; Z68.1 Body mass index [BMI] 19.9 or less, adult; M86.172 Other acute osteomyelitis, left ankle and foot; L97.429 Non-pressure chronic ulcer of left heel and midfoot with unspecified severity; I48.20 Chronic atrial fibrillation, unspecified; L03.116 Cellulitis of left lower limb; I73.9 Peripheral vascular disease, unspecified; Z86.73 Personal history of transient ischemic attack (TIA), and cerebral infarction without residual deficits; F17.200 Nicotine dependence, unspecified, uncomplicated; E11.621 Type 2 diabetes mellitus with foot ulcer; E11.69 Type 2 diabetes mellitus with other specified complication; I77.1 Stricture of artery; E87.6 Hypokalemia; E83.42 Hypomagnesemia
CPT/HCPCS: 36246; 36415; 37220; 37222; 37224; 37226; 37228; 37242; 71045; 73721; 74174; 75625; 75716; 76937; 80048; 80053; 80202; 81001; 82550; 82565; 82607; 82728; 82747; 83550; 83615; 83735; 84132; 85007; 85025; 85027; 85045; 85610; 85730; 87040; 87075; 87076; 87086; 87116; 87186; 93005; 93925; G0378; J1815; J3490; J7120; J7502; Q0162; C1725; C1760; C1769; C1773; C1874; C1876; C1887; C1894; C2623; J0295; J0610; J0696; J1170; J1644; J2060; J2250; J2270; J2704; J3010; J3370; J3475; J3480; J7030; J7040; J7050; Q9967; U0003